=== PATIENT | female | born 1950 | race Caucasian/White ===

== ENCOUNTER → 2017-06-23 08:32 | Outpatient (CLI) | payer OTHER, SELFPAY ==
--- NOTE | 2017-06-23 08:34 | DI.RAD.S_ITS ---
PROCEDURE: XR ELBOW LT MIN 3V INDICATIONS: Left elbow pain TECHNIQUE: 3 views of the elbow were acquired. COMPARISON: None. FINDINGS: Bones: No fractures or dislocations. No suspicious bony lesions. Soft tissues: No elbow joint effusion. No suspicious soft tissue calcifications. IMPRESSION: Normal elbow Dictated by: Virgil Goss M.D. on 06/23/2017 at 9:15 Approved by: Virgil Goss M.D. on 06/23/2017 at 9:16
== END ==
PROVIDERS: Family Provider Physician Assistant; PCP Physician Assistant; Visit Provider Physician Assistant
DX: M25.522 Pain in left elbow (principal)
CPT/HCPCS: 73080

== ENCOUNTER → 2017-09-16 10:30 | Outpatient (CLI) | payer OTHER, SELFPAY ==
[2017-09-18 13:53] LABS: Fecal Immunochemical Test NOT DETECTED
== END ==
PROVIDERS: Family Provider Physician Assistant; PCP Physician Assistant; Visit Provider Physician Assistant
DX: Z12.11 Encounter for screening for malignant neoplasm of colon (principal)
CPT/HCPCS: 82274

== ENCOUNTER → 2017-11-11 08:12 | Outpatient (CLI) | payer OTHER, SELFPAY ==
[2017-11-11 10:43] LABS: Alanine Aminotransferase 30 IU/L (9-52); Albumin 4.4 g/dL (3.5-5.0); Albumin Globulin Ratio 1.8 (1.0-2.8); Alkaline Phosphatase 47 U/L (38-126); Aspartate Aminotransferase 27 IU/L (14-36); BUN Creatinine Ratio 18.8 (6-22); Bilirubin Total 0.4 mg/dL (0.2-1.3); Blood Urea Nitrogen 15 mg/dL (7-17); Carbon Dioxide 31 mmol/L (22-32); Chloride 104 mmol/L (98-107); Cholesterol 178 mg/dL (140-199); Estimated Glomerular Filt Rate > 60.0 mL/min (>60); Globulin 2.5 g/dL (1.7-4.1); Glucose 88 mg/dL (80-110); HDL Cholesterol 70 mg/dL (40-60); HEMOLYSIS < 15 (0-50); LDL Cholesterol Calculated 89 mg/dL (<100); Potassium 4.7 mmol/L (3.4-5.1); Sodium 145 mmol/L (137-145); Total Protein 6.9 g/dL (6.3-8.2); Triglycerides 93 mg/dL (35-150)
== END ==
PROVIDERS: Family Provider Physician Assistant; PCP Physician Assistant; Visit Provider Physician Assistant
DX: E78.5 Hyperlipidemia, unspecified (principal)
CPT/HCPCS: 36415; 80053; 80061

== ENCOUNTER → 2018-03-11 16:02 | Outpatient (CLI) | payer OTHER, SELFPAY ==
--- NOTE | 2018-03-11 | DI.MG.S_ITS ---
BILATERAL DIGITAL SCREENING MAMMOGRAM 3D/2D WITH CAD: 03/11/2018 CLINICAL: Routine screening. Comparison is made to exams dated: 03/10/2017 mammogram, 02/21/2016 mammogram, and 02/16/2015 mammogram - [facility]. The tissue of both breasts is heterogeneously dense. This may lower the sensitivity of mammography. Current study was also evaluated with a Computer Aided Detection (CAD) system. No significant masses, calcifications, or other findings are seen in either breast. There has been no significant interval change. IMPRESSION: NEGATIVE There is no mammographic evidence of malignancy. A 1 year screening mammogram is recommended. This exam was interpreted at Station ID: [id number]. NOTE: For mammograms, a report in lay terms will be sent to the patient. Approximately 15% of breast malignancies will not be visualized mammographically. In the management of a palpable breast mass, a negative mammogram must not discourage biopsy of a clinically suspicious lesion. Electronically Signed By: America mondragon/nacho:03/11/2018 16:37:50 letter sent: Normal Exam ACR BI-RADS Category 1: Negative 3341F
== END ==
PROVIDERS: Family Provider Physician Assistant; PCP Physician Assistant; Visit Provider Physician Assistant
DX: Z12.31 Encounter for screening mammogram for malignant neoplasm of breast (principal)
CPT/HCPCS: 77063; 77067

== ENCOUNTER → 2019-01-26 08:14 | Outpatient (CLI) | payer OTHER, SELFPAY ==
[2019-01-26 09:13] LABS: Alanine Aminotransferase 19 IU/L (<35); Albumin 4.8 g/dL (3.5-5.0); Albumin Globulin Ratio 1.7 (1.0-2.8); Alkaline Phosphatase 63 U/L (38-126); Aspartate Aminotransferase 31 IU/L (14-36); BUN Creatinine Ratio 18.9 (6-22); Bilirubin Total 0.6 mg/dL (0.2-1.3); Blood Urea Nitrogen 17 mg/dL (7-17); Calcium 10.3 mg/dL (8.4-10.2); Carbon Dioxide 28 mmol/L (22-32); Chloride 103 mmol/L (98-107); Cholesterol 180 mg/dL (140-199); Estimated Glomerular Filt Rate > 60.0 mL/min (>60); Globulin 2.8 g/dL (1.7-4.1); Glucose 98 mg/dL (80-110); HDL Cholesterol 47 mg/dL (40-60); HEMOLYSIS < 15 (0-50); LDL Cholesterol Calculated 100 mg/dL (<100); Potassium 4.3 mmol/L (3.4-5.1); Sodium 140 mmol/L (137-145); Total Protein 7.6 g/dL (6.3-8.2); Triglycerides 165 mg/dL (35-150)
== END ==
PROVIDERS: Family Provider Physician Assistant; PCP Physician Assistant; Visit Provider Physician Assistant
DX: E78.5 Hyperlipidemia, unspecified (principal)
CPT/HCPCS: 36415; 80053; 80061

== ENCOUNTER → 2019-02-09 15:35 | Outpatient (CLI) | payer OTHER, SELFPAY ==
[2019-02-12 13:11] LABS: Fecal Immunochemical Test NOT DETECTED (NOT DETECTED)
== END ==
PROVIDERS: Family Provider Physician Assistant; PCP Physician Assistant; Visit Provider Physician Assistant
DX: Z12.11 Encounter for screening for malignant neoplasm of colon (principal)
CPT/HCPCS: 82274

== ENCOUNTER → 2019-03-17 15:08 | Outpatient (CLI) | payer MEDICARE, SELFPAY ==
--- NOTE | 2019-03-17 15:10 | DI.MG.S_ITS ---
BILATERAL DIGITAL SCREENING MAMMOGRAM 3D/2D WITH CAD: 03/17/2019 CLINICAL: Routine screening. Comparison is made to exams dated: 03/11/2018 mammogram, 02/21/2016 mammogram, and 03/10/2017 mammogram - [facility]. The tissue of both breasts is heterogeneously dense. This may lower the sensitivity of mammography. Current study was also evaluated with a Computer Aided Detection (CAD) system. No significant masses, calcifications, or other findings are seen in either breast. There has been no significant interval change. IMPRESSION: NEGATIVE There is no mammographic evidence of malignancy. A 1 year screening mammogram is recommended. This exam was interpreted at Station ID: [id number]. NOTE: For mammograms, a report in lay terms will be sent to the patient. Approximately 15% of breast malignancies will not be visualized mammographically. In the management of a palpable breast mass, a negative mammogram must not discourage biopsy of a clinically suspicious lesion. Electronically Signed By: Bob tan/nacho:03/17/2019 17:39:27 letter sent: Normal Exam ACR BI-RADS Category 1: Negative 3341F
== END ==
PROVIDERS: Family Provider Physician Assistant; PCP Physician Assistant; Referring Provider Physician Assistant; Visit Provider Physician Assistant
DX: Z12.31 Encounter for screening mammogram for malignant neoplasm of breast (principal); M85.851 Other specified disorders of bone density and structure, right thigh; Z78.0 Asymptomatic menopausal state; Z82.62 Family history of osteoporosis
CPT/HCPCS: 77063; 77067; 77080

== ENCOUNTER → 2020-01-26 07:27 | Outpatient (CLI) | payer MEDICARE, SELFPAY ==
[2020-01-26 08:19] LABS: Alanine Aminotransferase 22 IU/L (<35); Albumin 4.3 g/dL (3.5-5.0); Albumin Globulin Ratio 1.5 (1.0-2.8); Alkaline Phosphatase 53 U/L (38-126); Aspartate Aminotransferase 32 IU/L (14-36); BUN Creatinine Ratio 19.8 (6-22); Bilirubin Total 0.4 mg/dL (0.2-1.3); Blood Urea Nitrogen 17 mg/dL (7-17); Calcium 9.7 mg/dL (8.4-10.2); Carbon Dioxide 27 mmol/L (22-32); Chloride 107 mmol/L (98-107); Cholesterol 181 mg/dL (140-199); Estimated Glomerular Filt Rate > 60.0 mL/min (>60); Globulin 2.9 g/dL (1.7-4.1); Glucose 103 mg/dL (80-110); HDL Cholesterol 64 mg/dL (40-60); HEMOLYSIS < 15 (0-50); LDL Cholesterol Calculated 96 mg/dL (<100); Potassium 4.2 mmol/L (3.4-5.1); Sodium 139 mmol/L (137-145); Total Protein 7.2 g/dL (6.3-8.2); Triglycerides 105 mg/dL (35-150)
== END ==
PROVIDERS: Family Provider Physician Assistant; PCP Registered Nurse Diabetes Educator; Referring Provider Registered Nurse Diabetes Educator; Visit Provider Registered Nurse Diabetes Educator
DX: E78.5 Hyperlipidemia, unspecified (principal)
CPT/HCPCS: 36415; 80053; 80061

== ENCOUNTER → 2020-02-15 14:34 | Outpatient (CLI) | payer MEDICARE, SELFPAY ==
[2020-02-16 08:40] LABS: Fecal Immunochemical Test Negative (Negative)
== END ==
PROVIDERS: Family Provider Physician Assistant; PCP Registered Nurse Diabetes Educator; Referring Provider Registered Nurse Diabetes Educator; Visit Provider Registered Nurse Diabetes Educator
DX: Z12.11 Encounter for screening for malignant neoplasm of colon (principal)
CPT/HCPCS: 82274

== ENCOUNTER → 2020-03-20 08:16 | Outpatient (CLI) | payer MEDICARE, SELFPAY ==
--- NOTE | 2020-03-20 08:17 | DI.MG.S_ITS ---
BILATERAL DIGITAL SCREENING MAMMOGRAM 3D/2D WITH CAD: 03/20/2020 CLINICAL: Routine screening. Comparison is made to exams dated: 03/17/2019 mammogram, 03/11/2018 mammogram, and 03/10/2017 mammogram - [facility]. The tissue of both breasts is heterogeneously dense. This may lower the sensitivity of mammography. Current study was also evaluated with a Computer Aided Detection (CAD) system. No significant masses, calcifications, or other findings are seen in either breast. There has been no significant interval change. IMPRESSION: NEGATIVE There is no mammographic evidence of malignancy. A 1 year screening mammogram is recommended. This exam was interpreted at Station ID: [id number]. NOTE: For mammograms, a report in lay terms will be sent to the patient. Approximately 15% of breast malignancies will not be visualized mammographically. In the management of a palpable breast mass, a negative mammogram must not discourage biopsy of a clinically suspicious lesion. Electronically Signed By: Wilfrid esteves/nacho:03/20/2020 08:56:55 letter sent: Normal Exam ACR BI-RADS Category 1: Negative 3341F
== END ==
PROVIDERS: Family Provider Physician Assistant; PCP Registered Nurse Diabetes Educator; Referring Provider Registered Nurse Diabetes Educator; Visit Provider Registered Nurse Diabetes Educator
DX: Z12.31 Encounter for screening mammogram for malignant neoplasm of breast (principal)
CPT/HCPCS: 77063; 77067

== ENCOUNTER → 2021-01-26 14:07 | Outpatient (CLI) | payer MEDICARE, SELFPAY ==
--- NOTE | 2021-01-26 14:08 | DI.RAD.S_ITS ---
PROCEDURE: XR WRIST LT MIN 3V INDICATIONS: fall 5 wks ago TECHNIQUE: 4 views of the wrist were acquired. COMPARISON: None. FINDINGS: Bones: No fractures or dislocations. No suspicious bony lesions. Scaphoid view: Scaphoid is intact. Soft tissues: No suspicious soft tissue calcifications. IMPRESSION: No fracture. No osseous lesion. If symptoms and/or clinical suspicion for pathology persists, further assessment with repeat radiographs (7-10 days) or advanced imaging (e.g. CT, MRI or bone scan) should be considered. Dictated by: Jeane Gonzales MD, PhD on 01/26/2021 at 14:23 Approved by: Jeane Gonzales MD, PhD on 01/26/2021 at 14:23
== END ==
PROVIDERS: Family Provider Physician Assistant; PCP Registered Nurse Diabetes Educator; Referring Provider Registered Nurse Diabetes Educator; Visit Provider Registered Nurse Diabetes Educator
DX: M25.532 Pain in left wrist (principal)
CPT/HCPCS: 73110

== ENCOUNTER → 2021-03-22 10:47 | Outpatient (CLI) | payer MEDICARE, SELFPAY ==
--- NOTE | 2021-03-22 | DI.MG.S_ITS ---
BILATERAL DIGITAL SCREENING MAMMOGRAM 3D/2D WITH CAD: 03/22/2021 CLINICAL: Routine screening. Comparison is made to exams dated: 03/20/2020 mammogram, 03/17/2019 mammogram, and 03/11/2018 mammogram - [facility]. The tissue of both breasts is heterogeneously dense. This may lower the sensitivity of mammography. Current study was also evaluated with a Computer Aided Detection (CAD) system. No significant masses, calcifications, or other findings are seen in either breast. There has been no significant interval change. IMPRESSION: NEGATIVE There is no mammographic evidence of malignancy. A 1 year screening mammogram is recommended. This exam was interpreted at Station ID: [id number]. NOTE: For mammograms, a report in lay terms will be sent to the patient. Approximately 15% of breast malignancies will not be visualized mammographically. In the management of a palpable breast mass, a negative mammogram must not discourage biopsy of a clinically suspicious lesion. Electronically Signed By: Garth Savage M.D., jr/nacho:03/22/2021 11:33:25 letter sent: Normal Exam ACR BI-RADS Category 1: Negative [id number]
== END ==
PROVIDERS: Family Provider Physician Assistant; PCP Registered Nurse Diabetes Educator; Referring Provider Registered Nurse Diabetes Educator; Visit Provider Registered Nurse Diabetes Educator
DX: Z12.31 Encounter for screening mammogram for malignant neoplasm of breast (principal)
CPT/HCPCS: 77063; 77067

== ENCOUNTER → 2021-05-09 17:10 | Outpatient (CLI) | payer MEDICARE, SELFPAY | PROVIDERS: Family Provider Physician Assistant; PCP Registered Nurse Diabetes Educator; Visit Provider Registered Nurse Diabetes Educator | DX: L02.511 Cutaneous abscess of right hand (principal) | CPT/HCPCS: 87070; 87075; 87205 ==

== ENCOUNTER → 2021-05-22 16:06 | Outpatient (CLI) | payer MEDICARE, SELFPAY ==
--- NOTE | 2021-05-22 16:08 | DI.MRI.S_ITS ---
PROCEDURE: MR WRIST LT WO CON INDICATIONS: eval L wrist pain TECHNIQUE: Noncontrast coronal proton density fast spin echo and T2 fast spin echo with fat saturation; coronal 3-D gradient echo, axial T1 spin echo and T2 fast spin echo with fat saturation, sagittal T1 spin echo through the wrist. COMPARISON: [facility], CR, XR WRIST LT MIN 3V, 01/26/2021, 14:02. FINDINGS: Image quality: Excellent. Bones and cartilage: The carpal bones are normally aligned. No bone marrow contusions or fractures. No evidence for avascular necrosis. Full-thickness cartilage loss is seen at the 1st carpometacarpal joint with mild subchondral cystic changes and formation of small marginal osteophytes. Cartilage loss is also noted at the triscaphe joint. No acute osseous erosion or osteitis is seen. Carpal ligaments: The scapholunate and lunotriquetral ligaments appear intact. In the absence of intra-articular contrast, the extrinsic carpal ligaments are not well identified. On sagittal images, the pisohamate ligament appears intact. Triangular fibrocartilage complex: Focal likely degenerative perforation of the triangle fibrocartilage disc is seen near the radial attachment. Small amount of fluid is seen in the distal radioulnar joint. The dorsal and volar radioulnar ligaments remain intact. Tendons and soft tissues: The carpal tunnel structures appear normal, including the median nerve. The ulnar nerve appears normal within Guyon's canal. Moderate extensor carpi ulnaris tendinosis and trace tenosynovitis. There is tendinosis of the extensor pollicis longus tendon. The 1st extensor compartment tendons also demonstrate mild tendinosis. The remaining extensor tendon compartments demonstrate normal morphology, without pathologic tendon sheath fluid. No soft tissue ganglion cysts. IMPRESSION: 1. Moderate 1st carpometacarpal joint and mild triscaphe joint osteoarthrosis. 2. Moderate tendinosis and trace tenosynovitis of the extensor carpi ulnaris tendon. 3. Mild tendinosis of the 1st and 3rd extensor compartment tendons. 4. 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 Small distal radioulnar joint effusion. Dictated by: Franck Callejas M.D. on 05/22/2021 at 20:37 Approved by: Franck Callejas M.D. on 05/22/2021 at 20:43
== END ==
PROVIDERS: Family Provider Physician Assistant; PCP Registered Nurse Diabetes Educator; Referring Provider Registered Nurse Diabetes Educator; Visit Provider Registered Nurse Diabetes Educator
DX: S63.502A Unspecified sprain of left wrist, initial encounter (principal); M18.12 Unilateral primary osteoarthritis of first carpometacarpal joint, left hand; M19.032 Primary osteoarthritis, left wrist; M25.432 Effusion, left wrist; X58.XXXA Exposure to other specified factors, initial encounter
CPT/HCPCS: 73221

== ENCOUNTER → 2021-06-08 09:52 | Outpatient (CLI) | payer MEDICARE, SELFPAY ==
[2021-06-08 10:48] LABS: Alanine Aminotransferase 22 IU/L (<35); Albumin 4.3 g/dL (3.5-5.0); Albumin Globulin Ratio 1.8 (1.0-2.8); Alkaline Phosphatase 55 U/L (38-126); Aspartate Aminotransferase 29 IU/L (14-36); BUN Creatinine Ratio 17.6 (6-22); Bilirubin Total 0.3 mg/dL (0.2-1.3); Blood Urea Nitrogen 15 mg/dL (7-17); Calcium 9.5 mg/dL (8.4-10.2); Carbon Dioxide 28 mmol/L (22-32); Chloride 107 mmol/L (98-107); Cholesterol 184 mg/dL (140-199); Estimated Glomerular Filt Rate > 60 mL/min (>60); Globulin 2.4 g/dL (1.7-4.1); Glucose 111 mg/dL (80-110); HDL Cholesterol 68 mg/dL (40-60); HEMOLYSIS < 15 (0-50); LDL Cholesterol Calculated 97 mg/dL (<100); Potassium 4.4 mmol/L (3.4-5.1); Sodium 142 mmol/L (137-145); Total Protein 6.7 g/dL (6.3-8.2); Triglycerides 94 mg/dL (35-150)
== END ==
PROVIDERS: Family Provider Physician Assistant; PCP Registered Nurse Diabetes Educator; Referring Provider Registered Nurse Diabetes Educator; Visit Provider Registered Nurse Diabetes Educator
DX: E78.5 Hyperlipidemia, unspecified (principal)
CPT/HCPCS: 36415; 80053; 80061

== ENCOUNTER → 2021-06-14 15:13 | Outpatient (CLI) | payer MEDICARE, SELFPAY ==
[2021-06-19 07:36] LABS: Fecal Immunochemical Test Negative (Negative)
== END ==
PROVIDERS: Family Provider Physician Assistant; PCP Registered Nurse Diabetes Educator; Referring Provider Registered Nurse Diabetes Educator; Visit Provider Registered Nurse Diabetes Educator
DX: Z00.00 Encounter for general adult medical examination without abnormal findings (principal)
CPT/HCPCS: 82274

== ENCOUNTER 2021-07-12 13:45 | Outpatient (RCR) | payer MEDICARE, SELFPAY ==
--- NOTE | 2021-03-08 16:00 | PT.OIE ---
Current Diagnoses Pain in left wrist (03/08/21) Muscle weakness (generalized) (03/08/21) Past Medical History (Last Reviewed 01/29/21 @ 09:08 by NACHO Griggs) Fibromyalgia Hyperlipidemia Impaired fasting blood sugar Sciatica Skin lesion Past Surgical History (Last Reviewed 01/29/21 @ 09:08 by NACHO Griggs) Status post arthroscopy Visit Care Team Role Provider Type Bette Selby PA-C Family Provider Advanced Mica Inspector Specialty: Medical Address: [address], [address] Email: [email or web address] NACHO Griggs Attending Provider Advanced Mica Inspector Primary Care Provider Referring Provider Specialty: Medical Address: [address] [place] [address], [id number] Email: [email or web address] Physical Therapy Initial Evaluation PT-OP-A Visit Information Start: 03/06/21 19:06 Freq: Status: Active Protocol: Document 03/08/21 09:51 LRN (Rec: 03/08/21 10:41 LRN [id number]) Out-Patient Physical Therapy Visit Information Visit Information Visit Type Initial Evaluation Visit Start Time 09:51 Visit Stop Time 10:39 Total Visit Minutes 48 Visit Number 1 Evaluation Information Evaluation Date 03/08/21 Precautions Precautions Osteopenia, Fibromyalgia PT-OP-B Current Condition Start: 03/06/21 19:06 Freq: Status: Active Protocol: Document 03/08/21 09:51 LRN (Rec: 03/08/21 10:41 LRN [id number]) Current Condition History of Current Condition Onset Date 2 months ago Current Complaints L dorals wrist pain. History of Current Condition Pt reports she fell in mid Nov stepping wrong on a rock, causing her L ankle to IV. She sprained the L ankle and thought the L wrist as well. The L ankle has gotten better, but the wrist has not. States x-rays show no fracture , but if not better will do an MRI to confirm no small bone fractures. Norris Van gave her a L wrist splint. She has been wearing at least a month , wearing it during the day. Pt is R handed. Prior Treatments and Tests L wrist brace. Future Testing and Treatments Planned Possible MRI if condition not improved. Treatment Goals Patient/Caregiver Goals Pt goal to: - eliminate the pain. - pain no greater than 1/10 with dish washing - pain no greater than 1/10 with putting pants & socks on, and tying shoes. - pain no greater than 1/10 with bathing. Prior Functional Status Baseline Function- ADL's Independent Baseline Function- Mobility Independent Baseline Function- Recreation/Hobbies Exercising at local gym 6x/ week for UE/LE strenghtening & aerobic workouts. Current Functional Impairments (Reported) Functional Limitations- ADL's Difficulty with ADLs due to L wrist pain. (R handed) Functional Limitations- Recreation/ Exercising at local gym 6x/ Hobbies week with only LE strengthenig & aerobic workouts. Personal Factors Other Personal Factors That May Effect Lost partner 10 months ago. Therapy/Recovery PT-OP-C Subjective Start: 03/06/21 19:06 Freq: Status: Active Protocol: Document 03/08/21 09:51 LRN (Rec: 03/08/21 10:41 LRN [id number]) Patient Questionnaires Quick Dash- Upper Extremity Quick Dash UE Score 43.18 Quick Dash UE Impairment 40 to 59% Impaired (Score 40- 59) OP-PT Pain Assessment Pain Assessment Grid Paper Pain Assessment Grid Completed Yes Location L wrist Intensity 4 Scale Used Numeric (0 - 10) Description Aching,Sharp Description- Other Sharp if moves the wrong way Frequency Constant Pain Duration Will go away occasionally for 10-15'. PT-OP-J Posture/Palpation/Skin Start: 03/06/21 19:06 Freq: Status: Active Protocol: Document 03/08/21 09:51 LRN (Rec: 03/08/21 10:41 LRN [id number]) Posture Evaluation Position Sitting Head/C-Spine Posture Forward Head Shoulder Posture (R) Elevated Arm Posture (L) Internally Rotated,(R) Internally Rotated Palpation Assessment Location L wrist Palpation Location Volar wrist across small bones and CMC of thumb Palpation Findings Tenderness PT-OP-K Range of Motion Start: 03/06/21 19:06 Freq: Status: Active Protocol: Document 03/08/21 09:51 LRN (Rec: 03/08/21 10:41 LRN [id number]) Elbow/Forearm Range of Motion Elbow/Forearm Right Active Elbow/Forearm ROM WFL Yes ROM Testing Position Sitting Left Active Elbow/Forearm ROM WFL Yes ROM Testing Position Sitting Wrist Goniometric Range of Motion Wrist Right Wrist ROM WFL Yes Flexion Active (degrees) 70 Extension Active (degrees) 68 Ulnar Deviation Active (degrees) 47 Radial Deviation Active (degrees) 28 Left Wrist ROM WFL No Flexion Active (degrees) 74 Extension Active (degrees) 73 Ulnar Deviation Active (degrees) 38 Radial Deviation Active (degrees) 30 ROM Limitations Wrist Limitations of Range of Motion Pain Comments Pain with L wrist flex & UD ( hand in pronation) Thumb Goniometric Range of Motion Thumb Right Thumb ROM WFL Yes MCP Flexion Active (degrees) 52 MCP Extension Active (0 degrees) 0 H IP Flexion Active (degrees) 70 IP Extension Active (degrees) 0 CMC Flexion Active (degrees) 6 CMC Extension Active (degrees) 50 Left Thumb ROM WFL No MCP Flexion Active (degrees) 58 MCP Extension Active (0 degrees) 0 H IP Flexion Active (degrees) 78 IP Extension Active (degrees) 0 CMC Flexion Active (degrees) 6 CMC Extension Active (degrees) 32 Comments AB 77 deg's PT-OP-L Special Tests Start: 03/06/21 19:06 Freq: Status: Active Protocol: Document 03/08/21 09:51 LRN (Rec: 03/08/21 11:55 [facility] [id number]) Special Tests Elbow Special Tests Jose G's Test Results Tightness/pain noted bilaterally. Wrist/Hand Special Tests Scaphoid Thrust Test Test Results + L wrist Comments Pain with light dorsal force applied on volar side indicates possible scapholunate instability. Load & Grind Test Test Results + L thumb Comments Indicates possible arthritis at CMC jt PT-OP-M Strength Start: 03/06/21 19:06 Freq: Status: Active Protocol: Document 03/08/21 09:51 LRN (Rec: 03/08/21 10:41 [facility] [id number]) Elbow/Forearm Strength Elbow and Forearm Manual Muscle Testing Right Flexion (C6) 5 Normal Extension (C7) 5 Normal Pronation 5 Normal Supination 5 Normal Left Flexion (C6) 5 Normal Extension (C7) 5 Normal Pronation 5 Normal Supination 5 Normal Wrist Strength Wrist Manual Muscle Testing Right Flexion (C7) 5 Normal Extension (C6) 5 Normal Ulnar Deviation 4+ Good+ Left Flexion (C7) 4 Good Extension (C6) 4 Good Ulnar Deviation 5 Normal Radial Deviation 5 Normal Comments Pain with MMT PT-OP-Q Treatments Start: 03/06/21 19:06 Freq: Status: Active Protocol: Document 03/08/21 09:51 LRN (Rec: 03/08/21 10:41 LRN [id number]) Self-Care/Home Management Treatment Education Other Education Discussed results of evaluation, goals, and plan of care (POC). Pt agreeable to goals and POC. Educated pt in edema management with RICE and Hot/ Cold technique. Activities Self-Care/Home Management Activities Issued HEP of edema management with handouts issued for self care RICE & Hot/Cold treatment. PT-OP-T Assessment and Plan Start: 03/06/21 19:06 Freq: Status: Active Protocol: Document 03/08/21 09:51 LRN (Rec: 03/08/21 10:41 LRN [id number]) Physical Therapy Assessment Rehab Potential Rehabilitation Potential Good Evaluation Complexity Number of Personal Factors/Comorbidities 1-2 Number of Body Systems Impaired 4 or More Clinical Presentation at Evaluation Evolving Impairments Impairments Activity Tolerance,Edema,Pain, ROM,Soft Tissue Mobility, Strength Goals Four Impairment Decreased function per UE QUICKdash score ........ Permastone Mechanic Goal (LTG) Pain no greater than 1/10 with dish washing. LTG Duration 05/21/21 Three Impairment Decreased strength Impairment L wrist Flex/Ext 4/5 (R flex/ Ext is 5/5) Short Term Goal (STG) Pt educated in wrist strengthening ex's. STG Duration 04/12/21 Penitentiary Goal (LTG) Pain no greater than 1/10 with putting pants & socks on, and tying shoes. LTG Duration 05/21/21 Two Impairment Decreased mobility Impairment L UD 38 deg's (R is 47 deg's), R Flex & ext AROM is painful Short Term Goal (STG) Pt able to get out of bed by pushing with arm with pain no greater than 1/10. STG Duration 04/12/21 Permastone Mechanic Goal (LTG) Pain no greater than 1/10 with bathing. LTG Duration 05/21/21 One Impairment Lacks appropriate self care HEP. Short Term Goal (STG) Pt issued self care HEP of general UE strengthening ex's. STG Duration 04/12/21 Penitentiary Goal (LTG) Return to UE exercise at local gym with pain no greater than 1/10. LTG Duration 05/21/21 Assessment Summary Assessment Pt presents to therapy with soft tissue dysfunction and possible scapholunate instability. She is limited in L wrist mobility and strength due to pain. If the pt is not able to return to prior function, further testing would be appropriate. The pt will benefit from skilled physical therapy to achieve the above stated goals . Physical Therapy Plan Frequency and Duration Frequency of Treatment 2x/Week Plan of Care Start Date 03/08/21 Plan of Care End Date 05/21/21 Therapeutic Interventions Therapeutic Interventions Aquatic Therapy Next Visit Focus/Plan Next Note Type Treatment Note Next Visit Plan Assess interior design consultant/pinch strength, if tolerated joint mobility of carpal bones. Assess for fx w/tuning fork. US thenar eminence, carpal tunnel & start strengthening for stabilization, end with cold pack if needed.
--- NOTE | 2021-03-08 16:00 | PT.OPPOC ---
Physical, Occupational & Speech Therapy At [facility] Current Diagnoses Pain in left wrist (03/08/21) Muscle weakness (generalized) (03/08/21) Visit Care Team Role Provider Type Bette Selby PA-C Family Provider Advanced Concrete Pipe Making Machine Operator Specialty: Medical Address: [facility], [address] [place], [address] Email: [email or web address] NACHO Griggs Attending Provider Advanced Concrete Pipe Making Machine Operator Primary Care Provider Referring Provider Specialty: Medical Address: [address] [place] [address], [id number] Email: [email or web address] Plan Of Care PT-OP-T Assessment and Plan Start: 03/06/21 19:06 Freq: Status: Active Protocol: Document 03/08/21 09:51 LRN (Rec: 03/08/21 10:41 LRN [id number]) Physical Therapy Assessment Rehab Potential Rehabilitation Potential Good Evaluation Complexity Number of Personal Factors/Comorbidities 1-2 Number of Body Systems Impaired 4 or More Clinical Presentation at Evaluation Evolving Impairments Impairments Activity Tolerance,Edema,Pain, ROM,Soft Tissue Mobility, Strength Goals Four Impairment Decreased function per UE QUICKdash score ........ Leasing Property Manager Goal (LTG) Pain no greater than 1/10 with dish washing. LTG Duration 05/21/21 Three Impairment Decreased strength Impairment L wrist Flex/Ext 4/5 (R flex/ Ext is 5/5) Short Term Goal (STG) Pt educated in wrist strengthening ex's. STG Duration 04/12/21 Mcc Goal (LTG) Pain no greater than 1/10 with putting pants & socks on, and tying shoes. LTG Duration 05/21/21 Two Impairment Decreased mobility Impairment L UD 38 deg's (R is 47 deg's), R Flex & ext AROM is painful Short Term Goal (STG) Pt able to get out of bed by pushing with arm with pain no greater than 1/10. STG Duration 04/12/21 Mcc Goal (LTG) Pain no greater than 1/10 with bathing. LTG Duration 05/21/21 One Impairment Lacks appropriate self care HEP. Short Term Goal (STG) Pt issued self care HEP of general UE strengthening ex's. STG Duration 04/12/21 Mcc Goal (LTG) Return to UE exercise at local gym with pain no greater than 1/10. LTG Duration 05/21/21 Assessment Summary Assessment Pt presents to therapy with soft tissue dysfunction and possible scapholunate instability. She is limited in L wrist mobility and strength due to pain. If the pt is not able to return to prior function, further testing would be appropriate. The pt will benefit from skilled physical therapy to achieve the above stated goals . Physical Therapy Plan Frequency and Duration Frequency of Treatment 2x/Week Plan of Care Start Date 03/08/21 Plan of Care End Date 05/21/21 Therapeutic Interventions Therapeutic Interventions Aquatic Therapy Next Visit Focus/Plan Next Note Type Treatment Note Next Visit Plan Assess collections technician/pinch strength, if tolerated joint mobility of carpal bones. Assess for fx w/tuning fork. US thenar eminence, carpal tunnel & start strengthening for stabilization, end with cold pack if needed. Plan of Care Dates Plan of Care Start Date 03/08/21 Plan of Care End Date 05/21/21 Electronically Signed by: America Pendleton, PT 03/09/21 0944 Please Sign and Return: I have reviewed this Plan of Care and certify that the skilled therapy services above are required to meet the patient?s needs. Physician Signature Date Printed Name and Credentials Clinical Instructor Signature Printed Name and Credentials
--- NOTE | 2021-03-08 16:35 | PT.OIE ---
Current Diagnoses Pain in left wrist (03/08/21) Muscle weakness (generalized) (03/08/21) Past Medical History (Last Reviewed 01/29/21 @ 09:08 by NACHO Griggs) Fibromyalgia Hyperlipidemia Impaired fasting blood sugar Sciatica Skin lesion Past Surgical History (Last Reviewed 01/29/21 @ 09:08 by NACHO Griggs) Status post arthroscopy Visit Care Team Role Provider Type Bette Selby PA-C Family Provider Advanced Manager Storage Specialty: Medical Address: [address], [address] Email: [email or web address] NACHO Griggs Attending Provider Advanced Manager Storage Primary Care Provider Referring Provider Specialty: Medical Address: [address] [place] [address], [id number] Email: [email or web address] Physical Therapy Initial Evaluation PT-OP-A Visit Information Start: 03/06/21 19:06 Freq: Status: Active Protocol: Document 03/08/21 09:51 LRN (Rec: 03/08/21 10:41 LRN [id number]) Out-Patient Physical Therapy Visit Information Visit Information Visit Type Initial Evaluation Visit Start Time 09:51 Visit Stop Time 10:39 Total Visit Minutes 48 Visit Number 1 Evaluation Information Evaluation Date 03/08/21 Precautions Precautions Osteopenia, Fibromyalgia PT-OP-B Current Condition Start: 03/06/21 19:06 Freq: Status: Active Protocol: Document 03/08/21 09:51 LRN (Rec: 03/08/21 10:41 LRN [id number]) Current Condition History of Current Condition Onset Date 2 months ago Current Complaints L dorals wrist pain. History of Current Condition Pt reports she fell in mid Nov stepping wrong on a rock, causing her L ankle to IV. She sprained the L ankle and thought the L wrist as well. The L ankle has gotten better, but the wrist has not. States x-rays show no fracture , but if not better will do an MRI to confirm no small bone fractures. Norris Van gave her a L wrist splint. She has been wearing at least a month , wearing it during the day. Pt is R handed. Prior Treatments and Tests L wrist brace. Future Testing and Treatments Planned Possible MRI if condition not improved. Treatment Goals Patient/Caregiver Goals Pt goal to: - eliminate the pain. - pain no greater than 1/10 with dish washing - pain no greater than 1/10 with putting pants & socks on, and tying shoes. - pain no greater than 1/10 with bathing. Prior Functional Status Baseline Function- ADL's Independent Baseline Function- Mobility Independent Baseline Function- Recreation/Hobbies Exercising at local gym 6x/ week for UE/LE strenghtening & aerobic workouts. Current Functional Impairments (Reported) Functional Limitations- ADL's Difficulty with ADLs due to L wrist pain. (R handed) Functional Limitations- Recreation/ Exercising at local gym 6x/ Hobbies week with only LE strengthenig & aerobic workouts. Personal Factors Other Personal Factors That May Effect Lost partner 10 months ago. Therapy/Recovery PT-OP-C Subjective Start: 03/06/21 19:06 Freq: Status: Active Protocol: Document 03/08/21 09:51 LRN (Rec: 03/08/21 10:41 LRN [id number]) Patient Questionnaires Quick Dash- Upper Extremity Quick Dash UE Score 43.18 Quick Dash UE Impairment 40 to 59% Impaired (Score 40- 59) OP-PT Pain Assessment Pain Assessment Grid Paper Pain Assessment Grid Completed Yes Location L wrist Intensity 4 Scale Used Numeric (0 - 10) Description Aching,Sharp Description- Other Sharp if moves the wrong way Frequency Constant Pain Duration Will go away occasionally for 10-15'. PT-OP-J Posture/Palpation/Skin Start: 03/06/21 19:06 Freq: Status: Active Protocol: Document 03/08/21 09:51 LRN (Rec: 03/08/21 10:41 LRN [id number]) Posture Evaluation Position Sitting Head/C-Spine Posture Forward Head Shoulder Posture (R) Elevated Arm Posture (L) Internally Rotated,(R) Internally Rotated Palpation Assessment Location L wrist Palpation Location Volar wrist across small bones and CMC of thumb Palpation Findings Tenderness PT-OP-K Range of Motion Start: 03/06/21 19:06 Freq: Status: Active Protocol: Document 03/08/21 09:51 LRN (Rec: 03/08/21 10:41 LRN [id number]) Elbow/Forearm Range of Motion Elbow/Forearm Right Active Elbow/Forearm ROM WFL Yes ROM Testing Position Sitting Left Active Elbow/Forearm ROM WFL Yes ROM Testing Position Sitting Wrist Goniometric Range of Motion Wrist Right Wrist ROM WFL Yes Flexion Active (degrees) 70 Extension Active (degrees) 68 Ulnar Deviation Active (degrees) 47 Radial Deviation Active (degrees) 28 Left Wrist ROM WFL No Flexion Active (degrees) 74 Extension Active (degrees) 73 Ulnar Deviation Active (degrees) 38 Radial Deviation Active (degrees) 30 ROM Limitations Wrist Limitations of Range of Motion Pain Comments Pain with L wrist flex & UD ( hand in pronation) Thumb Goniometric Range of Motion Thumb Right Thumb ROM WFL Yes MCP Flexion Active (degrees) 52 MCP Extension Active (0 degrees) 0 H IP Flexion Active (degrees) 70 IP Extension Active (degrees) 0 CMC Flexion Active (degrees) 6 CMC Extension Active (degrees) 50 Left Thumb ROM WFL No MCP Flexion Active (degrees) 58 MCP Extension Active (0 degrees) 0 H IP Flexion Active (degrees) 78 IP Extension Active (degrees) 0 CMC Flexion Active (degrees) 6 CMC Extension Active (degrees) 32 Comments AB 77 deg's PT-OP-L Special Tests Start: 03/06/21 19:06 Freq: Status: Active Protocol: Document 03/08/21 09:51 LRN (Rec: 03/08/21 11:55 [facility] [id number]) Special Tests Elbow Special Tests Jose G's Test Results Tightness/pain noted bilaterally. Wrist/Hand Special Tests Scaphoid Thrust Test Test Results + L wrist Comments Pain with light dorsal force applied on volar side indicates possible scapholunate instability. Load & Grind Test Test Results + L thumb Comments Indicates possible arthritis at CMC jt PT-OP-M Strength Start: 03/06/21 19:06 Freq: Status: Active Protocol: Document 03/08/21 09:51 LRN (Rec: 03/08/21 10:41 [facility] [id number]) Elbow/Forearm Strength Elbow and Forearm Manual Muscle Testing Right Flexion (C6) 5 Normal Extension (C7) 5 Normal Pronation 5 Normal Supination 5 Normal Left Flexion (C6) 5 Normal Extension (C7) 5 Normal Pronation 5 Normal Supination 5 Normal Wrist Strength Wrist Manual Muscle Testing Right Flexion (C7) 5 Normal Extension (C6) 5 Normal Ulnar Deviation 4+ Good+ Left Flexion (C7) 4 Good Extension (C6) 4 Good Ulnar Deviation 5 Normal Radial Deviation 5 Normal Comments Pain with MMT PT-OP-Q Treatments Start: 03/06/21 19:06 Freq: Status: Active Protocol: Document 03/08/21 09:51 LRN (Rec: 03/08/21 10:41 LRN [id number]) Self-Care/Home Management Treatment Education Other Education Discussed results of evaluation, goals, and plan of care (POC). Pt agreeable to goals and POC. Educated pt in edema management with RICE and Hot/ Cold technique. Activities Self-Care/Home Management Activities Issued HEP of edema management with handouts issued for self care RICE & Hot/Cold treatment. PT-OP-T Assessment and Plan Start: 03/06/21 19:06 Freq: Status: Active Protocol: Document 03/08/21 09:51 LRN (Rec: 03/08/21 10:41 LRN [id number]) Physical Therapy Assessment Rehab Potential Rehabilitation Potential Good Evaluation Complexity Number of Personal Factors/Comorbidities 1-2 Number of Body Systems Impaired 4 or More Clinical Presentation at Evaluation Evolving Impairments Impairments Activity Tolerance,Edema,Pain, ROM,Soft Tissue Mobility, Strength Goals Four Impairment Decreased function per UE QUICKdash score 43 Impairment 40 to 59% Impaired (Score 40- 59) Short Term Goal (STG) Pain no greater than 2/10 with dish washing. STG Duration 04/12/21 Formal Wear Rental Clerk Goal (LTG) Improve UE function per QUICKdash score of no more than 39 (10-39 = 29-39% impaired). LTG Duration 05/21/21 Three Impairment Decreased strength Impairment L wrist Flex/Ext 4/5 (R flex/ Ext is 5/5) Short Term Goal (STG) Pt educated in wrist strengthening ex's. STG Duration 04/12/21 Jail Goal (LTG) Pain no greater than 1/10 with putting pants & socks on, and tying shoes. LTG Duration 05/21/21 Two Impairment Decreased mobility Impairment L UD 38 deg's (R is 47 deg's), R Flex & ext AROM is painful Short Term Goal (STG) Pt able to get out of bed by pushing with arm with pain no greater than 1/10. STG Duration 04/12/21 Formal Wear Rental Clerk Goal (LTG) Pain no greater than 1/10 with bathing. LTG Duration 05/21/21 One Impairment Lacks appropriate self care HEP. Short Term Goal (STG) Pt issued self care HEP of general UE strengthening ex's. STG Duration 04/12/21 Formal Wear Rental Clerk Goal (LTG) Return to UE exercise at local gym with pain no greater than 1/10. LTG Duration 05/21/21 Assessment Summary Assessment Pt presents to therapy with soft tissue dysfunction and possible scapholunate instability. She is limited in L wrist mobility and strength due to pain. If the pt is not able to return to prior function, further testing would be appropriate. The pt will benefit from skilled physical therapy to achieve the above stated goals . Physical Therapy Plan Frequency and Duration Frequency of Treatment 2x/Week Plan of Care Start Date 03/08/21 Plan of Care End Date 05/21/21 Therapeutic Interventions Therapeutic Interventions Home Exercise Program,Joint Mobilizations,Manual Therapy, Patient/Caregiver Education, Self-Care/Home Management,Soft Tissue Mobilization,Taping, Therapeutic Exercises Modalities Cold Pack/Ice Massage,Hot Packs,Ultrasound Next Visit Focus/Plan Next Note Type Treatment Note Next Visit Plan Assess training mgr/pinch strength, if tolerated joint mobility of carpal bones. Assess for fx w/tuning fork. US thenar eminence, carpal tunnel & start strengthening for stabilization, end with cold pack if needed.
--- NOTE | 2021-03-08 16:36 | PT.OPPOC ---
Physical, Occupational & Speech Therapy At [facility] Current Diagnoses Pain in left wrist (03/08/21) Muscle weakness (generalized) (03/08/21) Visit Care Team Role Provider Type Bette Selby PA-C Family Provider Advanced Heavy Media Operator Specialty: Medical Address: [facility], [address] [place] [address], [id number] Email: [email or web address] NACHO Griggs Attending Provider Advanced Heavy Media Operator Primary Care Provider Referring Provider Specialty: Medical Address: [address] [place] [address], [address] Email: [email or web address] Plan Of Care PT-OP-T Assessment and Plan Start: 03/06/21 19:06 Freq: Status: Active Protocol: Document 03/08/21 09:51 LRN (Rec: 03/08/21 10:41 LRN [id number]) Physical Therapy Assessment Rehab Potential Rehabilitation Potential Good Evaluation Complexity Number of Personal Factors/Comorbidities 1-2 Number of Body Systems Impaired 4 or More Clinical Presentation at Evaluation Evolving Impairments Impairments Activity Tolerance,Edema,Pain, ROM,Soft Tissue Mobility, Strength Goals Four Impairment Decreased function per UE QUICKdash score 43 Impairment 40 to 59% Impaired (Score 40- 59) Short Term Goal (STG) Pain no greater than 2/10 with dish washing. STG Duration 04/12/21 Shelter Goal (LTG) Improve UE function per QUICKdash score of no more than 39 (10-39 = 29-39% impaired). LTG Duration 05/21/21 Three Impairment Decreased strength Impairment L wrist Flex/Ext 4/5 (R flex/ Ext is 5/5) Short Term Goal (STG) Pt educated in wrist strengthening ex's. STG Duration 04/12/21 Shelter Goal (LTG) Pain no greater than 1/10 with putting pants & socks on, and tying shoes. LTG Duration 05/21/21 Two Impairment Decreased mobility Impairment L UD 38 deg's (R is 47 deg's), R Flex & ext AROM is painful Short Term Goal (STG) Pt able to get out of bed by pushing with arm with pain no greater than 1/10. STG Duration 04/12/21 Shelter Goal (LTG) Pain no greater than 1/10 with bathing. LTG Duration 05/21/21 One Impairment Lacks appropriate self care HEP. Short Term Goal (STG) Pt issued self care HEP of general UE strengthening ex's. STG Duration 04/12/21 Shelter Goal (LTG) Return to UE exercise at local gym with pain no greater than 1/10. LTG Duration 05/21/21 Assessment Summary Assessment Pt presents to therapy with soft tissue dysfunction and possible scapholunate instability. She is limited in L wrist mobility and strength due to pain. If the pt is not able to return to prior function, further testing would be appropriate. The pt will benefit from skilled physical therapy to achieve the above stated goals . Physical Therapy Plan Frequency and Duration Frequency of Treatment 2x/Week Plan of Care Start Date 03/08/21 Plan of Care End Date 05/21/21 Therapeutic Interventions Therapeutic Interventions Home Exercise Program,Joint Mobilizations,Manual Therapy, Patient/Caregiver Education, Self-Care/Home Management,Soft Tissue Mobilization,Taping, Therapeutic Exercises Modalities Cold Pack/Ice Massage,Hot Packs,Ultrasound Next Visit Focus/Plan Next Note Type Treatment Note Next Visit Plan Assess rehabilitation counselor/pinch strength, if tolerated joint mobility of carpal bones. Assess for fx w/tuning fork. US thenar eminence, carpal tunnel & start strengthening for stabilization, end with cold pack if needed. Plan of Care Dates Plan of Care Start Date 03/08/21 Plan of Care End Date 05/21/21 Electronically Signed by: America Pendleton, PT 03/09/21 [id number] Please Sign and Return: I have reviewed this Plan of Care and certify that the skilled therapy services above are required to meet the patient?s needs. Physician Signature Date Printed Name and Credentials Clinical Instructor Signature Printed Name and Credentials
--- NOTE | 2021-03-13 10:23 | PT.OTN ---
Current Diagnoses Pain in left wrist (03/13/21) Muscle weakness (generalized) (03/13/21) Physical Therapy Treatment Note PT-OP-A Visit Information Start: 03/06/21 19:06 Freq: Status: Active Protocol: Document 03/13/21 09:08 LRN (Rec: 03/13/21 10:22 LRN [id number]) Out-Patient Physical Therapy Visit Information Visit Information Visit Type Treatment Note Visit Start Time 09:08 Visit Stop Time 09:53 Total Visit Minutes 45 Visit Number 2 Evaluation Information Evaluation Date 03/08/21 Precautions Precautions Osteopenia, Fibromyalgia PT-OP-B Current Condition Start: 03/06/21 19:06 Freq: Status: Active Protocol: Document 03/08/21 09:51 LRN (Rec: 03/08/21 10:41 LRN [id number]) Current Condition History of Current Condition Onset Date 2 months ago Current Complaints L dorals wrist pain. History of Current Condition Pt reports she fell in mid Nov stepping wrong on a rock, causing her L ankle to IV. She sprained the L ankle and thought the L wrist as well. The L ankle has gotten better, but the wrist has not. States x-rays show no fracture , but if not better will do an MRI to confirm no small bone fractures. Norris Van gave her a L wrist splint. She has been wearing at least a month , wearing it during the day. Pt is R handed. Prior Treatments and Tests L wrist brace. Future Testing and Treatments Planned Possible MRI if condition not improved. Treatment Goals Patient/Caregiver Goals Pt goal to: - eliminate the pain. - pain no greater than 1/10 with dish washing - pain no greater than 1/10 with putting pants & socks on, and tying shoes. - pain no greater than 1/10 with bathing. Prior Functional Status Baseline Function- ADL's Independent Baseline Function- Mobility Independent Baseline Function- Recreation/Hobbies Exercising at local gym 6x/ week for UE/LE strenghtening & aerobic workouts. Current Functional Impairments (Reported) Functional Limitations- ADL's Difficulty with ADLs due to L wrist pain. (R handed) Functional Limitations- Recreation/ Exercising at local gym 6x/ Hobbies week with only LE strengthenig & aerobic workouts. Personal Factors Other Personal Factors That May Effect Lost partner 10 months ago. Therapy/Recovery PT-OP-C Subjective Start: 03/06/21 19:06 Freq: Status: Active Protocol: Document 03/13/21 09:08 LRN (Rec: 03/13/21 10:22 LRN [id number]) OP-PT Subjective Patient Comments Patient Comments No change. Did the hot/cold treatment. Not using more ice . PT-OP-J Posture/Palpation/Skin Start: 03/06/21 19:06 Freq: Status: Active Protocol: Document 03/08/21 09:51 LRN (Rec: 03/08/21 10:41 LRN [id number]) Posture Evaluation Position Sitting Head/C-Spine Posture Forward Head Shoulder Posture (R) Elevated Arm Posture (L) Internally Rotated,(R) Internally Rotated Palpation Assessment Location L wrist Palpation Location Volar wrist across small bones and CMC of thumb Palpation Findings Tenderness PT-OP-K Range of Motion Start: 03/06/21 19:06 Freq: Status: Active Protocol: Document 03/08/21 09:51 LRN (Rec: 03/08/21 10:41 LR [id number]) Elbow/Forearm Range of Motion Elbow/Forearm Right Active Elbow/Forearm ROM WFL Yes ROM Testing Position Sitting Left Active Elbow/Forearm ROM WFL Yes ROM Testing Position Sitting Wrist Goniometric Range of Motion Wrist Right Wrist ROM WFL Yes Flexion Active (degrees) 70 Extension Active (degrees) 68 Ulnar Deviation Active (degrees) 47 Radial Deviation Active (degrees) 28 Left Wrist ROM WFL No Flexion Active (degrees) 74 Extension Active (degrees) 73 Ulnar Deviation Active (degrees) 38 Radial Deviation Active (degrees) 30 ROM Limitations Wrist Limitations of Range of Motion Pain Comments Pain with L wrist flex & UD ( hand in pronation) Thumb Goniometric Range of Motion Thumb Right Thumb ROM WFL Yes MCP Flexion Active (degrees) 52 MCP Extension Active (0 degrees) 0 H IP Flexion Active (degrees) 70 IP Extension Active (degrees) 0 CMC Flexion Active (degrees) 6 CMC Extension Active (degrees) 50 Left Thumb ROM WFL No MCP Flexion Active (degrees) 58 MCP Extension Active (0 degrees) 0 H IP Flexion Active (degrees) 78 IP Extension Active (degrees) 0 CMC Flexion Active (degrees) 6 CMC Extension Active (degrees) 32 Comments AB 77 deg's PT-OP-L Special Tests Start: 03/06/21 19:06 Freq: Status: Active Protocol: Document 03/08/21 09:51 LRN (Rec: 03/08/21 11:55 LRN [id number]) Special Tests Elbow Special Tests Jose G's Test Results Tightness/pain noted bilaterally. Wrist/Hand Special Tests Scaphoid Thrust Test Test Results + L wrist Comments Pain with light dorsal force applied on volar side indicates possible scapholunate instability. Load & Grind Test Test Results + L thumb Comments Indicates possible arthritis at CMC jt PT-OP-M Strength Start: 03/06/21 19:06 Freq: Status: Active Protocol: Document 03/13/21 09:08 LRN (Rec: 03/13/21 10:22 LRN [id number]) Hand Prenatal Nurse/Pinch Strength Hand Dominance Hand Dominance Right Hand Strength Right Comments Prenatal Nurse strength (KG): 26, 26, 24 (norm for 70-74 yr olds, 18.8 L, 22.5 R) Pinch (lbs): 8,8,8 (norm for 70-74 yr old women: 8-22 L, 9-22 R) Left Comments Prenatal Nurse strength (KG): 16, 17, 18 (norm for 70-74 yr old women: 8-22 L, 9-22 R) Pinch (lbs): 1,3,4 (norm for 70-74 yr old women: 13.8 L, 14.5 R) PT-OP-Q Treatments Start: 03/06/21 19:06 Freq: Status: Active Protocol: Document 03/13/21 09:08 LRN (Rec: 03/13/21 10:22 LRN [id number]) Therapeutic Exercises Sitting Exercises R wrist flex Sitting Exercise Name Passive Wrist flex stretch Side left Reps/Minutes 3' R wrist ext Sitting Exercise Name Passive wrist ext stretch Reps/Minutes 3' Pinch (thumb/index) Sitting Exercise Name Pinching (thumb/index finger) Side bilateral Reps/Minutes 3x Comments Pain with left. Gipping Sitting Exercise Name Gripping (see vision care associate strength Side bilateral Reps/Minutes 3x Manual Therapy Treatment Joint Mobilizations Scapholunate Joint Scapholunate Direction PA Grade I Reps/Duration 2' L hand Carpals Joint Tunning fork @ Trapezoid, Lunate, Scaphoid & PA/AP glides Direction PA Grade II Body Position Sitting Reps/Duration 8' Comments Carpel bones check dosal and volar surfaces. Self-Care/Home Management Treatment Education Patient Education Home Exercise Program Other Education Discussed pt to become aware of tolerance of L wrist for lifting and use with brace on. Pt having sharp pains with moving of L wrist without brace. Activities Self-Care/Home Management Activities Issued & reviewed HEP: L wrist self passive flex/ext stretch with repeated review of I/S for not stretching into pain. I/S pt to increase use of hot/ cold treatment to decrease swelling. Cold pack to L wrist during development of HEP. PT-OP-R Modalities Start: 03/06/21 19:06 Freq: Status: Active Protocol: Document 03/13/21 09:08 LRN (Rec: 03/13/21 10:22 LRN [id number]) Hot Pack/Cold Pack Treatment Cold Pack Location L volar wrist Treatment Duration (minutes) 4 Patient Tolerance Fair Comments After 3-4' pt reported numbing at wrist from the cold . Ultrasound Therapy Treatment R wrist flexor, radial side Treatment Duration (minutes) 2 Patient Position Sitting Coupling Medium Ultrasound Gel Applicator Size (cm2) 2 Frequency Setting (mHz) 12 Mode Setting Pulsed Duty Cycle 50% Intensity Setting (w/cm2) 1.2 R wrist Treatment Duration (minutes) 6 Patient Position Sitting Coupling Medium Ultrasound Gel Applicator Size (cm2) 2 Frequency Setting (mHz) 33 Mode Setting Pulsed Duty Cycle 50% Intensity Setting (w/cm2) 0.8 PT-OP-T Assessment and Plan Start: 03/06/21 19:06 Freq: Status: Active Protocol: Document 03/13/21 09:08 LRN (Rec: 03/13/21 10:22 LRN [id number]) Physical Therapy Assessment Goals Four Impairment Decreased function per UE QUICKdash score 43 Impairment 40 to 59% Impaired (Score 40- 59) Short Term Goal (STG) Pain no greater than 2/10 with dish washing. STG Duration 04/12/21 Group Home Goal (LTG) Improve UE function per QUICKdash score of no more than 39 (10-39 = 29-39% impaired). LTG Duration 05/21/21 Three Impairment Decreased strength Impairment L wrist Flex/Ext 4/5 (R flex/ Ext is 5/5) Short Term Goal (STG) Pt educated in wrist strengthening ex's. STG Duration 04/12/21 Ror Engineer Goal (LTG) Pain no greater than 1/10 with putting pants & socks on, and tying shoes. LTG Duration 05/21/21 Two Impairment Decreased mobility Impairment L UD 38 deg's (R is 47 deg's), R Flex & ext AROM is painful Short Term Goal (STG) Pt able to get out of bed by pushing with arm with pain no greater than 1/10. STG Duration 04/12/21 Ror Engineer Goal (LTG) Pain no greater than 1/10 with bathing. LTG Duration 05/21/21 One Impairment Lacks appropriate self care HEP. Short Term Goal (STG) Pt issued self care HEP of general UE strengthening ex's. STG Duration 04/12/21 Ror Engineer Goal (LTG) Return to UE exercise at local gym with pain no greater than 1/10. LTG Duration 05/21/21 Progress Towards Goals Progress Comments Pain less at volar side of L wrist after ultrasound. L Prenatal Nurse stength is within norms but painful. L Pinch strength much limited and painful. Assessment Summary Assessment Pt has pain mainly in volar aspect of the wrist, no pain complaints with pressure from dorsal side; therefore swelling at volar side of L wrist appears to be hindrance to rehab. The pt may tend to overextend self with ROM ex; therefore pt will probably need to be monitored closely. Pt L vision care associate and pinch strength is decreased, but she has little discomfort with lateral pinch and espitia pinch; therefore strength not assessed. No pain with tuning for testing; therefore doubtful of small bone fracture of trapezium, scaphoid & lunate. Pt L vision care associate strength is normal but painful , pinch strength is much less than R dominant side and painful; therefore pain is limiting ability. Physical Therapy Plan Frequency and Duration Frequency of Treatment 2x/Week Plan of Care Start Date 03/08/21 Plan of Care End Date 05/21/21 Next Visit Focus/Plan Next Note Type Treatment Note Next Visit Plan Assess response to US & PROM L wrist HEP on pain & improving wrist mobility. US thenar eminence, carpal tunnel, wrist flexors, ROM L wrist. Start strengthening for stabilization if tolerated, end with cold pack if needed.
--- NOTE | 2021-03-16 11:35 | PT.OTN ---
Current Diagnoses Pain in left wrist (03/16/21) Muscle weakness (generalized) (03/16/21) Physical Therapy Treatment Note PT-OP-A Visit Information Start: 03/06/21 19:06 Freq: Status: Active Protocol: Document 03/16/21 10:34 LRN (Rec: 03/16/21 11:32 LRN [id number]) Out-Patient Physical Therapy Visit Information Visit Information Visit Type Treatment Note Visit Start Time 10:34 Visit Stop Time 11:18 Total Visit Minutes 44 Visit Number 2 Evaluation Information Evaluation Date 03/08/21 Precautions Precautions Osteopenia, Fibromyalgia PT-OP-B Current Condition Start: 03/06/21 19:06 Freq: Status: Active Protocol: Document 03/08/21 09:51 LRN (Rec: 03/08/21 10:41 LRN [id number]) Current Condition History of Current Condition Onset Date 2 months ago Current Complaints L dorals wrist pain. History of Current Condition Pt reports she fell in mid Nov stepping wrong on a rock, causing her L ankle to IV. She sprained the L ankle and thought the L wrist as well. The L ankle has gotten better, but the wrist has not. States x-rays show no fracture , but if not better will do an MRI to confirm no small bone fractures. Norris Van gave her a L wrist splint. She has been wearing at least a month , wearing it during the day. Pt is R handed. Prior Treatments and Tests L wrist brace. Future Testing and Treatments Planned Possible MRI if condition not improved. Treatment Goals Patient/Caregiver Goals Pt goal to: - eliminate the pain. - pain no greater than 1/10 with dish washing - pain no greater than 1/10 with putting pants & socks on, and tying shoes. - pain no greater than 1/10 with bathing. Prior Functional Status Baseline Function- ADL's Independent Baseline Function- Mobility Independent Baseline Function- Recreation/Hobbies Exercising at local gym 6x/ week for UE/LE strenghtening & aerobic workouts. Current Functional Impairments (Reported) Functional Limitations- ADL's Difficulty with ADLs due to L wrist pain. (R handed) Functional Limitations- Recreation/ Exercising at local gym 6x/ Hobbies week with only LE strengthenig & aerobic workouts. Personal Factors Other Personal Factors That May Effect Lost partner 10 months ago. Therapy/Recovery PT-OP-C Subjective Start: 03/06/21 19:06 Freq: Status: Active Protocol: Document 03/16/21 10:34 LRN (Rec: 03/16/21 11:32 LRN [id number]) OP-PT Subjective Patient Comments Patient Comments Able to do ex's after contrast baths with less pain than if she doesn't do it. Today pain is rated 7/10. Wearing soft brace all the time except with bathing and exercise. Able to pick pulling machine tender glass of water without pain while wearing the brace. PT-OP-J Posture/Palpation/Skin Start: 03/06/21 19:06 Freq: Status: Active Protocol: Document 03/08/21 09:51 LRN (Rec: 03/08/21 10:41 LRN [id number]) Posture Evaluation Position Sitting Head/C-Spine Posture Forward Head Shoulder Posture (R) Elevated Arm Posture (L) Internally Rotated,(R) Internally Rotated Palpation Assessment Location L wrist Palpation Location Volar wrist across small bones and CMC of thumb Palpation Findings Tenderness PT-OP-K Range of Motion Start: 03/06/21 19:06 Freq: Status: Active Protocol: Document 03/16/21 10:34 LRN (Rec: 03/16/21 11:32 LRN [id number]) Wrist Goniometric Range of Motion Wrist Left Wrist ROM WFL No Flexion Active (degrees) 45 Extension Active (degrees) 55 Ulnar Deviation Active (degrees) 32 Radial Deviation Active (degrees) 20 ROM Limitations Comments s/p US: L wrist: passive wrist ext is 75 deg's, wrist flex is 54 deg's PT-OP-L Special Tests Start: 03/06/21 19:06 Freq: Status: Active Protocol: Document 03/08/21 09:51 LRN (Rec: 03/08/21 11:55 LRN [id number]) Special Tests Elbow Special Tests Jose G's Test Results Tightness/pain noted bilaterally. Wrist/Hand Special Tests Scaphoid Thrust Test Test Results + L wrist Comments Pain with light dorsal force applied on volar side indicates possible scapholunate instability. Load & Grind Test Test Results + L thumb Comments Indicates possible arthritis at CMC jt PT-OP-M Strength Start: 03/06/21 19:06 Freq: Status: Active Protocol: Document 03/13/21 09:08 LRN (Rec: 03/13/21 10:22 LRN [id number]) Hand Business Applications Analyst/Pinch Strength Hand Dominance Hand Dominance Right Hand Strength Right Comments Business Applications Analyst strength (KG): 26, 26, 24 (norm for 70-74 yr olds, 18.8 L, 22.5 R) Pinch (lbs): 8,8,8 (norm for 70-74 yr old women: 8-22 L, 9-22 R) Left Comments Business Applications Analyst strength (KG): 16, 17, 18 (norm for 70-74 yr old women: 8-22 L, 9-22 R) Pinch (lbs): 1,3,4 (norm for 70-74 yr old women: 13.8 L, 14.5 R) PT-OP-Q Treatments Start: 03/06/21 19:06 Freq: Status: Active Protocol: Document 03/16/21 10:34 LRN (Rec: 03/16/21 11:32 LRN [id number]) Therapeutic Exercises Sitting Exercises L wrist ext stretch Sitting Exercise Name Wrist ext stretch Side left Reps/Minutes 3' Comments Extra time taken to determine best position for stretch ( Elbow straight) L wrist flex stretch Sitting Exercise Name Wrist flex stretch Side left Reps/Minutes 2' RD Sitting Exercise Name Active RD Side left Reps/Minutes 8x Comments Stopped due to Painful around lateral wrist UD Sitting Exercise Name Active UD (from neutral) Side left Reps/Minutes 10x 3 before & after ultrasound R wrist flex Sitting Exercise Name Active wrist flex Side left Reps/Minutes 10x 3 R wrist ext Sitting Exercise Name Active wrist ext Side left Reps/Minutes 10x 3 before & after ultrasound Manual Therapy Treatment Manual Techniques MWM Type MWM: wrist ext/flex with Lunate PA & Scaphoid AP Body Location L wrist Body Position Sitting Reps/Duration 15' PT-OP-R Modalities Start: 03/06/21 19:06 Freq: Status: Active Protocol: Document 03/16/21 10:34 LRN (Rec: 03/16/21 11:32 LRN [id number]) Hot Pack/Cold Pack Treatment Cold Pack Location L volar/dorsal wrist Treatment Duration (minutes) 8 Patient Tolerance Fair Comments After 3-4' pt reported numbing at wrist from the cold . Ultrasound Therapy Treatment L Thenar [place] Treatment Duration (minutes) 6 Patient Position Sitting Coupling Medium Ultrasound Gel Applicator Size (cm2) 2 Mode Setting Pulsed Duty Cycle 50% Intensity Setting (w/cm2) 1.0 R wrist Treatment Duration (minutes) 2 Patient Position Sitting Coupling Medium Ultrasound Gel Applicator Size (cm2) 2 Mode Setting Pulsed Duty Cycle 50% Intensity Setting (w/cm2) 0.8 PT-OP-T Assessment and Plan Start: 03/06/21 19:06 Freq: Status: Active Protocol: Document 03/16/21 10:34 LRN (Rec: 03/16/21 11:32 LRN [id number]) Physical Therapy Assessment Goals Four Impairment Decreased function per UE QUICKdash score 43 Impairment 40 to 59% Impaired (Score 40- 59) Short Term Goal (STG) Pain no greater than 2/10 with dish washing. STG Duration 04/12/21 Garbage Truck Helper Goal (LTG) Improve UE function per QUICKdash score of no more than 39 (10-39 = 29-39% impaired). LTG Duration 05/21/21 Three Impairment Decreased strength Impairment L wrist Flex/Ext 4/5 (R flex/ Ext is 5/5) Short Term Goal (STG) Pt educated in wrist strengthening ex's. STG Duration 04/12/21 [facility] Goal (LTG) Pain no greater than 1/10 with putting pants & socks on, and tying shoes. LTG Duration 05/21/21 Two Impairment Decreased mobility Impairment L UD 38 deg's (R is 47 deg's), R Flex & ext AROM is painful Short Term Goal (STG) Pt able to get out of bed by pushing with arm with pain no greater than 1/10. STG Duration 04/12/21 Garbage Truck Helper Goal (LTG) Pain no greater than 1/10 with bathing. LTG Duration 05/21/21 One Impairment Lacks appropriate self care HEP. Short Term Goal (STG) Pt issued self care HEP of general UE strengthening ex's. STG Duration 04/12/21 Garbage Truck Helper Goal (LTG) Return to UE exercise at local gym with pain no greater than 1/10. LTG Duration 05/21/21 Assessment Summary Assessment Pt presents to therapy with soft tissue dysfunction and possible scapholunate instability. L wrist is stiff to start. Improved wrist mobility after US. Pt has limited range for strengthening of wrist due to pain. Progress is slow. Pt may be wearing her wrist brace too much, and was encouraged to take it off while at rest. Physical Therapy Plan Frequency and Duration Frequency of Treatment 2x/Week Plan of Care Start Date 03/08/21 Plan of Care End Date 05/21/21 Next Visit Focus/Plan Next Note Type Treatment Note Next Visit Plan US thenar eminence, carpal tunnel, wrist flexors, ROM L wrist. Assess response to AROM strengthening and progress for stabilization if tolerated, end with cold pack if needed.
--- NOTE | 2021-03-20 17:57 | PT.OTN ---
Current Diagnoses Pain in left wrist (03/20/21) Muscle weakness (generalized) (03/20/21) Physical Therapy Treatment Note PT-OP-A Visit Information Start: 03/06/21 19:06 Freq: Status: Active Protocol: Document 03/20/21 09:01 LRN (Rec: 03/20/21 09:53 LRN [id number]) Out-Patient Physical Therapy Visit Information Visit Information Visit Type Treatment Note Visit Start Time 09:01 Visit Stop Time 09:48 Total Visit Minutes 47 Visit Number 3 Evaluation Information Evaluation Date 03/08/21 Precautions Precautions Osteopenia, Fibromyalgia PT-OP-B Current Condition Start: 03/06/21 19:06 Freq: Status: Active Protocol: Document 03/08/21 09:51 LRN (Rec: 03/08/21 10:41 LRN [id number]) Current Condition History of Current Condition Onset Date 2 months ago Current Complaints L dorals wrist pain. History of Current Condition Pt reports she fell in mid Nov stepping wrong on a rock, causing her L ankle to IV. She sprained the L ankle and thought the L wrist as well. The L ankle has gotten better, but the wrist has not. States x-rays show no fracture , but if not better will do an MRI to confirm no small bone fractures. Norris Van gave her a L wrist splint. She has been wearing at least a month , wearing it during the day. Pt is R handed. Prior Treatments and Tests L wrist brace. Future Testing and Treatments Planned Possible MRI if condition not improved. Treatment Goals Patient/Caregiver Goals Pt goal to: - eliminate the pain. - pain no greater than 1/10 with dish washing - pain no greater than 1/10 with putting pants & socks on, and tying shoes. - pain no greater than 1/10 with bathing. Prior Functional Status Baseline Function- ADL's Independent Baseline Function- Mobility Independent Baseline Function- Recreation/Hobbies Exercising at local gym 6x/ week for UE/LE strenghtening & aerobic workouts. Current Functional Impairments (Reported) Functional Limitations- ADL's Difficulty with ADLs due to L wrist pain. (R handed) Functional Limitations- Recreation/ Exercising at local gym 6x/ Hobbies week with only LE strengthenig & aerobic workouts. Personal Factors Other Personal Factors That May Effect Lost partner 10 months ago. Therapy/Recovery PT-OP-C Subjective Start: 03/06/21 19:06 Freq: Status: Active Protocol: Document 03/20/21 09:01 LRN (Rec: 03/20/21 09:53 LRN [id number]) OP-PT Subjective Patient Comments Patient Comments Sometimes the L wrist feels fine. Sometimes pain shoot throught the radial side of the wrist on volar side. PT-OP-J Posture/Palpation/Skin Start: 03/06/21 19:06 Freq: Status: Active Protocol: Document 03/08/21 09:51 LRN (Rec: 03/08/21 10:41 LRN [id number]) Posture Evaluation Position Sitting Head/C-Spine Posture Forward Head Shoulder Posture (R) Elevated Arm Posture (L) Internally Rotated,(R) Internally Rotated Palpation Assessment Location L wrist Palpation Location Volar wrist across small bones and CMC of thumb Palpation Findings Tenderness PT-OP-K Range of Motion Start: 03/06/21 19:06 Freq: Status: Active Protocol: Document 03/20/21 09:01 LRN (Rec: 03/20/21 09:53 LRN [id number]) Wrist Goniometric Range of Motion Wrist Left Wrist ROM WFL No Flexion Active (degrees) 50 Extension Active (degrees) 68 ROM Limitations Comments Post therapy PT-OP-L Special Tests Start: 03/06/21 19:06 Freq: Status: Active Protocol: Document 03/08/21 09:51 LRN (Rec: 03/08/21 11:55 LRN [id number]) Special Tests Elbow Special Tests Jose G's Test Results Tightness/pain noted bilaterally. Wrist/Hand Special Tests Scaphoid Thrust Test Test Results + L wrist Comments Pain with light dorsal force applied on volar side indicates possible scapholunate instability. Load & Grind Test Test Results + L thumb Comments Indicates possible arthritis at CMC jt PT-OP-M Strength Start: 03/06/21 19:06 Freq: Status: Active Protocol: Document 03/13/21 09:08 LRN (Rec: 03/13/21 10:22 LRN [id number]) Hand Director Market Intelligence/Pinch Strength Hand Dominance Hand Dominance Right Hand Strength Right Comments Director Market Intelligence strength (KG): 26, 26, 24 (norm for 70-74 yr olds, 18.8 L, 22.5 R) Pinch (lbs): 8,8,8 (norm for 70-74 yr old women: 8-22 L, 9-22 R) Left Comments Director Market Intelligence strength (KG): 16, 17, 18 (norm for 70-74 yr old women: 8-22 L, 9-22 R) Pinch (lbs): 1,3,4 (norm for 70-74 yr old women: 13.8 L, 14.5 R) PT-OP-Q Treatments Start: 03/06/21 19:06 Freq: Status: Active Protocol: Document 03/20/21 09:01 LRN (Rec: 03/20/21 09:53 [facility] [id number]) Therapeutic Exercises Sitting Exercises L wrist ext stretch Sitting Exercise Name Isometric Side left Reps/Minutes 3' L wrist flex stretch Sitting Exercise Name Isometrics Side left Reps/Minutes 3' RD Sitting Exercise Name Vega RD Side left Reps/Minutes 3' UD Sitting Exercise Name Vega UD Side left Reps/Minutes 3' Manual Therapy Treatment Joint Mobilizations Ulna Joint Inferior glide Ulna Body Position Sitting Reps/Duration 1' Radius Joint Inferior glide Radius Body Position Sitting Reps/Duration 1' Scapholunate Joint Scapholunate Direction PA of Scaphoid Grade I Reps/Duration 2' L hand Carpals Joint PA glides: Scaphoid, Distal ulna; AP: Lunate, Pisiform, Direction PA/AP Grade II Body Position Sitting Reps/Duration 23' Comments Carpel bones check dosal and volar surfaces. PT-OP-R Modalities Start: 03/06/21 19:06 Freq: Status: Active Protocol: Document 03/20/21 09:01 LRN (Rec: 03/20/21 09:53 [facility] [id number]) Ultrasound Therapy Treatment L Thenar [place] Treatment Duration (minutes) 4 Patient Position Sitting Coupling Medium Ultrasound Gel Applicator Size (cm2) 2 Mode Setting Pulsed Duty Cycle 50% Intensity Setting (w/cm2) 1.0 R wrist Treatment Duration (minutes) 4 Patient Position Sitting Coupling Medium Ultrasound Gel Applicator Size (cm2) 2 Mode Setting Pulsed Duty Cycle 50% Intensity Setting (w/cm2) 0.8 PT-OP-T Assessment and Plan Start: 03/06/21 19:06 Freq: Status: Active Protocol: Document 03/20/21 09:01 LRN (Rec: 03/20/21 09:53 LRN [id number]) Physical Therapy Assessment Goals Four Impairment Decreased function per UE QUICKdash score 43 Impairment 40 to 59% Impaired (Score 40- 59) Short Term Goal (STG) Pain no greater than 2/10 with dish washing. STG Duration 04/12/21 Retirement Goal (LTG) Improve UE function per QUICKdash score of no more than 39 (10-39 = 29-39% impaired). LTG Duration 05/21/21 Three Impairment Decreased strength Impairment L wrist Flex/Ext 4/5 (R flex/ Ext is 5/5) Short Term Goal (STG) Pt educated in wrist strengthening ex's. STG Duration 04/12/21 Retirement Goal (LTG) Pain no greater than 1/10 with putting pants & socks on, and tying shoes. LTG Duration 05/21/21 Two Impairment Decreased mobility Impairment L UD 38 deg's (R is 47 deg's), R Flex & ext AROM is painful Short Term Goal (STG) Pt able to get out of bed by pushing with arm with pain no greater than 1/10. STG Duration 04/12/21 Retirement Goal (LTG) Pain no greater than 1/10 with bathing. LTG Duration 05/21/21 One Impairment Lacks appropriate self care HEP. Short Term Goal (STG) Pt issued self care HEP of general UE strengthening ex's. STG Duration 04/12/21 Valet Goal (LTG) Return to UE exercise at local gym with pain no greater than 1/10. LTG Duration 05/21/21 Assessment Summary Assessment AROM of L wrist taken after therapy shows improvement from passive ROM after last session. Pain is still limiting L wrist flexion, extension appears good. Pt L distal Ulna was posterior to start, improved positioning after therapy. Scaphoid appears anterior, Pisiform appears posterior, pain at Lunate and trapezium and to a lesser degree trapezoid volarly. Capitate appears volarly displaced. Physical Therapy Plan Frequency and Duration Frequency of Treatment 2x/Week Plan of Care Start Date 03/08/21 Plan of Care End Date 05/21/21 Next Visit Focus/Plan Next Note Type Treatment Note Next Visit Plan US thenar eminence, carpal tunnel, wrist flexors, L wrist ROM. Review and issue HEP: isometric strengthening for stabilization if tolerated, end with cold pack if needed.
--- NOTE | 2021-03-22 10:55 | PT.OTN ---
Current Diagnoses Pain in left wrist (03/22/21) Muscle weakness (generalized) (03/22/21) Physical Therapy Treatment Note PT-OP-A Visit Information Start: 03/06/21 19:06 Freq: Status: Active Protocol: Document 03/22/21 09:05 LRN (Rec: 03/22/21 09:54 LRN [id number]) Out-Patient Physical Therapy Visit Information Visit Information Visit Type Treatment Note Visit Start Time 09:05 Visit Stop Time 09:50 Total Visit Minutes 45 Visit Number 4 Evaluation Information Evaluation Date 03/08/21 Precautions Precautions Osteopenia, Fibromyalgia PT-OP-B Current Condition Start: 03/06/21 19:06 Freq: Status: Active Protocol: Document 03/08/21 09:51 LRN (Rec: 03/08/21 10:41 LRN [id number]) Current Condition History of Current Condition Onset Date 2 months ago Current Complaints L dorals wrist pain. History of Current Condition Pt reports she fell in mid Nov stepping wrong on a rock, causing her L ankle to IV. She sprained the L ankle and thought the L wrist as well. The L ankle has gotten better, but the wrist has not. States x-rays show no fracture , but if not better will do an MRI to confirm no small bone fractures. Norris Van gave her a L wrist splint. She has been wearing at least a month , wearing it during the day. Pt is R handed. Prior Treatments and Tests L wrist brace. Future Testing and Treatments Planned Possible MRI if condition not improved. Treatment Goals Patient/Caregiver Goals Pt goal to: - eliminate the pain. - pain no greater than 1/10 with dish washing - pain no greater than 1/10 with putting pants & socks on, and tying shoes. - pain no greater than 1/10 with bathing. Prior Functional Status Baseline Function- ADL's Independent Baseline Function- Mobility Independent Baseline Function- Recreation/Hobbies Exercising at local gym 6x/ week for UE/LE strenghtening & aerobic workouts. Current Functional Impairments (Reported) Functional Limitations- ADL's Difficulty with ADLs due to L wrist pain. (R handed) Functional Limitations- Recreation/ Exercising at local gym 6x/ Hobbies week with only LE strengthenig & aerobic workouts. Personal Factors Other Personal Factors That May Effect Lost partner 10 months ago. Therapy/Recovery PT-OP-C Subjective Start: 03/06/21 19:06 Freq: Status: Active Protocol: Document 03/22/21 09:05 LRN (Rec: 03/22/21 09:54 LRN [id number]) OP-PT Subjective Patient Comments Patient Comments Was sore yesterday. Today hasn't noticed soreness. Did ex this morning. PT-OP-J Posture/Palpation/Skin Start: 03/06/21 19:06 Freq: Status: Active Protocol: Document 03/08/21 09:51 LRN (Rec: 03/08/21 10:41 LRN [id number]) Posture Evaluation Position Sitting Head/C-Spine Posture Forward Head Shoulder Posture (R) Elevated Arm Posture (L) Internally Rotated,(R) Internally Rotated Palpation Assessment Location L wrist Palpation Location Volar wrist across small bones and CMC of thumb Palpation Findings Tenderness PT-OP-K Range of Motion Start: 03/06/21 19:06 Freq: Status: Active Protocol: Document 03/22/21 09:05 LRN (Rec: 03/22/21 09:54 LRN [id number]) Wrist Goniometric Range of Motion Wrist Right Wrist ROM WFL Yes Flexion Active (degrees) 70 Extension Active (degrees) 68 Ulnar Deviation Active (degrees) 47 Radial Deviation Active (degrees) 28 Left Wrist ROM WFL No Flexion Active (degrees) 54 Extension Active (degrees) 75 ROM Limitations Comments L wrist AROM post therapy: Flex 59 deg's L wrist PROM post therapy: Flex 70 deg's (MWM of self Prox distal glide ulna/radius) and PA Trapezoid. PT-OP-L Special Tests Start: 03/06/21 19:06 Freq: Status: Active Protocol: Document 03/08/21 09:51 LRN (Rec: 03/08/21 11:55 LRN [id number]) Special Tests Elbow Special Tests Jose G's Test Results Tightness/pain noted bilaterally. Wrist/Hand Special Tests Scaphoid Thrust Test Test Results + L wrist Comments Pain with light dorsal force applied on volar side indicates possible scapholunate instability. Load & Grind Test Test Results + L thumb Comments Indicates possible arthritis at CMC jt PT-OP-M Strength Start: 03/06/21 19:06 Freq: Status: Active Protocol: Document 03/13/21 09:08 LRN (Rec: 03/13/21 10:22 LR [id number]) Hand Rec Therapist/Pinch Strength Hand Dominance Hand Dominance Right Hand Strength Right Comments Rec Therapist strength (KG): 26, 26, 24 (norm for 70-74 yr olds, 18.8 L, 22.5 R) Pinch (lbs): 8,8,8 (norm for 70-74 yr old women: 8-22 L, 9-22 R) Left Comments Rec Therapist strength (KG): 16, 17, 18 (norm for 70-74 yr old women: 8-22 L, 9-22 R) Pinch (lbs): 1,3,4 (norm for 70-74 yr old women: 13.8 L, 14.5 R) PT-OP-Q Treatments Start: 03/06/21 19:06 Freq: Status: Active Protocol: Document 03/22/21 09:05 LRN (Rec: 03/22/21 09:54 LR [id number]) Therapeutic Exercises Sitting Exercises L Wrist ext Sitting Exercise Name Isometric ext strengthening at 20,40,60 deg's flex; & 0,20, 30,40,50 deg ext Side left Reps/Minutes 10 hold x 5 with all except at 0 deg's 10H x 10. Comments Extra time for training of positioning for ex L Wrist flex Sitting Exercise Name Active wrist flex w/self MWM of ulna/radial proximal to distal glide Reps/Minutes 10x 3 Comments MWM 10x 2 f/b active 10x L wrist ext stretch Sitting Exercise Name Self manual stretch Side left Reps/Minutes 2' L wrist flex stretch Sitting Exercise Name Self manual stretch Side left Reps/Minutes 2' Standing Exercises WBing Standing Exercise Name Gentle WBing into ~30 deg's wrist extended arm Side left Reps/Minutes up to 1' x 2 Manual Therapy Treatment Joint Mobilizations Ulna Joint Proximal to distal glide & PA sustained @ Ulna Body Position Sitting Reps/Duration 4' Radius Joint Proximal to distal glide Radius Body Position Sitting Reps/Duration 2' Manual Techniques MWM PA L Trapezoid Type L wrist flex with MWM & Actively wrist flex Body Location PA L Trapezoid (medial to thumb) Body Position L wrist in neutral Reps/Duration 10x 2 MWM w L wrist ext Type MWM at 20,40,60 deg's flex; & 0,20,30,40,50 deg ext Body Location Prox to distal glide of radius & ulna during wrist ext Body Position Neutral: L Wrist in 0, -20, - 40, 20, 30, 40, 50, 70 deg' ext Reps/Duration 5x each MWM Type MWM: wrist ext/flex w/prox to distal glide to radius & ulna Body Location L wrist Body Position Sitting Reps/Duration 15' Self-Care/Home Management Treatment Education Patient Education Home Exercise Program Activities Self-Care/Home Management Activities Verbal I/S for isometric L wrist ext at various angles of flex & ext, self MWM (prox to distal glide of ulna/radius) with active wrist flex/ext; Slight WBing in L hand. Pt to continue isometric wrist flex (wrist in 20 deg's ext). PT-OP-R Modalities Start: 03/06/21 19:06 Freq: Status: Active Protocol: Document 03/20/21 09:01 LRN (Rec: 03/20/21 09:53 [facility] [id number]) Ultrasound Therapy Treatment L Thenar [place] Treatment Duration (minutes) 4 Patient Position Sitting Coupling Medium Ultrasound Gel Applicator Size (cm2) 2 Mode Setting Pulsed Duty Cycle 50% Intensity Setting (w/cm2) 1.0 R wrist Treatment Duration (minutes) 4 Patient Position Sitting Coupling Medium Ultrasound Gel Applicator Size (cm2) 2 Mode Setting Pulsed Duty Cycle 50% Intensity Setting (w/cm2) 0.8 PT-OP-T Assessment and Plan Start: 03/06/21 19:06 Freq: Status: Active Protocol: Document 03/22/21 09:05 LRN (Rec: 03/22/21 09:54 [facility] [id number]) Physical Therapy Assessment Goals Four Impairment Decreased function per UE QUICKdash score 43 Impairment 40 to 59% Impaired (Score 40- 59) Short Term Goal (STG) Pain no greater than 2/10 with dish washing. STG Duration 04/12/21 Mcc Goal (LTG) Improve UE function per QUICKdash score of no more than 39 (10-39 = 29-39% impaired). LTG Duration 05/21/21 Three Impairment Decreased strength Impairment L wrist Flex/Ext 4/5 (R flex/ Ext is 5/5) Short Term Goal (STG) Pt educated in wrist strengthening ex's. (03/22/21: Pt I/S in L wrist isometric strengthening ex's). STG Duration 04/12/21 (03/22/21: Progressed) Mcc Goal (LTG) Pain no greater than 1/10 with putting pants & socks on, and tying shoes. LTG Duration 05/21/21 Two Impairment Decreased mobility Impairment L UD 38 deg's (R is 47 deg's), R Flex & ext AROM is painful Short Term Goal (STG) Pt able to get out of bed by pushing with arm with pain no greater than 1/10. STG Duration 04/12/21 [place] Aide Goal (LTG) Pain no greater than 1/10 with bathing. LTG Duration 05/21/21 One Impairment Lacks appropriate self care HEP. Short Term Goal (STG) Pt issued self care HEP of general UE strengthening ex's. (03/22/21: I/S given for self MWM of ulna/radius with active wrist flex/ext; Wrist ext isometrics in many various angles of flex & ext; Slight WBing in L hand. Pt to continue isometric wrist flex w/wrist in 20 deg's ext). STG Duration 04/12/21 (03/22/21: Progressed) Mcc Goal (LTG) Return to UE exercise at local gym with pain no greater than 1/10. LTG Duration 05/21/21 Progress Towards Goals Progress Comments Progressed HEP (strengthening) . L wrist painfree flex improved from 55 to 59 deg's active flexion after therapy. Assessment Summary Assessment L wrist painfree flex improved from 55 to 59 deg's active flexion after therapy. Passively wrist flex was 70 deg's w/MWM. L distal ulna positioning better to start ( not so posterior). Her L Trapezoid moved excessively posterior on wrist flex; therefore stabilization of dorsal side of wrist is needed . Pt carpal mobility is more lax on L hand with volar to dorsal mobility increased ( instability on dorsal side). Physical Therapy Plan Frequency and Duration Frequency of Treatment 2x/Week Plan of Care Start Date 03/08/21 Plan of Care End Date 05/21/21 Next Visit Focus/Plan Next Note Type Treatment Note Next Visit Plan Progress L wrist ext strengthening for stab of carpals & WBing as tolerated, Review and issue HEP: isometric strengthening for stabilization, If needed: US thenar eminence, carpal tunnel, wrist flexors, End with cold pack if needed.
--- NOTE | 2021-03-27 13:39 | PT.OTN ---
Current Diagnoses Pain in left wrist (03/27/21) Muscle weakness (generalized) (03/27/21) Physical Therapy Treatment Note PT-OP-A Visit Information Start: 03/06/21 19:06 Freq: Status: Active Protocol: Document 03/27/21 09:08 LRN (Rec: 03/27/21 09:51 LRN [id number]) Out-Patient Physical Therapy Visit Information Visit Information Visit Type Treatment Note Visit Start Time 09:08 Visit Stop Time 09:50 Total Visit Minutes 42 Visit Number 5 Evaluation Information Evaluation Date 03/08/21 Precautions Precautions Osteopenia, Fibromyalgia PT-OP-B Current Condition Start: 03/06/21 19:06 Freq: Status: Active Protocol: Document 03/08/21 09:51 LRN (Rec: 03/08/21 10:41 LRN [id number]) Current Condition History of Current Condition Onset Date 2 months ago Current Complaints L dorals wrist pain. History of Current Condition Pt reports she fell in mid Nov stepping wrong on a rock, causing her L ankle to IV. She sprained the L ankle and thought the L wrist as well. The L ankle has gotten better, but the wrist has not. States x-rays show no fracture , but if not better will do an MRI to confirm no small bone fractures. Norris Van gave her a L wrist splint. She has been wearing at least a month , wearing it during the day. Pt is R handed. Prior Treatments and Tests L wrist brace. Future Testing and Treatments Planned Possible MRI if condition not improved. Treatment Goals Patient/Caregiver Goals Pt goal to: - eliminate the pain. - pain no greater than 1/10 with dish washing - pain no greater than 1/10 with putting pants & socks on, and tying shoes. - pain no greater than 1/10 with bathing. Prior Functional Status Baseline Function- ADL's Independent Baseline Function- Mobility Independent Baseline Function- Recreation/Hobbies Exercising at local gym 6x/ week for UE/LE strenghtening & aerobic workouts. Current Functional Impairments (Reported) Functional Limitations- ADL's Difficulty with ADLs due to L wrist pain. (R handed) Functional Limitations- Recreation/ Exercising at local gym 6x/ Hobbies week with only LE strengthenig & aerobic workouts. Personal Factors Other Personal Factors That May Effect Lost partner 10 months ago. Therapy/Recovery PT-OP-C Subjective Start: 03/06/21 19:06 Freq: Status: Active Protocol: Document 03/27/21 09:08 LRN (Rec: 03/27/21 09:51 LRN [id number]) OP-PT Subjective Patient Comments Patient Comments Seems like it is moving a little more. PT-OP-J Posture/Palpation/Skin Start: 03/06/21 19:06 Freq: Status: Active Protocol: Document 03/08/21 09:51 LRN (Rec: 03/08/21 10:41 LRN [id number]) Posture Evaluation Position Sitting Head/C-Spine Posture Forward Head Shoulder Posture (R) Elevated Arm Posture (L) Internally Rotated,(R) Internally Rotated Palpation Assessment Location L wrist Palpation Location Volar wrist across small bones and CMC of thumb Palpation Findings Tenderness PT-OP-K Range of Motion Start: 03/06/21 19:06 Freq: Status: Active Protocol: Document 03/27/21 09:08 LRN (Rec: 03/27/21 09:51 LRN [id number]) Wrist Goniometric Range of Motion Wrist Right Wrist ROM WFL Yes Flexion Active (degrees) 70 Extension Active (degrees) 68 Ulnar Deviation Active (degrees) 47 Radial Deviation Active (degrees) 28 Left Wrist ROM WFL No Flexion Active (degrees) 60 Extension Active (degrees) 68 Ulnar Deviation Active (degrees) 45 Radial Deviation Active (degrees) 20 PT-OP-L Special Tests Start: 03/06/21 19:06 Freq: Status: Active Protocol: Document 03/08/21 09:51 LRN (Rec: 03/08/21 11:55 LRN [id number]) Special Tests Elbow Special Tests Jose G's Test Results Tightness/pain noted bilaterally. Wrist/Hand Special Tests Scaphoid Thrust Test Test Results + L wrist Comments Pain with light dorsal force applied on volar side indicates possible scapholunate instability. Load & Grind Test Test Results + L thumb Comments Indicates possible arthritis at CMC jt PT-OP-M Strength Start: 03/06/21 19:06 Freq: Status: Active Protocol: Document 03/13/21 09:08 LRN (Rec: 03/13/21 10:22 LRN [id number]) Hand Repair Tech/Pinch Strength Hand Dominance Hand Dominance Right Hand Strength Right Comments Repair Tech strength (KG): 26, 26, 24 (norm for 70-74 yr olds, 18.8 L, 22.5 R) Pinch (lbs): 8,8,8 (norm for 70-74 yr old women: 8-22 L, 9-22 R) Left Comments Repair Tech strength (KG): 16, 17, 18 (norm for 70-74 yr old women: 8-22 L, 9-22 R) Pinch (lbs): 1,3,4 (norm for 70-74 yr old women: 13.8 L, 14.5 R) PT-OP-Q Treatments Start: 03/06/21 19:06 Freq: Status: Active Protocol: Document 03/27/21 09:08 LRN (Rec: 03/27/21 09:51 LRN [id number]) Therapeutic Exercises Sitting Exercises Active L wrist flex Sitting Exercise Name Active wrist flex w/self MWM of ulna/radial proximal to distal glide Reps/Minutes 10x 3 Comments MWM 10x f/b active 10x Active L wrist ext Sitting Exercise Name L wrist active ext Side left Reps/Minutes 10x L Wrist ext Sitting Exercise Name Isometric ext strengthening at 20,40,60 deg's flex; & 0,20, 30,40,50 deg ext Side left Reps/Minutes 10 hold x 5 with all except at 0 deg's 10H x 10. Comments Extra time for training of positioning for ex L Wrist flex Sitting Exercise Name Isometric flex strengthening @ 20,40,60 deg's flex; & 0,20, 30,40,50 deg ext Side left Reps/Minutes 10 hold x 5 with all except at 0 deg's 10H x 10. L wrist ext stretch Sitting Exercise Name Self manual stretch Side left Reps/Minutes 2' L wrist flex stretch Sitting Exercise Name Self manual stretch Side left Reps/Minutes 2' Manual Therapy Treatment Joint Mobilizations Ulna Joint Proximal to distal glide & PA sustained @ Ulna Body Position Sitting Reps/Duration 4' Comments Stabilizing Lunate from moving volarly Radius Joint Proximal to distal glide Radius Body Position Sitting Reps/Duration 2' Manual Techniques MWM w/LUE wgtbearing Type L radius/ulna Prox>distal mob with partial WBing, wrist 20 deg ext Body Location L wrist Reps/Duration 4' MWM w L wrist ext Type MWM at 20,40,60 deg's flex; & 0,20,30,40,50 deg ext Body Location Prox to distal glide of radius & ulna during wrist ext Body Position Neutral: L Wrist in 0, -20, - 40, 20, 30, 40, 50, 70 deg' ext Reps/Duration 5x each MWM Type MWM: wrist ext/flex w/prox> distal glide to radius & ulna Body Location L wrist Body Position Sitting Reps/Duration 15' Comments Also, AP of Capitate Lunate with wrist flex>ext. PT-OP-R Modalities Start: 03/06/21 19:06 Freq: Status: Active Protocol: Document 03/20/21 09:01 LRN (Rec: 03/20/21 09:53 [facility] [id number]) Ultrasound Therapy Treatment L Thenar [place] Treatment Duration (minutes) 4 Patient Position Sitting Coupling Medium Ultrasound Gel Applicator Size (cm2) 2 Mode Setting Pulsed Duty Cycle 50% Intensity Setting (w/cm2) 1.0 R wrist Treatment Duration (minutes) 4 Patient Position Sitting Coupling Medium Ultrasound Gel Applicator Size (cm2) 2 Mode Setting Pulsed Duty Cycle 50% Intensity Setting (w/cm2) 0.8 PT-OP-T Assessment and Plan Start: 03/06/21 19:06 Freq: Status: Active Protocol: Document 03/27/21 09:08 LRN (Rec: 03/27/21 09:51 [facility] [id number]) Physical Therapy Assessment Goals Four Impairment Decreased function per UE QUICKdash score 43 Impairment 40 to 59% Impaired (Score 40- 59) Short Term Goal (STG) Pain no greater than 2/10 with dish washing. STG Duration 04/12/21 Paper Cup Handle Machine Operator Goal (LTG) Improve UE function per QUICKdash score of no more than 39 (10-39 = 29-39% impaired). LTG Duration 05/21/21 Three Impairment Decreased strength Impairment L wrist Flex/Ext 4/5 (R flex/ Ext is 5/5) Short Term Goal (STG) Pt educated in wrist strengthening ex's. (03/22/21: Pt I/S in L wrist isometric strengthening ex's). (03/27/21: Pt I/S in progressing L UE WBing). STG Duration 04/12/21 (03/22/21: Progressed) Paper Cup Handle Machine Operator Goal (LTG) Pain no greater than 1/10 with putting pants & socks on, and tying shoes. LTG Duration 05/21/21 Two Impairment Decreased mobility Impairment L UD 38 deg's (R is 47 deg's), R Flex & ext AROM is painful Short Term Goal (STG) Pt able to get out of bed by pushing with arm with pain no greater than 1/10. STG Duration 04/12/21 Paper Cup Handle Machine Operator Goal (LTG) Pain no greater than 1/10 with bathing. LTG Duration 05/21/21 One Impairment Lacks appropriate self care HEP. Short Term Goal (STG) Pt issued self care HEP of general UE strengthening ex's. (03/22/21: I/S given for self MWM of ulna/radius with active wrist flex/ext; Wrist ext isometrics in many various angles of flex & ext; Slight WBing in L hand. Pt to continue isometric wrist flex w/wrist in 20 deg's ext). (03/27/21: I/S pt in progressive WBing through LUE with Prox to distal glide of radius/ulna). STG Duration 04/12/21 (03/27/21: Progressed) Senior Living Goal (LTG) Return to UE exercise at local gym with pain no greater than 1/10. LTG Duration 05/21/21 Progress Towards Goals Progress Comments Decrease in L wrist pain with partial weightbearing with MWM of radius/ulna (proximal to distal) glide to decrease pain from 5/10 to 2/10. Assessment Summary Assessment Pt improved carpal positioning after STM; therefore improved L wrist AROM with stiffness felt in dorsal wrist. Pt able to partial weightbear through L UE with less pain after MWM . Pt tolerance to activities improving. Pt notes after her HEP and use of hot/cold techniques she is able to push with her L arm for sit to stand transfer without pain. L wrist ROM stiff to start with flex and radial deviation . Physical Therapy Plan Frequency and Duration Frequency of Treatment 2x/Week Plan of Care Start Date 03/08/21 Plan of Care End Date 05/21/21 Next Visit Focus/Plan Next Note Type Treatment Note Next Visit Plan Assess progress towards goals. Progress L wrist ext strengthening for stab of carpals & progress WBing as tolerated, Issue HEP: isometric wrist strengthening for stabilization, If needed: US thenar eminence, carpal tunnel, wrist flexors, End with cold pack if needed.
--- NOTE | 2021-03-30 15:55 | PT.OTN ---
Current Diagnoses Pain in left wrist (03/30/21) Muscle weakness (generalized) (03/30/21) Physical Therapy Treatment Note PT-OP-A Visit Information Start: 03/06/21 19:06 Freq: Status: Active Protocol: Document 03/30/21 09:05 LRN (Rec: 03/30/21 09:49 LRN [id number]) Out-Patient Physical Therapy Visit Information Visit Information Visit Type Treatment Note Visit Start Time 09:05 Visit Stop Time 09:46 Total Visit Minutes 41 Visit Number 6 Evaluation Information Evaluation Date 03/08/21 Precautions Precautions Osteopenia, Fibromyalgia PT-OP-B Current Condition Start: 03/06/21 19:06 Freq: Status: Active Protocol: Document 03/08/21 09:51 LRN (Rec: 03/08/21 10:41 LRN [id number]) Current Condition History of Current Condition Onset Date 2 months ago Current Complaints L dorals wrist pain. History of Current Condition Pt reports she fell in mid Nov stepping wrong on a rock, causing her L ankle to IV. She sprained the L ankle and thought the L wrist as well. The L ankle has gotten better, but the wrist has not. States x-rays show no fracture , but if not better will do an MRI to confirm no small bone fractures. Norris Van gave her a L wrist splint. She has been wearing at least a month , wearing it during the day. Pt is R handed. Prior Treatments and Tests L wrist brace. Future Testing and Treatments Planned Possible MRI if condition not improved. Treatment Goals Patient/Caregiver Goals Pt goal to: - eliminate the pain. - pain no greater than 1/10 with dish washing - pain no greater than 1/10 with putting pants & socks on, and tying shoes. - pain no greater than 1/10 with bathing. Prior Functional Status Baseline Function- ADL's Independent Baseline Function- Mobility Independent Baseline Function- Recreation/Hobbies Exercising at local gym 6x/ week for UE/LE strenghtening & aerobic workouts. Current Functional Impairments (Reported) Functional Limitations- ADL's Difficulty with ADLs due to L wrist pain. (R handed) Functional Limitations- Recreation/ Exercising at local gym 6x/ Hobbies week with only LE strengthenig & aerobic workouts. Personal Factors Other Personal Factors That May Effect Lost partner 10 months ago. Therapy/Recovery PT-OP-C Subjective Start: 03/06/21 19:06 Freq: Status: Active Protocol: Document 03/30/21 09:05 LRN (Rec: 03/30/21 09:49 LRN [id number]) OP-PT Subjective Patient Comments Patient Comments States ached in volar part of wrist after the last session for a day. Doing hot/cold was helpful. Today back to usual . PT-OP-J Posture/Palpation/Skin Start: 03/06/21 19:06 Freq: Status: Active Protocol: Document 03/08/21 09:51 LRN (Rec: 03/08/21 10:41 LRN [id number]) Posture Evaluation Position Sitting Head/C-Spine Posture Forward Head Shoulder Posture (R) Elevated Arm Posture (L) Internally Rotated,(R) Internally Rotated Palpation Assessment Location L wrist Palpation Location Volar wrist across small bones and CMC of thumb Palpation Findings Tenderness PT-OP-K Range of Motion Start: 03/06/21 19:06 Freq: Status: Active Protocol: Document 03/30/21 09:05 LRN (Rec: 03/30/21 09:49 LRN [id number]) Wrist Goniometric Range of Motion Wrist Left Wrist ROM WFL No Flexion Active (degrees) 70 Extension Active (degrees) 70 Ulnar Deviation Active (degrees) 38 Radial Deviation Active (degrees) 25 PT-OP-L Special Tests Start: 03/06/21 19:06 Freq: Status: Active Protocol: Document 03/08/21 09:51 LRN (Rec: 03/08/21 11:55 LRN [id number]) Special Tests Elbow Special Tests Jose G's Test Results Tightness/pain noted bilaterally. Wrist/Hand Special Tests Scaphoid Thrust Test Test Results + L wrist Comments Pain with light dorsal force applied on volar side indicates possible scapholunate instability. Load & Grind Test Test Results + L thumb Comments Indicates possible arthritis at CMC jt PT-OP-M Strength Start: 03/06/21 19:06 Freq: Status: Active Protocol: Document 03/13/21 09:08 LRN (Rec: 03/13/21 10:22 LRN [id number]) Hand Sales Representative Adding Machines/Pinch Strength Hand Dominance Hand Dominance Right Hand Strength Right Comments Sales Representative Adding Machines strength (KG): 26, 26, 24 (norm for 70-74 yr olds, 18.8 L, 22.5 R) Pinch (lbs): 8,8,8 (norm for 70-74 yr old women: 8-22 L, 9-22 R) Left Comments Sales Representative Adding Machines strength (KG): 16, 17, 18 (norm for 70-74 yr old women: 8-22 L, 9-22 R) Pinch (lbs): 1,3,4 (norm for 70-74 yr old women: 13.8 L, 14.5 R) PT-OP-Q Treatments Start: 03/06/21 19:06 Freq: Status: Active Protocol: Document 03/30/21 09:05 LRN (Rec: 03/30/21 09:49 LRN [id number]) Therapeutic Exercises Sitting Exercises Active L wrist ext Sitting Exercise Name L wrist active ext Side left Reps/Minutes 20x L Wrist ext Sitting Exercise Name Isometric ext strengthening at 20,40,60 deg's flex; & 0,20, 30,40,50 deg ext Side left Reps/Minutes 10 hold x 5 with all except at 0 deg's 10H x 10. Comments Extra time for training of positioning for ex L wrist ext stretch Sitting Exercise Name Mainly left: Stretch w/sit> stand transfers Side bilateral Equipment Used with/without bathroom scale Reps/Minutes 10' Comments 18# left, 25-28# right L wrist flex stretch Sitting Exercise Name Self manual stretch Side left Reps/Minutes 2' Gipping Sitting Exercise Name Fist making with wrist at neutral, 10 & 20 deg's ext, 10 deg's flex Side left Equipment Used Green putty Reps/Minutes 10 H x 10-15 Manual Therapy Treatment Manual Techniques MWM w/LUE wgtbearing Type L radius/ulna Prox>distal mob with partial WBing, wrist 20 deg ext Body Location L wrist Reps/Duration 4' MWM PA L Trapezoid Type L wrist flex with MWM & Actively wrist flex Body Location PA L Trapezoid (medial to thumb) Body Position L wrist in neutral Reps/Duration 10x 2 MWM w L wrist ext Type MWM for wrist ext Body Location PA of Trapezoid, then Distal > Prox radius Body Position Neutral L wrist Reps/Duration 3' Self-Care/Home Management Treatment Education Patient Education Home Exercise Program Activities Self-Care/Home Management Activities Issued Gr. TPutty for I/S L hand gripping ex with wrist in various positions of flex/ext . PT-OP-R Modalities Start: 03/06/21 19:06 Freq: Status: Active Protocol: Document 03/20/21 09:01 LRN (Rec: 03/20/21 09:53 LRN [id number]) Ultrasound Therapy Treatment L Thenar [place] Treatment Duration (minutes) 4 Patient Position Sitting Coupling Medium Ultrasound Gel Applicator Size (cm2) 2 Mode Setting Pulsed Duty Cycle 50% Intensity Setting (w/cm2) 1.0 R wrist Treatment Duration (minutes) 4 Patient Position Sitting Coupling Medium Ultrasound Gel Applicator Size (cm2) 2 Mode Setting Pulsed Duty Cycle 50% Intensity Setting (w/cm2) 0.8 PT-OP-T Assessment and Plan Start: 03/06/21 19:06 Freq: Status: Active Protocol: Document 03/30/21 09:05 LRN (Rec: 03/30/21 09:49 LRN [id number]) Physical Therapy Assessment Goals Four Impairment Decreased function per UE QUICKdash score 43 Impairment 40 to 59% Impaired (Score 40- 59) Short Term Goal (STG) Pain no greater than 2/10 with dish washing. STG Duration 04/12/21 Physical Optics Teacher Goal (LTG) Improve UE function per QUICKdash score of no more than 39 (10-39 = 29-39% impaired). LTG Duration 05/21/21 Three Impairment Decreased strength Impairment L wrist Flex/Ext 4/5 (R flex/ Ext is 5/5) Short Term Goal (STG) Pt educated in wrist strengthening ex's. (03/22/21: Pt I/S in L wrist isometric strengthening ex's). (03/27/21: Pt I/S in progressing L UE WBing). (03/29/21: Vega gripping in different wrist ext angles) STG Duration 04/12/21 (03/22/21: Progressed) Physical Optics Teacher Goal (LTG) Pain no greater than 1/10 with putting pants & socks on, and tying shoes. LTG Duration 05/21/21 Two Impairment Decreased mobility Impairment L UD 38 deg's (R is 47 deg's), R Flex & ext AROM is painful Short Term Goal (STG) Pt able to get out of bed by pushing with arm with pain no greater than 1/10. (03/30/21: WBing tolerance is 18# left, 25-28# right) STG Duration 04/12/21 Physical Optics Teacher Goal (LTG) Pain no greater than 1/10 with bathing. LTG Duration 05/21/21 One Impairment Lacks appropriate self care HEP. Short Term Goal (STG) Pt issued self care HEP of general UE strengthening ex's. (03/22/21: I/S given for self MWM of ulna/radius with active wrist flex/ext; Wrist ext isometrics in many various angles of flex & ext; Slight WBing in L hand. Pt to continue isometric wrist flex w/wrist in 20 deg's ext). (03/27/21: I/S pt in progressive WBing through LUE with Prox to distal glide of radius/ulna). STG Duration 04/12/21 (03/27/21: Progressed) Physical Optics Teacher Goal (LTG) Return to UE exercise at local gym with pain no greater than 1/10. (03/29/21: Tries to be careful , every once and awhile sharp pain) LTG Duration 05/21/21 Assessment Summary Assessment After stretching into L wrist ext for sit<>stand the pt noted a pop in the wrist with active wrist flex f/b increased wrist flex AROM to 70 deg's, but scaphoid appeared to shift volarly. With scaphoid repositioned, wrist flexion became stiff again at 60 deg's; therefore carpals are still unstable and needs further stabilizing ex' s. Pt sitting L UE WBing ( with L wrist in ext) is 18#, R wrist 25-28#). Physical Therapy Plan Frequency and Duration Frequency of Treatment 2x/Week Plan of Care Start Date 03/08/21 Plan of Care End Date 05/21/21 Next Visit Focus/Plan Next Note Type Treatment Note Next Visit Plan Assess progress towards goals. Progress L wrist ext strengthening for stab of carpals & progress WBing as tolerated (wall progressing to chair), Issue HEP: isometric wrist strengthening for stabilization, If needed: US thenar eminence, carpal tunnel, wrist flexors, End with cold pack if needed.
--- NOTE | 2021-04-03 09:46 | PT.OTN ---
Current Diagnoses Pain in left wrist (04/03/21) Muscle weakness (generalized) (04/03/21) Physical Therapy Treatment Note PT-OP-A Visit Information Start: 03/06/21 19:06 Freq: Status: Active Protocol: Document 04/03/21 09:08 SP (Rec: 04/03/21 09:49 SP [id number]) Out-Patient Physical Therapy Visit Information Visit Information Visit Type Treatment Note Visit Start Time 09:08 Visit Stop Time 09:46 Total Visit Minutes 38 Visit Number 7 Number of JINRIKSHA DRIVER Visits 1 Evaluation Information Evaluation Date 03/08/21 Precautions Precautions Osteopenia, Fibromyalgia PT-OP-B Current Condition Start: 03/06/21 19:06 Freq: Status: Active Protocol: Document 03/08/21 09:51 LRN (Rec: 03/08/21 10:41 LRN [id number]) Current Condition History of Current Condition Onset Date 2 months ago Current Complaints L dorals wrist pain. History of Current Condition Pt reports she fell in mid Nov stepping wrong on a rock, causing her L ankle to IV. She sprained the L ankle and thought the L wrist as well. The L ankle has gotten better, but the wrist has not. States x-rays show no fracture , but if not better will do an MRI to confirm no small bone fractures. Norris Van gave her a L wrist splint. She has been wearing at least a month , wearing it during the day. Pt is R handed. Prior Treatments and Tests L wrist brace. Future Testing and Treatments Planned Possible MRI if condition not improved. Treatment Goals Patient/Caregiver Goals Pt goal to: - eliminate the pain. - pain no greater than 1/10 with dish washing - pain no greater than 1/10 with putting pants & socks on, and tying shoes. - pain no greater than 1/10 with bathing. Prior Functional Status Baseline Function- ADL's Independent Baseline Function- Mobility Independent Baseline Function- Recreation/Hobbies Exercising at local gym 6x/ week for UE/LE strenghtening & aerobic workouts. Current Functional Impairments (Reported) Functional Limitations- ADL's Difficulty with ADLs due to L wrist pain. (R handed) Functional Limitations- Recreation/ Exercising at local gym 6x/ Hobbies week with only LE strengthenig & aerobic workouts. Personal Factors Other Personal Factors That May Effect Lost partner 10 months ago. Therapy/Recovery PT-OP-C Subjective Start: 03/06/21 19:06 Freq: Status: Active Protocol: Document 04/03/21 09:08 SP (Rec: 04/03/21 09:49 SP [id number]) OP-PT Subjective Patient Comments Patient Comments Pt states compliant with HEP. Able to doing every day things better: making sandwiches, dressing, scrubbing behind back and washing hair, conscious of keeping wrist in neutral and using fingers more to decrease wrist and don/ doff shoes. Little challenging driving with L wrist. Pt states the contrast baths instructed previous tx are helpful for assist with pain. PT-OP-J Posture/Palpation/Skin Start: 03/06/21 19:06 Freq: Status: Active Protocol: Document 03/08/21 09:51 LRN (Rec: 03/08/21 10:41 LRN [id number]) Posture Evaluation Position Sitting Head/C-Spine Posture Forward Head Shoulder Posture (R) Elevated Arm Posture (L) Internally Rotated,(R) Internally Rotated Palpation Assessment Location L wrist Palpation Location Volar wrist across small bones and CMC of thumb Palpation Findings Tenderness PT-OP-K Range of Motion Start: 03/06/21 19:06 Freq: Status: Active Protocol: Document 04/03/21 09:08 SP (Rec: 04/03/21 09:49 SP [id number]) Wrist Goniometric Range of Motion Wrist Left Wrist ROM WFL No Flexion Active (degrees) 70 Extension Active (degrees) 82 Ulnar Deviation Active (degrees) 50 Radial Deviation Active (degrees) 35 PT-OP-L Special Tests Start: 03/06/21 19:06 Freq: Status: Active Protocol: Document 03/08/21 09:51 LRN (Rec: 03/08/21 11:55 LRN [id number]) Special Tests Elbow Special Tests Jose G's Test Results Tightness/pain noted bilaterally. Wrist/Hand Special Tests Scaphoid Thrust Test Test Results + L wrist Comments Pain with light dorsal force applied on volar side indicates possible scapholunate instability. Load & Grind Test Test Results + L thumb Comments Indicates possible arthritis at CMC jt PT-OP-M Strength Start: 03/06/21 19:06 Freq: Status: Active Protocol: Document 03/13/21 09:08 LRN (Rec: 03/13/21 10:22 LR [id number]) Hand Practice Nurse/Pinch Strength Hand Dominance Hand Dominance Right Hand Strength Right Comments Practice Nurse strength (KG): 26, 26, 24 (norm for 70-74 yr olds, 18.8 L, 22.5 R) Pinch (lbs): 8,8,8 (norm for 70-74 yr old women: 8-22 L, 9-22 R) Left Comments Practice Nurse strength (KG): 16, 17, 18 (norm for 70-74 yr old women: 8-22 L, 9-22 R) Pinch (lbs): 1,3,4 (norm for 70-74 yr old women: 13.8 L, 14.5 R) PT-OP-Q Treatments Start: 03/06/21 19:06 Freq: Status: Active Protocol: Document 04/03/21 09:08 SP (Rec: 04/03/21 09:49 SP [id number]) Therapeutic Exercises Sitting Exercises Active L wrist flex Sitting Exercise Name Active wrist flex w/self MWM of ulna/radial proximal to distal glide Reps/Minutes 10x 3 Comments MWM 10x f/b active 10x Active L wrist ext Sitting Exercise Name L wrist active ext Side left Reps/Minutes 20x L Wrist ext Sitting Exercise Name Isometric ext strengthening at 20,40,60 deg's flex; & 0,20, 30,40,50 deg ext Side left Reps/Minutes 10 hold x 5 with all except at 0 deg's 10H x 10. Comments good form and response, painfree L Wrist flex Sitting Exercise Name Isometric flex strengthening @ 20,40,60 deg's flex; & 0,20, 30,40,50 deg ext Side left Reps/Minutes 10 hold x 5 with all except at 0 deg's 10H x 10. Comments good form, pain free L wrist ext stretch Sitting Exercise Name Mainly left: Stretch w/sit> stand transfers Side bilateral Equipment Used with/without bathroom scale Reps/Minutes 10' Comments 18-20# left L wrist flex stretch Sitting Exercise Name Self manual stretch Side left Reps/Minutes 2' Gipping Sitting Exercise Name Fist making with wrist at neutral, 10 & 20 deg's ext, 10 deg's flex Side left Equipment Used Green putty Reps/Minutes 10 H x 10-15, 10H x5 racquetball Comments mentiones 5/10 wrist pain during contraction but tolerable, gone at rest Manual Therapy Treatment Joint Mobilizations Ulna Joint Proximal to distal glide & PA sustained @ Ulna Body Position Sitting Reps/Duration 4' Comments Stabilizing Lunate from moving volarly Radius Joint Proximal to distal glide Radius Body Position Sitting Reps/Duration 2' Manual Techniques MWM PA L Trapezoid Type L wrist flex with MWM & Actively wrist flex Body Location PA L Trapezoid (medial to thumb) Body Position L wrist in neutral Reps/Duration 10x 2 MWM w L wrist ext Type MWM for wrist ext Body Location PA of Trapezoid, then Distal > Prox radius Body Position Neutral L wrist Reps/Duration 3' MWM Type MWM: wrist ext/flex w/prox> distal glide to radius & ulna Body Location L wrist Body Position Sitting Reps/Duration 15' Comments Also, AP of Capitate Lunate with wrist flex>ext. PT-OP-R Modalities Start: 03/06/21 19:06 Freq: Status: Active Protocol: Document 03/20/21 09:01 LRN (Rec: 03/20/21 09:53 LRN [id number]) Ultrasound Therapy Treatment L Thenar [place] Treatment Duration (minutes) 4 Patient Position Sitting Coupling Medium Ultrasound Gel Applicator Size (cm2) 2 Mode Setting Pulsed Duty Cycle 50% Intensity Setting (w/cm2) 1.0 R wrist Treatment Duration (minutes) 4 Patient Position Sitting Coupling Medium Ultrasound Gel Applicator Size (cm2) 2 Mode Setting Pulsed Duty Cycle 50% Intensity Setting (w/cm2) 0.8 PT-OP-T Assessment and Plan Start: 03/06/21 19:06 Freq: Status: Active Protocol: Document 04/03/21 09:08 SP (Rec: 04/03/21 09:49 SP [id number]) Physical Therapy Assessment Goals Four Impairment Decreased function per UE QUICKdash score 43 Impairment 40 to 59% Impaired (Score 40- 59) Short Term Goal (STG) Pain no greater than 2/10 with dish washing. STG Duration 04/12/21 Dye Blender Goal (LTG) Improve UE function per QUICKdash score of no more than 39 (10-39 = 29-39% impaired). LTG Duration 05/21/21 Three Impairment Decreased strength Impairment L wrist Flex/Ext 4/5 (R flex/ Ext is 5/5) Short Term Goal (STG) Pt educated in wrist strengthening ex's. (03/22/21: Pt I/S in L wrist isometric strengthening ex's). (03/27/21: Pt I/S in progressing L UE WBing). (03/29/21: Vega gripping in different wrist ext angles) STG Duration 04/12/21 (03/22/21: Progressed) Dye Blender Goal (LTG) Pain no greater than 1/10 with putting pants & socks on, and tying shoes. LTG Duration 05/21/21 Two Impairment Decreased mobility Impairment L UD 38 deg's (R is 47 deg's), R Flex & ext AROM is painful Short Term Goal (STG) Pt able to get out of bed by pushing with arm with pain no greater than 1/10. (03/30/21: WBing tolerance is 18# left, 25-28# right) STG Duration 04/12/21 Snf Goal (LTG) Pain no greater than 1/10 with bathing. LTG Duration 05/21/21 One Impairment Lacks appropriate self care HEP. Short Term Goal (STG) Pt issued self care HEP of general UE strengthening ex's. (03/22/21: I/S given for self MWM of ulna/radius with active wrist flex/ext; Wrist ext isometrics in many various angles of flex & ext; Slight WBing in L hand. Pt to continue isometric wrist flex w/wrist in 20 deg's ext). (03/27/21: I/S pt in progressive WBing through LUE with Prox to distal glide of radius/ulna). STG Duration 04/12/21 (03/27/21: Progressed) Snf Goal (LTG) Return to UE exercise at local gym with pain no greater than 1/10. (03/29/21: Tries to be careful , every once and awhile sharp pain) LTG Duration 05/21/21 Progress Towards Goals Progress Comments Improved L wrist AROM ( measurements taken end tx): extension: 12 deg UD:[address]:10 deg wrist flexion: same 70 deg little pain palmar wrist but improved painfree with AP pressure over carpals. Assessment Summary Assessment Pt improved instruction review of MWM ulnar/ radial distal/ proximal w/ pressure placement /positioning RUE noted decrease pain over distal wrist can go further into wrist extension. Able apply increase 2 lb pressure WB during STS transfers. Physical Therapy Plan Frequency and Duration Frequency of Treatment 2x/Week Plan of Care Start Date 03/08/21 Plan of Care End Date 05/21/21 Therapeutic Interventions Therapeutic Interventions Home Exercise Program,Joint Mobilizations,Manual Therapy, Patient/Caregiver Education, Self-Care/Home Management,Soft Tissue Mobilization,Taping, Therapeutic Exercises Modalities Cold Pack/Ice Massage,Hot Packs,Ultrasound Next Visit Focus/Plan Next Note Type Treatment Note Next Visit Plan Assess progress towards goals. Progress L wrist ext strengthening for stab of carpals & progress WBing as tolerated (wall progressing to chair), Issue HEP: isometric wrist strengthening for stabilization, If needed: US thenar eminence, carpal tunnel, wrist flexors, End with cold pack if needed.
--- NOTE | 2021-04-06 14:15 | PT.OTN ---
Current Diagnoses Pain in left wrist (04/06/21) Muscle weakness (generalized) (04/06/21) Physical Therapy Treatment Note PT-OP-A Visit Information Start: 03/06/21 19:06 Freq: Status: Active Protocol: Document 04/06/21 09:01 LRN (Rec: 04/06/21 09:53 LRN [id number]) Out-Patient Physical Therapy Visit Information Visit Information Visit Type Treatment Note Visit Note 09/27 Visit Start Time 09:02 Visit Stop Time 09:45 Total Visit Minutes 43 Visit Number 8 Evaluation Information Evaluation Date 03/08/21 Precautions Precautions Osteopenia, Fibromyalgia PT-OP-B Current Condition Start: 03/06/21 19:06 Freq: Status: Active Protocol: Document 03/08/21 09:51 LRN (Rec: 03/08/21 10:41 LRN [id number]) Current Condition History of Current Condition Onset Date 2 months ago Current Complaints L dorals wrist pain. History of Current Condition Pt reports she fell in mid Nov stepping wrong on a rock, causing her L ankle to IV. She sprained the L ankle and thought the L wrist as well. The L ankle has gotten better, but the wrist has not. States x-rays show no fracture , but if not better will do an MRI to confirm no small bone fractures. Norris Van gave her a L wrist splint. She has been wearing at least a month , wearing it during the day. Pt is R handed. Prior Treatments and Tests L wrist brace. Future Testing and Treatments Planned Possible MRI if condition not improved. Treatment Goals Patient/Caregiver Goals Pt goal to: - eliminate the pain. - pain no greater than 1/10 with dish washing - pain no greater than 1/10 with putting pants & socks on, and tying shoes. - pain no greater than 1/10 with bathing. Prior Functional Status Baseline Function- ADL's Independent Baseline Function- Mobility Independent Baseline Function- Recreation/Hobbies Exercising at local gym 6x/ week for UE/LE strenghtening & aerobic workouts. Current Functional Impairments (Reported) Functional Limitations- ADL's Difficulty with ADLs due to L wrist pain. (R handed) Functional Limitations- Recreation/ Exercising at local gym 6x/ Hobbies week with only LE strengthenig & aerobic workouts. Personal Factors Other Personal Factors That May Effect Lost partner 10 months ago. Therapy/Recovery PT-OP-C Subjective Start: 03/06/21 19:06 Freq: Status: Active Protocol: Document 04/06/21 09:01 LRN (Rec: 04/06/21 09:53 LRN [id number]) OP-PT Subjective Patient Comments Patient Comments Was sore all day after the last session, was an achy sore . Iced after and hot/cold session after ex's that was helpful. Can do wrist circles without pain. NO pain with pasive wrist ext and pain with UD/RD in distal forearm, Pain with pasiive flexion. Patient Questionnaires Quick Dash- Upper Extremity Quick Dash UE Score 31 Quick Dash UE Impairment 20 to 39% Impaired (Score 20- 39) PT-OP-J Posture/Palpation/Skin Start: 03/06/21 19:06 Freq: Status: Active Protocol: Document 03/08/21 09:51 LRN (Rec: 03/08/21 10:41 LRN [id number]) Posture Evaluation Position Sitting Head/C-Spine Posture Forward Head Shoulder Posture (R) Elevated Arm Posture (L) Internally Rotated,(R) Internally Rotated Palpation Assessment Location L wrist Palpation Location Volar wrist across small bones and CMC of thumb Palpation Findings Tenderness PT-OP-K Range of Motion Start: 03/06/21 19:06 Freq: Status: Active Protocol: Document 04/06/21 09:01 LRN (Rec: 04/06/21 09:53 LRN [id number]) Wrist Goniometric Range of Motion Wrist Left Wrist ROM WFL No Flexion Active (degrees) 67 Extension Active (degrees) 80 PT-OP-L Special Tests Start: 03/06/21 19:06 Freq: Status: Active Protocol: Document 03/08/21 09:51 LRN (Rec: 03/08/21 11:55 LRN [id number]) Special Tests Elbow Special Tests Jose G's Test Results Tightness/pain noted bilaterally. Wrist/Hand Special Tests Scaphoid Thrust Test Test Results + L wrist Comments Pain with light dorsal force applied on volar side indicates possible scapholunate instability. 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 [employer]munition Storage/Pinch Strength Hand Dominance Hand Dominance Right Hand Strength Right Comments Superintendent [employer]munition Storage strength (KG): 26, 26, 24 (norm for 70-74 yr olds, 18.8 L, 22.5 R) Pinch (lbs): 8,8,8 (norm for 70-74 yr old women: 8-22 L, 9-22 R) Left Comments Superintendent [employer]munition Storage strength (KG): 16, 17, 18 (norm for 70-74 yr old women: 8-22 L, 9-22 R) Pinch (lbs): 1,3,4 (norm for 70-74 yr old women: 13.8 L, 14.5 R) PT-OP-Q Treatments Start: 03/06/21 19:06 Freq: Status: Active Protocol: Document 04/06/21 09:01 LRN (Rec: 04/06/21 09:53 LRN [id number]) Therapeutic Exercises Sitting Exercises sup/pron Sitting Exercise Name Active sup/pron Side left Reps/Minutes 10x Active L wrist flex Sitting Exercise Name Active wrist flex w & w/0 self MWM of ulna/radial proximal to distal glide Reps/Minutes 10x 3 Comments MWM 10x f/b active 10x Active L wrist ext Sitting Exercise Name L wrist active ext Side left Reps/Minutes 30x L Wrist flex Sitting Exercise Name Isometric flex strengthening Side left Reps/Minutes 15x Comments good form, pain free RD Sitting Exercise Name Active RD Side left Reps/Minutes 30x UD Sitting Exercise Name Active UD Side left Reps/Minutes 30x Gipping Sitting Exercise Name Acitve Fist making Side left Reps/Minutes 10x Manual Therapy Treatment Manual Techniques MWM w L wrist ext Type MWM for wrist ext Body Location AP of Scaphoid w/PA of radius, tapezium, trapezoid, capitate Body Position Neutral L wrist Reps/Duration 10' MWM Type MWM for L wrist flex Body Location AP of Scaphoid w/PA of radius, tapezium, trapezoid, capitate Body Position Sitting Reps/Duration 10' PT-OP-R Modalities Start: 03/06/21 19:06 Freq: Status: Active Protocol: Document 04/06/21 09:01 LRN (Rec: 04/06/21 09:53 [facility] [id number]) Paraffin Bath Treatment Left Hand Treatment Technique Dip-immersion Wax Temperature (degrees F) 122 Number Wax Layers (layers) 6 Duration (minutes) 8 Patient Tolerance Good PT-OP-T Assessment and Plan Start: 03/06/21 19:06 Freq: Status: Active Protocol: Document 04/06/21 09:01 LRN (Rec: 04/06/21 09:53 [facility] [id number]) Physical Therapy Assessment Goals Four Impairment Decreased function per UE QUICKdash score 43 Impairment 40 to 59% Impaired (Score 40- 59) Short Term Goal (STG) Pain no greater than 2/10 with dish washing. (04/06/21: Doesn't hurt because guarded, pain if does too quickly without thinking). STG Duration 04/12/21 (04/06/21: Progressed: w/modified behaviour goal met) Key Account Representative Goal (LTG) Improve UE function per QUICKdash score of no more than 39 (10-39 = 29-39% impaired). (04/06/21: MET GOAL) LTG Duration 05/21/21 (04/06/21: MET GOAL, impairment is 29-39%) Three Impairment Decreased strength Impairment L wrist Flex/Ext 4/5 (R flex/ Ext is 5/5) Short Term Goal (STG) Pt educated in wrist strengthening ex's. (03/22/21: Pt I/S in L wrist isometric strengthening ex's). (03/27/21: Pt I/S in progressing L UE WBing). (03/29/21: Vega gripping in different wrist ext angles) STG Duration 04/12/21 (03/29/21: Progressed) Key Account Representative Goal (LTG) Pain no greater than 1/10 with putting pants & socks on, and tying shoes. (04/06/21: Occasional pain with putting on pants & sodks. No pain with tying shoes). LTG Duration 05/21/21 (04/06/21: Partially met - tying shoes w/o pain) Two Impairment Decreased mobility Impairment L UD 38 deg's (R is 47 deg's), R Flex & ext AROM is painful Short Term Goal (STG) Pt able to get out of bed by pushing with arm with pain no greater than 1/10. (03/30/21: WBing tolerance is 18# left, 25-28# right) STG Duration 04/12/21 (04/06/21: Still painful to volar L wrist) Key Account Representative Goal (LTG) Pain no greater than 1/10 with bathing. (04/06/21: Occasional pain rated 3/10, was initially 4/10 ) LTG Duration 05/21/21 (04/06/21: Progressing, pain is occasional) One Impairment Lacks appropriate self care HEP. Short Term Goal (STG) Pt issued self care HEP of general UE strengthening ex's. (03/22/21: I/S given for self MWM of ulna/radius with active wrist flex/ext; Wrist ext isometrics in many various angles of flex & ext; Slight WBing in L hand. Pt to continue isometric wrist flex w/wrist in 20 deg's ext). (03/27/21: I/S pt in progressive WBing through LUE with Prox to distal glide of radius/ulna). STG Duration 04/12/21 (03/27/21: Progressed) Key Account Representative Goal (LTG) Return to UE exercise at local gym with pain no greater than 1/10. (03/29/21: Tries to be careful , every once and awhile sharp pain) LTG Duration 05/21/21 Progress Towards Goals Progress Comments Pain decreased with functional activities of bathing ( occasional pain), tying shoes (no pain), and dishwashing. LTG #4 MET. UE Quickdash of 31, 29-39% impaired. Assessment Summary Assessment Function has improved with UE QuickDASH of 31, 20-39% disability (initially was 43, 40-59% disability). Pt is weaning off her wrist support, wearing it when her wrist begins to ache. Her scaphoid was positioned more volar, but was corrected with manual therapy. Her L wrist mobility is limited but she is able to tolerate isometric strengthening. Her L thenar eminence shows atrophy; therefore strengthening of L thumb flexion and opposition is needed. WBing tolerance is low. Physical Therapy Plan Frequency and Duration Frequency of Treatment 2x/Week Plan of Care Start Date 03/08/21 Plan of Care End Date 05/21/21 Next Visit Focus/Plan Next Note Type Treatment Note Next Visit Plan Progress L wrist ext strengthening for stab of carpals & progress WBing as tolerated (wall progressing to chair), Add and start HEP: L thumb flexion and opposition strengthening Issue HEP: isometric wrist strengthening for stabilization, If needed: US thenar eminence and/or CP
--- NOTE | 2021-04-10 10:51 | PT.OTN ---
Current Diagnoses Pain in left wrist (04/10/21) Muscle weakness (generalized) (04/10/21) Physical Therapy Treatment Note PT-OP-A Visit Information Start: 03/06/21 19:06 Freq: Status: Active Protocol: Document 04/10/21 08:16 LRN (Rec: 04/10/21 10:50 LRN [id number]) Out-Patient Physical Therapy Visit Information Visit Information Visit Type Treatment Note Visit Start Time 08:17 Visit Stop Time 09:00 Total Visit Minutes 43 Visit Number 9 Evaluation Information Evaluation Date 04/10/21 Precautions Precautions Osteopenia, Fibromyalgia PT-OP-B Current Condition Start: 03/06/21 19:06 Freq: Status: Active Protocol: Document 03/08/21 09:51 LRN (Rec: 03/08/21 10:41 LRN [id number]) Current Condition History of Current Condition Onset Date 2 months ago Current Complaints L dorals wrist pain. History of Current Condition Pt reports she fell in mid Nov stepping wrong on a rock, causing her L ankle to IV. She sprained the L ankle and thought the L wrist as well. The L ankle has gotten better, but the wrist has not. States x-rays show no fracture , but if not better will do an MRI to confirm no small bone fractures. Norris Van gave her a L wrist splint. She has been wearing at least a month , wearing it during the day. Pt is R handed. Prior Treatments and Tests L wrist brace. Future Testing and Treatments Planned Possible MRI if condition not improved. Treatment Goals Patient/Caregiver Goals Pt goal to: - eliminate the pain. - pain no greater than 1/10 with dish washing - pain no greater than 1/10 with putting pants & socks on, and tying shoes. - pain no greater than 1/10 with bathing. Prior Functional Status Baseline Function- ADL's Independent Baseline Function- Mobility Independent Baseline Function- Recreation/Hobbies Exercising at local gym 6x/ week for UE/LE strenghtening & aerobic workouts. Current Functional Impairments (Reported) Functional Limitations- ADL's Difficulty with ADLs due to L wrist pain. (R handed) Functional Limitations- Recreation/ Exercising at local gym 6x/ Hobbies week with only LE strengthenig & aerobic workouts. Personal Factors Other Personal Factors That May Effect Lost partner 10 months ago. Therapy/Recovery PT-OP-C Subjective Start: 03/06/21 19:06 Freq: Status: Active Protocol: Document 04/10/21 08:16 LRN (Rec: 04/10/21 10:50 LRN [id number]) OP-PT Subjective Patient Comments Patient Comments Pain not as much in the L wrist, and range is improving. PT-OP-J Posture/Palpation/Skin Start: 03/06/21 19:06 Freq: Status: Active Protocol: Document 03/08/21 09:51 LRN (Rec: 03/08/21 10:41 LRN [id number]) Posture Evaluation Position Sitting Head/C-Spine Posture Forward Head Shoulder Posture (R) Elevated Arm Posture (L) Internally Rotated,(R) Internally Rotated Palpation Assessment Location L wrist Palpation Location Volar wrist across small bones and CMC of thumb Palpation Findings Tenderness PT-OP-K Range of Motion Start: 03/06/21 19:06 Freq: Status: Active Protocol: Document 04/10/21 08:16 LRN (Rec: 04/10/21 10:50 LRN [id number]) Wrist Goniometric Range of Motion Wrist Right Wrist ROM WFL Yes Flexion Active (degrees) 70 Extension Active (degrees) 68 Ulnar Deviation Active (degrees) 47 Radial Deviation Active (degrees) 28 Left Wrist ROM WFL No Flexion Active (degrees) 70 Extension Active (degrees) 80 Ulnar Deviation Active (degrees) 40 Radial Deviation Active (degrees) 32 PT-OP-L Special Tests Start: 03/06/21 19:06 Freq: Status: Active Protocol: Document 03/08/21 09:51 LRN (Rec: 03/08/21 11:55 LRN [id number]) Special Tests Elbow Special Tests Jose G's Test Results Tightness/pain noted bilaterally. Wrist/Hand Special Tests Scaphoid Thrust Test Test Results + L wrist Comments Pain with light dorsal force applied on volar side indicates possible scapholunate instability. Load & Grind Test Test Results + L thumb Comments Indicates possible arthritis at CMC jt PT-OP-M Strength Start: 03/06/21 19:06 Freq: Status: Active Protocol: Document 03/13/21 09:08 LRN (Rec: 03/13/21 10:22 LRN [id number]) Hand Boat Rental Clerk/Pinch Strength Hand Dominance Hand Dominance Right Hand Strength Right Comments Boat Rental Clerk strength (KG): 26, 26, 24 (norm for 70-74 yr olds, 18.8 L, 22.5 R) Pinch (lbs): 8,8,8 (norm for 70-74 yr old women: 8-22 L, 9-22 R) Left Comments Boat Rental Clerk strength (KG): 16, 17, 18 (norm for 70-74 yr old women: 8-22 L, 9-22 R) Pinch (lbs): 1,3,4 (norm for 70-74 yr old women: 13.8 L, 14.5 R) PT-OP-Q Treatments Start: 03/06/21 19:06 Freq: Status: Active Protocol: Document 04/10/21 08:16 LRN (Rec: 04/10/21 10:50 LRN [id number]) Therapeutic Exercises Sitting Exercises Tricep Ext Sitting Exercise Name Tricep Ext Side left Reps/Minutes 15x 2 Bicep Curl Sitting Exercise Name Bicep Curl Side left Reps/Minutes 15x 2 sup/pron Sitting Exercise Name Active resisted strengthening Side left Equipment Used LEV 1 Reps/Minutes 15x Comments Extra time to determine max tolerated resistance Active L wrist flex Sitting Exercise Name Active wrist flex w & w/o self MWM ulna PA/Scaphoid AP Side left Reps/Minutes 10x 3 Comments MWM 10x f/b active 10x Active L wrist ext Sitting Exercise Name L wrist active ext Side left Equipment Used Lev 1 Reps/Minutes 30x L Wrist ext Sitting Exercise Name Active resistive Ext strengthening Side left Equipment Used Lev 1 Reps/Minutes 30x Comments Extra time to determine max tolerated resistance L Wrist flex Sitting Exercise Name Active resistive Flex strengthening Side left Equipment Used Lev 1 Reps/Minutes 30x Comments Extra time to determine max tolerated resistance RD Sitting Exercise Name Active resistive RD Side left Equipment Used Lev 1 Reps/Minutes 30x Comments Extra time to determine max tolerated resistance UD Sitting Exercise Name Active resistive UD Side left Equipment Used Lev 1 Reps/Minutes 30x Comments Extra time to determine max tolerated resistance Gipping Sitting Exercise Name Acitve Fist making in neutral & 2 positions of ext & flex Side left Reps/Minutes 5 H, 5x each Manual Therapy Treatment Manual Techniques MWM w L wrist ext Type MWM for wrist ext Body Location AP of Scaphoid w/PA of radius, tapezium, trapezoid, capitate Body Position Neutral L wrist Reps/Duration 7' MWM Type MWM for L wrist flex Body Location AP of Scaphoid w/PA of radius, tapezium, trapezoid, capitate Body Position Sitting Reps/Duration 4' Self-Care/Home Management Treatment Education Patient Education Home Exercise Program Activities Self-Care/Home Management Activities Issued & reviewed HEP: L wrist strengthening with TB for flex, ext, UD, RD, pronation, supination and WBing into L UE. PT-OP-R Modalities Start: 03/06/21 19:06 Freq: Status: Active Protocol: Document 04/06/21 09:01 LRN (Rec: 04/06/21 09:53 LRN [id number]) Paraffin Bath Treatment Left Hand Treatment Technique Dip-immersion Wax Temperature (degrees F) 122 Number Wax Layers (layers) 6 Duration (minutes) 8 Patient Tolerance Good PT-OP-T Assessment and Plan Start: 03/06/21 19:06 Freq: Status: Active Protocol: Document 04/10/21 08:16 LRN (Rec: 04/10/21 10:50 LRN [id number]) Physical Therapy Assessment Goals Four Impairment Decreased function per UE QUICKdash score 43 Impairment 40 to 59% Impaired (Score 40- 59) Short Term Goal (STG) Pain no greater than 2/10 with dish washing. (04/06/21: Doesn't hurt because guarded, pain if does too quickly without thinking). STG Duration 04/12/21 (04/06/21: Progressed: w/modified behaviour goal met) Sales Representative [employer] Goal (LTG) Improve UE function per QUICKdash score of no more than 39 (10-39 = 29-39% impaired). (04/06/21: MET GOAL) LTG Duration 05/21/21 (04/06/21: MET GOAL, impairment is 29-39%) Three Impairment Decreased strength Impairment L wrist Flex/Ext 4/5 (R flex/ Ext is 5/5) Short Term Goal (STG) Pt educated in wrist strengthening ex's. (03/22/21: Pt I/S in L wrist isometric strengthening ex's). (03/27/21: Pt I/S in progressing L UE WBing). (03/29/21: Vega gripping in different wrist ext angles) STG Duration 04/12/21 (03/29/21: Progressed) Sales Representative [employer] Goal (LTG) Pain no greater than 1/10 with putting pants & socks on, and tying shoes. (04/06/21: Occasional pain with putting on pants & sodks. No pain with tying shoes). LTG Duration 05/21/21 (04/06/21: Partially met - tying shoes w/o pain) Two Impairment Decreased mobility Impairment L UD 38 deg's (R is 47 deg's), R Flex & ext AROM is painful Short Term Goal (STG) Pt able to get out of bed by pushing with arm with pain no greater than 1/10. (03/30/21: WBing tolerance is 18# left, 25-28# right) STG Duration 04/12/21 (04/06/21: Still painful to volar L wrist) Usp Goal (LTG) Pain no greater than 1/10 with bathing. (04/06/21: Occasional pain rated 3/10, was initially 4/10 ) LTG Duration 05/21/21 (04/06/21: Progressing, pain is occasional) One Impairment Lacks appropriate self care HEP. Short Term Goal (STG) Pt issued self care HEP of general UE strengthening ex's. (03/22/21: I/S given for self MWM of ulna/radius with active wrist flex/ext; Wrist ext isometrics in many various angles of flex & ext; Slight WBing in L hand. Pt to continue isometric wrist flex w/wrist in 20 deg's ext). (03/27/21: I/S pt in progressive WBing through LUE with Prox to distal glide of radius/ulna). STG Duration 04/12/21 (03/27/21: Progressed) Usp Goal (LTG) Return to UE exercise at local gym with pain no greater than 1/10. (03/29/21: Tries to be careful , every once and awhile sharp pain) LTG Duration 05/21/21 Assessment Summary Assessment Stabilizing L hand: Scaphoid to prevent volar glide and distal ulna to prevent dorsal glide for painfree active wrist flex/ext/UD. With palpation L hand carpals appear to have hypermobility with some clicking noted. Pt appears to have good understanding of her progressing ex's and may be able to advance more independently since it is expected that the pt will need time to work on wrist strengthening. Physical Therapy Plan Frequency and Duration Frequency of Treatment 2x/Week Plan of Care Start Date 03/08/21 Plan of Care End Date 05/21/21 Next Visit Focus/Plan Next Note Type Treatment Note Next Visit Plan Assess progress to goals. Assess pt knowledge of progressing on an independent program for strengthening and to decrease therapy to 1x/week or 1x/2weeks. If pt feels confident with self progression, pt can cont with recheck in 3-4 weeks or even DC to home program; therefore discuss with patient POC. Assess response to added TBand strengthening: Focus on L wrist ext strengthening for stab of carpals & assess progress of WBing progression (wall and table), Add and HEP: L thumb flexion and opposition strengthening If needed: US thenar eminence and/or CP
--- NOTE | 2021-04-13 17:57 | PT.OTN ---
Current Diagnoses Pain in left wrist (04/13/21) Muscle weakness (generalized) (04/13/21) Physical Therapy Treatment Note PT-OP-A Visit Information Start: 03/06/21 19:06 Freq: Status: Active Protocol: Document 04/13/21 08:17 LRN (Rec: 04/13/21 09:51 LRN [id number]) Out-Patient Physical Therapy Visit Information Visit Information Visit Type Progress Note Visit Start Time 09:03 Visit Stop Time 09:45 Total Visit Minutes 42 Visit Number 10 Evaluation Information Evaluation Date 04/10/21 Precautions Precautions Osteopenia, Fibromyalgia PT-OP-B Current Condition Start: 03/06/21 19:06 Freq: Status: Active Protocol: Document 03/08/21 09:51 LRN (Rec: 03/08/21 10:41 LRN [id number]) Current Condition History of Current Condition Onset Date 2 months ago Current Complaints L dorals wrist pain. History of Current Condition Pt reports she fell in mid Nov stepping wrong on a rock, causing her L ankle to IV. She sprained the L ankle and thought the L wrist as well. The L ankle has gotten better, but the wrist has not. States x-rays show no fracture , but if not better will do an MRI to confirm no small bone fractures. Norris Van gave her a L wrist splint. She has been wearing at least a month , wearing it during the day. Pt is R handed. Prior Treatments and Tests L wrist brace. Future Testing and Treatments Planned Possible MRI if condition not improved. Treatment Goals Patient/Caregiver Goals Pt goal to: - eliminate the pain. - pain no greater than 1/10 with dish washing - pain no greater than 1/10 with putting pants & socks on, and tying shoes. - pain no greater than 1/10 with bathing. Prior Functional Status Baseline Function- ADL's Independent Baseline Function- Mobility Independent Baseline Function- Recreation/Hobbies Exercising at local gym 6x/ week for UE/LE strenghtening & aerobic workouts. Current Functional Impairments (Reported) Functional Limitations- ADL's Difficulty with ADLs due to L wrist pain. (R handed) Functional Limitations- Recreation/ Exercising at local gym 6x/ Hobbies week with only LE strengthenig & aerobic workouts. Personal Factors Other Personal Factors That May Effect Lost partner 10 months ago. Therapy/Recovery PT-OP-C Subjective Start: 03/06/21 19:06 Freq: Status: Active Protocol: Document 04/13/21 08:17 LRN (Rec: 04/13/21 09:51 LRN [id number]) OP-PT Subjective Patient Comments Patient Comments States sore after last session , still a little sore in the L thumb and radial wrist. Not waking up in the night when pushing to roll over. Patient Questionnaires Quick Dash- Upper Extremity Quick Dash UE Score 25 Quick Dash UE Impairment 20 to 39% Impaired (Score 20- 39) OP-PT Pain Assessment Pain Assessment Grid Paper Pain Assessment Grid Completed Yes Location L wrist Pain Location Details Dorsal and volar side of wrist mainly on thumb side Intensity 4 Scale Used Numeric (0 - 10) Description Aching PT-OP-H Neuro Start: 03/06/21 19:06 Freq: Status: Active Protocol: Document 04/13/21 08:17 LRN (Rec: 04/13/21 09:51 LRN [id number]) Sensation Evaluation Gross Sensation Gross Sensation WNL PT-OP-J Posture/Palpation/Skin Start: 03/06/21 19:06 Freq: Status: Active Protocol: Document 03/08/21 09:51 LRN (Rec: 03/08/21 10:41 LRN [id number]) Posture Evaluation Position Sitting Head/C-Spine Posture Forward Head Shoulder Posture (R) Elevated Arm Posture (L) Internally Rotated,(R) Internally Rotated Palpation Assessment Location L wrist Palpation Location Volar wrist across small bones and CMC of thumb Palpation Findings Tenderness PT-OP-K Range of Motion Start: 03/06/21 19:06 Freq: Status: Active Protocol: Document 04/13/21 08:17 LRN (Rec: 04/13/21 09:51 LRN [id number]) Wrist Goniometric Range of Motion Wrist Right Wrist ROM WFL Yes Flexion Active (degrees) 70 Extension Active (degrees) 68 Ulnar Deviation Active (degrees) 47 Radial Deviation Active (degrees) 28 Left Flexion Active (degrees) 70 Extension Active (degrees) 75 Ulnar Deviation Active (degrees) 45 Radial Deviation Active (degrees) 33 ROM Limitations Comments Improved L wrist active ulnar deviation after AROM/ARROM ex' s to 50 deg's PT-OP-L Special Tests Start: 03/06/21 19:06 Freq: Status: Active Protocol: Document 03/08/21 09:51 LRN (Rec: 03/08/21 11:55 LRN [id number]) Special Tests Elbow Special Tests Jose G's Test Results Tightness/pain noted bilaterally. Wrist/Hand Special Tests Scaphoid Thrust Test Test Results + L wrist Comments Pain with light dorsal force applied on volar side indicates possible scapholunate instability. Load & Grind Test Test Results + L thumb Comments Indicates possible arthritis at CMC jt PT-OP-M Strength Start: 03/06/21 19:06 Freq: Status: Active Protocol: Document 03/13/21 09:08 LRN (Rec: 03/13/21 10:22 LRN [id number]) Hand Feed Research Technician/Pinch Strength Hand Dominance Hand Dominance Right Hand Strength Right Comments Feed Research Technician strength (KG): 26, 26, 24 (norm for 70-74 yr olds, 18.8 L, 22.5 R) Pinch (lbs): 8,8,8 (norm for 70-74 yr old women: 8-22 L, 9-22 R) Left Comments Feed Research Technician strength (KG): 16, 17, 18 (norm for 70-74 yr old women: 8-22 L, 9-22 R) Pinch (lbs): 1,3,4 (norm for 70-74 yr old women: 13.8 L, 14.5 R) PT-OP-Q Treatments Start: 03/06/21 19:06 Freq: Status: Active Protocol: Document 04/13/21 08:17 LRN (Rec: 04/13/21 09:51 LRN [id number]) Gym Equipment Cable Column (Body Solid) ELbow curl Details Elbow curl with R arm and with R arm assist Resistance 10# Reps/Time 6' Therapeutic Exercises Sitting Exercises Active L wrist flex Sitting Exercise Name Active wrist flex w & w/o self MWM ulna PA/Scaphoid AP Side left Reps/Minutes 10x 3 Comments MWM 10x f/b active 10x Active L wrist ext Sitting Exercise Name L wrist active ext Side left Equipment Used Lev 1 Reps/Minutes 30x L Wrist ext Sitting Exercise Name Vega L wrist ext in various deg's of flex/ext - resistance at fingertips Side left Reps/Minutes 30x each angle L Wrist flex Sitting Exercise Name Vega L wrist flex in various deg's of flex/ext - resistance at fingertips Side left Reps/Minutes 30x each angle RD Sitting Exercise Name Active resistive RD Side left Equipment Used Lev 1 Reps/Minutes 30x each Comments Extra time to determine max tolerated resistance UD Sitting Exercise Name AROM/ARROM and with MWM ( distal glide of ulna withUD Side left Equipment Used Lev 1 Reps/Minutes 30x each Comments Extra time to determine max tolerated resistance Self-Care/Home Management Treatment Education Patient Education Home Exercise Program Other Education Verbal review of pt's gym ex's she wants to return to, advised she could shoulder press, but requested pt note machines she want to return to and the weights starting. Activities Self-Care/Home Management Activities I/S in HEP: Added distal finger reistance for wrist flex/ext vega strengthening & WBing in chair vs on table. PT-OP-R Modalities Start: 03/06/21 19:06 Freq: Status: Active Protocol: Document 04/06/21 09:01 LRN (Rec: 04/06/21 09:53 [facility] [id number]) Paraffin Bath Treatment Left Hand Treatment Technique Dip-immersion Wax Temperature (degrees F) 122 Number Wax Layers (layers) 6 Duration (minutes) 8 Patient Tolerance Good PT-OP-T Assessment and Plan Start: 03/06/21 19:06 Freq: Status: Active Protocol: Document 04/13/21 08:17 LRN (Rec: 04/13/21 09:51 [facility] [id number]) Physical Therapy Assessment Rehab Potential Rehabilitation Potential Good Evaluation Complexity Number of Personal Factors/Comorbidities 1-2 Number of Body Systems Impaired 4 or More Clinical Presentation at Evaluation Evolving Impairments Impairments Activity Tolerance,Functional Mobility,Pain,ROM,Soft Tissue Mobility,Strength Goals Four Impairment Decreased function per UE QUICKdash score 43 Impairment 40 to 59% Impaired (Score 40- 59) Short Term Goal (STG) Pain no greater than 2/10 with dish washing. (04/06/21: Doesn't hurt because guarded, pain if does too quickly without thinking). (04/13/21: Doesn't notice any discomfort with dish washing and a little guarded). STG Duration 04/12/21 (04/13/21: MET GOAL) Halfway Goal (LTG) Improve UE function per QUICKdash score of no more than 39 (10-39 = 29-39% impaired). (04/06/21: MET GOAL) (04/13/21: Score of 25 with 1 answer missing, 20-39% impaired, score os 29-39) LTG Duration 06/12/21 (04/06/21: MET GOAL, score 31, impairment is 29-39 %) Three Impairment Decreased strength Impairment L wrist Flex/Ext 4/5 (R flex/ Ext is 5/5) Short Term Goal (STG) Pt educated in wrist strengthening ex's. (03/22/21: Pt I/S in L wrist isometric strengthening ex's). (03/27/21: Pt I/S in progressing L UE WBing). (03/29/21: Vega gripping in different wrist ext angles) (04/13/21: Pt Inde with isotonic L wrist strengthening ex/s) STG Duration 05/13/21 (03/29/21: Progressed ) Halfway Goal (LTG) Pain no greater than 1/10 with putting pants & socks on, and tying shoes. (04/06/21: Occasional pain with putting on pants & sodks. No pain with tying shoes). (04/13/21: Pain with putting pants on 0/10, putting socks & shoes on pain is 2-3/10, tying shoes pain is 0/10) LTG Duration 06/12/21 (04/06/21: Partially met - pain only with putting socks/shoes on) Two Impairment Decreased mobility Impairment L UD 38 deg's (R is 47 deg's), R Flex & ext AROM is painful Short Term Goal (STG) Pt able to get out of bed by pushing with arm with pain no greater than 1/10. (03/30/21: WBing tolerance is 18# left, 25-28# right) (04/13/21: Pain rated 3-4/10) STG Duration 05/13/21 (04/13/21: Painful to volar L wrist) Lead Recreation Assistant Goal (LTG) Pain no greater than 1/10 with bathing. (04/06/21: Occasional pain rated 3/10, was initially 4/10 ) (04/13/21: Bathing pain is occasional at 3/10) LTG Duration 06/12/21 (04/06/21: Progressing, pain is occasional) One Impairment Lacks appropriate self care HEP. Short Term Goal (STG) Pt issued self care HEP of general UE strengthening ex's. (03/22/21: I/S given for self MWM of ulna/radius with active wrist flex/ext; Wrist ext isometrics in many various angles of flex & ext; Slight WBing in L hand. Pt to continue isometric wrist flex w/wrist in 20 deg's ext). (03/27/21: I/S pt in progressive WBing through LUE with Prox to distal glide of radius/ulna). (04/13/21: Added distal finger reistance for wrist flex/ext vega strengthening & WBing in chair vs on table). STG Duration 05/13/21 (03/27/21: Progressed) Halfway Goal (LTG) Return to UE exercise at local gym with pain no greater than 1/10. (03/29/21: Tries to be careful , every once and awhile sharp pain) (04/13/21: Returned to gym but hasn't done any arm ex's). LTG Duration 06/12/21 (04/13/21: Progressed some gym ex's) Progress Towards Goals Progress Comments GOAL #4 : MET. Improved function with no pain on diswashing with a little guarding. GOAL #3: Progressing L wrist strengthening. Function improved no pain with dressing and typing shoes. LTG *1: Progressing gym exercises. Function improved per UE Quickdash score of 25, with one answer missing (previously was 31, 20-39% impaired with score 20-39) Assessment Summary Assessment Pt is a 70 yo female who suffered a soft tissue injury of the L wrist resulting in instability, weakness and decreased wrist mobility due to pain. The pt has made good progress and is now able to tolerate resisted strengthening exercises and is progressing slowly with weight bearing tolerance. 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 She currently had pain with complaints with L wrist UD & flex strengthening (thumb side ) and with WBing. Further skilled physical therapy is recommended to maximize the stability at her L wrist and to improve her ability to weightbear through the wrist, which will improve her functional ability with ADL's of sit to stand. The pt also hopes to return to upper body strengthening exercise at the local gym to return her to her prior level of work out fitness. I feel these are appropriate goals to continue working towards. Physical Therapy Plan Frequency and Duration Frequency of Treatment 2x/Week Plan of Care Start Date 04/13/21 Plan of Care End Date 06/12/21 Therapeutic Interventions Therapeutic Interventions Home Exercise Program,Joint Mobilizations,Manual Therapy, Patient/Caregiver Education, Self-Care/Home Management,Soft Tissue Mobilization, Therapeutic Exercises Modalities Cold Pack/Ice Massage,Hot Packs,Ultrasound Next Visit Focus/Plan Next Note Type Treatment Note Next Visit Plan Educate pt on progressing her independent gym ex program for strengthening and to decrease therapy to 1x/week or 1x/ 2weeks once she is able to resume initial strengthening of her prior program. If pt feels confident with self progression, pt can cont with intermittent rechecks, progressing towards DC to home program. Assess response to added TBand strengthening: Focus on L wrist ext strengthening for stab of carpals & assess progress of WBing progression (wall and table), Add to HEP: L thumb flexion and opposition strengthening If needed: US thenar eminence and/or CP
--- NOTE | 2021-04-17 12:41 | PT.OTN ---
Current Diagnoses Pain in left wrist (04/17/21) Muscle weakness (generalized) (04/17/21) Physical Therapy Treatment Note PT-OP-A Visit Information Start: 03/06/21 19:06 Freq: Status: Active Protocol: Document 04/17/21 09:06 LRN (Rec: 04/17/21 09:48 LRN [id number]) Out-Patient Physical Therapy Visit Information Visit Information Visit Type Treatment Note Visit Start Time 09:06 Visit Stop Time 09:47 Total Visit Minutes 41 Visit Number 11 Evaluation Information Evaluation Date 04/10/21 Precautions Precautions Osteopenia, Fibromyalgia PT-OP-B Current Condition Start: 03/06/21 19:06 Freq: Status: Active Protocol: Document 03/08/21 09:51 LRN (Rec: 03/08/21 10:41 LRN [id number]) Current Condition History of Current Condition Onset Date 2 months ago Current Complaints L dorals wrist pain. History of Current Condition Pt reports she fell in mid Nov stepping wrong on a rock, causing her L ankle to IV. She sprained the L ankle and thought the L wrist as well. The L ankle has gotten better, but the wrist has not. States x-rays show no fracture , but if not better will do an MRI to confirm no small bone fractures. Norris Van gave her a L wrist splint. She has been wearing at least a month , wearing it during the day. Pt is R handed. Prior Treatments and Tests L wrist brace. Future Testing and Treatments Planned Possible MRI if condition not improved. Treatment Goals Patient/Caregiver Goals Pt goal to: - eliminate the pain. - pain no greater than 1/10 with dish washing - pain no greater than 1/10 with putting pants & socks on, and tying shoes. - pain no greater than 1/10 with bathing. Prior Functional Status Baseline Function- ADL's Independent Baseline Function- Mobility Independent Baseline Function- Recreation/Hobbies Exercising at local gym 6x/ week for UE/LE strenghtening & aerobic workouts. Current Functional Impairments (Reported) Functional Limitations- ADL's Difficulty with ADLs due to L wrist pain. (R handed) Functional Limitations- Recreation/ Exercising at local gym 6x/ Hobbies week with only LE strengthenig & aerobic workouts. Personal Factors Other Personal Factors That May Effect Lost partner 10 months ago. Therapy/Recovery PT-OP-C Subjective Start: 03/06/21 19:06 Freq: Status: Active Protocol: Document 04/17/21 09:06 LRN (Rec: 04/17/21 09:48 LRN [id number]) OP-PT Subjective Patient Comments Patient Comments States she is doing well. PT-OP-H Neuro Start: 03/06/21 19:06 Freq: Status: Active Protocol: Document 04/13/21 08:17 LRN (Rec: 04/13/21 09:51 LRN [id number]) Sensation Evaluation Gross Sensation Gross Sensation WNL PT-OP-J Posture/Palpation/Skin Start: 03/06/21 19:06 Freq: Status: Active Protocol: Document 03/08/21 09:51 LRN (Rec: 03/08/21 10:41 LRN [id number]) Posture Evaluation Position Sitting Head/C-Spine Posture Forward Head Shoulder Posture (R) Elevated Arm Posture (L) Internally Rotated,(R) Internally Rotated Palpation Assessment Location L wrist Palpation Location Volar wrist across small bones and CMC of thumb Palpation Findings Tenderness PT-OP-K Range of Motion Start: 03/06/21 19:06 Freq: Status: Active Protocol: Document 04/13/21 08:17 LRN (Rec: 04/13/21 09:51 LRN [id number]) Wrist Goniometric Range of Motion Wrist Right Wrist ROM WFL Yes Flexion Active (degrees) 70 Extension Active (degrees) 68 Ulnar Deviation Active (degrees) 47 Radial Deviation Active (degrees) 28 Left Flexion Active (degrees) 70 Extension Active (degrees) 75 Ulnar Deviation Active (degrees) 45 Radial Deviation Active (degrees) 33 ROM Limitations Comments Improved L wrist active ulnar deviation after AROM/ARROM ex' s to 50 deg's PT-OP-L Special Tests Start: 03/06/21 19:06 Freq: Status: Active Protocol: Document 03/08/21 09:51 LRN (Rec: 03/08/21 11:55 LRN [id number]) Special Tests Elbow Special Tests Jose G's Test Results Tightness/pain noted bilaterally. Wrist/Hand Special Tests Scaphoid Thrust Test Test Results + L wrist Comments Pain with light dorsal force applied on volar side indicates possible scapholunate instability. Load & Grind Test Test Results + L thumb Comments Indicates possible arthritis at CMC jt PT-OP-M Strength Start: 03/06/21 19:06 Freq: Status: Active Protocol: Document 03/13/21 09:08 ARACELI (Rec: 03/13/21 10:22 LRN [id number]) Hand Ecologist Technician/Pinch Strength Hand Dominance Hand Dominance Right Hand Strength Right Comments Ecologist Technician strength (KG): 26, 26, 24 (norm for 70-74 yr olds, 18.8 L, 22.5 R) Pinch (lbs): 8,8,8 (norm for 70-74 yr old women: 8-22 L, 9-22 R) Left Comments Ecologist Technician strength (KG): 16, 17, 18 (norm for 70-74 yr old women: 8-22 L, 9-22 R) Pinch (lbs): 1,3,4 (norm for 70-74 yr old women: 13.8 L, 14.5 R) PT-OP-Q Treatments Start: 03/06/21 19:06 Freq: Status: Active Protocol: Document 04/17/21 09:06 ARACELI (Rec: 04/17/21 09:48 ARACELI [id number]) Therapeutic Exercises Sitting Exercises Wgt lift mvmt Sitting Exercise Name Deltoid strengthening Side bilateral Equipment Used Bar & 4# cuff weight Reps/Minutes 4# Shldr Press Sitting Exercise Name Shldr Press Side bilateral Equipment Used Bar & 4# cuff weight Reps/Minutes 15x 2 Chest press/Row Sitting Exercise Name Chest press/Row Side left Equipment Used Lev 2 TB Reps/Minutes 15x Horiz ADD Sitting Exercise Name Shldr horiz AD Side left Equipment Used Lev 1 TB Reps/Minutes 15x Lwrist Flex Sitting Exercise Name ARROM Side left Equipment Used Lev 1 TB Reps/Minutes 3' Lwrist Ext Sitting Exercise Name ARROM Side left Equipment Used Lev 1 TB Reps/Minutes 3' Bicep Curl Sitting Exercise Name Bicep Curl - wrist neutral & supinated Side left Reps/Minutes 10 x 2 each sup/pron Sitting Exercise Name Active resisted strengthening Side left Equipment Used LEV 1 Reps/Minutes 10x 3 Comments Extra time to determine max tolerated resistance L Wrist ext Sitting Exercise Name Vega L wrist ext in various deg's of flex/ext - resistance at fingertips Side left Reps/Minutes 30x each angle L Wrist flex Sitting Exercise Name Vega L wrist flex in various deg's of flex/ext - resistance at fingertips Side left Reps/Minutes 30x each angle L wrist flex stretch Sitting Exercise Name L wrist flex stretch Side left Reps/Minutes 2' RD Sitting Exercise Name Active resistive RD Side left Equipment Used Lev 1 Reps/Minutes 30x each Comments Extra time to determine max tolerated resistance UD Sitting Exercise Name AROM/ARROM and with MWM ( distal glide of ulna withUD Side left Equipment Used Lev 1 Reps/Minutes 30x each Comments Extra time to determine max tolerated resistance Self-Care/Home Management Treatment Education Patient Education Home Exercise Program,Safety Other Education Discussed POC and progression of rehab program with pt doing self ex's at home and at her gym. Reviewed and educated pt in progression of UE gym ex's with education safety re: positioning L wrist and cautions with progression ( reps and weight). PT-OP-R Modalities Start: 03/06/21 19:06 Freq: Status: Active Protocol: Document 04/06/21 09:01 LRN (Rec: 04/06/21 09:53 [facility] [id number]) Paraffin Bath Treatment Left Hand Treatment Technique Dip-immersion Wax Temperature (degrees F) 122 Number Wax Layers (layers) 6 Duration (minutes) 8 Patient Tolerance Good PT-OP-T Assessment and Plan Start: 03/06/21 19:06 Freq: Status: Active Protocol: Document 04/17/21 09:06 LRN (Rec: 04/17/21 09:48 [facility] [id number]) Physical Therapy Assessment Goals Four Impairment Decreased function per UE QUICKdash score 43 Impairment 40 to 59% Impaired (Score 40- 59) Short Term Goal (STG) Pain no greater than 2/10 with dish washing. (04/06/21: Doesn't hurt because guarded, pain if does too quickly without thinking). (04/13/21: Doesn't notice any discomfort with dish washing and a little guarded). STG Duration 04/12/21 (04/13/21: MET GOAL) Features Editor Goal (LTG) Improve UE function per QUICKdash score of no more than 39 (10-39 = 29-39% impaired). (04/06/21: MET GOAL) (04/13/21: Score of 25 with 1 answer missing, 20-39% impaired, score os 29-39) LTG Duration 06/12/21 (04/06/21: MET GOAL, score 31, impairment is 29-39 %) Three Impairment Decreased strength Impairment L wrist Flex/Ext 4/5 (R flex/ Ext is 5/5) Short Term Goal (STG) Pt educated in wrist strengthening ex's. (03/22/21: Pt I/S in L wrist isometric strengthening ex's). (03/27/21: Pt I/S in progressing L UE WBing). (03/29/21: Vega gripping in different wrist ext angles) (04/13/21: Pt Inde with isotonic L wrist strengthening ex's) (04/17/21: Reviewed UE ex's at her gym that she will be returning to) STG Duration 05/13/21 (04/17/21: MET GOAL) Mcfp Goal (LTG) Pain no greater than 1/10 with putting pants & socks on, and tying shoes. (04/06/21: Occasional pain with putting on pants & sodks. No pain with tying shoes). (04/13/21: Pain with putting pants on 0/10, putting socks & shoes on pain is 2-3/10, tying shoes pain is 0/10) LTG Duration 06/12/21 (04/06/21: Partially met - pain only with putting socks/shoes on) Two Impairment Decreased mobility Impairment L UD 38 deg's (R is 47 deg's), R Flex & ext AROM is painful Short Term Goal (STG) Pt able to get out of bed by pushing with arm with pain no greater than 1/10. (03/30/21: WBing tolerance is 18# left, 25-28# right) (04/13/21: Pain rated 3-4/10) STG Duration 05/13/21 (04/13/21: Painful to volar L wrist) Mcfp Goal (LTG) Pain no greater than 1/10 with bathing. (04/06/21: Occasional pain rated 3/10, was initially 4/10 ) (04/13/21: Bathing pain is occasional at 3/10) LTG Duration 06/12/21 (04/06/21: Progressing, pain is occasional) One Impairment Lacks appropriate self care HEP. Short Term Goal (STG) Pt issued self care HEP of general UE strengthening ex's. (03/22/21: I/S given for self MWM of ulna/radius with active wrist flex/ext; Wrist ext isometrics in many various angles of flex & ext; Slight WBing in L hand. Pt to continue isometric wrist flex w/wrist in 20 deg's ext). (03/27/21: I/S pt in progressive WBing through LUE with Prox to distal glide of radius/ulna). (04/13/21: Added distal finger reistance for wrist flex/ext vega strengthening & WBing in chair vs on table). STG Duration 05/13/21 (03/27/21: Progressed) Features Editor Goal (LTG) Return to UE exercise at local gym with pain no greater than 1/10. (03/29/21: Tries to be careful , every once and awhile sharp pain) (04/13/21: Returned to gym but hasn't done any arm ex's). LTG Duration 06/12/21 (04/17/21: Progressed , reviewed all pt could remember) Assessment Summary Assessment Pt is able to resume initial strengthening of her prior program. Pt did well with reviewed ex's that she does at the gym except lift type movement for Deltoid strengthening, recommended pt hold or DC this ex due to instability of L carpels. Physical Therapy Plan Frequency and Duration Frequency of Treatment 1x/Week Plan of Care Start Date 04/13/21 Plan of Care End Date 06/12/21 Next Visit Focus/Plan Next Note Type Treatment Note Next Visit Plan Assess for her independence with gym ex program for strengthening. Pt feels confident with self progression, pt can cont with intermittent rechecks, progressing towards DC to home program. Assess response to added TBand strengthening: Focus on L wrist ext strengthening for stab of carpals & assess progress of WBing progression (wall and table), Add to HEP: L thumb flexion and opposition strengthening If needed: US thenar eminence and/or CP
--- NOTE | 2021-04-20 16:55 | PT.OTN ---
Current Diagnoses Pain in left wrist (04/20/21) Muscle weakness (generalized) (04/20/21) Physical Therapy Treatment Note PT-OP-A Visit Information Start: 03/06/21 19:06 Freq: Status: Active Protocol: Document 04/20/21 09:05 LRN (Rec: 04/20/21 09:50 LRN [id number]) Out-Patient Physical Therapy Visit Information Visit Information Visit Type Treatment Note Visit Start Time 09:05 Visit Stop Time 09:44 Total Visit Minutes 39 Visit Number 11 Evaluation Information Evaluation Date 04/10/21 Precautions Precautions Osteopenia, Fibromyalgia PT-OP-B Current Condition Start: 03/06/21 19:06 Freq: Status: Active Protocol: Document 03/08/21 09:51 LRN (Rec: 03/08/21 10:41 LRN [id number]) Current Condition History of Current Condition Onset Date 2 months ago Current Complaints L dorals wrist pain. History of Current Condition Pt reports she fell in mid Nov stepping wrong on a rock, causing her L ankle to IV. She sprained the L ankle and thought the L wrist as well. The L ankle has gotten better, but the wrist has not. States x-rays show no fracture , but if not better will do an MRI to confirm no small bone fractures. Norris Van gave her a L wrist splint. She has been wearing at least a month , wearing it during the day. Pt is R handed. Prior Treatments and Tests L wrist brace. Future Testing and Treatments Planned Possible MRI if condition not improved. Treatment Goals Patient/Caregiver Goals Pt goal to: - eliminate the pain. - pain no greater than 1/10 with dish washing - pain no greater than 1/10 with putting pants & socks on, and tying shoes. - pain no greater than 1/10 with bathing. Prior Functional Status Baseline Function- ADL's Independent Baseline Function- Mobility Independent Baseline Function- Recreation/Hobbies Exercising at local gym 6x/ week for UE/LE strenghtening & aerobic workouts. Current Functional Impairments (Reported) Functional Limitations- ADL's Difficulty with ADLs due to L wrist pain. (R handed) Functional Limitations- Recreation/ Exercising at local gym 6x/ Hobbies week with only LE strengthenig & aerobic workouts. Personal Factors Other Personal Factors That May Effect Lost partner 10 months ago. Therapy/Recovery PT-OP-C Subjective Start: 03/06/21 19:06 Freq: Status: Active Protocol: Document 04/20/21 09:05 LRN (Rec: 04/20/21 09:50 LRN [id number]) OP-PT Subjective Patient Comments Patient Comments Did UE ex at gym yesterday, but didn't ice L wrist afterwards. States she was really achy in the wrist that evening. States she occasionally uses [place] when it was first hurting. PT-OP-H Neuro Start: 03/06/21 19:06 Freq: Status: Active Protocol: Document 04/13/21 08:17 LRN (Rec: 04/13/21 09:51 LRN [id number]) Sensation Evaluation Gross Sensation Gross Sensation WNL PT-OP-J Posture/Palpation/Skin Start: 03/06/21 19:06 Freq: Status: Active Protocol: Document 03/08/21 09:51 LRN (Rec: 03/08/21 10:41 LRN [id number]) Posture Evaluation Position Sitting Head/C-Spine Posture Forward Head Shoulder Posture (R) Elevated Arm Posture (L) Internally Rotated,(R) Internally Rotated Palpation Assessment Location L wrist Palpation Location Volar wrist across small bones and CMC of thumb Palpation Findings Tenderness PT-OP-K Range of Motion Start: 03/06/21 19:06 Freq: Status: Active Protocol: Document 04/13/21 08:17 LRN (Rec: 04/13/21 09:51 LRN [id number]) Wrist Goniometric Range of Motion Wrist Right Wrist ROM WFL Yes Flexion Active (degrees) 70 Extension Active (degrees) 68 Ulnar Deviation Active (degrees) 47 Radial Deviation Active (degrees) 28 Left Flexion Active (degrees) 70 Extension Active (degrees) 75 Ulnar Deviation Active (degrees) 45 Radial Deviation Active (degrees) 33 ROM Limitations Comments Improved L wrist active ulnar deviation after AROM/ARROM ex' s to 50 deg's PT-OP-L Special Tests Start: 03/06/21 19:06 Freq: Status: Active Protocol: Document 03/08/21 09:51 LRN (Rec: 03/08/21 11:55 LRN [id number]) Special Tests Elbow Special Tests Jose G's Test Results Tightness/pain noted bilaterally. Wrist/Hand Special Tests Scaphoid Thrust Test Test Results + L wrist Comments Pain with light dorsal force applied on volar side indicates possible scapholunate instability. Load & Grind Test Test Results + L thumb Comments Indicates possible arthritis at CMC jt PT-OP-M Strength Start: 03/06/21 19:06 Freq: Status: Active Protocol: Document 03/13/21 09:08 LRN (Rec: 03/13/21 10:22 LRN [id number]) Hand Landscape Foreman/Pinch Strength Hand Dominance Hand Dominance Right Hand Strength Right Comments Landscape Foreman strength (KG): 26, 26, 24 (norm for 70-74 yr olds, 18.8 L, 22.5 R) Pinch (lbs): 8,8,8 (norm for 70-74 yr old women: 8-22 L, 9-22 R) Left Comments Landscape Foreman strength (KG): 16, 17, 18 (norm for 70-74 yr old women: 8-22 L, 9-22 R) Pinch (lbs): 1,3,4 (norm for 70-74 yr old women: 13.8 L, 14.5 R) PT-OP-Q Treatments Start: 03/06/21 19:06 Freq: Status: Active Protocol: Document 04/20/21 09:05 LRN (Rec: 04/20/21 09:50 LRN [id number]) Cardio Equipment Recumbent Stepper (Sci-Fit) Duration (Minutes) 5 Resistance 1 Seat Position 9 Therapeutic Exercises Sitting Exercises WBing L hand with sit<>stand Sitting Exercise Name WBing L hand w/sit<>stand & MWM: PA of Scaphoid and prox> distal radius. Side left Reps/Minutes 4' Comments I/S pt in self MWM if wrist pain on sit<>stand Opposition Sitting Exercise Name Isometric Holds with each finger Side left Reps/Minutes 10 x Thumb flex Sitting Exercise Name 1.5# Digi Flex Reps/Minutes 10x Comments Not able to do with flex of thumb at IP and DIP jts Lwrist Flex Sitting Exercise Name ARROM Side left Equipment Used Lev 1 TB Reps/Minutes 3' Lwrist Ext Sitting Exercise Name ARROM Side left Equipment Used Lev 1 TB Reps/Minutes 3' Bicep Curl Sitting Exercise Name Bicep Curl - wrist neutral & supinated Side left Reps/Minutes 15 x each sup/pron Sitting Exercise Name Active resisted strengthening Side left Equipment Used LEV 1 Reps/Minutes 15x L Wrist ext Sitting Exercise Name Vega L wrist ext in various deg's of flex/ext - resistance at fingertips Side left Reps/Minutes 10x each angle L Wrist flex Sitting Exercise Name Vega L wrist flex in various deg's of flex/ext - resistance at fingertips Side left Reps/Minutes 10x each angle L wrist flex stretch Sitting Exercise Name L wrist flex stretch Side left Reps/Minutes 2' RD Sitting Exercise Name Active resistive RD Side left Equipment Used Lev 1 Reps/Minutes 15x each Comments Extra time to determine max tolerated resistance UD Sitting Exercise Name AROM/ARROM and with MWM ( distal glide of ulna withUD Side left Equipment Used Lev 1 Reps/Minutes 15x each Comments Extra time to determine max tolerated resistance Gipping Sitting Exercise Name Hand/thumb Squeeze Side left Equipment Used Dougherty hand biological chemist Reps/Minutes 10x Standing Exercises WBing Standing Exercise Name Gentle WBing into ~30 deg's wrist extended arm Side left Reps/Minutes up to 1' x 2 PT-OP-R Modalities Start: 03/06/21 19:06 Freq: Status: Active Protocol: Document 04/06/21 09:01 LRN (Rec: 04/06/21 09:53 [facility] [id number]) Paraffin Bath Treatment Left Hand Treatment Technique Dip-immersion Wax Temperature (degrees F) 122 Number Wax Layers (layers) 6 Duration (minutes) 8 Patient Tolerance Good PT-OP-T Assessment and Plan Start: 03/06/21 19:06 Freq: Status: Active Protocol: Document 04/20/21 09:05 LRN (Rec: 04/20/21 09:50 [facility] [id number]) Physical Therapy Assessment Goals Four Impairment Decreased function per UE QUICKdash score 43 Impairment 40 to 59% Impaired (Score 40- 59) Short Term Goal (STG) Pain no greater than 2/10 with dish washing. (04/06/21: Doesn't hurt because guarded, pain if does too quickly without thinking). (04/13/21: Doesn't notice any discomfort with dish washing and a little guarded). STG Duration 04/12/21 (04/13/21: MET GOAL) Snf Goal (LTG) Improve UE function per QUICKdash score of no more than 39 (10-39 = 29-39% impaired). (04/06/21: MET GOAL) (04/13/21: Score of 25 with 1 answer missing, 20-39% impaired, score os 29-39) LTG Duration 06/12/21 (04/06/21: MET GOAL, score 31, impairment is 29-39 %) Three Impairment Decreased strength Impairment L wrist Flex/Ext 4/5 (R flex/ Ext is 5/5) Short Term Goal (STG) Pt educated in wrist strengthening ex's. (03/22/21: Pt I/S in L wrist isometric strengthening ex's). (03/27/21: Pt I/S in progressing L UE WBing). (03/29/21: Vega gripping in different wrist ext angles) (04/13/21: Pt Inde with isotonic L wrist strengthening ex's) (04/17/21: Reviewed UE ex's at her gym that she will be returning to) STG Duration 05/13/21 (04/17/21: MET GOAL) Technology Coordinator Goal (LTG) Pain no greater than 1/10 with putting pants & socks on, and tying shoes. (04/06/21: Occasional pain with putting on pants & sodks. No pain with tying shoes). (04/13/21: Pain with putting pants on 0/10, putting socks & shoes on pain is 2-3/10, tying shoes pain is 0/10) LTG Duration 06/12/21 (04/06/21: Partially met - pain only with putting socks/shoes on) Two Impairment Decreased mobility Impairment L UD 38 deg's (R is 47 deg's), R Flex & ext AROM is painful Short Term Goal (STG) Pt able to get out of bed by pushing with arm with pain no greater than 1/10. (03/30/21: WBing tolerance is 18# left, 25-28# right) (04/13/21: Pain rated 3-4/10) STG Duration 05/13/21 (04/13/21: Painful to volar L wrist) Snf Goal (LTG) Pain no greater than 1/10 with bathing. (04/06/21: Occasional pain rated 3/10, was initially 4/10 ) (04/13/21: Bathing pain is occasional at 3/10) LTG Duration 06/12/21 (04/06/21: Progressing, pain is occasional) One Impairment Lacks appropriate self care HEP. Short Term Goal (STG) Pt issued self care HEP of general UE strengthening ex's. (03/22/21: I/S given for self MWM of ulna/radius with active wrist flex/ext; Wrist ext isometrics in many various angles of flex & ext; Slight WBing in L hand. Pt to continue isometric wrist flex w/wrist in 20 deg's ext). (03/27/21: I/S pt in progressive WBing through LUE with Prox to distal glide of radius/ulna). (04/13/21: Added distal finger reistance for wrist flex/ext vega strengthening & WBing in chair vs on table). STG Duration 05/13/21 (03/27/21: Progressed) Snf Goal (LTG) Return to UE exercise at local gym with pain no greater than 1/10. (03/29/21: Tries to be careful , every once and awhile sharp pain) (04/13/21: Returned to gym but hasn't done any arm ex's). LTG Duration 06/12/21 (04/17/21: Progressed , reviewed all pt could remember) Assessment Summary Assessment Pt able to demonstrate good knowledge of L wrist & elbow strengthening exercises, and no concerns or questions regarding gym ex's. Possible increased in ache yesterday due to starting of UE gym ex's in the AM. Pt used ice after ex; therefore appears to have a good understanding of self care for edema and pain. No pain complaints with TB and wrist/elbow ex's. Physical Therapy Plan Frequency and Duration Frequency of Treatment 1x/Week Plan of Care Start Date 04/13/21 Plan of Care End Date 06/12/21 Next Visit Focus/Plan Next Note Type Treatment Note Next Visit Plan If pt confident with self progression, pt can cont with intermittent rechecks or DC to home program. Focus on L wrist ext strengthening for stab of carpals & assess progress of WBing progression (wall and table), Add to HEP: L thumb flexion and opposition strengthening If needed: US thenar eminence and/or CP
--- NOTE | 2021-04-27 10:06 | PT.OTN ---
Current Diagnoses Pain in left wrist (04/27/21) Muscle weakness (generalized) (04/27/21) Physical Therapy Treatment Note PT-OP-A Visit Information Start: 03/06/21 19:06 Freq: Status: Active Protocol: Document 04/27/21 09:03 LRN (Rec: 04/27/21 10:03 LRN [id number]) Out-Patient Physical Therapy Visit Information Visit Information Visit Type Treatment Note Visit Start Time 09:03 Visit Stop Time 09:41 Total Visit Minutes 38 Visit Number 12 Evaluation Information Evaluation Date 04/10/21 Precautions Precautions Osteopenia, Fibromyalgia PT-OP-B Current Condition Start: 03/06/21 19:06 Freq: Status: Active Protocol: Document 03/08/21 09:51 LRN (Rec: 03/08/21 10:41 LRN [id number]) Current Condition History of Current Condition Onset Date 2 months ago Current Complaints L dorals wrist pain. History of Current Condition Pt reports she fell in mid Nov stepping wrong on a rock, causing her L ankle to IV. She sprained the L ankle and thought the L wrist as well. The L ankle has gotten better, but the wrist has not. States x-rays show no fracture , but if not better will do an MRI to confirm no small bone fractures. Norris Van gave her a L wrist splint. She has been wearing at least a month , wearing it during the day. Pt is R handed. Prior Treatments and Tests L wrist brace. Future Testing and Treatments Planned Possible MRI if condition not improved. Treatment Goals Patient/Caregiver Goals Pt goal to: - eliminate the pain. - pain no greater than 1/10 with dish washing - pain no greater than 1/10 with putting pants & socks on, and tying shoes. - pain no greater than 1/10 with bathing. Prior Functional Status Baseline Function- ADL's Independent Baseline Function- Mobility Independent Baseline Function- Recreation/Hobbies Exercising at local gym 6x/ week for UE/LE strenghtening & aerobic workouts. Current Functional Impairments (Reported) Functional Limitations- ADL's Difficulty with ADLs due to L wrist pain. (R handed) Functional Limitations- Recreation/ Exercising at local gym 6x/ Hobbies week with only LE strengthenig & aerobic workouts. Personal Factors Other Personal Factors That May Effect Lost partner 10 months ago. Therapy/Recovery PT-OP-C Subjective Start: 03/06/21 19:06 Freq: Status: Active Protocol: Document 04/27/21 09:03 LRN (Rec: 04/27/21 10:03 LRN [id number]) OP-PT Subjective Patient Comments Patient Comments Back to doing ex's at the gym, going slow and doing only 1 round. PT-OP-H Neuro Start: 03/06/21 19:06 Freq: Status: Active Protocol: Document 04/13/21 08:17 LRN (Rec: 04/13/21 09:51 LRN [id number]) Sensation Evaluation Gross Sensation Gross Sensation WNL PT-OP-J Posture/Palpation/Skin Start: 03/06/21 19:06 Freq: Status: Active Protocol: Document 03/08/21 09:51 LRN (Rec: 03/08/21 10:41 LRN [id number]) Posture Evaluation Position Sitting Head/C-Spine Posture Forward Head Shoulder Posture (R) Elevated Arm Posture (L) Internally Rotated,(R) Internally Rotated Palpation Assessment Location L wrist Palpation Location Volar wrist across small bones and CMC of thumb Palpation Findings Tenderness PT-OP-K Range of Motion Start: 03/06/21 19:06 Freq: Status: Active Protocol: Document 04/27/21 09:03 LRN (Rec: 04/27/21 10:03 LRN [id number]) Wrist Goniometric Range of Motion Wrist Left Flexion Active (degrees) 80 Extension Active (degrees) 75 Ulnar Deviation Active (degrees) 45 Radial Deviation Active (degrees) 33 PT-OP-L Special Tests Start: 03/06/21 19:06 Freq: Status: Active Protocol: Document 03/08/21 09:51 LRN (Rec: 03/08/21 11:55 LRN [id number]) Special Tests Elbow Special Tests Jose G's Test Results Tightness/pain noted bilaterally. Wrist/Hand Special Tests Scaphoid Thrust Test Test Results + L wrist Comments Pain with light dorsal force applied on volar side indicates possible scapholunate instability. Load & Grind Test Test Results + L thumb Comments Indicates possible arthritis at CMC jt PT-OP-M Strength Start: 03/06/21 19:06 Freq: Status: Active Protocol: Document 03/13/21 09:08 LRN (Rec: 03/13/21 10:22 [facility] [id number]) Hand Cone Worker/Pinch Strength Hand Dominance Hand Dominance Right Hand Strength Right Comments Cone Worker strength (KG): 26, 26, 24 (norm for 70-74 yr olds, 18.8 L, 22.5 R) Pinch (lbs): 8,8,8 (norm for 70-74 yr old women: 8-22 L, 9-22 R) Left Comments Cone Worker strength (KG): 16, 17, 18 (norm for 70-74 yr old women: 8-22 L, 9-22 R) Pinch (lbs): 1,3,4 (norm for 70-74 yr old women: 13.8 L, 14.5 R) PT-OP-Q Treatments Start: 03/06/21 19:06 Freq: Status: Active Protocol: Document 04/27/21 09:03 LR (Rec: 04/27/21 10:03 [facility] [id number]) Cardio Equipment Upper Body Ergometer (UBE) Duration (Minutes) 6 RPM 60 Seat Position 12 Height 3 Other Extra time taken for set up. Therapeutic Exercises Sitting Exercises Wrist AROM Sitting Exercise Name Wrist AROM (flex, ext) Side left Comments ROM taken Opposition Sitting Exercise Name Isometric Holds with each finger- towel squeeze Side left Reps/Minutes 2' Thumb flex Sitting Exercise Name 1.5# Digi Flex - towel twisting Reps/Minutes 2' Lwrist Flex Sitting Exercise Name L wrist strengthening Side left Equipment Used 2# Reps/Minutes 15x Lwrist Ext Sitting Exercise Name L wrist strengthening Side left Equipment Used 2# Reps/Minutes 15x Tricep Ext Sitting Exercise Name Tricep press overhead Side left Equipment Used 2# Reps/Minutes 10x Bicep Curl Sitting Exercise Name Bicep Curl - wrist in pronationi Side left Equipment Used 2# Reps/Minutes 20x sup/pron Sitting Exercise Name Strengthening holding a hammer Side left Equipment Used Hammer Reps/Minutes 10x 3 L wrist flex stretch Sitting Exercise Name L wrist flex stretch Side left Reps/Minutes 2' RD Sitting Exercise Name RD w/MWM (see manual therapy) Side left UD Sitting Exercise Name UD strengthening Side left Equipment Used 1# Reps/Minutes 10x 3 Manual Therapy Treatment Manual Techniques MWM PA L Trapezoid Type RD w/MWM of PA of trapezoid & Scaphoid Body Location L hand Body Position Sitting Reps/Duration 10x 6, 3 sets of 10 with 1# Comments 12' Extra time to determine best MWM to relieve pain with RD. Self-Care/Home Management Treatment Education Patient Education Home Exercise Program Activities Self-Care/Home Management Activities I/S pt in L thumb strengthening with towel for opposition and gripping with a twist. PT-OP-R Modalities Start: 03/06/21 19:06 Freq: Status: Active Protocol: Document 04/06/21 09:01 LRN (Rec: 04/06/21 09:53 LRN [id number]) Paraffin Bath Treatment Left Hand Treatment Technique Dip-immersion Wax Temperature (degrees F) 122 Number Wax Layers (layers) 6 Duration (minutes) 8 Patient Tolerance Good PT-OP-T Assessment and Plan Start: 03/06/21 19:06 Freq: Status: Active Protocol: Document 04/27/21 09:03 LRN (Rec: 04/27/21 10:03 LRN [id number]) Physical Therapy Assessment Goals Four Impairment Decreased function per UE QUICKdash score 43 Impairment 40 to 59% Impaired (Score 40- 59) Short Term Goal (STG) Pain no greater than 2/10 with dish washing. (04/06/21: Doesn't hurt because guarded, pain if does too quickly without thinking). (04/13/21: Doesn't notice any discomfort with dish washing and a little guarded). STG Duration 04/12/21 (04/13/21: MET GOAL) Snf Goal (LTG) Improve UE function per QUICKdash score of no more than 39 (10-39 = 29-39% impaired). (04/06/21: MET GOAL) (04/13/21: Score of 25 with 1 answer missing, 20-39% impaired, score os 29-39) LTG Duration 06/12/21 (04/06/21: MET GOAL, score 31, impairment is 29-39 %) Three Impairment Decreased strength Impairment L wrist Flex/Ext 4/5 (R flex/ Ext is 5/5) Short Term Goal (STG) Pt educated in wrist strengthening ex's. (03/22/21: Pt I/S in L wrist isometric strengthening ex's). (03/27/21: Pt I/S in progressing L UE WBing). (03/29/21: Vega gripping in different wrist ext angles) (04/13/21: Pt Inde with isotonic L wrist strengthening ex's) (04/17/21: Reviewed UE ex's at her gym that she will be returning to) STG Duration 05/13/21 (04/17/21: MET GOAL) Snf Goal (LTG) Pain no greater than 1/10 with putting pants & socks on, and tying shoes. (04/06/21: Occasional pain with putting on pants & sodks. No pain with tying shoes). (04/13/21: Pain with putting pants on 0/10, putting socks & shoes on pain is 2-3/10, tying shoes pain is 0/10) LTG Duration 06/12/21 (04/06/21: Partially met - pain only with putting socks/shoes on) Two Impairment Decreased mobility Impairment L UD 38 deg's (R is 47 deg's), R Flex & ext AROM is painful Short Term Goal (STG) Pt able to get out of bed by pushing with arm with pain no greater than 1/10. (03/30/21: WBing tolerance is 18# left, 25-28# right) (04/13/21: Pain rated 3-4/10) STG Duration 05/13/21 (04/13/21: Painful to volar L wrist) Touch Up Painter Goal (LTG) Pain no greater than 1/10 with bathing. (04/06/21: Occasional pain rated 3/10, was initially 4/10 ) (04/13/21: Bathing pain is occasional at 3/10) LTG Duration 06/12/21 (04/06/21: Progressing, pain is occasional) One Impairment Lacks appropriate self care HEP. Short Term Goal (STG) Pt issued self care HEP of general UE strengthening ex's. (03/22/21: I/S given for self MWM of ulna/radius with active wrist flex/ext; Wrist ext isometrics in many various angles of flex & ext; Slight WBing in L hand. Pt to continue isometric wrist flex w/wrist in 20 deg's ext). (03/27/21: I/S pt in progressive WBing through LUE with Prox to distal glide of radius/ulna). (04/13/21: Added distal finger reistance for wrist flex/ext vega strengthening & WBing in chair vs on table). STG Duration 05/13/21 (03/27/21: Progressed) Snf Goal (LTG) Return to UE exercise at local gym with pain no greater than 1/10. (03/29/21: Tries to be careful , every once and awhile sharp pain) (04/13/21: Returned to gym but hasn't done any arm ex's). LTG Duration 06/12/21 (04/17/21: Progressed , reviewed all pt could remember) Progress Towards Goals Progress Comments Improved tolerance to exercise . Assessment Summary Assessment Able to increase strengthening ex's in time and with start of wgt strengthening the pt had pain only with UD. After MWM training pt was able to strengthen without L wrist pain. Pt reporting able to weight bear into hands with minimal discomfort. Physical Therapy Plan Frequency and Duration Frequency of Treatment 1x/Week Plan of Care Start Date 04/13/21 Plan of Care End Date 06/12/21 Next Visit Focus/Plan Next Note Type Treatment Note Next Visit Plan 1x/week with possible DC to home program in 2 visits. Assess response to added thumb strengthening with towel ( squeeze & twists), Assess WBing tolerance. Focus on L wrist ext strengthening for stab of carpals,
--- NOTE | 2021-05-04 09:47 | PT.OTN ---
Current Diagnoses Pain in left wrist (05/04/21) Muscle weakness (generalized) (05/04/21) Physical Therapy Treatment Note PT-OP-A Visit Information Start: 03/06/21 19:06 Freq: Status: Active Protocol: Document 05/04/21 09:07 SP (Rec: 05/04/21 09:51 SP [id number]) Out-Patient Physical Therapy Visit Information Visit Information Visit Type Treatment Note Visit Start Time 09:07 Visit Stop Time 09:47 Total Visit Minutes 40 Visit Number 13 Number of SUPERVISOR BODY ASSEMBLY Visits 1 Evaluation Information Evaluation Date 04/10/21 Precautions Precautions Osteopenia, Fibromyalgia PT-OP-B Current Condition Start: 03/06/21 19:06 Freq: Status: Active Protocol: Document 03/08/21 09:51 LRN (Rec: 03/08/21 10:41 LRN [id number]) Current Condition History of Current Condition Onset Date 2 months ago Current Complaints L dorals wrist pain. History of Current Condition Pt reports she fell in mid Nov stepping wrong on a rock, causing her L ankle to IV. She sprained the L ankle and thought the L wrist as well. The L ankle has gotten better, but the wrist has not. States x-rays show no fracture , but if not better will do an MRI to confirm no small bone fractures. Norris Van gave her a L wrist splint. She has been wearing at least a month , wearing it during the day. Pt is R handed. Prior Treatments and Tests L wrist brace. Future Testing and Treatments Planned Possible MRI if condition not improved. Treatment Goals Patient/Caregiver Goals Pt goal to: - eliminate the pain. - pain no greater than 1/10 with dish washing - pain no greater than 1/10 with putting pants & socks on, and tying shoes. - pain no greater than 1/10 with bathing. Prior Functional Status Baseline Function- ADL's Independent Baseline Function- Mobility Independent Baseline Function- Recreation/Hobbies Exercising at local gym 6x/ week for UE/LE strenghtening & aerobic workouts. Current Functional Impairments (Reported) Functional Limitations- ADL's Difficulty with ADLs due to L wrist pain. (R handed) Functional Limitations- Recreation/ Exercising at local gym 6x/ Hobbies week with only LE strengthenig & aerobic workouts. Personal Factors Other Personal Factors That May Effect Lost partner 10 months ago. Therapy/Recovery PT-OP-C Subjective Start: 03/06/21 19:06 Freq: Status: Active Protocol: Document 05/04/21 09:07 SP (Rec: 05/04/21 09:51 SP [id number]) OP-PT Subjective Patient Comments Patient Comments Pt stated her R wrist started hurting again on Friday pain with wrist flexion and RD, stopped any gym ex and trying to do manual and ex can tolerate. Did know why, didn't do anything different, new. PT-OP-H Neuro Start: 03/06/21 19:06 Freq: Status: Active Protocol: Document 04/13/21 08:17 LRN (Rec: 04/13/21 09:51 LRN [id number]) Sensation Evaluation Gross Sensation Gross Sensation WNL PT-OP-J Posture/Palpation/Skin Start: 03/06/21 19:06 Freq: Status: Active Protocol: Document 03/08/21 09:51 LRN (Rec: 03/08/21 10:41 LRN [id number]) Posture Evaluation Position Sitting Head/C-Spine Posture Forward Head Shoulder Posture (R) Elevated Arm Posture (L) Internally Rotated,(R) Internally Rotated Palpation Assessment Location L wrist Palpation Location Volar wrist across small bones and CMC of thumb Palpation Findings Tenderness PT-OP-K Range of Motion Start: 03/06/21 19:06 Freq: Status: Active Protocol: Document 05/04/21 09:07 SP (Rec: 05/04/21 09:51 SP [id number]) Wrist Goniometric Range of Motion Wrist Right Wrist ROM WFL Yes Flexion Active (degrees) 70 Extension Active (degrees) 80 Ulnar Deviation Active (degrees) 62 Radial Deviation Active (degrees) 24 PT-OP-L Special Tests Start: 03/06/21 19:06 Freq: Status: Active Protocol: Document 03/08/21 09:51 LRN (Rec: 03/08/21 11:55 LRN [id number]) Special Tests Elbow Special Tests Jose G's Test Results Tightness/pain noted bilaterally. Wrist/Hand Special Tests Scaphoid Thrust Test Test Results + L wrist Comments Pain with light dorsal force applied on volar side indicates possible scapholunate instability. Load & Grind Test Test Results + L thumb Comments Indicates possible arthritis at CMC jt PT-OP-M Strength Start: 03/06/21 19:06 Freq: Status: Active Protocol: Document 03/13/21 09:08 LRN (Rec: 03/13/21 10:22 LRN [id number]) Hand Product Support Rep/Pinch Strength Hand Dominance Hand Dominance Right Hand Strength Right Comments Product Support Rep strength (KG): 26, 26, 24 (norm for 70-74 yr olds, 18.8 L, 22.5 R) Pinch (lbs): 8,8,8 (norm for 70-74 yr old women: 8-22 L, 9-22 R) Left Comments Product Support Rep strength (KG): 16, 17, 18 (norm for 70-74 yr old women: 8-22 L, 9-22 R) Pinch (lbs): 1,3,4 (norm for 70-74 yr old women: 13.8 L, 14.5 R) PT-OP-Q Treatments Start: 03/06/21 19:06 Freq: Status: Active Protocol: Document 05/04/21 09:07 SP (Rec: 05/04/21 09:51 SP [id number]) Therapeutic Exercises Sitting Exercises Wrist AROM Sitting Exercise Name Wrist AROM (flex, ext) Side left Comments ROM taken WBing L hand with sit<>stand Sitting Exercise Name WBing L hand w/sit<>stand & MWM: PA of Scaphoid and prox> distal radius. Side left Reps/Minutes 2 min- tightness over dorsal wrist not pain today Comments I/S pt in self MWM if wrist pain on sit<>stand Opposition Sitting Exercise Name Isometric Holds with each finger- towel squeeze Side left Reps/Minutes 2' Thumb flex Sitting Exercise Name 1.5# Digi Flex - towel twisting Reps/Minutes 2' Manual Therapy Treatment Soft Tissue Mobilization thenar, hypothenar eminenace Body Location L Mobilization Type Strumming,Sustained Pressure Intensity/Depth Moderate Body Position Sitting Comments manual and instruction self. Joint Mobilizations Ulna Joint Proximal to distal glide & PA sustained @ Ulna Grade I Body Position Sitting Comments Stabilizing Lunate from moving volarly Radius Joint Proximal to distal PA glide Radius Grade I Body Position Sitting Scapholunate Joint Scapholunate Direction PA of Scaphoid Grade I L hand Carpals Joint PA glides: Scaphoid, Distal ulna; AP: Lunate, Pisiform, Direction PA/AP Grade II Body Position Sitting Comments good response Manual Techniques MWM w/LUE wgtbearing Type L radius/ulna Prox>distal mob with partial WBing Body Location L wrist Reps/Duration 4' MWM w L wrist ext Type MWM for wrist ext Body Location AP of Scaphoid w/PA of radius, tapezium, trapezoid, capitate Body Position Neutral L wrist PT-OP-R Modalities Start: 03/06/21 19:06 Freq: Status: Active Protocol: Document 04/06/21 09:01 LRN (Rec: 04/06/21 09:53 LRN [id number]) Paraffin Bath Treatment Left Hand Treatment Technique Dip-immersion Wax Temperature (degrees F) 122 Number Wax Layers (layers) 6 Duration (minutes) 8 Patient Tolerance Good PT-OP-T Assessment and Plan Start: 03/06/21 19:06 Freq: Status: Active Protocol: Document 05/04/21 09:07 SP (Rec: 05/04/21 09:51 SP [id number]) Physical Therapy Assessment Goals Four Impairment Decreased function per UE QUICKdash score 43 Impairment 40 to 59% Impaired (Score 40- 59) Short Term Goal (STG) Pain no greater than 2/10 with dish washing. (04/06/21: Doesn't hurt because guarded, pain if does too quickly without thinking). (04/13/21: Doesn't notice any discomfort with dish washing and a little guarded). STG Duration 04/12/21 (04/13/21: MET GOAL) Skilled Nursing Goal (LTG) Improve UE function per QUICKdash score of no more than 39 (10-39 = 29-39% impaired). (04/06/21: MET GOAL) (04/13/21: Score of 25 with 1 answer missing, 20-39% impaired, score os 29-39) LTG Duration 06/12/21 (04/06/21: MET GOAL, score 31, impairment is 29-39 %) Three Impairment Decreased strength Impairment L wrist Flex/Ext 4/5 (R flex/ Ext is 5/5) Short Term Goal (STG) Pt educated in wrist strengthening ex's. (03/22/21: Pt I/S in L wrist isometric strengthening ex's). (03/27/21: Pt I/S in progressing L UE WBing). (03/29/21: Vega gripping in different wrist ext angles) (04/13/21: Pt Inde with isotonic L wrist strengthening ex's) (04/17/21: Reviewed UE ex's at her gym that she will be returning to) STG Duration 05/13/21 (04/17/21: MET GOAL) Insecticide Maker Goal (LTG) Pain no greater than 1/10 with putting pants & socks on, and tying shoes. (04/06/21: Occasional pain with putting on pants & sodks. No pain with tying shoes). (04/13/21: Pain with putting pants on 0/10, putting socks & shoes on pain is 2-3/10, tying shoes pain is 0/10) LTG Duration 06/12/21 (04/06/21: Partially met - pain only with putting socks/shoes on) Two Impairment Decreased mobility Impairment L UD 38 deg's (R is 47 deg's), R Flex & ext AROM is painful Short Term Goal (STG) Pt able to get out of bed by pushing with arm with pain no greater than 1/10. (03/30/21: WBing tolerance is 18# left, 25-28# right) (04/13/21: Pain rated 3-4/10) STG Duration 05/13/21 (04/13/21: Painful to volar L wrist) Skilled Nursing Goal (LTG) Pain no greater than 1/10 with bathing. (04/06/21: Occasional pain rated 3/10, was initially 4/10 ) (04/13/21: Bathing pain is occasional at 3/10) LTG Duration 06/12/21 (04/13/21: Progressing, pain is occasional) One Impairment Lacks appropriate self care HEP. Short Term Goal (STG) Pt issued self care HEP of general UE strengthening ex's. (03/22/21: I/S given for self MWM of ulna/radius with active wrist flex/ext; Wrist ext isometrics in many various angles of flex & ext; Slight WBing in L hand. Pt to continue isometric wrist flex w/wrist in 20 deg's ext). (03/27/21: I/S pt in progressive WBing through LUE with Prox to distal glide of radius/ulna). (04/13/21: Added distal finger reistance for wrist flex/ext vega strengthening & WBing in chair vs on table). STG Duration 05/13/21 (03/27/21: Progressed) Insecticide Maker Goal (LTG) Return to UE exercise at local gym with pain no greater than 1/10. (03/29/21: Tries to be careful , every once and awhile sharp pain) (04/13/21: Returned to gym but hasn't done any arm ex's). 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 Also R hand 3rd MCP nail bed healing scab but nail changes past couple months and cuticale red irritated skin, pt states more fluid building up under skin again. Suggested contacting physican for assessment for safety. Noted increase in AROM of L wrist: flexion same 70 deg, extension 14 deg, UD 15 deg, RD less by 2 deg. Pt had less pain into extension post manual and MWM instruction self PA during WB wrist extention on table. Pt reports wants to continue with PT appt next visit and assess think may not be ready for DC . No pain with HEP reviewed. Less discomfort over all end tx. Continue to asses next tx. Extra time manual, measurements, didnt give feedback to goals, will next tx. Physical Therapy Plan Frequency and Duration Frequency of Treatment 1x/Week Plan of Care Start Date 04/13/21 Plan of Care End Date 06/12/21 Therapeutic Interventions Therapeutic Interventions Home Exercise Program,Joint Mobilizations,Manual Therapy, Patient/Caregiver Education, Self-Care/Home Management,Soft Tissue Mobilization, Therapeutic Exercises Modalities Cold Pack/Ice Massage,Hot Packs,Ultrasound Next Visit Focus/Plan Next Note Type Treatment Note Next Visit Plan Continue to revisist home program in 1 visits, response to tx today for if ready DC next visit. . Assess response to added thumb strengthening with towel ( squeeze & twists), Assess WBing tolerance. Focus on L wrist ext strengthening for stab of carpals,
--- NOTE | 2021-05-11 16:00 | PT.OTN ---
Current Diagnoses Pain in left wrist (05/18/21) Muscle weakness (generalized) (05/18/21) Physical Therapy Treatment Note PT-OP-A Visit Information Start: 03/06/21 19:06 Freq: Status: Active Protocol: Document 05/11/21 09:08 LRN (Rec: 05/11/21 12:08 LRN [id number]) Out-Patient Physical Therapy Visit Information Visit Information Visit Type Treatment Note Visit Start Time 09:08 Visit Stop Time 09:47 Total Visit Minutes 39 Visit Number 14 Evaluation Information Evaluation Date 04/10/21 Precautions Precautions Osteopenia, Fibromyalgia PT-OP-B Current Condition Start: 03/06/21 19:06 Freq: Status: Active Protocol: Document 03/08/21 09:51 LRN (Rec: 03/08/21 10:41 LRN [id number]) Current Condition History of Current Condition Onset Date 2 months ago Current Complaints L dorals wrist pain. History of Current Condition Pt reports she fell in mid Nov stepping wrong on a rock, causing her L ankle to IV. She sprained the L ankle and thought the L wrist as well. The L ankle has gotten better, but the wrist has not. States x-rays show no fracture , but if not better will do an MRI to confirm no small bone fractures. Norris Van gave her a L wrist splint. She has been wearing at least a month , wearing it during the day. Pt is R handed. Prior Treatments and Tests L wrist brace. Future Testing and Treatments Planned Possible MRI if condition not improved. Treatment Goals Patient/Caregiver Goals Pt goal to: - eliminate the pain. - pain no greater than 1/10 with dish washing - pain no greater than 1/10 with putting pants & socks on, and tying shoes. - pain no greater than 1/10 with bathing. Prior Functional Status Baseline Function- ADL's Independent Baseline Function- Mobility Independent Baseline Function- Recreation/Hobbies Exercising at local gym 6x/ week for UE/LE strenghtening & aerobic workouts. Current Functional Impairments (Reported) Functional Limitations- ADL's Difficulty with ADLs due to L wrist pain. (R handed) Functional Limitations- Recreation/ Exercising at local gym 6x/ Hobbies week with only LE strengthenig & aerobic workouts. Personal Factors Other Personal Factors That May Effect Lost partner 10 months ago. Therapy/Recovery PT-OP-C Subjective Start: 03/06/21 19:06 Freq: Status: Active Protocol: Document 05/11/21 09:08 LRN (Rec: 05/11/21 12:08 LRN [id number]) OP-PT Subjective Patient Comments Patient Comments Aches like crazy in L wrist and thenar eminence with some sharp pains in the thumb. R nailbed infection of unknown origin. PT-OP-H Neuro Start: 03/06/21 19:06 Freq: Status: Active Protocol: Document 04/13/21 08:17 LRN (Rec: 04/13/21 09:51 LRN [id number]) Sensation Evaluation Gross Sensation Gross Sensation WNL PT-OP-J Posture/Palpation/Skin Start: 03/06/21 19:06 Freq: Status: Active Protocol: Document 03/08/21 09:51 LRN (Rec: 03/08/21 10:41 LRN [id number]) Posture Evaluation Position Sitting Head/C-Spine Posture Forward Head Shoulder Posture (R) Elevated Arm Posture (L) Internally Rotated,(R) Internally Rotated Palpation Assessment Location L wrist Palpation Location Volar wrist across small bones and CMC of thumb Palpation Findings Tenderness PT-OP-K Range of Motion Start: 03/06/21 19:06 Freq: Status: Active Protocol: Document 05/11/21 09:08 LRN (Rec: 05/11/21 12:08 LRN [id number]) Wrist Goniometric Range of Motion Wrist Right Wrist ROM WFL Yes Flexion Active (degrees) 70 Extension Active (degrees) 68 Ulnar Deviation Active (degrees) 47 Radial Deviation Active (degrees) 28 Left Wrist ROM WFL No Flexion Active (degrees) 70 Extension Active (degrees) 72 Ulnar Deviation Active (degrees) 40 Radial Deviation Active (degrees) 22 ROM Limitations Comments After treatment increased 2 deg's. PT-OP-L Special Tests Start: 03/06/21 19:06 Freq: Status: Active Protocol: Document 03/08/21 09:51 LRN (Rec: 03/08/21 11:55 LRN [id number]) Special Tests Elbow Special Tests Jose G's Test Results Tightness/pain noted bilaterally. Wrist/Hand Special Tests Scaphoid Thrust Test Test Results + L wrist Comments Pain with light dorsal force applied on volar side indicates possible scapholunate instability. Load & Grind Test Test Results + L thumb Comments Indicates possible arthritis at CMC jt PT-OP-M Strength Start: 03/06/21 19:06 Freq: Status: Active Protocol: Document 03/13/21 09:08 LRN (Rec: 03/13/21 10:22 LRN [id number]) Hand Pit Manager/Pinch Strength Hand Dominance Hand Dominance Right Hand Strength Right Comments Pit Manager strength (KG): 26, 26, 24 (norm for 70-74 yr olds, 18.8 L, 22.5 R) Pinch (lbs): 8,8,8 (norm for 70-74 yr old women: 8-22 L, 9-22 R) Left Comments Pit Manager strength (KG): 16, 17, 18 (norm for 70-74 yr old women: 8-22 L, 9-22 R) Pinch (lbs): 1,3,4 (norm for 70-74 yr old women: 13.8 L, 14.5 R) PT-OP-Q Treatments Start: 03/06/21 19:06 Freq: Status: Active Protocol: Document 05/11/21 09:08 LRN (Rec: 05/11/21 17:50 LRN [id number]) Therapeutic Exercises Sitting Exercises Wrist AROM Sitting Exercise Name Wrist AROM (flex, ext, UD, RD) Side left Reps/Minutes x 2 Comments ROM taken before & after treatment. Lwrist Flex Sitting Exercise Name PROM Side left Reps/Minutes 2' Manual Therapy Treatment Joint Mobilizations Traction Joint L wrist Body Position Sitting Reps/Duration 1' Ulna Joint Distal to proximal & PA sustained @ distal Ulna Grade II Body Position Sitting Comments Stabilizing Lunate from moving volarly Scapholunate Joint Scapholunate Direction PA of Scaphoid Grade II L hand Carpals Joint PA glides: Scaphoid, Distal ulna; AP: Lunate Direction PA/AP Grade II Body Position Sitting Manual Techniques MWM w L wrist ext Type MWM for wrist ext Body Location AP of Scaphoid w/distal to prox glide of radius Body Position Neutral L wrist PT-OP-R Modalities Start: 03/06/21 19:06 Freq: Status: Active Protocol: Document 05/11/21 09:08 LRN (Rec: 05/11/21 12:08 LRN [id number]) Ultrasound Therapy Treatment L forearm Treatment Duration (minutes) 3 Patient Position Sitting Coupling Medium Ultrasound Gel Applicator Size (cm2) 2 Frequency Setting (mHz) 3 Mode Setting Pulsed Duty Cycle 50% Intensity Setting (w/cm2) 1 Comments Distal interosseous membrane region. L Wrist Treatment Duration (minutes) 5 Patient Position Sitting Coupling Medium Ultrasound Gel Applicator Size (cm2) 2 Frequency Setting (mHz) 3 Mode Setting Pulsed Duty Cycle 50% Intensity Setting (w/cm2) 1 PT-OP-T Assessment and Plan Start: 03/06/21 19:06 Freq: Status: Active Protocol: Document 05/11/21 09:08 LRN (Rec: 05/11/21 12:08 [facility] [id number]) Physical Therapy Assessment Goals Four Impairment Decreased function per UE QUICKdash score 43 Impairment 40 to 59% Impaired (Score 40- 59) Short Term Goal (STG) Pain no greater than 2/10 with dish washing. (04/06/21: Doesn't hurt because guarded, pain if does too quickly without thinking). (04/13/21: Doesn't notice any discomfort with dish washing and a little guarded). (05/11/21 : Pt with return of ache/pain in the L wrist). STG Duration 04/12/21 (05/11/21: Flare up, previously MET GOAL 04/13/21) Freight Car Builder Goal (LTG) Improve UE function per QUICKdash score of no more than 39 (10-39 = 29-39% impaired). (04/06/21: MET GOAL) (04/13/21: Score of 25 with 1 answer missing, 20-39% impaired, score os 29-39). (05/11/21: Pt with return of ache/pain in the L wrist). LTG Duration 06/12/21 (05/11/21: Flare up, previously MET GOAL 04/06/21) Three Impairment Decreased strength Impairment L wrist Flex/Ext 4/5 (R flex/ Ext is 5/5) Short Term Goal (STG) Pt educated in wrist strengthening ex's. (03/22/21: Pt I/S in L wrist isometric strengthening ex's). (03/27/21: Pt I/S in progressing L UE WBing). (03/29/21: Vega gripping in different wrist ext angles) (04/13/21: Pt Inde with isotonic L wrist strengthening ex's) (04/17/21: Reviewed UE ex's at her gym that she will be returning to). STG Duration 05/13/21 (04/17/21: MET GOAL) Intermediate Goal (LTG) Pain no greater than 1/10 with putting pants & socks on, and tying shoes. (04/06/21: Occasional pain with putting on pants & socks. No pain with tying shoes). (04/13/21: Pain with putting pants on 0/10, putting socks & shoes on pain is 2-3/10, tying shoes pain is 0/10) (05/11/21: Pt with return of ache/pain in the L wrist). LTG Duration 06/12/21 (04/06/21: Partially met - pain only with putting socks/shoes on) Two Impairment Decreased mobility Impairment L UD 38 deg's (R is 47 deg's), R Flex & ext AROM is painful Short Term Goal (STG) Pt able to get out of bed by pushing with arm with pain no greater than 1/10. (03/30/21: WBing tolerance is 18# left, 25-28# right) (04/13/21: Pain rated 3-4/10) (05/11/21: Pt with return of ache/pain in the L wrist). STG Duration 05/13/21 (04/13/21: Painful to volar L wrist) Intermediate Goal (LTG) Pain no greater than 1/10 with bathing. (04/06/21: Occasional pain rated 3/10, was initially 4/10 ) (04/13/21: Bathing pain is occasional at 3/10). (05/11/21: Pt with return of ache/pain in the L wrist). LTG Duration 06/12/21 (04/13/21: Progressing, pain is occasional) One Impairment Lacks appropriate self care HEP. Short Term Goal (STG) Pt issued self care HEP of general UE strengthening ex's. (03/22/21: I/S given for self MWM of ulna/radius with active wrist flex/ext; Wrist ext isometrics in many various angles of flex & ext; Slight WBing in L hand. Pt to continue isometric wrist flex w/wrist in 20 deg's ext). (03/27/21: I/S pt in progressive WBing through LUE with Prox to distal glide of radius/ulna). (04/13/21: Added distal finger reistance for wrist flex/ext vega strengthening & WBing in chair vs on table). STG Duration 05/13/21 (03/27/21: Progressed) Freight Car Builder Goal (LTG) Return to UE exercise at local gym with pain no greater than 1/10. (03/29/21: Tries to be careful , every once and awhile sharp pain) (04/13/21: Returned to gym but hasn't done any arm ex's). LTG Duration 06/12/21 (04/17/21: Progressed , reviewed all pt could remember) Assessment Summary Assessment Pt returns after being on a 1x /week (for past 2 weeks) on a self care program, presenting in a flared up state of the L wrist with return of pain/ aching. Use of wrist splint has helped provide some relief of her pain. The pt has decreased L wrist UD/RD compared to her R wrist and generalized mild swelling at the L wrist. Her R 3rd nail bed infection covered by bandaid. The pt has returned to wearing her wrist splint for comfort and stopped her UE ex at the local gym. Pt demonstrated stiffness of her scaphoid & lunate in PA direction. Pt in flared up state. Physical Therapy Plan Frequency and Duration Frequency of Treatment 1x/Week Plan of Care Start Date 04/13/21 Plan of Care End Date 06/12/21 Next Visit Focus/Plan Next Note Type Treatment Note Next Visit Plan Check C/S for involvement. Recheck L wrist Scaphoid Thrust and L thumb load & grind test. Assess WBing tolerance. Assess response to added thumb strengthening with towel ( squeeze & twists), POC: L wrist ext strengthening for stab of Scapholunate stability.
--- NOTE | 2021-05-18 16:35 | PT.OTN ---
Current Diagnoses Pain in left wrist (05/18/21) Muscle weakness (generalized) (05/18/21) Physical Therapy Treatment Note PT-OP-A Visit Information Start: 03/06/21 19:06 Freq: Status: Active Protocol: Document 05/18/21 10:34 LRN (Rec: 05/18/21 16:35 LRN [id number]) Out-Patient Physical Therapy Visit Information Visit Information Visit Type Treatment Note Visit Note 6 after PN Visit Start Time 10:34 Visit Stop Time 11:14 Total Visit Minutes 40 Visit Number 15 Evaluation Information Evaluation Date 04/10/21 Precautions Precautions Osteopenia, Fibromyalgia PT-OP-B Current Condition Start: 03/06/21 19:06 Freq: Status: Active Protocol: Document 03/08/21 09:51 LRN (Rec: 03/08/21 10:41 LRN [id number]) Current Condition History of Current Condition Onset Date 2 months ago Current Complaints L dorals wrist pain. History of Current Condition Pt reports she fell in mid Nov stepping wrong on a rock, causing her L ankle to IV. She sprained the L ankle and thought the L wrist as well. The L ankle has gotten better, but the wrist has not. States x-rays show no fracture , but if not better will do an MRI to confirm no small bone fractures. Norris Van gave her a L wrist splint. She has been wearing at least a month , wearing it during the day. Pt is R handed. Prior Treatments and Tests L wrist brace. Future Testing and Treatments Planned Possible MRI if condition not improved. Treatment Goals Patient/Caregiver Goals Pt goal to: - eliminate the pain. - pain no greater than 1/10 with dish washing - pain no greater than 1/10 with putting pants & socks on, and tying shoes. - pain no greater than 1/10 with bathing. Prior Functional Status Baseline Function- ADL's Independent Baseline Function- Mobility Independent Baseline Function- Recreation/Hobbies Exercising at local gym 6x/ week for UE/LE strenghtening & aerobic workouts. Current Functional Impairments (Reported) Functional Limitations- ADL's Difficulty with ADLs due to L wrist pain. (R handed) Functional Limitations- Recreation/ Exercising at local gym 6x/ Hobbies week with only LE strengthenig & aerobic workouts. Personal Factors Other Personal Factors That May Effect Lost partner 10 months ago. Therapy/Recovery PT-OP-C Subjective Start: 03/06/21 19:06 Freq: Status: Active Protocol: Document 05/18/21 10:34 LRN (Rec: 05/18/21 16:35 LRN [id number]) OP-PT Subjective Patient Comments Patient Comments Has an MRI referral, but no appt yet. States she woke with midback pain since last visit. States she hasn't gone to gym at all but has been doing her wrist home ex's. PT-OP-H Neuro Start: 03/06/21 19:06 Freq: Status: Active Protocol: Document 04/13/21 08:17 LRN (Rec: 04/13/21 09:51 LRN [id number]) Sensation Evaluation Gross Sensation Gross Sensation WNL PT-OP-J Posture/Palpation/Skin Start: 03/06/21 19:06 Freq: Status: Active Protocol: Document 03/08/21 09:51 LRN (Rec: 03/08/21 10:41 LRN [id number]) Posture Evaluation Position Sitting Head/C-Spine Posture Forward Head Shoulder Posture (R) Elevated Arm Posture (L) Internally Rotated,(R) Internally Rotated Palpation Assessment Location L wrist Palpation Location Volar wrist across small bones and CMC of thumb Palpation Findings Tenderness PT-OP-K Range of Motion Start: 03/06/21 19:06 Freq: Status: Active Protocol: Document 05/18/21 10:34 LRN (Rec: 05/18/21 16:35 LRN [id number]) Wrist Goniometric Range of Motion Wrist Right Wrist ROM WFL Yes Flexion Active (degrees) 70 Extension Active (degrees) 68 Ulnar Deviation Active (degrees) 47 Radial Deviation Active (degrees) 28 Left Wrist ROM WFL Yes Flexion Active (degrees) 70 Extension Active (degrees) 72 Ulnar Deviation Active (degrees) 45 Radial Deviation Active (degrees) 25 ROM Limitations Comments Pain with wrist flex & UD. PT-OP-L Special Tests Start: 03/06/21 19:06 Freq: Status: Active Protocol: Document 05/18/21 10:34 LRN (Rec: 05/18/21 16:35 LRN [id number]) Special Tests Wrist/Hand Special Tests Scaphoid Thrust Test Test Results + Left Hand Comments discomfort noted with volar to posterior force applied. Load & Grind Test Test Results - Left Hand Comments No pain PT-OP-M Strength Start: 03/06/21 19:06 Freq: Status: Active Protocol: Document 03/13/21 09:08 LRN (Rec: 03/13/21 10:22 LRN [id number]) Hand Diet Clerk/Pinch Strength Hand Dominance Hand Dominance Right Hand Strength Right Comments Diet Clerk strength (KG): 26, 26, 24 (norm for 70-74 yr olds, 18.8 L, 22.5 R) Pinch (lbs): 8,8,8 (norm for 70-74 yr old women: 8-22 L, 9-22 R) Left Comments Diet Clerk strength (KG): 16, 17, 18 (norm for 70-74 yr old women: 8-22 L, 9-22 R) Pinch (lbs): 1,3,4 (norm for 70-74 yr old women: 13.8 L, 14.5 R) PT-OP-Q Treatments Start: 03/06/21 19:06 Freq: Status: Active Protocol: Document 05/18/21 10:34 LRN (Rec: 05/18/21 16:35 LRN [id number]) Therapeutic Exercises Sitting Exercises Lwrist Flex Sitting Exercise Name L wrist flex AROM against gravity Side left Reps/Minutes 10x 3 Lwrist Ext Sitting Exercise Name L wrist ext AROM agst gravity Side left Reps/Minutes 10x 3 Tricep Ext Sitting Exercise Name Tricep press overhead Side left Equipment Used 2# Reps/Minutes 20x Bicep Curl Sitting Exercise Name Bicep Curl - wrist in pronationi Side left Equipment Used 2# Reps/Minutes 20x L Wrist ext Sitting Exercise Name Justice L wrist ext in various deg's of flex/ext - resistance at fingertips Side left Reps/Minutes 10x each angle Comments Extra time to determine max tolerated resistance L Wrist flex Sitting Exercise Name Justice L wrist flex in various deg's of flex/ext - resistance at fingertips Side left Reps/Minutes 10x each angle Comments Extra time to determine max tolerated resistance RD Sitting Exercise Name RD justice: netural, 15, [address] Side left Reps/Minutes 5 H x 6 x each UD Sitting Exercise Name UD justice: netural, 15, 30 deg's UD Reps/Minutes 5 H x 6 x each Gipping Sitting Exercise Name Gripping Side left Reps/Minutes 5 x 10 Manual Therapy Treatment Joint Mobilizations Ulna Joint Proximal to distal glide @ proximal Ulnar head Grade II Body Position Sitting Comments Stabilizing Lunate from moving volarly Radius Joint Proximal to distal glide of Radius at proximal radius Grade I Body Position Sitting Scapholunate Joint Scapholunate Direction PA of Scaphoid Grade II Comments Minimal mob needed. Manual Techniques MWM w L wrist ext Type MWM for wrist ext Body Location Posterior to volar stab of Scaphoid w/wrist extension Body Position Neutral L wrist MWM Type MWM for wrist flexion Body Location Volar to posterior stab of Scaphoid w/wrist flexion Body Position Neutral L wrist PT-OP-R Modalities Start: 03/06/21 19:06 Freq: Status: Active Protocol: Document 05/18/21 10:34 LRN (Rec: 05/18/21 16:35 LRN [id number]) Hot Pack/Cold Pack Treatment Hot Pack Location L wrist during manual scaphoid mob Patient Position Sitting Patient Tolerance Good PT-OP-T Assessment and Plan Start: 03/06/21 19:06 Freq: Status: Active Protocol: Document 05/18/21 10:34 LRN (Rec: 05/18/21 16:35 LRN [id number]) Physical Therapy Assessment Goals Four Impairment Decreased function per UE QUICKdash score 43 Impairment 40 to 59% Impaired (Score 40- 59) Short Term Goal (STG) Pain no greater than 2/10 with dish washing. (04/06/21: Doesn't hurt because guarded, pain if does too quickly without thinking). (04/13/21: Doesn't notice any discomfort with dish washing and a little guarded). (05/11/21 : Pt with return of ache/pain in the L wrist). STG Duration 04/12/21 (05/11/21: Flare up, previously MET GOAL 04/13/21) Treating Plant Operator Goal (LTG) Improve UE function per QUICKdash score of no more than 39 (10-39 = 29-39% impaired). (04/06/21: MET GOAL) (04/13/21: Score of 25 with 1 answer missing, 20-39% impaired, score os 29-39). (05/11/21: Pt with return of ache/pain in the L wrist). LTG Duration 06/12/21 (05/11/21: Flare up, previously MET GOAL 04/06/21) Three Impairment Decreased strength Impairment L wrist Flex/Ext 4/5 (R flex/ Ext is 5/5) Short Term Goal (STG) Pt educated in wrist strengthening ex's. (03/22/21: Pt I/S in L wrist isometric strengthening ex's). (03/27/21: Pt I/S in progressing L UE WBing). (03/29/21: Justice gripping in different wrist ext angles) (04/13/21: Pt Inde with isotonic L wrist strengthening ex's) (04/17/21: Reviewed UE ex's at her gym that she will be returning to). STG Duration 05/13/21 (04/17/21: MET GOAL) Treating Plant Operator Goal (LTG) Pain no greater than 1/10 with putting pants & socks on, and tying shoes. (04/06/21: Occasional pain with putting on pants & socks. No pain with tying shoes). (04/13/21: Pain with putting pants on 0/10, putting socks & shoes on pain is 2-3/10, tying shoes pain is 0/10) (05/11/21: Pt with return of ache/pain in the L wrist). LTG Duration 06/12/21 (04/06/21: Partially met - pain only with putting socks/shoes on) Two Impairment Decreased mobility Impairment L UD 38 deg's (R is 47 deg's), R Flex & ext AROM is painful Short Term Goal (STG) Pt able to get out of bed by pushing with arm with pain no greater than 1/10. (03/30/21: WBing tolerance is 18# left, 25-28# right) (04/13/21: Pain rated 3-4/10) (05/11/21: Pt with return of ache/pain in the L wrist). STG Duration 05/13/21 (04/13/21: Painful to volar L wrist) Treating Plant Operator Goal (LTG) Pain no greater than 1/10 with bathing. (04/06/21: Occasional pain rated 3/10, was initially 4/10 ) (04/13/21: Bathing pain is occasional at 3/10). (05/11/21: Pt with return of ache/pain in the L wrist). LTG Duration 06/12/21 (04/13/21: Progressing, pain is occasional) One Impairment Lacks appropriate self care HEP. Short Term Goal (STG) Pt issued self care HEP of general UE strengthening ex's. (03/22/21: I/S given for self MWM of ulna/radius with active wrist flex/ext; Wrist ext isometrics in many various angles of flex & ext; Slight WBing in L hand. Pt to continue isometric wrist flex w/wrist in 20 deg's ext). (03/27/21: I/S pt in progressive WBing through LUE with Prox to distal glide of radius/ulna). (04/13/21: Added distal finger reistance for wrist flex/ext justice strengthening & WBing in chair vs on table). STG Duration 05/13/21 (03/27/21: Progressed) Assisted Goal (LTG) Return to UE exercise at local gym with pain no greater than 1/10. (03/29/21: Tries to be careful , every once and awhile sharp pain) (04/13/21: Returned to gym but hasn't done any arm ex's). LTG Duration 06/12/21 (04/17/21: Progressed , reviewed all pt could remember) Progress Towards Goals Progress Towards Goals Slow Progress due to Activity Tolerance Progress Comments Pt quickly recovering from flare up. Assessment Summary Assessment Pt has discomfort in L wrist with justice wrist flex & RD. Pain with active wrist flex and UD at scaphoid region; therefore scaphoid instability is present. Physical Therapy Plan Frequency and Duration Frequency of Treatment 1x/Week Plan of Care Start Date 04/13/21 Plan of Care End Date 06/12/21 Next Visit Focus/Plan Next Note Type Treatment Note Next Visit Plan Check C/S for involvement. Progress WBing tolerance when able to do AROM without pain. Assess response to added thumb strengthening with towel ( squeeze & twists), POC: L wrist ext strengthening for stab of Scapholunate stability.
--- NOTE | 2021-05-25 15:14 | PT.OTN ---
Current Diagnoses Pain in left wrist (05/25/21) Muscle weakness (generalized) (05/25/21) Physical Therapy Treatment Note PT-OP-A Visit Information Start: 03/06/21 19:06 Freq: Status: Active Protocol: Document 05/25/21 09:02 LRN (Rec: 05/25/21 09:50 LRN [id number]) Out-Patient Physical Therapy Visit Information Visit Information Visit Type Treatment Note Visit Note 7 after PN Visit Start Time 09:02 Visit Stop Time 09:42 Total Visit Minutes 40 Visit Number 16 Evaluation Information Evaluation Date 04/10/21 Precautions Precautions Osteopenia, Fibromyalgia PT-OP-B Current Condition Start: 03/06/21 19:06 Freq: Status: Active Protocol: Document 03/08/21 09:51 LRN (Rec: 03/08/21 10:41 LRN [id number]) Current Condition History of Current Condition Onset Date 2 months ago Current Complaints L dorals wrist pain. History of Current Condition Pt reports she fell in mid Nov stepping wrong on a rock, causing her L ankle to IV. She sprained the L ankle and thought the L wrist as well. The L ankle has gotten better, but the wrist has not. States x-rays show no fracture , but if not better will do an MRI to confirm no small bone fractures. Norris Van gave her a L wrist splint. She has been wearing at least a month , wearing it during the day. Pt is R handed. Prior Treatments and Tests L wrist brace. Future Testing and Treatments Planned Possible MRI if condition not improved. Treatment Goals Patient/Caregiver Goals Pt goal to: - eliminate the pain. - pain no greater than 1/10 with dish washing - pain no greater than 1/10 with putting pants & socks on, and tying shoes. - pain no greater than 1/10 with bathing. Prior Functional Status Baseline Function- ADL's Independent Baseline Function- Mobility Independent Baseline Function- Recreation/Hobbies Exercising at local gym 6x/ week for UE/LE strenghtening & aerobic workouts. Current Functional Impairments (Reported) Functional Limitations- ADL's Difficulty with ADLs due to L wrist pain. (R handed) Functional Limitations- Recreation/ Exercising at local gym 6x/ Hobbies week with only LE strengthenig & aerobic workouts. Personal Factors Other Personal Factors That May Effect Lost partner 10 months ago. Therapy/Recovery PT-OP-C Subjective Start: 03/06/21 19:06 Freq: Status: Active Protocol: Document 05/25/21 09:02 LRN (Rec: 05/25/21 09:50 LRN [id number]) OP-PT Subjective Patient Comments Patient Comments Was good 3 days after last treatment, then had MRI of L wrist 3 days ago and the L wrist has ached a little since then. Better than before. Hasn't gone back to ex due to back is bothering her. L wrist doesn't ache at night anymore. PT-OP-H Neuro Start: 03/06/21 19:06 Freq: Status: Active Protocol: Document 04/13/21 08:17 LRN (Rec: 04/13/21 09:51 LRN [id number]) Sensation Evaluation Gross Sensation Gross Sensation WNL PT-OP-J Posture/Palpation/Skin Start: 03/06/21 19:06 Freq: Status: Active Protocol: Document 03/08/21 09:51 LRN (Rec: 03/08/21 10:41 LRN [id number]) Posture Evaluation Position Sitting Head/C-Spine Posture Forward Head Shoulder Posture (R) Elevated Arm Posture (L) Internally Rotated,(R) Internally Rotated Palpation Assessment Location L wrist Palpation Location Volar wrist across small bones and CMC of thumb Palpation Findings Tenderness PT-OP-K Range of Motion Start: 03/06/21 19:06 Freq: Status: Active Protocol: Document 05/25/21 09:02 LRN (Rec: 05/25/21 15:12 LRN [id number]) Wrist Goniometric Range of Motion Wrist Left Wrist ROM WFL No Flexion Active (degrees) 70 Extension Active (degrees) 72 Ulnar Deviation Active (degrees) 45 Radial Deviation Active (degrees) 30 PT-OP-L Special Tests Start: 03/06/21 19:06 Freq: Status: Active Protocol: Document 05/18/21 10:34 LRN (Rec: 05/18/21 16:35 LRN [id number]) Special Tests Wrist/Hand Special Tests Scaphoid Thrust Test Test Results + Left Hand Comments discomfort noted with volar to posterior force applied. Load & Grind Test Test Results - Left Hand Comments No pain PT-OP-M Strength Start: 03/06/21 19:06 Freq: Status: Active Protocol: Document 03/13/21 09:08 LRN (Rec: 03/13/21 10:22 LRN [id number]) Hand Brakes Inspector/Pinch Strength Hand Dominance Hand Dominance Right Hand Strength Right Comments Brakes Inspector strength (KG): 26, 26, 24 (norm for 70-74 yr olds, 18.8 L, 22.5 R) Pinch (lbs): 8,8,8 (norm for 70-74 yr old women: 8-22 L, 9-22 R) Left Comments Brakes Inspector strength (KG): 16, 17, 18 (norm for 70-74 yr old women: 8-22 L, 9-22 R) Pinch (lbs): 1,3,4 (norm for 70-74 yr old women: 13.8 L, 14.5 R) PT-OP-Q Treatments Start: 03/06/21 19:06 Freq: Status: Active Protocol: Document 05/25/21 09:02 LRN (Rec: 05/25/21 09:50 LRN [id number]) Therapeutic Exercises Sitting Exercises Twisting/Wringing Sitting Exercise Name Active twisting/ringing motion Side bilateral Reps/Minutes 15x AROM UD/RD Sitting Exercise Name Active UD<>RD Side left Reps/Minutes 15x 2 Sit to stand Sitting Exercise Name Sit to stand assessing use of L wrist/hand Side left Comments Pt used fist in neutral vs L wrist in full ext for transfer Lwrist Flex Sitting Exercise Name L wrist flex AROM against gravity Side left Reps/Minutes 15x2 Lwrist Ext Sitting Exercise Name L wrist ext AROM agst gravity Side left Reps/Minutes 15x 2 Tricep Ext Sitting Exercise Name Elbow ext with arms in ext Side left Equipment Used 2# Reps/Minutes 15x 2 Bicep Curl Sitting Exercise Name Bicep Curl - wrist in sup, pron, neutral Side left Equipment Used 2# Reps/Minutes 15x 2, 15x, 15x respectively sup/pron Sitting Exercise Name Active sup<> pron Side left Reps/Minutes 15x 2 L Wrist ext Sitting Exercise Name Justice L wrist ext in various deg's of flex/ext - resistance at fingertips Side left Reps/Minutes 10x each angle Comments v cuing for neutral trunk posture L Wrist flex Sitting Exercise Name Justice L wrist flex in various deg's of flex/ext - resistance at fingertips Side left Reps/Minutes 10x each angle Comments v cuing for neutral trunk posture RD Sitting Exercise Name RD justice: netural, 15, [address] Side left Reps/Minutes 5 H x 6 x each Comments v cuing for neutral trunk posture UD Sitting Exercise Name UD justice: netural, 15, 30 deg's UD Reps/Minutes 5 H x 6 x each Comments v cuing for neutral trunk posture Gipping Sitting Exercise Name Gripping Side left Reps/Minutes 5 x 10 Manual Therapy Treatment Joint Mobilizations Traction Joint C. traction in sitting Comments Manual C. tx sitting had no change with L wrist pain Radius Joint Proximal <> distal glide of Radius at proximal radius Grade I Body Position Sitting Manual Techniques MWM L wrist flex Type MWM L wrist flex of PA scaphoid holding lunate stable Body Location L wrist Body Position Sitting Reps/Duration 4' MWM Type MWM of Scaphoid Volar to posterior & distal to prox radius glide Body Location L wrist Body Position Sitting Reps/Duration 4' Comments Extra time to determine mob for painfree active RD. PT-OP-R Modalities Start: 03/06/21 19:06 Freq: Status: Active Protocol: Document 05/18/21 10:34 LRN (Rec: 05/18/21 16:35 LRN [id number]) Hot Pack/Cold Pack Treatment Hot Pack Location L wrist during manual scaphoid mob Patient Position Sitting Patient Tolerance Good PT-OP-T Assessment and Plan Start: 03/06/21 19:06 Freq: Status: Active Protocol: Document 05/25/21 09:02 LRN (Rec: 05/25/21 09:50 LRN [id number]) Physical Therapy Assessment Goals Four Impairment Decreased function per UE QUICKdash score 43 Impairment 40 to 59% Impaired (Score 40- 59) Short Term Goal (STG) Pain no greater than 2/10 with dish washing. (04/06/21: Doesn't hurt because guarded, pain if does too quickly without thinking). (04/13/21: Doesn't notice any discomfort with dish washing and a little guarded). (05/11/21 : Pt with return of ache/pain in the L wrist). STG Duration 04/12/21 (05/11/21: Flare up, previously MET GOAL 04/13/21) Usp Goal (LTG) Improve UE function per QUICKdash score of no more than 39 (10-39 = 29-39% impaired). (04/06/21: MET GOAL) (04/13/21: Score of 25 with 1 answer missing, 20-39% impaired, score os 29-39). (05/11/21: Pt with return of ache/pain in the L wrist). LTG Duration 06/12/21 (05/11/21: Flare up, previously MET GOAL 04/06/21) Three Impairment Decreased strength Impairment L wrist Flex/Ext 4/5 (R flex/ Ext is 5/5) Short Term Goal (STG) Pt educated in wrist strengthening ex's. (03/22/21: Pt I/S in L wrist isometric strengthening ex's). (03/27/21: Pt I/S in progressing L UE WBing). (03/29/21: Justice gripping in different wrist ext angles) (04/13/21: Pt Inde with isotonic L wrist strengthening ex's) (04/17/21: Reviewed UE ex's at her gym that she will be returning to). STG Duration 05/13/21 (04/17/21: MET GOAL) Rn Coronary Care Unit Goal (LTG) Pain no greater than 1/10 with putting pants & socks on, and tying shoes. (04/06/21: Occasional pain with putting on pants & socks. No pain with tying shoes). (04/13/21: Pain with putting pants on 0/10, putting socks & shoes on pain is 2-3/10, tying shoes pain is 0/10) (05/11/21: Pt with return of ache/pain in the L wrist). LTG Duration 06/12/21 (04/06/21: Partially met - pain only with putting socks/shoes on) Two Impairment Decreased mobility Impairment L UD 38 deg's (R is 47 deg's), R Flex & ext AROM is painful Short Term Goal (STG) Pt able to get out of bed by pushing with arm with pain no greater than 1/10. (03/30/21: WBing tolerance is 18# left, 25-28# right) (04/13/21: Pain rated 3-4/10) (05/11/21: Pt with return of ache/pain in the L wrist). STG Duration 05/13/21 (04/13/21: Painful to volar L wrist) Usp Goal (LTG) Pain no greater than 1/10 with bathing. (04/06/21: Occasional pain rated 3/10, was initially 4/10 ) (04/13/21: Bathing pain is occasional at 3/10). (05/11/21: Pt with return of ache/pain in the L wrist). LTG Duration 06/12/21 (04/13/21: Progressing, pain is occasional) One Impairment Lacks appropriate self care HEP. Short Term Goal (STG) Pt issued self care HEP of general UE strengthening ex's. (03/22/21: I/S given for self MWM of ulna/radius with active wrist flex/ext; Wrist ext isometrics in many various angles of flex & ext; Slight WBing in L hand. Pt to continue isometric wrist flex w/wrist in 20 deg's ext). (03/27/21: I/S pt in progressive WBing through LUE with Prox to distal glide of radius/ulna). (04/13/21: Added distal finger reistance for wrist flex/ext justice strengthening & WBing in chair vs on table). STG Duration 05/13/21 (03/27/21: Progressed) Rn Coronary Care Unit Goal (LTG) Return to UE exercise at local gym with pain no greater than 1/10. (03/29/21: Tries to be careful , every once and awhile sharp pain) (04/13/21: Returned to gym but hasn't done any arm ex's). LTG Duration 06/12/21 (04/17/21: Progressed , reviewed all pt could remember) Assessment Summary Assessment Pt cleared of C/S involvment. Her continued L wrist ache is probably due to WBing into the L wrist with transfers causing ache. Pt is recovering quickly from flare up with no pain at night and mostly felt with WBing on transfers sit<>stand. After manual mob pt appeared to self mobilize during active UD/RD and afterwards was able to tolerate AROM of L wrist motion without pain at wrist or thumb. Her L wrist AROM is normal except for UD is 45 deg's left, 47 deg' right (Pt limited with ex strengthening because of R midback pain, probably from performing L wrist ex's in a L rotated position, causing strain on R paspinals and thoracic rotators; therefore assess in order to progress UE strengthening. Physical Therapy Plan Frequency and Duration Frequency of Treatment 1x/Week Plan of Care Start Date 04/13/21 Plan of Care End Date 06/12/21 Next Visit Focus/Plan Next Note Type Treatment Note Next Visit Plan Assess progress towards WBing goals and discuss POC/ appointments (2 wks remain). Progress WBing tolerance if still able to do L wrist Justice & AROM without pain. Assess response to added thumb strengthening of justice thumb AB/AD/ext and squeeze/twist with towel. Manual therapy to R mid back to promote improving L UE strength, Discuss wearing soft brace with ex workouts and slow progression of WBing activities. POC: L wrist ext strengthening for stab of Scapholunate stability.
--- NOTE | 2021-06-01 13:39 | PT.OTN ---
Current Diagnoses Pain in left wrist (06/01/21) Muscle weakness (generalized) (06/01/21) Physical Therapy Treatment Note PT-OP-A Visit Information Start: 03/06/21 19:06 Freq: Status: Active Protocol: Document 06/01/21 09:04 LRN (Rec: 06/01/21 09:45 LRN [id number]) Out-Patient Physical Therapy Visit Information Visit Information Visit Type Treatment Note Visit Note 8 after PN Visit Start Time 09:02 Visit Stop Time 09:42 Total Visit Minutes 40 Visit Number 17 Evaluation Information Evaluation Date 04/10/21 Precautions Precautions Osteopenia, Fibromyalgia PT-OP-B Current Condition Start: 03/06/21 19:06 Freq: Status: Active Protocol: Document 03/08/21 09:51 LRN (Rec: 03/08/21 10:41 LRN [id number]) Current Condition History of Current Condition Onset Date 2 months ago Current Complaints L dorals wrist pain. History of Current Condition Pt reports she fell in mid Nov stepping wrong on a rock, causing her L ankle to IV. She sprained the L ankle and thought the L wrist as well. The L ankle has gotten better, but the wrist has not. States x-rays show no fracture , but if not better will do an MRI to confirm no small bone fractures. Norris Van gave her a L wrist splint. She has been wearing at least a month , wearing it during the day. Pt is R handed. Prior Treatments and Tests L wrist brace. Future Testing and Treatments Planned Possible MRI if condition not improved. Treatment Goals Patient/Caregiver Goals Pt goal to: - eliminate the pain. - pain no greater than 1/10 with dish washing - pain no greater than 1/10 with putting pants & socks on, and tying shoes. - pain no greater than 1/10 with bathing. Prior Functional Status Baseline Function- ADL's Independent Baseline Function- Mobility Independent Baseline Function- Recreation/Hobbies Exercising at local gym 6x/ week for UE/LE strenghtening & aerobic workouts. Current Functional Impairments (Reported) Functional Limitations- ADL's Difficulty with ADLs due to L wrist pain. (R handed) Functional Limitations- Recreation/ Exercising at local gym 6x/ Hobbies week with only LE strengthenig & aerobic workouts. Personal Factors Other Personal Factors That May Effect Lost partner 10 months ago. Therapy/Recovery PT-OP-C Subjective Start: 03/06/21 19:06 Freq: Status: Active Protocol: Document 06/01/21 09:04 LRN (Rec: 06/01/21 09:45 LRN [id number]) OP-PT Subjective Patient Comments Patient Comments States she had her MRI of the L wrist and was told there was something wrong with a tnedon or something and is scheduled with Dr. Mckeon. PT-OP-H Neuro Start: 03/06/21 19:06 Freq: Status: Active Protocol: Document 04/13/21 08:17 LRN (Rec: 04/13/21 09:51 LRN [id number]) Sensation Evaluation Gross Sensation Gross Sensation WNL PT-OP-J Posture/Palpation/Skin Start: 03/06/21 19:06 Freq: Status: Active Protocol: Document 03/08/21 09:51 LRN (Rec: 03/08/21 10:41 LRN [id number]) Posture Evaluation Position Sitting Head/C-Spine Posture Forward Head Shoulder Posture (R) Elevated Arm Posture (L) Internally Rotated,(R) Internally Rotated Palpation Assessment Location L wrist Palpation Location Volar wrist across small bones and CMC of thumb Palpation Findings Tenderness PT-OP-K Range of Motion Start: 03/06/21 19:06 Freq: Status: Active Protocol: Document 06/01/21 09:04 LRN (Rec: 06/01/21 09:45 LRN [id number]) Wrist Goniometric Range of Motion Wrist Right Wrist ROM WFL Yes Flexion Active (degrees) 70 Extension Active (degrees) 68 Ulnar Deviation Active (degrees) 47 Radial Deviation Active (degrees) 28 Left Flexion Active (degrees) 70 Extension Active (degrees) 75 Ulnar Deviation Active (degrees) 45 Radial Deviation Active (degrees) 28 PT-OP-L Special Tests Start: 03/06/21 19:06 Freq: Status: Active Protocol: Document 05/18/21 10:34 LRN (Rec: 05/18/21 16:35 LRN [id number]) Special Tests Wrist/Hand Special Tests Scaphoid Thrust Test Test Results + Left Hand Comments discomfort noted with volar to posterior force applied. Load & Grind Test Test Results - Left Hand Comments No pain PT-OP-M Strength Start: 03/06/21 19:06 Freq: Status: Active Protocol: Document 03/13/21 09:08 LRN (Rec: 03/13/21 10:22 LRN [id number]) Hand Log Buncher/Pinch Strength Hand Dominance Hand Dominance Right Hand Strength Right Comments Log Buncher strength (KG): 26, 26, 24 (norm for 70-74 yr olds, 18.8 L, 22.5 R) Pinch (lbs): 8,8,8 (norm for 70-74 yr old women: 8-22 L, 9-22 R) Left Comments Log Buncher strength (KG): 16, 17, 18 (norm for 70-74 yr old women: 8-22 L, 9-22 R) Pinch (lbs): 1,3,4 (norm for 70-74 yr old women: 13.8 L, 14.5 R) PT-OP-Q Treatments Start: 03/06/21 19:06 Freq: Status: Active Protocol: Document 06/01/21 09:04 LRN (Rec: 06/01/21 09:45 LRN [id number]) Therapeutic Exercises Sitting Exercises Lwrist Flex Sitting Exercise Name L wrist flex AROM against gravity Side left Equipment Used 1# Reps/Minutes 15x Lwrist Ext Sitting Exercise Name L wrist ext AROM agst gravity Side left Equipment Used 1# Reps/Minutes 15x Tricep Ext Sitting Exercise Name Elbow ext with arms in ext Side left Equipment Used 2# Reps/Minutes 15x 3 Bicep Curl Sitting Exercise Name Bicep Curl - wrist in sup, pron, neutral Side left Equipment Used 3# Reps/Minutes 15x 3 sup/pron Sitting Exercise Name Active sup<> pron Side left Equipment Used 1# Reps/Minutes 15x RD Sitting Exercise Name UD against gravity Reps/Minutes 15x UD Sitting Exercise Name RD against gravity Reps/Minutes 15x Self-Care/Home Management Treatment Education Other Education Girth msmts (cm): 5 cm above elbow crease: 30.2 L, 29 R; At elbow: 26 bilaterally; 5 cm below elbow crease 26 L, 26.2 R (Pt is R handed). Discussed use of MH and effects if arthritis vs swelling pain. Discussed no pain after heat may indicate pain from arthritis vs swelling. Girth shows no overall swelling in the L UE. PT-OP-R Modalities Start: 03/06/21 19:06 Freq: Status: Active Protocol: Document 05/18/21 10:34 LRN (Rec: 05/18/21 16:35 LRN [id number]) Hot Pack/Cold Pack Treatment Hot Pack Location L wrist during manual scaphoid mob Patient Position Sitting Patient Tolerance Good PT-OP-T Assessment and Plan Start: 03/06/21 19:06 Freq: Status: Active Protocol: Document 06/01/21 09:04 LRN (Rec: 06/01/21 09:45 LRN [id number]) Physical Therapy Assessment Goals Four Impairment Decreased function per UE QUICKdash score 43 Impairment 40 to 59% Impaired (Score 40- 59) Short Term Goal (STG) Pain no greater than 2/10 with dish washing. (04/06/21: Doesn't hurt because guarded, pain if does too quickly without thinking). (04/13/21: Doesn't notice any discomfort with dish washing and a little guarded). (05/11/21 : Pt with return of ache/pain in the L wrist). STG Duration 04/12/21 (05/11/21: Flare up, previously MET GOAL 04/13/21) Certified Social Workers In Health Care Goal (LTG) Improve UE function per QUICKdash score of no more than 39 (10-39 = 29-39% impaired). (04/06/21: MET GOAL) (04/13/21: Score of 25 with 1 answer missing, 20-39% impaired, score os 29-39). (05/11/21: Pt with return of ache/pain in the L wrist). LTG Duration 06/12/21 (05/11/21: Flare up, previously MET GOAL 04/06/21) Three Impairment Decreased strength Impairment L wrist Flex/Ext 4/5 (R flex/ Ext is 5/5) Short Term Goal (STG) Pt educated in wrist strengthening ex's. (03/22/21: Pt I/S in L wrist isometric strengthening ex's). (03/27/21: Pt I/S in progressing L UE WBing). (03/29/21: Justice gripping in different wrist ext angles) (04/13/21: Pt Inde with isotonic L wrist strengthening ex's) (04/17/21: Reviewed UE ex's at her gym that she will be returning to). STG Duration 05/13/21 (04/17/21: MET GOAL) Certified Social Workers In Health Care Goal (LTG) Pain no greater than 1/10 with putting pants & socks on, and tying shoes. (04/06/21: Occasional pain with putting on pants & socks. No pain with tying shoes). (04/13/21: Pain with putting pants on 0/10, putting socks & shoes on pain is 2-3/10, tying shoes pain is 0/10) (05/11/21: Pt with return of ache/pain in the L wrist). LTG Duration 06/12/21 (04/06/21: Partially met - pain only with putting socks/shoes on) Two Impairment Decreased mobility Impairment L UD 38 deg's (R is 47 deg's), R Flex & ext AROM is painful Short Term Goal (STG) Pt able to get out of bed by pushing with arm with pain no greater than 1/10. (03/30/21: WBing tolerance is 18# left, 25-28# right) (04/13/21: Pain rated 3-4/10) (05/11/21: Pt with return of ache/pain in the L wrist). STG Duration 05/13/21 (04/13/21: Painful to volar L wrist) Certified Social Workers In Health Care Goal (LTG) Pain no greater than 1/10 with bathing. (04/06/21: Occasional pain rated 3/10, was initially 4/10 ) (04/13/21: Bathing pain is occasional at 3/10). (05/11/21: Pt with return of ache/pain in the L wrist). LTG Duration 06/12/21 (04/13/21: Progressing, pain is occasional) One Impairment Lacks appropriate self care HEP. Short Term Goal (STG) Pt issued self care HEP of general UE strengthening ex's. (03/22/21: I/S given for self MWM of ulna/radius with active wrist flex/ext; Wrist ext isometrics in many various angles of flex & ext; Slight WBing in L hand. Pt to continue isometric wrist flex w/wrist in 20 deg's ext). (03/27/21: I/S pt in progressive WBing through LUE with Prox to distal glide of radius/ulna). (04/13/21: Added distal finger reistance for wrist flex/ext justice strengthening & WBing in chair vs on table). STG Duration 05/13/21 (03/27/21: Progressed) Certified Social Workers In Health Care Goal (LTG) Return to UE exercise at local gym with pain no greater than 1/10. (03/29/21: Tries to be careful , every once and awhile sharp pain) (04/13/21: Returned to gym but hasn't done any arm ex's). LTG Duration 06/12/21 (04/17/21: Progressed , reviewed all pt could remember) Assessment Summary Assessment Pt back pain appears mostly resolved. Pt has swelling in posterior forearm, possibly the extensor pollicus brevis and longus muscle and positional dysfunction of radius (shifted caudal) and scaphoid (shifted anterior) causing an ache. MH decreased her pain and pt was able to perform AROM and strengthening without pain. Pt is now able to strengthen with resistance and may be able to progress on her own; therefore will have pt work to progress her strength for the next couple of weeks, then recheck for progression onto weight bearing activity/ exercises and progress towards DC to self care. Physical Therapy Plan Frequency and Duration Frequency of Treatment 1x/Week Plan of Care Start Date 04/13/21 Plan of Care End Date 06/12/21 Next Visit Focus/Plan Next Note Type Treatment Note Next Visit Plan Possible new POC needed. Assess progress towards WBing goals and discuss POC/ appointments (2 wks remain). Progress WBing tolerance if still able to do L wrist resisted strengthening without pain. Assess response to added thumb strengthening of justice thumb AB/AD/ext and squeeze/twist with towel. Discuss wearing soft brace with ex workouts and slow progression of WBing activities. POC: L wrist ext strengthening for stab of Scapholunate stability.
--- NOTE | 2021-07-12 16:30 | PT.OTN ---
Current Diagnoses Pain in left wrist (07/12/21) Muscle weakness (generalized) (07/12/21) Physical Therapy Treatment Note PT-OP-A Visit Information Start: 03/06/21 19:06 Freq: Status: Active Protocol: Document 07/12/21 13:55 LRN (Rec: 07/12/21 14:36 LRN [id number]) Out-Patient Physical Therapy Visit Information Visit Information Visit Type Treatment Note Visit Start Time 13:55 Visit Stop Time 14:33 Total Visit Minutes 38 Visit Number 18 Evaluation Information Evaluation Date 04/10/21 Precautions Precautions Osteopenia, Fibromyalgia PT-OP-B Current Condition Start: 03/06/21 19:06 Freq: Status: Active Protocol: Document 03/08/21 09:51 LRN (Rec: 03/08/21 10:41 LRN [id number]) Current Condition History of Current Condition Onset Date 2 months ago Current Complaints L dorals wrist pain. History of Current Condition Pt reports she fell in mid Nov stepping wrong on a rock, causing her L ankle to IV. She sprained the L ankle and thought the L wrist as well. The L ankle has gotten better, but the wrist has not. States x-rays show no fracture , but if not better will do an MRI to confirm no small bone fractures. Norris Van gave her a L wrist splint. She has been wearing at least a month , wearing it during the day. Pt is R handed. Prior Treatments and Tests L wrist brace. Future Testing and Treatments Planned Possible MRI if condition not improved. Treatment Goals Patient/Caregiver Goals Pt goal to: - eliminate the pain. - pain no greater than 1/10 with dish washing - pain no greater than 1/10 with putting pants & socks on, and tying shoes. - pain no greater than 1/10 with bathing. Prior Functional Status Baseline Function- ADL's Independent Baseline Function- Mobility Independent Baseline Function- Recreation/Hobbies Exercising at local gym 6x/ week for UE/LE strenghtening & aerobic workouts. Current Functional Impairments (Reported) Functional Limitations- ADL's Difficulty with ADLs due to L wrist pain. (R handed) Functional Limitations- Recreation/ Exercising at local gym 6x/ Hobbies week with only LE strengthenig & aerobic workouts. Personal Factors Other Personal Factors That May Effect Lost partner 10 months ago. Therapy/Recovery PT-OP-C Subjective Start: 03/06/21 19:06 Freq: Status: Active Protocol: Document 07/12/21 13:55 LRN (Rec: 07/12/21 14:36 LRN [id number]) OP-PT Subjective Patient Comments Patient Comments Saw ortho, Dr. 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 She states she hasn't noticed a difference in the swelling, but she hasn't been bothered by it. Occaionally has twinges of pain. Patient Questionnaires Quick Dash- Upper Extremity Quick Dash UE Score 4.54 Quick Dash UE Impairment 1 to 19% Impaired (Score 1-19) PT-OP-H Neuro Start: 03/06/21 19:06 Freq: Status: Active Protocol: Document 04/13/21 08:17 LRN (Rec: 04/13/21 09:51 LRN [id number]) Sensation Evaluation Gross Sensation Gross Sensation WNL PT-OP-J Posture/Palpation/Skin Start: 03/06/21 19:06 Freq: Status: Active Protocol: Document 03/08/21 09:51 LRN (Rec: 03/08/21 10:41 LRN [id number]) Posture Evaluation Position Sitting Head/C-Spine Posture Forward Head Shoulder Posture (R) Elevated Arm Posture (L) Internally Rotated,(R) Internally Rotated Palpation Assessment Location L wrist Palpation Location Volar wrist across small bones and CMC of thumb Palpation Findings Tenderness PT-OP-K Range of Motion Start: 03/06/21 19:06 Freq: Status: Active Protocol: Document 06/01/21 09:04 LRN (Rec: 06/01/21 09:45 LRN [id number]) Wrist Goniometric Range of Motion Wrist Right Wrist ROM WFL Yes Flexion Active (degrees) 70 Extension Active (degrees) 68 Ulnar Deviation Active (degrees) 47 Radial Deviation Active (degrees) 28 Left Flexion Active (degrees) 70 Extension Active (degrees) 75 Ulnar Deviation Active (degrees) 45 Radial Deviation Active (degrees) 28 PT-OP-L Special Tests Start: 03/06/21 19:06 Freq: Status: Active Protocol: Document 05/18/21 10:34 LRN (Rec: 05/18/21 16:35 [facility] [id number]) Special Tests Wrist/Hand Special Tests Scaphoid Thrust Test Test Results + Left Hand Comments discomfort noted with volar to posterior force applied. Load & Grind Test Test Results - Left Hand Comments No pain PT-OP-M Strength Start: 03/06/21 19:06 Freq: Status: Active Protocol: Document 03/13/21 09:08 LRN (Rec: 03/13/21 10:22 DANIEL [id number]) Hand Ampoule Filler/Pinch Strength Hand Dominance Hand Dominance Right Hand Strength Right Comments Ampoule Filler strength (KG): 26, 26, 24 (norm for 70-74 yr olds, 18.8 L, 22.5 R) Pinch (lbs): 8,8,8 (norm for 70-74 yr old women: 8-22 L, 9-22 R) Left Comments Ampoule Filler strength (KG): 16, 17, 18 (norm for 70-74 yr old women: 8-22 L, 9-22 R) Pinch (lbs): 1,3,4 (norm for 70-74 yr old women: 13.8 L, 14.5 R) PT-OP-Q Treatments Start: 03/06/21 19:06 Freq: Status: Active Protocol: Document 07/12/21 13:55 LRN (Rec: 07/12/21 14:36 [facility] [id number]) Therapeutic Exercises Sitting Exercises Lwrist Flex Sitting Exercise Name L wrist flex AROM against gravity Side left Equipment Used 1# Reps/Minutes 15x Lwrist Ext Sitting Exercise Name L wrist ext AROM agst gravity Side left Equipment Used 1# Reps/Minutes 15x Tricep Ext Sitting Exercise Name Elbow ext with arms in ext Side left Equipment Used 2# Reps/Minutes 15x 3 Bicep Curl Sitting Exercise Name Bicep Curl - wrist in sup, pron, neutral Side left Equipment Used 3# Reps/Minutes 15x 3 sup/pron Sitting Exercise Name Active sup<> pron Side left Equipment Used 1# Reps/Minutes 15x 3 RD Sitting Exercise Name UD against gravity Reps/Minutes 15x [address]D Sitting Exercise Name RD against gravity Reps/Minutes 15x 3 Standing Exercises WBing Standing Exercise Name Gentle WBing into ~60 deg's wrist extended arm Side left Reps/Minutes 10 x 2 Comments No pain with WBing Self-Care/Home Management Treatment Activities Self-Care/Home Management Activities Issued and reviewed HEP: Elbow curls and tricep ext; Wrist sup/pron; Wrist ext/flex strengthening. PT-OP-R Modalities Start: 03/06/21 19:06 Freq: Status: Active Protocol: Document 05/18/21 10:34 LRN (Rec: 05/18/21 16:35 LRN [id number]) Hot Pack/Cold Pack Treatment Hot Pack Location L wrist during manual scaphoid mob Patient Position Sitting Patient Tolerance Good PT-OP-T Assessment and Plan Start: 03/06/21 19:06 Freq: Status: Active Protocol: Document 07/12/21 13:55 LRN (Rec: 07/12/21 14:36 LRN [id number]) Physical Therapy Assessment Goals Four Impairment Decreased function per UE QUICKdash score 43 Impairment 40 to 59% Impaired (Score 40- 59) Short Term Goal (STG) Pain no greater than 2/10 with dish washing. (04/06/21: Doesn't hurt because guarded, pain if does too quickly without thinking). (04/13/21: Doesn't notice any discomfort with dish washing and a little guarded). (05/11/21 : Pt with return of ache/pain in the L wrist). (07/12/21: No pain washing dishes) STG Duration 04/12/21 (07/12/21: MET GOAL) Engineering Inspector Goal (LTG) Improve UE function per QUICKdash score of no more than 39 (10-39 = 29-39% impaired). (04/06/21: MET GOAL) (04/13/21: Score of 25 with 1 answer missing, 20-39% impaired, score os 29-39). (05/11/21: Pt with return of ache/pain in the L wrist). (07/12/21: 4.54 Score) LTG Duration 06/12/21 (07/12/21: MET GOAL) Three Impairment Decreased strength Impairment L wrist Flex/Ext 4/5 (R flex/ Ext is 5/5) Short Term Goal (STG) Pt educated in wrist strengthening ex's. (03/22/21: Pt I/S in L wrist isometric strengthening ex's). (03/27/21: Pt I/S in progressing L UE WBing). (03/29/21: Justice gripping in different wrist ext angles) (04/13/21: Pt Inde with isotonic L wrist strengthening ex's) (04/17/21: Reviewed UE ex's at her gym that she will be returning to). STG Duration 05/13/21 (04/17/21: MET GOAL) Engineering Inspector Goal (LTG) Pain no greater than 1/10 with putting pants & socks on, and tying shoes. (04/06/21: Occasional pain with putting on pants & socks. No pain with tying shoes). (04/13/21: Pain with putting pants on 0/10, putting socks & shoes on pain is 2-3/10, tying shoes pain is 0/10) (05/11/21: Pt with return of ache/pain in the L wrist). (07/12/21: No pain with putting pants, socks/shoes on and tying shoes) LTG Duration 06/12/21 (07/12/21: MET GOAL ) Two Impairment Decreased mobility Impairment L UD 38 deg's (R is 47 deg's), R Flex & ext AROM is painful Short Term Goal (STG) Pt able to get out of bed by pushing with arm with pain no greater than 1/10. (03/30/21: WBing tolerance is 18# left, 25-28# right) (04/13/21: Pain rated 3-4/10) (05/11/21: Pt with return of ache/pain in the L wrist). (07/12/21: Occasional twinge) STG Duration 05/13/21 (07/11/21: MET GOAL to pt satisfaction) Fpc Goal (LTG) Pain no greater than 1/10 with bathing. (04/06/21: Occasional pain rated 3/10, was initially 4/10 ) (04/13/21: Bathing pain is occasional at 3/10). (05/11/21: Pt with return of ache/pain in the L wrist). (07/12/21: No pain with bathing ) LTG Duration 06/12/21 (07/12/21: MET GOAL) One Impairment Lacks appropriate self care HEP. Short Term Goal (STG) Pt issued self care HEP of general UE strengthening ex's. (03/22/21: I/S given for self MWM of ulna/radius with active wrist flex/ext; Wrist ext isometrics in many various angles of flex & ext; Slight WBing in L hand. Pt to continue isometric wrist flex w/wrist in 20 deg's ext). (03/27/21: I/S pt in progressive WBing through LUE with Prox to distal glide of radius/ulna). (04/13/21: Added distal finger reistance for wrist flex/ext justice strengthening & WBing in chair vs on table). STG Duration 05/13/21 (05/12/21: MET GOAL) Fpc Goal (LTG) Return to UE exercise at local gym with pain no greater than 1/10. (03/29/21: Tries to be careful , every once and awhile sharp pain) (04/13/21: Returned to gym but hasn't done any arm ex's). (07/12/21: Pt having no wrist pain and is returning to local exer gym next week) LTG Duration 06/12/21 (07/12/21: Partailly MET GOAL) Assessment Summary Assessment Pt returns after 6 weeks being on a self detention program and is having twinges of pain in the L wrist. She has had a cortisone injection in the L wrist, that did not appear to make much a difference in her pain at present. She appears to have a good understanding of her HEP and her limitations and is ready to be discharged to her HEP. Physical Therapy Plan Discharge Physical Therapy Discharge Reasons Goals Met Discharge Comments Met goals except pt has not returned to exercise gym due to being away. Pt plans on resuming an ex gym routine next week. Thank you for your referral.
== END 2021-08-08 14:06 | disposition home or self-care (01) ==
LOC: PHYS 13:45
PROVIDERS: Family Provider Physician Assistant; PCP Registered Nurse Diabetes Educator; Referring Provider Registered Nurse Diabetes Educator; Visit Provider Registered Nurse Diabetes Educator
DX: M25.532 Pain in left wrist (principal); M62.81 Muscle weakness (generalized)
CPT/HCPCS: 97035; 97110; 97140; 97162; 97535

== ENCOUNTER → 2021-10-10 17:17 | Outpatient (CLI) | payer MEDICARE, SELFPAY ==
[2021-10-10 17:52] LABS: Hemoglobin 12.1 g/dL (12.0-16.0); Mean Corpuscular HGB Conc 34.6 % (30-36); Mean Corpuscular Hemoglobin 31.1 PG (26-34); Mean Corpuscular Volume 89.7 fL (80-100); Platelet Count 246 X10^3/uL (150-400); White Blood Cell Count 6.9 X10^3/uL (4.5-11.0)
[2021-10-10 18:27] LABS: Hemoglobin A1C% w Est Avg Glu 5.8 % (4.0-6.0)
[2021-10-10 18:30] LABS: Alanine Aminotransferase 27 IU/L (<35); Albumin 4.4 g/dL (3.5-5.0); Albumin Globulin Ratio 1.6 (1.0-2.8); Alkaline Phosphatase 56 U/L (38-126); Aspartate Aminotransferase 42 IU/L (14-36); BUN Creatinine Ratio 17.4 (6-22); Bilirubin Total 0.4 mg/dL (0.2-1.3); Blood Urea Nitrogen 16 mg/dL (7-17); Calcium 9.7 mg/dL (8.4-10.2); Carbon Dioxide 27 mmol/L (22-32); Chloride 107 mmol/L (98-107); Cholesterol 165 mg/dL (140-199); Estimated Glomerular Filt Rate > 60 mL/min (>60); Globulin 2.8 g/dL (1.7-4.1); Glucose 91 mg/dL (80-110); HDL Cholesterol 50 mg/dL (40-60); HEMOLYSIS 16 (0-50); LDL Cholesterol Calculated 80 mg/dL (<100); Potassium 3.9 mmol/L (3.4-5.1); Sodium 139 mmol/L (137-145); Total Protein 7.2 g/dL (6.3-8.2); Triglycerides 174 mg/dL (35-150)
[2021-10-10 18:58] LABS: TSH w/ Reflex to FT4 2.67 uIU/mL (0.47-4.68)
[2021-10-10 19:21] LABS: Vitamin B12 Reflex MMA if <400 665 pg/mL (239-931)
== END ==
PROVIDERS: Family Provider Physician Assistant; PCP Registered Nurse Diabetes Educator; Referring Provider Registered Nurse Diabetes Educator; Visit Provider Registered Nurse Diabetes Educator
DX: R73.01 Impaired fasting glucose (principal); E78.5 Hyperlipidemia, unspecified; R20.0 Anesthesia of skin; R20.2 Paresthesia of skin
CPT/HCPCS: 36415; 80053; 80061; 82607; 83036; 84443; 85027

== ENCOUNTER → 2022-03-23 09:05 | Outpatient (CLI) | payer MEDICARE, SELFPAY ==
--- NOTE | 2022-03-23 09:06 | DI.MG.S_ITS ---
BILATERAL DIGITAL SCREENING MAMMOGRAM 3D/2D WITH CAD: 03/23/2022 CLINICAL: Routine screening. Comparison is made to exams dated: 03/22/2021 mammogram, 03/20/2020 mammogram, 03/17/2019 mammogram, and 03/11/2018 mammogram - [facility]. Both breasts are heterogeneously dense, which may obscure small masses (category c / 51-75% glandular tissue). Current study was also evaluated with a Computer Aided Detection (CAD) system. No significant masses, calcifications, or other findings are seen in either breast. There has been no significant interval change. IMPRESSION: NEGATIVE There is no mammographic evidence of malignancy. A 1 year screening mammogram is recommended. Based on the Tyrer Cuzick model (a risk assessment model) the patient's lifetime risk is 7.9% and her 10 year risk is 5.9%. According to the ACR, ACS, and NCCN guidelines, an annual breast MRI exam along with mammogram is recommended if the patient's lifetime risk is 20% or greater. This exam was interpreted at Station ID: [id number]. NOTE: For mammograms, a report in lay terms will be sent to the patient. Approximately 15% of breast malignancies will not be visualized mammographically. In the management of a palpable breast mass, a negative mammogram must not discourage biopsy of a clinically suspicious lesion. Electronically Signed By: Dawood argueta/nacho:03/25/2022 08:37:15 letter sent: Normal Exam ACR BI-RADS Category 1: Negative [id number]
== END ==
PROVIDERS: Family Provider Physician Assistant; PCP Registered Nurse Diabetes Educator; Referring Provider Registered Nurse Diabetes Educator; Visit Provider Registered Nurse Diabetes Educator
DX: Z12.31 Encounter for screening mammogram for malignant neoplasm of breast (principal)
CPT/HCPCS: 77063; 77067

== ENCOUNTER → 2022-09-11 09:56 | Outpatient (CLI) | payer MEDICARE, SELFPAY ==
[2022-09-12 15:40] LABS: Fecal Immunochemical Test Negative (Negative)
== END ==
PROVIDERS: Family Provider Physician Assistant; PCP Registered Nurse Diabetes Educator; Referring Provider Registered Nurse Diabetes Educator; Visit Provider Registered Nurse Diabetes Educator
DX: Z12.11 Encounter for screening for malignant neoplasm of colon (principal); Z12.12 Encounter for screening for malignant neoplasm of rectum
CPT/HCPCS: 82274

== ENCOUNTER → 2023-03-03 08:00 | Outpatient (CLI) | payer OTHER, SELFPAY ==
[2023-03-03 08:53] LABS: Hematocrit 36.2 % (36-46); Hemoglobin 12.4 g/dL (12.0-16.0); Mean Corpuscular HGB Conc 34.3 % (30-36); Mean Corpuscular Hemoglobin 30.4 PG (26-34); Mean Corpuscular Volume 88.5 fL (80-100); Platelet Count 242 X10^3/uL (150-400); Red Blood Cell Count 4.08 X10^6/uL (4.0-5.2); Red Cell Distribution Width 14.1 % (11.6-14.8); White Blood Cell Count 5.7 X10^3/uL (4.5-11.0)
[2023-03-03 09:09] LABS: Alanine Aminotransferase 23 IU/L (<35); Albumin 4.3 g/dL (3.5-5.0); Albumin Globulin Ratio 1.4 (1.0-2.8); Alkaline Phosphatase 57 U/L (38-126); Aspartate Aminotransferase 28 IU/L (14-36); Bilirubin Total 0.5 mg/dL (0.2-1.3); Blood Urea Nitrogen 17 mg/dL (7-17); Calcium 9.9 mg/dL (8.4-10.2); Carbon Dioxide 26 mmol/L (22-32); Chloride 108 mmol/L (98-107); Cholesterol 174 mg/dL (140-199); Estimated Glomerular Filt Rate > 60 mL/min (>60); Glucose 108 mg/dL (80-110); HDL Cholesterol 45 mg/dL (40-60); HEMOLYSIS < 15 (0-50); LDL Cholesterol Calculated 90 mg/dL (<100); Potassium 4.3 mmol/L (3.4-5.1); Sodium 140 mmol/L (137-145); Total Protein 7.3 g/dL (6.3-8.2); Triglycerides 194 mg/dL (35-150)
[2023-03-03 09:37] LABS: TSH w/ Reflex to FT4 2.89 uIU/mL (0.47-4.68)
[2023-03-03 09:47] LABS: Hemoglobin A1C% w Est Avg Glu 5.9 % (4.0-6.0)
[2023-03-03 09:55] LABS: Vitamin B12 Reflex MMA if <400 711 pg/mL (239-931)
== END ==
PROVIDERS: Family Provider Physician Assistant; PCP Registered Nurse Diabetes Educator; Referring Provider Registered Nurse Diabetes Educator; Visit Provider Registered Nurse Diabetes Educator
DX: E78.5 Hyperlipidemia, unspecified (principal); R73.01 Impaired fasting glucose; D64.9 Anemia, unspecified; R20.2 Paresthesia of skin
CPT/HCPCS: 36415; 80053; 80061; 82607; 83036; 84443; 85027

== ENCOUNTER → 2023-03-28 | Outpatient (CLI) | payer OTHER, SELFPAY ==
--- NOTE | 2023-03-28 14:46 | DI.RAD.S_ITS ---
Bone Density Report Name: MIKE CHIANG Age: 72 Sex: Female Ethnicity: White Date of : 1950 Indication: postmenopausal; screening for osteoporosis; Referring Provider: DIONY LOPEZ Study: Bone densitometry was performed. Exam Date: March 28, 2023 Accession number: [id number] Bone Density: Region BMD T-score Z-score Classification AP Spine(L1-L4) 1.012 -0.3 2.0 Normal Femoral Neck (Left) 0.778 -0.6 1.3 Normal Total Hip (Left) 0.948 0.1 1.7 Normal Femoral Neck (Right) 0.717 -1.2 0.8 Osteopenia Total Hip (Right) 0.879 -0.5 1.2 Normal Total Hip Mean 0.914 -0.2 1.5 Normal World Health Organization criteria for BMD impression classify patients as: Normal (T-score at or above -1.0), Osteopenia (T-score between -1.0 and -2.5), or Osteoporosis (T-score at or below -2.5). 10-year Fracture Risk(1): Major Osteoporotic Fracture 9.8% Hip Fracture 1.4% Reported Risk Factors: [place] (), Neck BMD=0.717, BMI=29.5 (1) FRAX(R) Version 3.08. Fracture probability calculated for an untreated patient. Fracture probability may be lower if the patient has received treatment. Previous Exams: -- Region Exam Age BMD T-score BMD Change BMD Change Date g/cm2 vs Baseline vs Previous -- AP Spine (L1-L4) 03/28/2023 72 1.012 -0.3 -0.054 (-5.1%)# -0.011 (-1.1%)# 03/17/2019 68 1.023 -0.2 -0.043 (-4.0%)* -0.043 (-4.0%)* 09/19/2016 65 1.066 0.2 Total Hip(Left) 03/28/2023 72 0.948 0.1 -0.027 (-2.7%)# 0.004 (0.4%)# 03/17/2019 68 0.945 0.0 -0.030 (-3.1%)* -0.030 (-3.1%)* 09/19/2016 65 0.975 0.3 Total Hip(Right) 03/28/2023 72 0.879 -0.5 0.011 (1.3%)# 0.019 (2.2%)# 03/17/2019 68 0.860 -0.7 -0.008 (-0.9%) -0.008 (-0.9%) 09/19/2016 65 0.868 -0.6 -- *Denotes significance at 95% confidence level, LSC for AP Spine = 0.022 g/cm2, LSC for Total Hip = 0.027 g/cm2 # Denotes dissimilar scan types or analysis methods Impression: The patient has low bone mass, based on the Right Femoral Neck T-score. The patient has an estimated ten-year risk of hip fracture of 1.4% and an estimated ten-year risk of major fracture of 9.8%, based on the WHO FRAX algorithm. No significant bone loss was observed. Discussion: BONE DENSITY IS LOW AT ONE OR MORE SKELETAL SITES. This patient's lowest T-score is low at one or more skeletal sites. It meets the World Health Organization's (WHO) criteria for low bone mass (T-score between -1.0 and -2.5). The patient's 10-year risk of fracture as calculated by FRAX is less than the threshold where pharmacological therapy is recommended by the National Osteoporosis Foundation (NOF). However, all treatment decisions require clinical judgment and consideration of individual patient factors, including patient preferences, comorbidities, previous drug use, risk factors not captured in the FRAX model (e.g., frailty, falls, vitamin D deficiency, increased bone turnover, interval significant decline in bone density) and possible under or overestimation of fracture risk by FRAX. The patient should follow a healthful lifestyle (good nutrition with adequate calcium and vitamin D, and appropriate weight-bearing exercise). Follow-Up: Consider repeating this study in 2 to 3 years to reassess this patient's status, or sooner if there is some new clinical indication. Reported by: MIKI PASCAL M.D. on 03/28/2023 3:26:00 PM.
--- NOTE | 2023-03-28 15:35 | DI.MG.S_ITS ---
Patient Name: MIKE CHIANG date: 1950 Sex: F Attending Physician: Rehan Indications: Date: 03/28/2023 15:55 At the request of: DIONY LOPEZ Procedure: MM screening mammo BI BILATERAL DIGITAL SCREENING MAMMOGRAM 3D/2D WITH CAD: 03/28/2023 CLINICAL: Routine screening. Family history of breast cancer. Comparison is made to exams dated: 03/23/2022 mammogram, 03/22/2021 mammogram, 03/20/2020 mammogram, and 03/17/2019 mammogram - [facility]. Both breasts are heterogeneously dense, which may obscure small masses (category c / 51-75% glandular tissue). Current study was also evaluated with a Computer Aided Detection (CAD) system. No significant masses, calcifications, or other findings are seen in either breast. There has been no significant interval change. IMPRESSION: NEGATIVE There is no mammographic evidence of malignancy. A 1 year screening mammogram is recommended. Based on the Tyrer Cuzick model (a risk assessment model) the patient's lifetime risk is 7.4% and her 10 year risk is 6.0%. According to the ACR, ACS, and NCCN guidelines, an annual breast MRI exam along with mammogram is recommended if the patient's lifetime risk is 20% or greater. This exam was interpreted at Station ID: [id number]. Continued Report - Page 2 of 2 Patient Name: MIKE CHIANG date: 1950 Sex: F Attending Physician: Rehan Indications: Date: 03/28/2023 15:55 At the request of: DIONY LOPEZ Procedure: MM screening mammo BI NOTE: For mammograms, a report in lay terms will be sent to the patient. Approximately 15% of breast malignancies will not be visualized mammographically. In the management of a palpable breast mass, a negative mammogram must not discourage biopsy of a clinically suspicious lesion. Electronically Signed By: Wilfrid esteves/nacho:03/28/2023 15:55:19 letter sent: Normal Exam ACR BI-RADS Category 1: Negative [id number]
== END ==
LOC: RAD 14:44
PROVIDERS: Family Provider Registered Nurse Diabetes Educator; PCP Registered Nurse Diabetes Educator; Referring Provider Registered Nurse Diabetes Educator; Visit Provider Registered Nurse Diabetes Educator
DX: Z12.31 Encounter for screening mammogram for malignant neoplasm of breast; Z80.3 Family history of malignant neoplasm of breast; R92.333 Mammographic heterogeneous density, bilateral breasts; M85.851 Other specified disorders of bone density and structure, right thigh; Z78.0 Asymptomatic menopausal state
CPT/HCPCS: 77063; 77067; 77080

== ENCOUNTER → 2023-04-23 16:29 | Outpatient (CLI) | payer MEDICARE, SELFPAY ==
--- NOTE | 2023-04-23 16:32 | DI.RAD.S_ITS ---
PROCEDURE: XR SHOULDER RT MIN 2V INDICATIONS: eval R shoulder pain and RUE numbness TECHNIQUE: 3 views of the shoulder were acquired. COMPARISON: None. FINDINGS: Bones: No fractures or dislocations. No suspicious bony lesions. There is mild acromioclavicular joint space narrowing and small glenohumeral osteophytes. Visualized ribs appear intact. Soft tissues: No suspicious soft tissue calcifications. IMPRESSION: Mild degenerative change. No acute bony abnormality. Dictated by: America Skaggs M.D. on 04/23/2023 at 17:36 Approved by: America Skaggs M.D. on 04/23/2023 at 17:36
--- NOTE | 2023-04-23 16:32 | DI.RAD.S_ITS ---
PROCEDURE: XR CERVICAL SPINE 4V OR 5V INDICATIONS: eval R shoulder pain and RUE numbness TECHNIQUE: 7 views of the cervical spine acquired. COMPARISON: None. FINDINGS: Bones: No fractures or dislocations to the T1 level. There is moderate to severe multilevel facet sclerosis from C3-C6. There is mild neural foraminal narrowing on the left at C4-5 and C5-6. No significant foraminal stenosis on the right. Intervertebral disc space narrowing is present at C3-4 and C5-6. Soft tissues: No prevertebral soft tissue swelling. IMPRESSION: 1. Moderate to severe facet sclerosis without significant foraminal narrowing or intervertebral disc space narrowing or osteophytosis. Dictated by: America Skaggs M.D. on 04/23/2023 at 17:37 Approved by: America Skaggs M.D. on 04/23/2023 at 17:38
== END ==
PROVIDERS: Family Provider Registered Nurse Diabetes Educator; PCP Registered Nurse Diabetes Educator; Referring Provider Registered Nurse Diabetes Educator; Visit Provider Registered Nurse Diabetes Educator
DX: M50.31 Other cervical disc degeneration, high cervical region (principal); M25.511 Pain in right shoulder; R20.0 Anesthesia of skin
CPT/HCPCS: 72050; 73030

== ENCOUNTER → 2023-06-24 10:40 | Outpatient (CLI) | payer MEDICARE, SELFPAY ==
--- NOTE | 2023-06-24 10:41 | DI.MRI.S_ITS ---
PROCEDURE: MR CERVICAL SPINE WO CON INDICATIONS: eval RUE cervical radiculopathy TECHNIQUE: Noncontrast sagittal T1 spin echo and T2 fast spin echo, sagittal STIR, foraminal oblique sagittal T2 fast spin echo, and axial gradient echo or T2 fast spin echo through the cervical spine. COMPARISON: None. FINDINGS: Image quality: Excellent. Alignment and Curvature: There is normal bony alignment. Bone Marrow: Marrow demonstrates normal overall signal. Spinal Cord: Visualized spinal cord has normal size and signal. No cerebellar tonsillar herniation. Paraspinous Soft Tissues: No paravertebral masses. Prevertebral soft tissues are normal in thickness. C2-C3: Normal appearance. C3-C4: Normal appearance. C4-C5: Disc desiccation and mild posterior disc osteophyte complex. No significant central canal stenosis. Facet and uncovertebral arthropathy. Mild bilateral neural foraminal stenosis. C5-C6: Disc desiccation and mild posterior disc osteophyte complex. No significant central canal stenosis. Facet and uncovertebral arthropathy. Mild left and no right neural foraminal stenosis. C6-C7: Disc desiccation and minimal posterior disc osteophyte complex. No significant central canal or neural foraminal stenosis. C7-T1: Normal appearance. IMPRESSION: Mild degenerative changes of the cervical spine as described above. No high-grade central canal or neural foraminal stenosis. Dictated by: Jeremías Vitale M.D. on 06/24/2023 at 14:27 Approved by: Jeremías Vitale M.D. on 06/24/2023 at 14:31
== END ==
LOC: MRI 10:41
PROVIDERS: Family Provider Registered Nurse Diabetes Educator; PCP Registered Nurse Diabetes Educator; Referring Provider Registered Nurse Diabetes Educator; Visit Provider Registered Nurse Diabetes Educator
DX: M47.22 Other spondylosis with radiculopathy, cervical region (principal); M54.2 Cervicalgia
CPT/HCPCS: 72141

== ENCOUNTER 2023-07-09 11:15 | Outpatient (RCR) | payer MEDICARE, SELFPAY ==
--- NOTE | 2023-04-21 16:04 | PT.OIE ---
Current Diagnoses Pain in right shoulder (04/21/23) Anesthesia of skin (04/21/23) Past Medical History (Last Updated 03/10/23 @ 18:45 by NACHO Griggs) Fibromyalgia Hyperlipidemia Impaired fasting blood sugar Neuropathic pain of both feet Osteopenia Other low back pain Sciatica Skin lesion Past Surgical History (Last Reviewed 03/10/23 @ 18:40 by NACHO Griggs) Status post arthroscopy Visit Care Team Role Provider Type NACHO Griggs Attending Provider Advanced Seaming Inspector Family Provider Primary Care Provider Referring Provider Specialty: Medical Address: [address] [place] [address], [facility] Email: [email or web address] Physical Therapy Initial Evaluation PT-OP-A Visit Information Start: 04/18/23 17:10 Freq: Status: Active Protocol: Document 04/21/23 13:46 NM (Rec: 04/21/23 15:51 NM [id number]) Out-Patient Physical Therapy Visit Information Visit Information Visit Type Initial Evaluation Visit Start Time 13:46 Visit Stop Time 14:35 Visit Number 1 Evaluation Information Evaluation Date 04/21/23 Precautions Precautions osteopenia, fibromyalgia PT-OP-B Current Condition Start: 04/18/23 17:10 Freq: Status: Active Protocol: Document 04/21/23 13:46 NM (Rec: 04/21/23 15:51 NM [id number]) Current Condition History of Current Condition Onset Date 9 months since shoulder, last 2 months since arm radiation Current Complaints pain, numbness/tingling History of Current Condition Pt presents with R shoulder pain, achiness along the entire arm beginning 9 months ago. Pt does not know what caused her R shoulder to begin hurting. Pain is worse in sleeping (unable to get into a comfortable position) and with reaching/elevation. Reports scapula and neck pain on R shoulder, post shoulder above and below clavicle. Hx of B frozen shoulder and R CARMELO /score 17 years ago. Pt also reports that 2 months ago, her R arm began to fall asleep and feel numb, usually at night but occasionally during the day with certain positions . States the numbness is not localized to a finger, but is the entire hand, which radiates from her shoulder. Reports that her hand becomes numb with sitting in certain positions that can't be replicated (not elevated) or when washing hair (arm elevated). At night, the numbness can last several hours, and she has to resort to shaking her hand to feel better over time. Had R finger surgery on 09/26/22. Tested for carpal tunnel (hx of fibro ) several years ago. States she has not had any changes in her hand strength, but reports changes in her shoulder strength since the incident began. Prior Treatments and Tests no previous PT for condition; hand therapy post finger surgery (OT) Prior Functional Status Baseline Function- Gait daily walk: 2-3 mi, max 4-5 mi (pain in neck) Current Functional Impairments (Reported) Functional Limitations- Mobility/Gait walk with cold PT-OP-C Subjective Start: 04/18/23 17:10 Freq: Status: Active Protocol: Document 04/21/23 13:46 NM (Rec: 04/21/23 15:51 NM [id number]) OP-PT Subjective Patient Comments Patient Comments see hx above for pt report Patient Questionnaires Quick Dash- Upper Extremity Quick Dash UE Score pt did not fill out in entirety so unable to score OP-PT Pain Assessment Location cervical spine Pain Location Details right sided paraspinals, R clavicle above/below Intensity 6 Scale Used Numeric (0 - 10) Description Aching,Burning Description- Other 4 Frequency Constant Pain Aggravating Factors Position,Changing Position, Activity Pain Alleviating Factors Heat,Medication,Lying Supine R shoulder Pain Location Details post shoulder, scapula, ant shoulder (biceps) Intensity 6 Scale Used Numeric (0 - 10) Description Aching,Sharp Description- Other mostly at movement Pain Duration to hand Pain Aggravating Factors Position,ADL's,Activity Other Pain Aggravating Factors sleeping, reaching (side,back, behind) Pain Alleviating Factors Heat,Inactivity Other Pain Alleviating Factors R wrist feels better with compression, heat Home Pain Medication Use Pain Medications Used Yes: advil prn PT-OP-E Functional Tests Start: 04/18/23 17:10 Freq: Status: Active Protocol: Document 04/21/23 13:46 NM (Rec: 04/21/23 15:51 NM [id number]) Functional Tests Apley's Scratch Test Action 1- Left post cuff Action 1- Right post cuff, aches Action 2- Left T3 Action 2- Right T2; tight in shoulder blade, mid back, neck Action 3- Left T6 Action 3- Right T12; most pain in anterior shoulder PT-OP-F Manual Assessment Start: 04/18/23 17:10 Freq: Status: Active Protocol: Document 04/21/23 13:46 NM (Rec: 04/21/23 15:51 NM [id number]) Manual Assessments Soft Tissue Assessment Soft Tissue Mobility Assessment Increased tone on R sided cervical paraspinals, scalenes , SCM. R SCM limits rotation. Observable R carotid pulse. No swelling or atrophy of R arm, danielle near clavicle Joint Mobility Assessment Joint Mobility Assessment Decreased bilateral shoulder AROM. R shoulder AROM and PROM limited in flexion, abduction , and external rotation. Demos impingement signs. No cervical instability. Elevated R 1st rib PT-OP-G Mobility & Gait Start: 04/18/23 17:10 Freq: Status: Active Protocol: Document 04/21/23 13:46 NM (Rec: 04/21/23 15:51 NM [id number]) OP Gait Assessment Gait Gait Assistance Required: Independent Distance (Feet) 150 Comments Gait Comments Decreased trunk rotation with gait PT-OP-H Neuro Start: 04/18/23 17:10 Freq: Status: Active Protocol: Document 04/21/23 13:46 NM (Rec: 04/21/23 15:51 NM [id number]) Sensation Evaluation Comments Summary Comments BUE equally intact to light touch sensation Deep Tendon Reflex & Clonus Assessment Deep Tendon Reflex Left Brachioradialis Deep Tendon Reflex 2+ Normal Left Bicep Deep Tendon Reflex 2+ Normal Right Brachioradialis Deep Tendon Reflex 1+ Diminished Right Bicep Deep Tendon Reflex 3+ Normal But Brisk PT-OP-J Posture/Palpation/Skin Start: 04/18/23 17:10 Freq: Status: Active Protocol: Document 04/21/23 13:46 NM (Rec: 04/21/23 15:51 NM [id number]) Posture Evaluation Position Standing Head/C-Spine Posture Forward Head T-Spine Posture Increased Kyphosis L-Spine Posture Increased Lordosis Shoulder Posture (L) Rounded,(R) Rounded,(L) Forward,(R) Forward,(L) Elevated Scapula Posture (L) Protracted,(R) Protracted Arm Posture (L) Internally Rotated,(R) Internally Rotated Pelvis Posture Anteriorly Tilted Weight Distribution Balanced Hip Posture (L) Neutral,(R) Neutral Knee Posture (L) Genu Valgus,(R) Genu Valgus Patellar Posture (L) Neutral,(R) Neutral Ankle/Foot Posture (L) Pronated,(R) Pronated Palpation Assessment Location cervical spine Palpation Location spinous processes, paraspinals , suboccipitals, periscapulars Palpation Findings Soft Tissue Tightness, Tenderness Palpation Details Soft tissue tightness of B paraspinals (R>L), R upper trapezius, levator scapular, scalenes, SCM. Elevated first rib. Tenderness near mid-cervical spinous processes with P-A springing, none at upper or lower cervical spine. R shoulder Palpation Location rotator cuff, long head biceps tendon, AC joint, SC joint Palpation Findings Soft Tissue Tightness, Tenderness Palpation Details Tenderness of LH biceps tendon . No tenderness of AC or SC joint. Tenderness above and below clavicle. Tenderness along posterior cuff ( supraspinatus and infraspinatus), rhomboid. No tenderness of biceps muscle belly Skin Assessment Other Assessments Skin Assessment Comments RUE has symmetrical color and sensation to LUE. No evidence of swelling in supraclavicular or infraclavicular region, RUE. PT-OP-K Range of Motion Start: 04/18/23 17:10 Freq: Status: Active Protocol: Document 04/21/23 13:46 NM (Rec: 04/21/23 15:51 NM [id number]) Cervical Spine Range of Motion Cervical Spine Active Degrees Flexion 55 Extension 25 Rotation Left 75 Rotation Right 65 Lateral Flexion Left 25 Lateral Flexion Right 25 Comments Stretch reported posterior neck with ext; R SB>L SB discomfort, R rotation discomfort in shoulder. Reports not pain Shoulder Goniometric Range of Motion Shoulder R PROM Flexion 145 Abduction 110 External Rotation at 0 degrees Abduction 65 Internal Rotation 70 Left Flexion 140 Abduction 125 External Rotation at 90 degrees 60 Abduction External Rotation at 0 degrees Abduction 55 Internal Rotation 55 Right Flexion 140 Abduction 100 External Rotation at 90 degrees 30 Abduction External Rotation at 0 degrees Abduction 40 Internal Rotation 60 Comments impingement with abduction; pain with end range ER and flexion PT-OP-L Special Tests Start: 04/18/23 17:10 Freq: Status: Active Protocol: Document 04/21/23 13:46 NM (Rec: 04/21/23 15:51 NM [id number]) Special Tests Cervical Spine Special Tests Upper Limb Tension Test Test Results - median, radial, ulnar Comments no numbness/tingling; reports shoulder pain with depression Spurling's Test Test Results + Comments R sided focal pain in neck, no radiation into arm Traction Test Results - Transverse Ligament Test Results - Alar Ligament Test Results - Shoulder Special Tests Neer Impingement Test Results + Shipman Jose Impingement Test Results + Lift-Off Rotator Cuff Test Results - Comments painful but able to lift off maximally Empty Can Test Results + Comments Improved strength and less pain with full can Drop Arm Rotator Cuff Test Results - Neural Special Tests- Upper Body Tinel Sign Test Results - Comments median n Phalen's Test Results - Vascular Special Tests Adson Maneuver Test Results + Comments decreased radial pulse Claude Test Test Results + Comments reports symptoms after 30 seconds PT-OP-M Strength Start: 04/18/23 17:10 Freq: Status: Active Protocol: Document 04/21/23 13:46 NM (Rec: 04/21/23 15:51 NM [id number]) Cervical Spine Strength Cervical Spine Manual Muscle Testing Flexion (C1-2) 4+ Good+ Extension 4+ Good+ Rotation Left 4+ Good+ Rotation Right 4+ Good+ Lateral Flexion Left (C3) 4+ Good+ Lateral Flexion Right (C3) 4+ Good+ Comments No pain with resisted motion Shoulder Strength Shoulder Manual Muscle Testing Right Flexion 4- Good- Extension 4+ Good+ Abduction (C5) 4- Good- Adduction 4 Good External Rotation 4- Good- Internal Rotation 4 Good Comments Pain with resisted abduction and external rotation Left Flexion 4+ Good+ Extension 4+ Good+ Abduction (C5) 4+ Good+ Adduction 4+ Good+ External Rotation 4+ Good+ Internal Rotation 4+ Good+ Horizontal Abduction 4+ Good+ Horizontal Adduction 4+ Good+ Elbow/Forearm Strength Elbow and Forearm Manual Muscle Testing Right Flexion (C6) 4+ Good+ Extension (C7) 4+ Good+ Left Flexion (C6) 4+ Good+ Extension (C7) 4+ Good+ Wrist Strength Wrist Manual Muscle Testing Right Flexion (C7) 4+ Good+ Extension (C6) 4+ Good+ Left Flexion (C7) 4+ Good+ Extension (C6) 4+ Good+ PT-OP-T Assessment and Plan Start: 04/18/23 17:10 Freq: Status: Active Protocol: Document 04/21/23 13:46 NM (Rec: 04/21/23 15:51 NM [id number]) Physical Therapy Assessment Rehab Potential Rehabilitation Potential Good Evaluation Complexity Number of Personal Factors/Comorbidities 3 or More Number of Body Systems Impaired 1-2 Clinical Presentation at Evaluation Stable Impairments Impairments Activity Tolerance,Balance, Coordination,Edema,Functional Activities,Functional Mobility ,Gait,Integument,Pain,Posture, ROM,Sensation,Soft Tissue Mobility,Strength,Vestibular Goals Five Impairment strength Impairment R shoulder flexion 4/5 MMT R shoulder ER and abduction 4- /5 MMT Short Term Goal (STG) Pt will increase R shoulder flexion, abduction, and ER MMT scores to at least 4/5 in order to demonstrate improved strength for lifting, reaching , and ADLs STG Duration 4 weeks Pick Out Hand Goal (LTG) Pt will increase R shoulder flexion, abduction, and ER MMT scores to at least 4+/5 in order to demonstrate improved strength for lifting, reaching , and ADLs LTG Duration 8 weeks One Impairment sleep Impairment unable to sleep in R shoulder 1-2 hours (side or back) Short Term Goal (STG) Pt will report that she is able to sleep > 2 hours without waking due to pain or numbness in order to demonstrate improved symptom management STG Duration 4 weeks Pick Out Hand Goal (LTG) Pt will report that she is able to sleep without waking due to pain or numbness in order to demonstrate improved symptom management LTG Duration 8 weeks Four Impairment R shoulder AROM Impairment R abduction 100 deg, ER 40 deg at 0 deg abd Short Term Goal (STG) Pt will increase R shoulder abduction to at least 110 deg abduction without compensation and ER to at least 50 deg in order to demonstrate improvements in arm elevation for reaching and ADLs STG Duration 4 weeks Retirement Goal (LTG) Pt will increase R shoulder abduction to at least 120 deg abduction without compensation and ER to at least 60 deg in order to demonstrate improvements in arm elevation for reaching and ADLs LTG Duration 8 weeks Three Impairment R shoulder AROM Impairment Apley IR T12 Short Term Goal (STG) Pt will increase R shoulder Apley IR to at least T9 in order to demonstate improved AROM for ADLs and dressing STG Duration 4 weeks Retirement Goal (LTG) Pt will increase R shoulder Apley IR to at least T6 in order to demonstate improved AROM for ADLs and dressing, comparable to LUE LTG Duration 8 weeks Two Impairment cervical spine AROM Impairment R rotation 65 deg Short Term Goal (STG) Pt will increase R cervical spine rotation AROM to at least 70 deg in order to be comparable to L cervical spine rotation for improved visual scanning STG Duration 4 weeks Retirement Goal (LTG) Pt will increase R cervical spine rotation AROM to at least 75 deg in order to be comparable to L cervical spine rotation for improved visual scanning LTG Duration 8 weeks Assessment Summary Assessment Pt is a 72 y.o. female presenting with R shoulder and neck pain beginning without a known cause about 9 months ago. Within the past 2 months, pt reports that her symptoms have worsened to include now waking due to numbness in R arm. Pt's R shoulder pain is worse when sleeping, reaching, and washing her hair, which limits her activity tolerance. She has a hx of bilateral adhesive capsulitis, including a CARMELO, and recent R finger surgery to correct cyst in 2022. Pt's R shoulder AROM and PROM are both limited, especially in abduction, ER, IR. Functionally, pt has most AROM limitations with Apley IR and abduction. Right shoulder abduction and ER are both painful against resisted motion and limited. Pt's cervical spine AROM is limited in extension due to forward head posture and R rotation. She has full cervical spine strength without pain. Spurling's/Quadrant test is positive for local cervical spine pain; however, she has positive R shoulder impingement tests in addition to positive TOS tests that reproduce the numbness. However, pt does not have any temperature or color changes in R arm with symptoms nor does she reports trophic changes at home. Upper limb tension tests do not reproduce symptoms, but pt has pain with shoulder depression. Pt's symptoms are most consistent with thoracic outlet syndrome along with a capsular restrictions of R shoulder and R shoulder impingement related to rotator cuff weakness; possible referral from cervical spine, but no indications of cervical radiculapathy. PMH of osteopenia and fibromyalgia, which likely influences pain symptoms. Depending on pt progression with PT, pt will be referred back to provider if symptoms do not improve or worsen. Pt would benefit from skilled PT for R shoulder strength and mobility, in addition to cervical spine mobility, scapular control, and activity modification in order to decrease pain symptoms and improve QOL/ activity tolerance unless otherwise recommended. Physical Therapy Plan Frequency and Duration Frequency of Treatment 2x/Week Duration of treatment (weeks) 8 Plan of Care Start Date 04/21/23 Plan of Care End Date 06/20/23 Therapeutic Interventions Therapeutic Interventions Balance Training,Coordination Training,Gait Training,Home Exercise Program,Joint Mobilizations,Manual Therapy, Neuromuscular Re-education, Orthotic/Prosthetic Management ,Patient/Caregiver Education, Self-Care/Home Management, Sensory Integration,Soft Tissue Mobilization,Taping, Therapeutic Activities, Therapeutic Exercises, Vestibular Rehabilitation Modalities Biofeedback,Cold Pack/Ice Massage,Electric Stimulation, Hot Packs,Ultrasound, Vasopneumatic Devices Other Therapeutic Interventions No mechanical traction due to osteopenia Arcata protocol Next Visit Focus/Plan Next Note Type Treatment Note Next Visit Plan sidelying shoulder AROM, prone ITW, cervical spine stretches (trial) Manual: STM to cervical spine, scalenes, rotator cuff Next session: assess vertebral artery
--- NOTE | 2023-04-24 16:18 | PT.OTN ---
Current Diagnoses Pain in right shoulder (04/24/23) Anesthesia of skin (04/24/23) Physical Therapy Treatment Note PT-OP-A Visit Information Start: 04/18/23 17:10 Freq: Status: Active Protocol: Document 04/24/23 13:48 NM (Rec: 04/24/23 14:32 NM [id number]) Out-Patient Physical Therapy Visit Information Visit Information Visit Type Treatment Note Visit Note KX after 19 visits Visit Start Time 13:48 Visit Stop Time 14:30 Visit Number 2 Evaluation Information Evaluation Date 04/21/23 Precautions Precautions osteopenia, fibromyalgia PT-OP-B Current Condition Start: 04/18/23 17:10 Freq: Status: Active Protocol: Document 04/21/23 13:46 NM (Rec: 04/21/23 15:51 NM [id number]) Current Condition History of Current Condition Onset Date 9 months since shoulder, last 2 months since arm radiation Current Complaints pain, numbness/tingling History of Current Condition Pt presents with R shoulder pain, achiness along the entire arm beginning 9 months ago. Pt does not know what caused her R shoulder to begin hurting. Pain is worse in sleeping (unable to get into a comfortable position) and with reaching/elevation. Reports scapula and neck pain on R shoulder, post shoulder above and below clavicle. Hx of B frozen shoulder and R CARMELO /score 17 years ago. Pt also reports that 2 months ago, her R arm began to fall asleep and feel numb, usually at night but occasionally during the day with certain positions . States the numbness is not localized to a finger, but is the entire hand, which radiates from her shoulder. Reports that her hand becomes numb with sitting in certain positions that can't be replicated (not elevated) or when washing hair (arm elevated). At night, the numbness can last several hours, and she has to resort to shaking her hand to feel better over time. Had R finger surgery on 09/26/22. Tested for carpal tunnel (hx of fibro ) several years ago. States she has not had any changes in her hand strength, but reports changes in her shoulder strength since the incident began. Prior Treatments and Tests no previous PT for condition; hand therapy post finger surgery (OT) Prior Functional Status Baseline Function- Gait daily walk: 2-3 mi, max 4-5 mi (pain in neck) Current Functional Impairments (Reported) Functional Limitations- Mobility/Gait walk with cold PT-OP-C Subjective Start: 04/18/23 17:10 Freq: Status: Active Protocol: Document 04/24/23 13:48 NM (Rec: 04/24/23 14:32 NM [id number]) OP-PT Subjective Patient Comments Patient Comments Pt had acupuncture yesterday for the first time as prescribed by PCP. She states she was sore after IE but resolved within a few days. She continues to have posterior shoulder pain 07/20 and R neck pain 08/19. PT-OP-E Functional Tests Start: 04/18/23 17:10 Freq: Status: Active Protocol: Document 04/21/23 13:46 NM (Rec: 04/21/23 15:51 NM [id number]) Functional Tests Apley's Scratch Test Action 1- Left post cuff Action 1- Right post cuff, aches Action 2- Left T3 Action 2- Right T2; tight in shoulder blade, mid back, neck Action 3- Left T6 Action 3- Right T12; most pain in anterior shoulder PT-OP-F Manual Assessment Start: 04/18/23 17:10 Freq: Status: Active Protocol: Document 04/21/23 13:46 NM (Rec: 04/21/23 15:51 NM [id number]) Manual Assessments Soft Tissue Assessment Soft Tissue Mobility Assessment Increased tone on R sided cervical paraspinals, scalenes , SCM. R SCM limits rotation. Observable R carotid pulse. No swelling or atrophy of R arm, danielle near clavicle Joint Mobility Assessment Joint Mobility Assessment Decreased bilateral shoulder AROM. R shoulder AROM and PROM limited in flexion, abduction , and external rotation. Demos impingement signs. No cervical instability. Elevated R 1st rib PT-OP-G Mobility & Gait Start: 04/18/23 17:10 Freq: Status: Active Protocol: Document 04/21/23 13:46 NM (Rec: 04/21/23 15:51 NM [id number]) OP Gait Assessment Gait Gait Assistance Required: Independent Distance (Feet) 150 Comments Gait Comments Decreased trunk rotation with gait PT-OP-H Neuro Start: 04/18/23 17:10 Freq: Status: Active Protocol: Document 04/21/23 13:46 NM (Rec: 04/21/23 15:51 NM [id number]) Sensation Evaluation Comments Summary Comments BUE equally intact to light touch sensation Deep Tendon Reflex & Clonus Assessment Deep Tendon Reflex Left Brachioradialis Deep Tendon Reflex 2+ Normal Left Bicep Deep Tendon Reflex 2+ Normal Right Brachioradialis Deep Tendon Reflex 1+ Diminished Right Bicep Deep Tendon Reflex 3+ Normal But Brisk PT-OP-J Posture/Palpation/Skin Start: 04/18/23 17:10 Freq: Status: Active Protocol: Document 04/21/23 13:46 NM (Rec: 04/21/23 15:51 NM [id number]) Posture Evaluation Position Standing Head/C-Spine Posture Forward Head T-Spine Posture Increased Kyphosis L-Spine Posture Increased Lordosis Shoulder Posture (L) Rounded,(R) Rounded,(L) Forward,(R) Forward,(L) Elevated Scapula Posture (L) Protracted,(R) Protracted Arm Posture (L) Internally Rotated,(R) Internally Rotated Pelvis Posture Anteriorly Tilted Weight Distribution Balanced Hip Posture (L) Neutral,(R) Neutral Knee Posture (L) Genu Valgus,(R) Genu Valgus Patellar Posture (L) Neutral,(R) Neutral Ankle/Foot Posture (L) Pronated,(R) Pronated Palpation Assessment Location cervical spine Palpation Location spinous processes, paraspinals , suboccipitals, periscapulars Palpation Findings Soft Tissue Tightness, Tenderness Palpation Details Soft tissue tightness of B paraspinals (R>L), R upper trapezius, levator scapular, scalenes, SCM. Elevated first rib. Tenderness near mid-cervical spinous processes with P-A springing, none at upper or lower cervical spine. R shoulder Palpation Location rotator cuff, long head biceps tendon, AC joint, SC joint Palpation Findings Soft Tissue Tightness, Tenderness Palpation Details Tenderness of LH biceps tendon . No tenderness of AC or SC joint. Tenderness above and below clavicle. Tenderness along posterior cuff ( supraspinatus and infraspinatus), rhomboid. No tenderness of biceps muscle belly Skin Assessment Other Assessments Skin Assessment Comments RUE has symmetrical color and sensation to LUE. No evidence of swelling in supraclavicular or infraclavicular region, RUE. PT-OP-K Range of Motion Start: 04/18/23 17:10 Freq: Status: Active Protocol: Document 04/21/23 13:46 NM (Rec: 04/21/23 15:51 NM [id number]) Cervical Spine Range of Motion Cervical Spine Active Degrees Flexion 55 Extension 25 Rotation Left 75 Rotation Right 65 Lateral Flexion Left 25 Lateral Flexion Right 25 Comments Stretch reported posterior neck with ext; R SB>L SB discomfort, R rotation discomfort in shoulder. Reports not pain Shoulder Goniometric Range of Motion Shoulder R PROM Flexion 145 Abduction 110 External Rotation at 0 degrees Abduction 65 Internal Rotation 70 Left Flexion 140 Abduction 125 External Rotation at 90 degrees 60 Abduction External Rotation at 0 degrees Abduction 55 Internal Rotation 55 Right Flexion 140 Abduction 100 External Rotation at 90 degrees 30 Abduction External Rotation at 0 degrees Abduction 40 Internal Rotation 60 Comments impingement with abduction; pain with end range ER and flexion PT-OP-L Special Tests Start: 04/18/23 17:10 Freq: Status: Active Protocol: Document 04/21/23 13:46 NM (Rec: 04/21/23 15:51 NM [id number]) Special Tests Cervical Spine Special Tests Upper Limb Tension Test Test Results - median, radial, ulnar Comments no numbness/tingling; reports shoulder pain with depression Spurling's Test Test Results + Comments R sided focal pain in neck, no radiation into arm Traction Test Results - Transverse Ligament Test Results - Alar Ligament Test Results - Shoulder Special Tests Neer Impingement Test Results + [place] Impingement Test Results + Lift-Off Rotator Cuff Test Results - Comments painful but able to lift off maximally Empty Can Test Results + Comments Improved strength and less pain with full can Drop Arm Rotator Cuff Test Results - Neural Special Tests- Upper Body Tinel Sign Test Results - Comments median n Phalen's Test Results - Vascular Special Tests Adson Maneuver Test Results + Comments decreased radial pulse Claude Test Test Results + Comments reports symptoms after 30 seconds PT-OP-M Strength Start: 04/18/23 17:10 Freq: Status: Active Protocol: Document 04/21/23 13:46 NM (Rec: 04/21/23 15:51 NM [id number]) Cervical Spine Strength Cervical Spine Manual Muscle Testing Flexion (C1-2) 4+ Good+ Extension 4+ Good+ Rotation Left 4+ Good+ Rotation Right 4+ Good+ Lateral Flexion Left (C3) 4+ Good+ Lateral Flexion Right (C3) 4+ Good+ Comments No pain with resisted motion Shoulder Strength Shoulder Manual Muscle Testing Right Flexion 4- Good- Extension 4+ Good+ Abduction (C5) 4- Good- Adduction 4 Good External Rotation 4- Good- Internal Rotation 4 Good Comments Pain with resisted abduction and external rotation Left Flexion 4+ Good+ Extension 4+ Good+ Abduction (C5) 4+ Good+ Adduction 4+ Good+ External Rotation 4+ Good+ Internal Rotation 4+ Good+ Horizontal Abduction 4+ Good+ Horizontal Adduction 4+ Good+ Elbow/Forearm Strength Elbow and Forearm Manual Muscle Testing Right Flexion (C6) 4+ Good+ Extension (C7) 4+ Good+ Left Flexion (C6) 4+ Good+ Extension (C7) 4+ Good+ Wrist Strength Wrist Manual Muscle Testing Right Flexion (C7) 4+ Good+ Extension (C6) 4+ Good+ Left Flexion (C7) 4+ Good+ Extension (C6) 4+ Good+ PT-OP-Q Treatments Start: 04/18/23 17:10 Freq: Status: Active Protocol: Document 04/24/23 13:48 NM (Rec: 04/24/23 14:32 NM [id number]) Therapeutic Exercises Supine Exercises open book Side bilateral Resistance AROM Reps/Minutes 1x5 with brief hold at end range, follow w eyes/CS as long as able Comments CS more restricted than trunk, danielle R side chin tuck Supine Exercise Name added to HEP Side bilateral Resistance AROM Equipment Used pillow; initially PT hand for cue> pillow Reps/Minutes 2x5x3 Comments pain free; cued like smell something bad, improved with reps pectoral stretch Supine Exercise Name added to HEP Side bilateral Equipment Used arms at 90 deg abd T, pillow behind head Reps/Minutes 1x60 Comments reports good stretch, not painful but feels it on the front AAROM shoulder ER Supine Exercise Name added to HEP Side right Resistance L assist R Equipment Used dowel Reps/Minutes 1x10 with brief end range hold Comments 40 deg ER post mob; cued pain free range, limit UT comp AAROM shoulder abduction Supine Exercise Name added to HEP Side right Resistance L assist R Equipment Used dowel Reps/Minutes 1x10 with brief end range hold Comments 90 deg abd pre mob, 110 post mob; cued pain free range, limit UT comp AAROM shoulder flexion Supine Exercise Name added to HEP Side right Resistance L assist R Equipment Used dowel Reps/Minutes 1x10 with brief end range hold Comments 100 pre mob, 140 post mob; cued pain free range, limit UT comp Sitting Exercises scapular retractions Side bilateral Equipment Used hands on lap Reps/Minutes 10x3 Comments pain free; PT cueing w fingers , improved with reps Manual Therapy Treatment Soft Tissue Mobilization R shoulder Body Location rotator cuff, LH biceps, rhomboids, pec Mobilization Type Myofascial Release,Rolling, Strumming,Sustained Pressure Intensity/Depth Moderate Body Position sidelying,supine Comments Tenderness and restrictions along rotator cuff, LH biceps, and pec. Min tenderness of rhomboids. Strumming of LH biceps, decreased tenderness with reps. Educated on soft tissue mobilization using small ball as part of HEP, particularly gently for pain reduction and posture cervical spine Body Location suboccipitals, paraspinals, UT , LS, DNF, SCM, scalenes Mobilization Type Rolling,Sustained Pressure Intensity/Depth sup/mod Body Position Hooklying Comments R cervical spine muscles most resistricted: initiated superficial rolling and sustained pressure mobilization of R paraspinals, suboccipitals, scalenes, SCM, DNF. Moderate rolling and sustained pressure of UT, LS. UT, paraspinals, scalenes most restricted Joint Mobilizations 1st rib Direction caudal Grade II Body Position Sidelying Reps/Duration 1x8 Comments Elevated. Monitored for pain, none reported. Slight improvement with mobilization R ACJ Direction Post on scapula, ant on clavicle Grade II Body Position Sidelying Reps/Duration 1x10 Comments For improved R shoulder mobility, joint space. Very narrow. Not tender or painful per pt report, but does not glide well anteriorly with clavicle R GHJ Direction Post, Inf Grade II Body Position Supine Reps/Duration 1x10 ea Comments To initiate mobilization and decrease pain. Pt with observable limitations pre mobilization. Improved post mobilization despite grade II mobilization: flexion from 100 to 140 deg, abduction from 90 to 110, ER to 60 deg at 0 deg abd. Monitored for pain, tolerates well Manual Traction cervical spine Body Position Hooklying Reps/Duration 2x30 Comments With gentle chin tuck for posterior capsule elongation Self-Care/Home Management Treatment Education Patient Education Home Exercise Program,Pain Management,Posture Other Education Initial HEP: supine pec stretch, shoulder flex/abd/ER AAROM with cane or dowel, chin tuck. Educated on modalities, posture, and soft tissue mobilization for pain relief PT-OP-T Assessment and Plan Start: 04/18/23 17:10 Freq: Status: Active Protocol: Document 04/24/23 13:48 NM (Rec: 04/24/23 14:32 NM [id number]) Physical Therapy Assessment Goals Five Impairment strength Impairment R shoulder flexion 4/5 MMT R shoulder ER and abduction 4- /5 MMT Short Term Goal (STG) Pt will increase R shoulder flexion, abduction, and ER MMT scores to at least 4/5 in order to demonstrate improved strength for lifting, reaching , and ADLs STG Duration 4 weeks Half-Way Goal (LTG) Pt will increase R shoulder flexion, abduction, and ER MMT scores to at least 4+/5 in order to demonstrate improved strength for lifting, reaching , and ADLs LTG Duration 8 weeks One Impairment sleep Impairment unable to sleep in R shoulder 1-2 hours (side or back) Short Term Goal (STG) Pt will report that she is able to sleep > 2 hours without waking due to pain or numbness in order to demonstrate improved symptom management STG Duration 4 weeks Roads Superintendent Goal (LTG) Pt will report that she is able to sleep without waking due to pain or numbness in order to demonstrate improved symptom management LTG Duration 8 weeks Four Impairment R shoulder AROM Impairment R abduction 100 deg, ER 40 deg at 0 deg abd Short Term Goal (STG) Pt will increase R shoulder abduction to at least 110 deg abduction without compensation and ER to at least 50 deg in order to demonstrate improvements in arm elevation for reaching and ADLs STG Duration 4 weeks Roads Superintendent Goal (LTG) Pt will increase R shoulder abduction to at least 120 deg abduction without compensation and ER to at least 60 deg in order to demonstrate improvements in arm elevation for reaching and ADLs LTG Duration 8 weeks Three Impairment R shoulder AROM Impairment Apley IR T12 Short Term Goal (STG) Pt will increase R shoulder Apley IR to at least T9 in order to demonstate improved AROM for ADLs and dressing STG Duration 4 weeks [employer]s [employer] Goal (LTG) Pt will increase R shoulder Apley IR to at least T6 in order to demonstate improved AROM for ADLs and dressing, comparable to LUE LTG Duration 8 weeks Two Impairment cervical spine AROM Impairment R rotation 65 deg Short Term Goal (STG) Pt will increase R cervical spine rotation AROM to at least 70 deg in order to be comparable to L cervical spine rotation for improved visual scanning STG Duration 4 weeks [employer]s [employer] Goal (LTG) Pt will increase R cervical spine rotation AROM to at least 75 deg in order to be comparable to L cervical spine rotation for improved visual scanning LTG Duration 8 weeks Assessment Summary Assessment Pt tolerated session well. Despite increased pain levels prior to session, pt reports decreased pain after session ended (did not provide number) . Initiated gentle R shoulder AAROM within pain free range, scapular mechanics and cervical/thoracic spine positioning and mobility. Pt limited in both R shoulder AROM and cervical spine ROM. Cued to remain within pain free range with R shoulder AAROM and open books. Pt with good response to postural correction with scapular retractions and cervical retraction for gentle deep neck flexor strengthening. PT educated pt on elongated posture to improve both cervical spine length and R shoulder positioning. Manual treatment initiated today with good response from pt. Performed and educated pt on soft tissue mobilization for muscle pain reduction. Due to acupuncture yesterday, pt tender in several areas of cervical spine and shoulder. Decreased R AC joint mobility especially of clavicle, elevated R first rib. Good tolerance for grade II R shoulder mobilizations for pain reduction and to improve mobilization. Pt would benefit from further R shoulder mobilization to improve mobility, already demos improvements from grade II mobilization. Assessed vertebral artery: negative test in extension and rotation , limited by pain. Pt recently had radiographs performed yesterday, but hasn't reviewed yet with PCP. Pt would benefit from skilled PT for R shoulder and cervical spine mobility and strengthening, improving soft tissue length of chest/shoulder to decrease pain symptoms and improve activity tolerance. Physical Therapy Plan Frequency and Duration Frequency of Treatment 2x/Week Duration of treatment (weeks) 8 Plan of Care Start Date 04/21/23 Plan of Care End Date 06/20/23 Therapeutic Interventions Therapeutic Interventions Balance Training,Coordination Training,Gait Training,Home Exercise Program,Joint Mobilizations,Manual Therapy, Neuromuscular Re-education, Orthotic/Prosthetic Management ,Patient/Caregiver Education, Self-Care/Home Management, Sensory Integration,Soft Tissue Mobilization,Taping, Therapeutic Activities, Therapeutic Exercises, Vestibular Rehabilitation Modalities Biofeedback,Cold Pack/Ice Massage,Electric Stimulation, Hot Packs,Ultrasound, Vasopneumatic Devices Other Therapeutic Interventions No mechanical traction due to osteopenia [employer] protocol Next Visit Focus/Plan Next Note Type Treatment Note Next Visit Plan Next session: continue AAROM, sidelying shoulder AROM, initiate periscapular strengthening, cervical spine stretches (trial), open book, wall posture, pec and scalene stretch, DNF strength, shoulder isometrics Manual: STM to cervical spine, scalenes, rotator cuff; manual grade II>III mob (inf, post, lat gapping, AC)
--- NOTE | 2023-04-28 13:59 | PT.OTN ---
Current Diagnoses Pain in right shoulder (04/28/23) Anesthesia of skin (04/28/23) Weakness (04/28/23) Physical Therapy Treatment Note PT-OP-A Visit Information Start: 04/18/23 17:10 Freq: Status: Active Protocol: Document 04/28/23 12:59 AB (Rec: 04/28/23 13:59 AB [id number]) Out-Patient Physical Therapy Visit Information Visit Information Visit Note KX after 19 visits Access Code: [email or web address] Visit Start Time 13:02 Visit Stop Time 13:47 Visit Number 3 Number of MOLD TECHNICIAN Visits 1 Evaluation Information Evaluation Date 04/21/23 Precautions Precautions osteopenia, fibromyalgia PT-OP-B Current Condition Start: 04/18/23 17:10 Freq: Status: Active Protocol: Document 04/21/23 13:46 NM (Rec: 04/21/23 15:51 NM [id number]) Current Condition History of Current Condition Onset Date 9 months since shoulder, last 2 months since arm radiation Current Complaints pain, numbness/tingling History of Current Condition Pt presents with R shoulder pain, achiness along the entire arm beginning 9 months ago. Pt does not know what caused her R shoulder to begin hurting. Pain is worse in sleeping (unable to get into a comfortable position) and with reaching/elevation. Reports scapula and neck pain on R shoulder, post shoulder above and below clavicle. Hx of B frozen shoulder and R CARMELO /score 17 years ago. Pt also reports that 2 months ago, her R arm began to fall asleep and feel numb, usually at night but occasionally during the day with certain positions . States the numbness is not localized to a finger, but is the entire hand, which radiates from her shoulder. Reports that her hand becomes numb with sitting in certain positions that can't be replicated (not elevated) or when washing hair (arm elevated). At night, the numbness can last several hours, and she has to resort to shaking her hand to feel better over time. Had R finger surgery on 09/26/22. Tested for carpal tunnel (hx of fibro ) several years ago. States she has not had any changes in her hand strength, but reports changes in her shoulder strength since the incident began. Prior Treatments and Tests no previous PT for condition; hand therapy post finger surgery (OT) Prior Functional Status Baseline Function- Gait daily walk: 2-3 mi, max 4-5 mi (pain in neck) Current Functional Impairments (Reported) Functional Limitations- Mobility/Gait walk with cold PT-OP-C Subjective Start: 04/18/23 17:10 Freq: Status: Active Protocol: Document 04/28/23 12:59 AB (Rec: 04/28/23 13:59 AB [id number]) OP-PT Subjective Patient Comments Patient Comments Patient reports she is feeling more sore attributes to performing the exercises every day. PT-OP-E Functional Tests Start: 04/18/23 17:10 Freq: Status: Active Protocol: Document 04/21/23 13:46 NM (Rec: 04/21/23 15:51 NM [id number]) Functional Tests Apley's Scratch Test Action 1- Left post cuff Action 1- Right post cuff, aches Action 2- Left T3 Action 2- Right T2; tight in shoulder blade, mid back, neck Action 3- Left T6 Action 3- Right T12; most pain in anterior shoulder PT-OP-F Manual Assessment Start: 04/18/23 17:10 Freq: Status: Active Protocol: Document 04/21/23 13:46 NM (Rec: 04/21/23 15:51 NM [id number]) Manual Assessments Soft Tissue Assessment Soft Tissue Mobility Assessment Increased tone on R sided cervical paraspinals, scalenes , SCM. R SCM limits rotation. Observable R carotid pulse. No swelling or atrophy of R arm, danielle near clavicle Joint Mobility Assessment Joint Mobility Assessment Decreased bilateral shoulder AROM. R shoulder AROM and PROM limited in flexion, abduction , and external rotation. Demos impingement signs. No cervical instability. Elevated R 1st rib PT-OP-G Mobility & Gait Start: 04/18/23 17:10 Freq: Status: Active Protocol: Document 04/21/23 13:46 NM (Rec: 04/21/23 15:51 NM [id number]) OP Gait Assessment Gait Gait Assistance Required: Independent Distance (Feet) 150 Comments Gait Comments Decreased trunk rotation with gait PT-OP-H Neuro Start: 04/18/23 17:10 Freq: Status: Active Protocol: Document 04/21/23 13:46 NM (Rec: 04/21/23 15:51 NM [id number]) Sensation Evaluation Comments Summary Comments BUE equally intact to light touch sensation Deep Tendon Reflex & Clonus Assessment Deep Tendon Reflex Left Brachioradialis Deep Tendon Reflex 2+ Normal Left Bicep Deep Tendon Reflex 2+ Normal Right Brachioradialis Deep Tendon Reflex 1+ Diminished Right Bicep Deep Tendon Reflex 3+ Normal But Brisk PT-OP-J Posture/Palpation/Skin Start: 04/18/23 17:10 Freq: Status: Active Protocol: Document 04/21/23 13:46 NM (Rec: 04/21/23 15:51 NM [id number]) Posture Evaluation Position Standing Head/C-Spine Posture Forward Head T-Spine Posture Increased Kyphosis L-Spine Posture Increased Lordosis Shoulder Posture (L) Rounded,(R) Rounded,(L) Forward,(R) Forward,(L) Elevated Scapula Posture (L) Protracted,(R) Protracted Arm Posture (L) Internally Rotated,(R) Internally Rotated Pelvis Posture Anteriorly Tilted Weight Distribution Balanced Hip Posture (L) Neutral,(R) Neutral Knee Posture (L) Genu Valgus,(R) Genu Valgus Patellar Posture (L) Neutral,(R) Neutral Ankle/Foot Posture (L) Pronated,(R) Pronated Palpation Assessment Location cervical spine Palpation Location spinous processes, paraspinals , suboccipitals, periscapulars Palpation Findings Soft Tissue Tightness, Tenderness Palpation Details Soft tissue tightness of B paraspinals (R>L), R upper trapezius, levator scapular, scalenes, SCM. Elevated first rib. Tenderness near mid-cervical spinous processes with P-A springing, none at upper or lower cervical spine. R shoulder Palpation Location rotator cuff, long head biceps tendon, AC joint, SC joint Palpation Findings Soft Tissue Tightness, Tenderness Palpation Details Tenderness of LH biceps tendon . No tenderness of AC or SC joint. Tenderness above and below clavicle. Tenderness along posterior cuff ( supraspinatus and infraspinatus), rhomboid. No tenderness of biceps muscle belly Skin Assessment Other Assessments Skin Assessment Comments RUE has symmetrical color and sensation to LUE. No evidence of swelling in supraclavicular or infraclavicular region, RUE. PT-OP-K Range of Motion Start: 04/18/23 17:10 Freq: Status: Active Protocol: Document 04/21/23 13:46 NM (Rec: 04/21/23 15:51 NM [id number]) Cervical Spine Range of Motion Cervical Spine Active Degrees Flexion 55 Extension 25 Rotation Left 75 Rotation Right 65 Lateral Flexion Left 25 Lateral Flexion Right 25 Comments Stretch reported posterior neck with ext; R SB>L SB discomfort, R rotation discomfort in shoulder. Reports not pain Shoulder Goniometric Range of Motion Shoulder R PROM Flexion 145 Abduction 110 External Rotation at 0 degrees Abduction 65 Internal Rotation 70 Left Flexion 140 Abduction 125 External Rotation at 90 degrees 60 Abduction External Rotation at 0 degrees Abduction 55 Internal Rotation 55 Right Flexion 140 Abduction 100 External Rotation at 90 degrees 30 Abduction External Rotation at 0 degrees Abduction 40 Internal Rotation 60 Comments impingement with abduction; pain with end range ER and flexion PT-OP-L Special Tests Start: 04/18/23 17:10 Freq: Status: Active Protocol: Document 04/21/23 13:46 NM (Rec: 04/21/23 15:51 NM [id number]) Special Tests Cervical Spine Special Tests Upper Limb Tension Test Test Results - median, radial, ulnar Comments no numbness/tingling; reports shoulder pain with depression Spurling's Test Test Results + Comments R sided focal pain in neck, no radiation into arm Traction Test Results - Transverse Ligament Test Results - Alar Ligament Test Results - Shoulder Special Tests Neer Impingement Test Results + Shipman Jose Impingement Test Results + Lift-Off Rotator Cuff Test Results - Comments painful but able to lift off maximally Empty Can Test Results + Comments Improved strength and less pain with full can Drop Arm Rotator Cuff Test Results - Neural Special Tests- Upper Body Tinel Sign Test Results - Comments median n Phalen's Test Results - Vascular Special Tests Adson Maneuver Test Results + Comments decreased radial pulse Claude Test Test Results + Comments reports symptoms after 30 seconds PT-OP-M Strength Start: 04/18/23 17:10 Freq: Status: Active Protocol: Document 04/21/23 13:46 NM (Rec: 04/21/23 15:51 NM [id number]) Cervical Spine Strength Cervical Spine Manual Muscle Testing Flexion (C1-2) 4+ Good+ Extension 4+ Good+ Rotation Left 4+ Good+ Rotation Right 4+ Good+ Lateral Flexion Left (C3) 4+ Good+ Lateral Flexion Right (C3) 4+ Good+ Comments No pain with resisted motion Shoulder Strength Shoulder Manual Muscle Testing Right Flexion 4- Good- Extension 4+ Good+ Abduction (C5) 4- Good- Adduction 4 Good External Rotation 4- Good- Internal Rotation 4 Good Comments Pain with resisted abduction and external rotation Left Flexion 4+ Good+ Extension 4+ Good+ Abduction (C5) 4+ Good+ Adduction 4+ Good+ External Rotation 4+ Good+ Internal Rotation 4+ Good+ Horizontal Abduction 4+ Good+ Horizontal Adduction 4+ Good+ Elbow/Forearm Strength Elbow and Forearm Manual Muscle Testing Right Flexion (C6) 4+ Good+ Extension (C7) 4+ Good+ Left Flexion (C6) 4+ Good+ Extension (C7) 4+ Good+ Wrist Strength Wrist Manual Muscle Testing Right Flexion (C7) 4+ Good+ Extension (C6) 4+ Good+ Left Flexion (C7) 4+ Good+ Extension (C6) 4+ Good+ PT-OP-Q Treatments Start: 04/18/23 17:10 Freq: Status: Active Protocol: Document 04/28/23 12:59 AB (Rec: 04/28/23 13:59 AB [id number]) Therapeutic Exercises Supine Exercises open book Side bilateral Resistance AROM Reps/Minutes 1x5 with brief hold at end range, follow w eyes/CS as long as able Comments Verbal cues to hold 5 breaths AAROM shoulder ER Supine Exercise Name added to HEP Side right Resistance L assist R Equipment Used dowel Reps/Minutes 1x10 with brief end range hold Comments Verbal and tactile cues AAROM shoulder abduction Supine Exercise Name added to HEP Side right Resistance L assist R Equipment Used dowel Reps/Minutes 1x10 with brief end range hold AAROM shoulder flexion Supine Exercise Name added to HEP Side right Resistance L assist R Equipment Used dowel Reps/Minutes 1x10 with brief end range hold Comments Verbal cues to hold 10 seconds end AROM Sidelying Exercises abduction Sidelying Exercise Name right shoulder abd AROM Side right Reps/Minutes 1 Comments not juan shoulder ER AROM Side right Reps/Minutes 10 Comments Verbal and tactile cues Sitting Exercises table slide shoulder abduction Side right Reps/Minutes X10 Comments verbal and visual cues Standing Exercises wall push up plus Side bilateral Reps/Minutes X10 Comments Verbal and visual cues Other Exercises quadruped CS rotation AROM Side bilateral Reps/Minutes X10 Comments VC to perform in pain free ranbe Manual Therapy Treatment Soft Tissue Mobilization right scalenes at lateral clavicle Mobilization Type Cross-Friction Intensity/Depth Superficial Body Position Sidelying Comments monitored for pain post cuff Body Location right Mobilization Type Cross-Friction,Rolling Intensity/Depth Moderate Body Position Sidelying Comments monitored for pain pec Body Location right Mobilization Type Cross-Friction,Rolling Intensity/Depth Moderate Body Position Sidelying Comments monitored for pain Joint Mobilizations scapular mobilization Joint right scapula Direction depression and adduction Grade III Reps/Duration X16 each direction Comments monitored for pain R GHJ Direction Post, Inf Grade II Body Position Supine Reps/Duration 1x18 ea Manual Techniques PROM Type right shoulder PROM ER Body Position Sidelying Reps/Duration X8 Comments Monitored for pain Self-Care/Home Management Treatment Education Other Education push up plus on wall, table slide abduction, and CS rotation in quadruped added to HEP PT-OP-T Assessment and Plan Start: 04/18/23 17:10 Freq: Status: Active Protocol: Document 04/28/23 12:59 AB (Rec: 04/28/23 13:59 AB [id number]) Physical Therapy Assessment Goals Five Impairment strength Impairment R shoulder flexion 4/5 MMT R shoulder ER and abduction 4- /5 MMT Short Term Goal (STG) Pt will increase R shoulder flexion, abduction, and ER MMT scores to at least 4/5 in order to demonstrate improved strength for lifting, reaching , and ADLs STG Duration 4 weeks Supervisor Electronics Inspection Goal (LTG) Pt will increase R shoulder flexion, abduction, and ER MMT scores to at least 4+/5 in order to demonstrate improved strength for lifting, reaching , and ADLs LTG Duration 8 weeks One Impairment sleep Impairment unable to sleep in R shoulder 1-2 hours (side or back) Short Term Goal (STG) Pt will report that she is able to sleep > 2 hours without waking due to pain or numbness in order to demonstrate improved symptom management STG Duration 4 weeks Custodial Goal (LTG) Pt will report that she is able to sleep without waking due to pain or numbness in order to demonstrate improved symptom management LTG Duration 8 weeks Four Impairment R shoulder AROM Impairment R abduction 100 deg, ER 40 deg at 0 deg abd Short Term Goal (STG) Pt will increase R shoulder abduction to at least 110 deg abduction without compensation and ER to at least 50 deg in order to demonstrate improvements in arm elevation for reaching and ADLs STG Duration 4 weeks Custodial Goal (LTG) Pt will increase R shoulder abduction to at least 120 deg abduction without compensation and ER to at least 60 deg in order to demonstrate improvements in arm elevation for reaching and ADLs LTG Duration 8 weeks Three Impairment R shoulder AROM Impairment Apley IR T12 Short Term Goal (STG) Pt will increase R shoulder Apley IR to at least T9 in order to demonstate improved AROM for ADLs and dressing STG Duration 4 weeks [employer] Goal (LTG) Pt will increase R shoulder Apley IR to at least T6 in order to demonstate improved AROM for ADLs and dressing, comparable to LUE LTG Duration 8 weeks Two Impairment cervical spine AROM Impairment R rotation 65 deg Short Term Goal (STG) Pt will increase R cervical spine rotation AROM to at least 70 deg in order to be comparable to L cervical spine rotation for improved visual scanning STG Duration 4 weeks [employer] Goal (LTG) Pt will increase R cervical spine rotation AROM to at least 75 deg in order to be comparable to L cervical spine rotation for improved visual scanning LTG Duration 8 weeks Assessment Summary Assessment AROM right shoulder flexion AROM 121 deg start of session to 140 deg end of session with patient reporting feeling a little more sore end of session. Physical Therapy Plan Frequency and Duration Frequency of Treatment 2x/Week Duration of treatment (weeks) 8 Plan of Care Start Date 04/21/23 Plan of Care End Date 06/20/23 Next Visit Focus/Plan Next Note Type Treatment Note Next Visit Plan Next session: continue AAROM, revisit sidelying shoulder AROM abduction, initiate periscapular strengthening/ assess juan to push up plus, cervical spine stretches ( trial), open book, wall posture, pec and scalene stretch, DNF strength, shoulder isometrics Manual: STM to cervical spine, scalenes, rotator cuff; manual grade II>III mob (inf, post, lat gapping, AC) possibly wall slide flexion with lift off and lower
--- NOTE | 2023-05-01 16:30 | PT.OTN ---
Current Diagnoses Pain in right shoulder (05/01/23) Anesthesia of skin (05/01/23) Weakness (05/01/23) Physical Therapy Treatment Note PT-OP-A Visit Information Start: 04/18/23 17:10 Freq: Status: Active Protocol: Document 05/01/23 12:50 AB (Rec: 05/01/23 13:47 AB [id number]) Out-Patient Physical Therapy Visit Information Visit Information Visit Note KX after 19 visits Access Code: [email or web address] Visit Start Time 13:02 Visit Stop Time 13:44 Visit Number 4 Number of PROCUREMENT TECHNICIAN Visits 2 Evaluation Information Evaluation Date 04/21/23 Precautions Precautions osteopenia, fibromyalgia PT-OP-B Current Condition Start: 04/18/23 17:10 Freq: Status: Active Protocol: Document 04/21/23 13:46 NM (Rec: 04/21/23 15:51 NM [id number]) Current Condition History of Current Condition Onset Date 9 months since shoulder, last 2 months since arm radiation Current Complaints pain, numbness/tingling History of Current Condition Pt presents with R shoulder pain, achiness along the entire arm beginning 9 months ago. Pt does not know what caused her R shoulder to begin hurting. Pain is worse in sleeping (unable to get into a comfortable position) and with reaching/elevation. Reports scapula and neck pain on R shoulder, post shoulder above and below clavicle. Hx of B frozen shoulder and R CARMELO /score 17 years ago. Pt also reports that 2 months ago, her R arm began to fall asleep and feel numb, usually at night but occasionally during the day with certain positions . States the numbness is not localized to a finger, but is the entire hand, which radiates from her shoulder. Reports that her hand becomes numb with sitting in certain positions that can't be replicated (not elevated) or when washing hair (arm elevated). At night, the numbness can last several hours, and she has to resort to shaking her hand to feel better over time. Had R finger surgery on 09/26/22. Tested for carpal tunnel (hx of fibro ) several years ago. States she has not had any changes in her hand strength, but reports changes in her shoulder strength since the incident began. Prior Treatments and Tests no previous PT for condition; hand therapy post finger surgery (OT) Prior Functional Status Baseline Function- Gait daily walk: 2-3 mi, max 4-5 mi (pain in neck) Current Functional Impairments (Reported) Functional Limitations- Mobility/Gait walk with cold PT-OP-C Subjective Start: 04/18/23 17:10 Freq: Status: Active Protocol: Document 05/01/23 12:50 AB (Rec: 05/01/23 13:47 AB [id number]) OP-PT Subjective Patient Comments Patient Comments Patient reports she had acupuncture and had less pain yesterday and only woke up once last night.143 deg AROM right shoulder flexion start of session. PT-OP-E Functional Tests Start: 04/18/23 17:10 Freq: Status: Active Protocol: Document 04/21/23 13:46 NM (Rec: 04/21/23 15:51 NM [id number]) Functional Tests Apley's Scratch Test Action 1- Left post cuff Action 1- Right post cuff, aches Action 2- Left T3 Action 2- Right T2; tight in shoulder blade, mid back, neck Action 3- Left T6 Action 3- Right T12; most pain in anterior shoulder PT-OP-F Manual Assessment Start: 04/18/23 17:10 Freq: Status: Active Protocol: Document 04/21/23 13:46 NM (Rec: 04/21/23 15:51 NM [id number]) Manual Assessments Soft Tissue Assessment Soft Tissue Mobility Assessment Increased tone on R sided cervical paraspinals, scalenes , SCM. R SCM limits rotation. Observable R carotid pulse. No swelling or atrophy of R arm, danielle near clavicle Joint Mobility Assessment Joint Mobility Assessment Decreased bilateral shoulder AROM. R shoulder AROM and PROM limited in flexion, abduction , and external rotation. Demos impingement signs. No cervical instability. Elevated R 1st rib PT-OP-G Mobility & Gait Start: 04/18/23 17:10 Freq: Status: Active Protocol: Document 04/21/23 13:46 NM (Rec: 04/21/23 15:51 NM [id number]) OP Gait Assessment Gait Gait Assistance Required: Independent Distance (Feet) 150 Comments Gait Comments Decreased trunk rotation with gait PT-OP-H Neuro Start: 04/18/23 17:10 Freq: Status: Active Protocol: Document 04/21/23 13:46 NM (Rec: 04/21/23 15:51 NM [id number]) Sensation Evaluation Comments Summary Comments BUE equally intact to light touch sensation Deep Tendon Reflex & Clonus Assessment Deep Tendon Reflex Left Brachioradialis Deep Tendon Reflex 2+ Normal Left Bicep Deep Tendon Reflex 2+ Normal Right Brachioradialis Deep Tendon Reflex 1+ Diminished Right Bicep Deep Tendon Reflex 3+ Normal But Brisk PT-OP-J Posture/Palpation/Skin Start: 04/18/23 17:10 Freq: Status: Active Protocol: Document 04/21/23 13:46 NM (Rec: 04/21/23 15:51 NM [id number]) Posture Evaluation Position Standing Head/C-Spine Posture Forward Head T-Spine Posture Increased Kyphosis L-Spine Posture Increased Lordosis Shoulder Posture (L) Rounded,(R) Rounded,(L) Forward,(R) Forward,(L) Elevated Scapula Posture (L) Protracted,(R) Protracted Arm Posture (L) Internally Rotated,(R) Internally Rotated Pelvis Posture Anteriorly Tilted Weight Distribution Balanced Hip Posture (L) Neutral,(R) Neutral Knee Posture (L) Genu Valgus,(R) Genu Valgus Patellar Posture (L) Neutral,(R) Neutral Ankle/Foot Posture (L) Pronated,(R) Pronated Palpation Assessment Location cervical spine Palpation Location spinous processes, paraspinals , suboccipitals, periscapulars Palpation Findings Soft Tissue Tightness, Tenderness Palpation Details Soft tissue tightness of B paraspinals (R>L), R upper trapezius, levator scapular, scalenes, SCM. Elevated first rib. Tenderness near mid-cervical spinous processes with P-A springing, none at upper or lower cervical spine. R shoulder Palpation Location rotator cuff, long head biceps tendon, AC joint, SC joint Palpation Findings Soft Tissue Tightness, Tenderness Palpation Details Tenderness of LH biceps tendon . No tenderness of AC or SC joint. Tenderness above and below clavicle. Tenderness along posterior cuff ( supraspinatus and infraspinatus), rhomboid. No tenderness of biceps muscle belly Skin Assessment Other Assessments Skin Assessment Comments RUE has symmetrical color and sensation to LUE. No evidence of swelling in supraclavicular or infraclavicular region, RUE. PT-OP-K Range of Motion Start: 04/18/23 17:10 Freq: Status: Active Protocol: Document 04/21/23 13:46 NM (Rec: 04/21/23 15:51 NM [id number]) Cervical Spine Range of Motion Cervical Spine Active Degrees Flexion 55 Extension 25 Rotation Left 75 Rotation Right 65 Lateral Flexion Left 25 Lateral Flexion Right 25 Comments Stretch reported posterior neck with ext; R SB>L SB discomfort, R rotation discomfort in shoulder. Reports not pain Shoulder Goniometric Range of Motion Shoulder R PROM Flexion 145 Abduction 110 External Rotation at 0 degrees Abduction 65 Internal Rotation 70 Left Flexion 140 Abduction 125 External Rotation at 90 degrees 60 Abduction External Rotation at 0 degrees Abduction 55 Internal Rotation 55 Right Flexion 140 Abduction 100 External Rotation at 90 degrees 30 Abduction External Rotation at 0 degrees Abduction 40 Internal Rotation 60 Comments impingement with abduction; pain with end range ER and flexion PT-OP-L Special Tests Start: 04/18/23 17:10 Freq: Status: Active Protocol: Document 04/21/23 13:46 NM (Rec: 04/21/23 15:51 NM [id number]) Special Tests Cervical Spine Special Tests Upper Limb Tension Test Test Results - median, radial, ulnar Comments no numbness/tingling; reports shoulder pain with depression Spurling's Test Test Results + Comments R sided focal pain in neck, no radiation into arm Traction Test Results - Transverse Ligament Test Results - Alar Ligament Test Results - Shoulder Special Tests Neer Impingement Test Results + Shipman Jose Impingement Test Results + Lift-Off Rotator Cuff Test Results - Comments painful but able to lift off maximally Empty Can Test Results + Comments Improved strength and less pain with full can Drop Arm Rotator Cuff Test Results - Neural Special Tests- Upper Body Tinel Sign Test Results - Comments median n Phalen's Test Results - Vascular Special Tests Adson Maneuver Test Results + Comments decreased radial pulse Claude Test Test Results + Comments reports symptoms after 30 seconds PT-OP-M Strength Start: 04/18/23 17:10 Freq: Status: Active Protocol: Document 04/21/23 13:46 NM (Rec: 04/21/23 15:51 NM [id number]) Cervical Spine Strength Cervical Spine Manual Muscle Testing Flexion (C1-2) 4+ Good+ Extension 4+ Good+ Rotation Left 4+ Good+ Rotation Right 4+ Good+ Lateral Flexion Left (C3) 4+ Good+ Lateral Flexion Right (C3) 4+ Good+ Comments No pain with resisted motion Shoulder Strength Shoulder Manual Muscle Testing Right Flexion 4- Good- Extension 4+ Good+ Abduction (C5) 4- Good- Adduction 4 Good External Rotation 4- Good- Internal Rotation 4 Good Comments Pain with resisted abduction and external rotation Left Flexion 4+ Good+ Extension 4+ Good+ Abduction (C5) 4+ Good+ Adduction 4+ Good+ External Rotation 4+ Good+ Internal Rotation 4+ Good+ Horizontal Abduction 4+ Good+ Horizontal Adduction 4+ Good+ Elbow/Forearm Strength Elbow and Forearm Manual Muscle Testing Right Flexion (C6) 4+ Good+ Extension (C7) 4+ Good+ Left Flexion (C6) 4+ Good+ Extension (C7) 4+ Good+ Wrist Strength Wrist Manual Muscle Testing Right Flexion (C7) 4+ Good+ Extension (C6) 4+ Good+ Left Flexion (C7) 4+ Good+ Extension (C6) 4+ Good+ PT-OP-Q Treatments Start: 04/18/23 17:10 Freq: Status: Active Protocol: Document 05/01/23 12:50 AB (Rec: 05/01/23 13:47 AB [id number]) Therapeutic Exercises Supine Exercises open book Side bilateral Resistance AROM Reps/Minutes 1x5 with brief hold at end range, follow w eyes/CS as long as able Comments Verbal cues to hold 5 breaths pectoral stretch Side bilateral Reps/Minutes 2 minutes Comments prior to push up plus AAROM shoulder flexion Supine Exercise Name added to HEP Sidelying Exercises abduction Sidelying Exercise Name right shoulder abd AROM Side right Reps/Minutes X10 Comments reports discomfort end ROM, VC to perform pain free range shoulder ER AROM Side right Reps/Minutes X10 Comments prior to sidelying shoulder abduction Standing Exercises deep neck flexor isometric reactive Resistance level one band Reps/Minutes X5 X 2 Comments first set seated, second standing verbal cues wall slide with lift Side right Reps/Minutes 10 Comments VC to step to wall, wall slide flexion then lift off and lower wall push up plus Side bilateral Reps/Minutes X10 Comments Verbal and visual cues Manual Therapy Treatment Soft Tissue Mobilization right scalenes at lateral clavicle Mobilization Type Cross-Friction Intensity/Depth Superficial Body Position Sitting Comments monitored for pain post cuff Body Location right Mobilization Type Cross-Friction,Rolling Intensity/Depth Moderate Body Position Sidelying Comments monitored for pain pec Body Location right Mobilization Type Cross-Friction,Rolling Intensity/Depth Moderate Body Position Sidelying Comments monitored for pain Joint Mobilizations scapular mobilization Joint right scapula Direction depression and adduction Grade III Reps/Duration X16 each direction Comments monitored for pain R GHJ Direction Post, Inf Grade II Body Position Supine Reps/Duration 1x18 ea Self-Care/Home Management Treatment Activities Self-Care/Home Management Activities Wall slide added to HEP PT-OP-T Assessment and Plan Start: 04/18/23 17:10 Freq: Status: Active Protocol: Document 05/01/23 12:50 AB (Rec: 05/01/23 13:47 AB [id number]) Physical Therapy Assessment Goals Five Impairment strength Impairment R shoulder flexion 4/5 MMT R shoulder ER and abduction 4- /5 MMT Short Term Goal (STG) Pt will increase R shoulder flexion, abduction, and ER MMT scores to at least 4/5 in order to demonstrate improved strength for lifting, reaching , and ADLs STG Duration 4 weeks Technical Operations Manager Goal (LTG) Pt will increase R shoulder flexion, abduction, and ER MMT scores to at least 4+/5 in order to demonstrate improved strength for lifting, reaching , and ADLs LTG Duration 8 weeks One Impairment sleep Impairment unable to sleep in R shoulder 1-2 hours (side or back) Short Term Goal (STG) Pt will report that she is able to sleep > 2 hours without waking due to pain or numbness in order to demonstrate improved symptom management STG Duration 4 weeks Technical Operations Manager Goal (LTG) Pt will report that she is able to sleep without waking due to pain or numbness in order to demonstrate improved symptom management LTG Duration 8 weeks Four Impairment R shoulder AROM Impairment R abduction 100 deg, ER 40 deg at 0 deg abd Short Term Goal (STG) Pt will increase R shoulder abduction to at least 110 deg abduction without compensation and ER to at least 50 deg in order to demonstrate improvements in arm elevation for reaching and ADLs STG Duration 4 weeks Technical Operations Manager Goal (LTG) Pt will increase R shoulder abduction to at least 120 deg abduction without compensation and ER to at least 60 deg in order to demonstrate improvements in arm elevation for reaching and ADLs LTG Duration 8 weeks Three Impairment R shoulder AROM Impairment Apley IR T12 Short Term Goal (STG) Pt will increase R shoulder Apley IR to at least T9 in order to demonstate improved AROM for ADLs and dressing STG Duration 4 weeks Technical Operations Manager Goal (LTG) Pt will increase R shoulder Apley IR to at least T6 in order to demonstate improved AROM for ADLs and dressing, comparable to LUE LTG Duration 8 weeks Two Impairment cervical spine AROM Impairment R rotation 65 deg Short Term Goal (STG) Pt will increase R cervical spine rotation AROM to at least 70 deg in order to be comparable to L cervical spine rotation for improved visual scanning STG Duration 4 weeks Retirement Goal (LTG) Pt will increase R cervical spine rotation AROM to at least 75 deg in order to be comparable to L cervical spine rotation for improved visual scanning LTG Duration 8 weeks Assessment Summary Assessment Patient reports the neck feels good end of session, AROM right shoulder flexion 143 deg end of session Physical Therapy Plan Frequency and Duration Frequency of Treatment 2x/Week Duration of treatment (weeks) 8 Plan of Care Start Date 04/21/23 Plan of Care End Date 06/20/23 Next Visit Focus/Plan Next Note Type Treatment Note Next Visit Plan Next session: continue AAROM, revisit sidelying shoulder AROM abduction, initiate periscapular strengthening/ assess juan to push up plus, cervical spine stretches ( trial), open book, wall posture, pec and scalene stretch, DNF strength, shoulder isometrics Manual: STM to cervical spine, scalenes, rotator cuff; manual grade II>III mob (inf, post, lat gapping, AC) revisit isometric reactive for deep neck flexor, sidelying abduction post pec stretch, possibly abduction in hooklying
--- NOTE | 2023-05-05 15:56 | PT.OTN ---
Current Diagnoses Pain in right shoulder (05/05/23) Anesthesia of skin (05/05/23) Weakness (05/05/23) Physical Therapy Treatment Note PT-OP-A Visit Information Start: 04/18/23 17:10 Freq: Status: Active Protocol: Document 05/05/23 13:48 NM (Rec: 05/05/23 14:34 NM [id number]) Out-Patient Physical Therapy Visit Information Visit Information Visit Type Treatment Note Visit Start Time 13:49 Visit Stop Time 14:30 Visit Number 5 Evaluation Information Evaluation Date 04/21/23 Precautions Precautions osteopenia, fibromyalgia PT-OP-B Current Condition Start: 04/18/23 17:10 Freq: Status: Active Protocol: Document 04/21/23 13:46 NM (Rec: 04/21/23 15:51 NM [id number]) Current Condition History of Current Condition Onset Date 9 months since shoulder, last 2 months since arm radiation Current Complaints pain, numbness/tingling History of Current Condition Pt presents with R shoulder pain, achiness along the entire arm beginning 9 months ago. Pt does not know what caused her R shoulder to begin hurting. Pain is worse in sleeping (unable to get into a comfortable position) and with reaching/elevation. Reports scapula and neck pain on R shoulder, post shoulder above and below clavicle. Hx of B frozen shoulder and R CARMELO /score 17 years ago. Pt also reports that 2 months ago, her R arm began to fall asleep and feel numb, usually at night but occasionally during the day with certain positions . States the numbness is not localized to a finger, but is the entire hand, which radiates from her shoulder. Reports that her hand becomes numb with sitting in certain positions that can't be replicated (not elevated) or when washing hair (arm elevated). At night, the numbness can last several hours, and she has to resort to shaking her hand to feel better over time. Had R finger surgery on 09/26/22. Tested for carpal tunnel (hx of fibro ) several years ago. States she has not had any changes in her hand strength, but reports changes in her shoulder strength since the incident began. Prior Treatments and Tests no previous PT for condition; hand therapy post finger surgery (OT) Prior Functional Status Baseline Function- Gait daily walk: 2-3 mi, max 4-5 mi (pain in neck) Current Functional Impairments (Reported) Functional Limitations- Mobility/Gait walk with cold PT-OP-C Subjective Start: 04/18/23 17:10 Freq: Status: Active Protocol: Document 05/05/23 13:48 NM (Rec: 05/05/23 14:34 NM [id number]) OP-PT Subjective Patient Comments Patient Comments Pt felt good after last acupuncture on last friday. Reports that she has increased pain today, 9/10 in neck and 7/10 in R shoulder. She thinks she may have slept wrong because she felt good going to bed PT-OP-E Functional Tests Start: 04/18/23 17:10 Freq: Status: Active Protocol: Document 04/21/23 13:46 NM (Rec: 04/21/23 15:51 NM [id number]) Functional Tests Apley's Scratch Test Action 1- Left post cuff Action 1- Right post cuff, aches Action 2- Left T3 Action 2- Right T2; tight in shoulder blade, mid back, neck Action 3- Left T6 Action 3- Right T12; most pain in anterior shoulder PT-OP-F Manual Assessment Start: 04/18/23 17:10 Freq: Status: Active Protocol: Document 04/21/23 13:46 NM (Rec: 04/21/23 15:51 NM [id number]) Manual Assessments Soft Tissue Assessment Soft Tissue Mobility Assessment Increased tone on R sided cervical paraspinals, scalenes , SCM. R SCM limits rotation. Observable R carotid pulse. No swelling or atrophy of R arm, danielle near clavicle Joint Mobility Assessment Joint Mobility Assessment Decreased bilateral shoulder AROM. R shoulder AROM and PROM limited in flexion, abduction , and external rotation. Demos impingement signs. No cervical instability. Elevated R 1st rib PT-OP-G Mobility & Gait Start: 04/18/23 17:10 Freq: Status: Active Protocol: Document 04/21/23 13:46 NM (Rec: 04/21/23 15:51 NM [id number]) OP Gait Assessment Gait Gait Assistance Required: Independent Distance (Feet) 150 Comments Gait Comments Decreased trunk rotation with gait PT-OP-H Neuro Start: 04/18/23 17:10 Freq: Status: Active Protocol: Document 04/21/23 13:46 NM (Rec: 04/21/23 15:51 NM [id number]) Sensation Evaluation Comments Summary Comments BUE equally intact to light touch sensation Deep Tendon Reflex & Clonus Assessment Deep Tendon Reflex Left Brachioradialis Deep Tendon Reflex 2+ Normal Left Bicep Deep Tendon Reflex 2+ Normal Right Brachioradialis Deep Tendon Reflex 1+ Diminished Right Bicep Deep Tendon Reflex 3+ Normal But Brisk PT-OP-J Posture/Palpation/Skin Start: 04/18/23 17:10 Freq: Status: Active Protocol: Document 04/21/23 13:46 NM (Rec: 04/21/23 15:51 NM [id number]) Posture Evaluation Position Standing Head/C-Spine Posture Forward Head T-Spine Posture Increased Kyphosis L-Spine Posture Increased Lordosis Shoulder Posture (L) Rounded,(R) Rounded,(L) Forward,(R) Forward,(L) Elevated Scapula Posture (L) Protracted,(R) Protracted Arm Posture (L) Internally Rotated,(R) Internally Rotated Pelvis Posture Anteriorly Tilted Weight Distribution Balanced Hip Posture (L) Neutral,(R) Neutral Knee Posture (L) Genu Valgus,(R) Genu Valgus Patellar Posture (L) Neutral,(R) Neutral Ankle/Foot Posture (L) Pronated,(R) Pronated Palpation Assessment Location cervical spine Palpation Location spinous processes, paraspinals , suboccipitals, periscapulars Palpation Findings Soft Tissue Tightness, Tenderness Palpation Details Soft tissue tightness of B paraspinals (R>L), R upper trapezius, levator scapular, scalenes, SCM. Elevated first rib. Tenderness near mid-cervical spinous processes with P-A springing, none at upper or lower cervical spine. R shoulder Palpation Location rotator cuff, long head biceps tendon, AC joint, SC joint Palpation Findings Soft Tissue Tightness, Tenderness Palpation Details Tenderness of LH biceps tendon . No tenderness of AC or SC joint. Tenderness above and below clavicle. Tenderness along posterior cuff ( supraspinatus and infraspinatus), rhomboid. No tenderness of biceps muscle belly Skin Assessment Other Assessments Skin Assessment Comments RUE has symmetrical color and sensation to LUE. No evidence of swelling in supraclavicular or infraclavicular region, RUE. PT-OP-K Range of Motion Start: 04/18/23 17:10 Freq: Status: Active Protocol: Document 04/21/23 13:46 NM (Rec: 04/21/23 15:51 NM [id number]) Cervical Spine Range of Motion Cervical Spine Active Degrees Flexion 55 Extension 25 Rotation Left 75 Rotation Right 65 Lateral Flexion Left 25 Lateral Flexion Right 25 Comments Stretch reported posterior neck with ext; R SB>L SB discomfort, R rotation discomfort in shoulder. Reports not pain Shoulder Goniometric Range of Motion Shoulder R PROM Flexion 145 Abduction 110 External Rotation at 0 degrees Abduction 65 Internal Rotation 70 Left Flexion 140 Abduction 125 External Rotation at 90 degrees 60 Abduction External Rotation at 0 degrees Abduction 55 Internal Rotation 55 Right Flexion 140 Abduction 100 External Rotation at 90 degrees 30 Abduction External Rotation at 0 degrees Abduction 40 Internal Rotation 60 Comments impingement with abduction; pain with end range ER and flexion PT-OP-L Special Tests Start: 04/18/23 17:10 Freq: Status: Active Protocol: Document 04/21/23 13:46 NM (Rec: 04/21/23 15:51 NM [id number]) Special Tests Cervical Spine Special Tests Upper Limb Tension Test Test Results - median, radial, ulnar Comments no numbness/tingling; reports shoulder pain with depression Spurling's Test Test Results + Comments R sided focal pain in neck, no radiation into arm Traction Test Results - Transverse Ligament Test Results - Alar Ligament Test Results - Shoulder Special Tests Neer Impingement Test Results + Shipman Jose Impingement Test Results + Lift-Off Rotator Cuff Test Results - Comments painful but able to lift off maximally Empty Can Test Results + Comments Improved strength and less pain with full can Drop Arm Rotator Cuff Test Results - Neural Special Tests- Upper Body Tinel Sign Test Results - Comments median n Phalen's Test Results - Vascular Special Tests Adson Maneuver Test Results + Comments decreased radial pulse Claude Test Test Results + Comments reports symptoms after 30 seconds PT-OP-M Strength Start: 04/18/23 17:10 Freq: Status: Active Protocol: Document 04/21/23 13:46 NM (Rec: 04/21/23 15:51 NM [id number]) Cervical Spine Strength Cervical Spine Manual Muscle Testing Flexion (C1-2) 4+ Good+ Extension 4+ Good+ Rotation Left 4+ Good+ Rotation Right 4+ Good+ Lateral Flexion Left (C3) 4+ Good+ Lateral Flexion Right (C3) 4+ Good+ Comments No pain with resisted motion Shoulder Strength Shoulder Manual Muscle Testing Right Flexion 4- Good- Extension 4+ Good+ Abduction (C5) 4- Good- Adduction 4 Good External Rotation 4- Good- Internal Rotation 4 Good Comments Pain with resisted abduction and external rotation Left Flexion 4+ Good+ Extension 4+ Good+ Abduction (C5) 4+ Good+ Adduction 4+ Good+ External Rotation 4+ Good+ Internal Rotation 4+ Good+ Horizontal Abduction 4+ Good+ Horizontal Adduction 4+ Good+ Elbow/Forearm Strength Elbow and Forearm Manual Muscle Testing Right Flexion (C6) 4+ Good+ Extension (C7) 4+ Good+ Left Flexion (C6) 4+ Good+ Extension (C7) 4+ Good+ Wrist Strength Wrist Manual Muscle Testing Right Flexion (C7) 4+ Good+ Extension (C6) 4+ Good+ Left Flexion (C7) 4+ Good+ Extension (C6) 4+ Good+ PT-OP-Q Treatments Start: 04/18/23 17:10 Freq: Status: Active Protocol: Document 05/05/23 13:48 NM (Rec: 05/05/23 14:34 NM [id number]) Therapeutic Exercises Supine Exercises open book Side bilateral Resistance AROM Reps/Minutes 1x5 with brief hold at end range, follow w eyes/CS as long as able Comments Verbal cues to hold 5 breaths, reports SCM pain and dec range today AAROM shoulder flexion Side right Resistance L assisting R Equipment Used dowel Reps/Minutes 1x10 with brief hold at end range Comments verbal cues to not push into pain, 148 deg Sidelying Exercises flexion AROM Sidelying Exercise Name trialed Resistance AROM Reps/Minutes 1x5 Comments painful so d/c; cued post scap setting for posture abduction Sidelying Exercise Name right shoulder abd AROM Side right Resistance AROM Equipment Used PT facilitating scapular motion, inf glide and long axis distraction prn Reps/Minutes 1x10 ea Comments reports discomfort end ROM, cues to perform pain free range shoulder ER AROM Side right Resistance AROM Equipment Used towel roll Reps/Minutes 1x10 Comments cued for pain free range, post cervical spine STM to decrease tension Standing Exercises wall posture Standing Exercise Name 1. elongated posture with chin tuck, 2. DNF with nods and small rotation Side bilateral Equipment Used towel behind pt Reps/Minutes 1. 1x10 with 2 hold into towel, 2. 1x8 ea Comments cued for pain free range with rotation; pain free otherwise; cue elongate wall slide with lift Side right Reps/Minutes 1x10 Comments reports pain free, 150 deg flexion with good eccentric lowering wall push up plus Side bilateral Equipment Used PT facilitating retraction with return Reps/Minutes 1x10 Comments cues for form, full protract/ retract motion. pain free Manual Therapy Treatment Soft Tissue Mobilization post cuff Body Location right Mobilization Type Cross-Friction,Rolling Intensity/Depth Moderate Body Position Sidelying Comments monitored for pain. Tenderness along infraspinatus and teres , decreased with mobilization pec Body Location right Mobilization Type Cross-Friction,Rolling Intensity/Depth Moderate Body Position Sidelying Comments monitored for pain, added functional movement for mobilization with movement and posterior shoulder setting for posture. Decreased restriction with mobilization R shoulder Body Location rhomboids, LH biceps Mobilization Type Cross-Friction,Myofascial Release,Rolling,Sustained Pressure Intensity/Depth Moderate Body Position sidelying,supine Comments Increased tenderness of rhomboids. Performed mobilization with movement in sidelying with protraction/ retraction of r scapula, 1x8 ea. Reports decreased tenderness and stretching with MWM. Cross friction of LH biceps, decreased tenderness today in anterior shoulder cervical spine Body Location suboccipitals, paraspinals, UT , SCM, scalenes Mobilization Type Rolling,Sustained Pressure Intensity/Depth sup/mod Body Position Hooklying Comments Increased restrictions and tenderness at R UT, SCM, scalenes. Added mobilization with movement for UT, SCM; decreased restriction and pain levels with reps but continues to be limited Joint Mobilizations scapular mobilization Joint right scapula Direction depression and adduction, protract/retract Grade III Reps/Duration 1x10 each direction Comments monitored for pain, decreased retraction mobility 1st rib Direction caudal Grade II Body Position Sidelying Reps/Duration 1x10 Comments Elevated. Monitored for pain, none reported. Slight improvement in upper trap reported pain with mobilization of 1st rib R ACJ Direction Post on scapula, ant on clavicle Grade II Body Position Sidelying Reps/Duration 1x10 Comments For improved R shoulder mobility, joint space. Very narrow. Not tender or painful per pt report, but does not glide well anteriorly with clavicle R GHJ Direction Post, Inf Grade III Body Position Supine Reps/Duration 4x30 Comments abd: 125 to 155 deg post mob flex: 140 deg to 153 deg post mobilization Reports pain at end range, but decreased compared to arriving at clinic. Improved mobility but demos decreased post capsule mobility Manual Traction cervical spine Body Position Hooklying Reps/Duration 2x30 Comments With gentle chin tuck for posterior capsule elongation, reports feels so good Self-Care/Home Management Treatment Education Patient Education Home Exercise Program Other Education HEP: wall posture with towel behind head and chin tuck/DNF nods/rotation PT-OP-T Assessment and Plan Start: 04/18/23 17:10 Freq: Status: Active Protocol: Document 05/05/23 13:48 NM (Rec: 05/05/23 14:34 NM [id number]) Physical Therapy Assessment Goals Five Impairment strength Impairment R shoulder flexion 4/5 MMT R shoulder ER and abduction 4- /5 MMT Short Term Goal (STG) Pt will increase R shoulder flexion, abduction, and ER MMT scores to at least 4/5 in order to demonstrate improved strength for lifting, reaching , and ADLs STG Duration 4 weeks Custodial Goal (LTG) Pt will increase R shoulder flexion, abduction, and ER MMT scores to at least 4+/5 in order to demonstrate improved strength for lifting, reaching , and ADLs LTG Duration 8 weeks One Impairment sleep Impairment unable to sleep in R shoulder 1-2 hours (side or back) Short Term Goal (STG) Pt will report that she is able to sleep > 2 hours without waking due to pain or numbness in order to demonstrate improved symptom management STG Duration 4 weeks Windows System Admin Goal (LTG) Pt will report that she is able to sleep without waking due to pain or numbness in order to demonstrate improved symptom management LTG Duration 8 weeks Four Impairment R shoulder AROM Impairment R abduction 100 deg, ER 40 deg at 0 deg abd Short Term Goal (STG) Pt will increase R shoulder abduction to at least 110 deg abduction without compensation and ER to at least 50 deg in order to demonstrate improvements in arm elevation for reaching and ADLs STG Duration 4 weeks Custodial Goal (LTG) Pt will increase R shoulder abduction to at least 120 deg abduction without compensation and ER to at least 60 deg in order to demonstrate improvements in arm elevation for reaching and ADLs LTG Duration 8 weeks Three Impairment R shoulder AROM Impairment Apley IR T12 Short Term Goal (STG) Pt will increase R shoulder Apley IR to at least T9 in order to demonstate improved AROM for ADLs and dressing STG Duration 4 weeks Windows System Admin Goal (LTG) Pt will increase R shoulder Apley IR to at least T6 in order to demonstate improved AROM for ADLs and dressing, comparable to LUE LTG Duration 8 weeks Two Impairment cervical spine AROM Impairment R rotation 65 deg Short Term Goal (STG) Pt will increase R cervical spine rotation AROM to at least 70 deg in order to be comparable to L cervical spine rotation for improved visual scanning STG Duration 4 weeks Custodial Goal (LTG) Pt will increase R cervical spine rotation AROM to at least 75 deg in order to be comparable to L cervical spine rotation for improved visual scanning LTG Duration 8 weeks Assessment Summary Assessment Pt tolerated session well. Emphasis on manual treatment to improve soft tissue length, decrease pain, and improve R shoulder mobility. Pt reports 3/10 neck, 5/10 R shoulder post session, an improvement. After manual, pt's R shoulder mobility up to 155 deg abd and 153 deg flexion. Continues to have pain at end range. Initiated standing wall posture with DNF strengthening for posture; modified for towel roll due to increased forward head posture. During R shoulder sidelying AROM, pt cued consistently to limit UT compensation, for posterior setting of scapula/shoulder and remain within pain free range. Continued with gentle periscapular strengthening to decrease scapular winging. Pt would benefit from skilled PT for R shoulder and cervical spine mobility, in addition to strengthening of periscapular , rotator cuff, and deep neck flexors for improved posture, ADLs/activity, and pain management. Physical Therapy Plan Frequency and Duration Frequency of Treatment 2x/Week Duration of treatment (weeks) 8 Plan of Care Start Date 04/21/23 Plan of Care End Date 06/20/23 Therapeutic Interventions Therapeutic Interventions Balance Training,Coordination Training,Gait Training,Home Exercise Program,Joint Mobilizations,Manual Therapy, Neuromuscular Re-education, Orthotic/Prosthetic Management ,Patient/Caregiver Education, Self-Care/Home Management, Sensory Integration,Soft Tissue Mobilization,Taping, Therapeutic Activities, Therapeutic Exercises, Vestibular Rehabilitation Modalities Biofeedback,Cold Pack/Ice Massage,Electric Stimulation, Hot Packs,Ultrasound, Vasopneumatic Devices Other Therapeutic Interventions No mechanical traction due to osteopenia Keenes protocol Next Visit Focus/Plan Next Note Type Treatment Note Next Visit Plan Next session: continue AAROM, revisit sidelying shoulder AROM abduction, initiate periscapular, strengthening/ assess juan to push up plus, cervical spine stretches ( trial), open book, wall posture, pec and scalene stretch, DNF strength, shoulder isometrics Manual: STM to cervical spine, scalenes, rotator cuff; manual grade II>III mob (inf, post, lat gapping, AC) revisit isometric reactive for deep neck flexor, sidelying abduction post pec stretch, possibly abduction in hooklying
--- NOTE | 2023-05-08 13:54 | PT.OTN ---
Current Diagnoses Pain in right shoulder (05/08/23) Anesthesia of skin (05/08/23) Weakness (05/08/23) Physical Therapy Treatment Note PT-OP-A Visit Information Start: 04/18/23 17:10 Freq: Status: Active Protocol: Document 05/08/23 12:55 AB (Rec: 05/08/23 13:54 AB [id number]) Out-Patient Physical Therapy Visit Information Visit Information Visit Type Treatment Note Visit Note KX after 19 visits Access Code: [email or web address] Visit Start Time 13:01 Visit Stop Time 13:45 Visit Number [address] ATTENDANT Visits 1 Evaluation Information Evaluation Date 04/21/23 Precautions Precautions osteopenia, fibromyalgia PT-OP-B Current Condition Start: 04/18/23 17:10 Freq: Status: Active Protocol: Document 04/21/23 13:46 NM (Rec: 04/21/23 15:51 NM [id number]) Current Condition History of Current Condition Onset Date 9 months since shoulder, last 2 months since arm radiation Current Complaints pain, numbness/tingling History of Current Condition Pt presents with R shoulder pain, achiness along the entire arm beginning 9 months ago. Pt does not know what caused her R shoulder to begin hurting. Pain is worse in sleeping (unable to get into a comfortable position) and with reaching/elevation. Reports scapula and neck pain on R shoulder, post shoulder above and below clavicle. Hx of B frozen shoulder and R CARMELO /score 17 years ago. Pt also reports that 2 months ago, her R arm began to fall asleep and feel numb, usually at night but occasionally during the day with certain positions . States the numbness is not localized to a finger, but is the entire hand, which radiates from her shoulder. Reports that her hand becomes numb with sitting in certain positions that can't be replicated (not elevated) or when washing hair (arm elevated). At night, the numbness can last several hours, and she has to resort to shaking her hand to feel better over time. Had R finger surgery on 09/26/22. Tested for carpal tunnel (hx of fibro ) several years ago. States she has not had any changes in her hand strength, but reports changes in her shoulder strength since the incident began. Prior Treatments and Tests no previous PT for condition; hand therapy post finger surgery (OT) Prior Functional Status Baseline Function- Gait daily walk: 2-3 mi, max 4-5 mi (pain in neck) Current Functional Impairments (Reported) Functional Limitations- Mobility/Gait walk with cold PT-OP-C Subjective Start: 04/18/23 17:10 Freq: Status: Active Protocol: Document 05/08/23 12:55 AB (Rec: 05/08/23 13:54 AB [id number]) OP-PT Subjective Patient Comments Patient Comments Kay reports feeling pretty good today, hand pain post acupuncture, but feels better today. Pt rates neck and shoulder pain 5/10, Patient reports she is able to reach further back ( horizontal abduction ) with less pain. PT-OP-E Functional Tests Start: 04/18/23 17:10 Freq: Status: Active Protocol: Document 04/21/23 13:46 NM (Rec: 04/21/23 15:51 NM [id number]) Functional Tests Apley's Scratch Test Action 1- Left post cuff Action 1- Right post cuff, aches Action 2- Left T3 Action 2- Right T2; tight in shoulder blade, mid back, neck Action 3- Left T6 Action 3- Right T12; most pain in anterior shoulder PT-OP-F Manual Assessment Start: 04/18/23 17:10 Freq: Status: Active Protocol: Document 04/21/23 13:46 NM (Rec: 04/21/23 15:51 NM [id number]) Manual Assessments Soft Tissue Assessment Soft Tissue Mobility Assessment Increased tone on R sided cervical paraspinals, scalenes , SCM. R SCM limits rotation. Observable R carotid pulse. No swelling or atrophy of R arm, danielle near clavicle Joint Mobility Assessment Joint Mobility Assessment Decreased bilateral shoulder AROM. R shoulder AROM and PROM limited in flexion, abduction , and external rotation. Demos impingement signs. No cervical instability. Elevated R 1st rib PT-OP-G Mobility & Gait Start: 04/18/23 17:10 Freq: Status: Active Protocol: Document 04/21/23 13:46 NM (Rec: 04/21/23 15:51 NM [id number]) OP Gait Assessment Gait Gait Assistance Required: Independent Distance (Feet) 150 Comments Gait Comments Decreased trunk rotation with gait PT-OP-H Neuro Start: 04/18/23 17:10 Freq: Status: Active Protocol: Document 04/21/23 13:46 NM (Rec: 04/21/23 15:51 NM [id number]) Sensation Evaluation Comments Summary Comments BUE equally intact to light touch sensation Deep Tendon Reflex & Clonus Assessment Deep Tendon Reflex Left Brachioradialis Deep Tendon Reflex 2+ Normal Left Bicep Deep Tendon Reflex 2+ Normal Right Brachioradialis Deep Tendon Reflex 1+ Diminished Right Bicep Deep Tendon Reflex 3+ Normal But Brisk PT-OP-J Posture/Palpation/Skin Start: 04/18/23 17:10 Freq: Status: Active Protocol: Document 04/21/23 13:46 NM (Rec: 04/21/23 15:51 NM [id number]) Posture Evaluation Position Standing Head/C-Spine Posture Forward Head T-Spine Posture Increased Kyphosis L-Spine Posture Increased Lordosis Shoulder Posture (L) Rounded,(R) Rounded,(L) Forward,(R) Forward,(L) Elevated Scapula Posture (L) Protracted,(R) Protracted Arm Posture (L) Internally Rotated,(R) Internally Rotated Pelvis Posture Anteriorly Tilted Weight Distribution Balanced Hip Posture (L) Neutral,(R) Neutral Knee Posture (L) Genu Valgus,(R) Genu Valgus Patellar Posture (L) Neutral,(R) Neutral Ankle/Foot Posture (L) Pronated,(R) Pronated Palpation Assessment Location cervical spine Palpation Location spinous processes, paraspinals , suboccipitals, periscapulars Palpation Findings Soft Tissue Tightness, Tenderness Palpation Details Soft tissue tightness of B paraspinals (R>L), R upper trapezius, levator scapular, scalenes, SCM. Elevated first rib. Tenderness near mid-cervical spinous processes with P-A springing, none at upper or lower cervical spine. R shoulder Palpation Location rotator cuff, long head biceps tendon, AC joint, SC joint Palpation Findings Soft Tissue Tightness, Tenderness Palpation Details Tenderness of LH biceps tendon . No tenderness of AC or SC joint. Tenderness above and below clavicle. Tenderness along posterior cuff ( supraspinatus and infraspinatus), rhomboid. No tenderness of biceps muscle belly Skin Assessment Other Assessments Skin Assessment Comments RUE has symmetrical color and sensation to LUE. No evidence of swelling in supraclavicular or infraclavicular region, RUE. PT-OP-K Range of Motion Start: 04/18/23 17:10 Freq: Status: Active Protocol: Document 04/21/23 13:46 NM (Rec: 04/21/23 15:51 NM [id number]) Cervical Spine Range of Motion Cervical Spine Active Degrees Flexion 55 Extension 25 Rotation Left 75 Rotation Right 65 Lateral Flexion Left 25 Lateral Flexion Right 25 Comments Stretch reported posterior neck with ext; R SB>L SB discomfort, R rotation discomfort in shoulder. Reports not pain Shoulder Goniometric Range of Motion Shoulder R PROM Flexion 145 Abduction 110 External Rotation at 0 degrees Abduction 65 Internal Rotation 70 Left Flexion 140 Abduction 125 External Rotation at 90 degrees 60 Abduction External Rotation at 0 degrees Abduction 55 Internal Rotation 55 Right Flexion 140 Abduction 100 External Rotation at 90 degrees 30 Abduction External Rotation at 0 degrees Abduction 40 Internal Rotation 60 Comments impingement with abduction; pain with end range ER and flexion PT-OP-L Special Tests Start: 04/18/23 17:10 Freq: Status: Active Protocol: Document 04/21/23 13:46 NM (Rec: 04/21/23 15:51 NM [id number]) Special Tests Cervical Spine Special Tests Upper Limb Tension Test Test Results - median, radial, ulnar Comments no numbness/tingling; reports shoulder pain with depression Spurling's Test Test Results + Comments R sided focal pain in neck, no radiation into arm Traction Test Results - Transverse Ligament Test Results - Alar Ligament Test Results - Shoulder Special Tests Neer Impingement Test Results + Ship[place] Jose Impingement Test Results + Lift-Off Rotator Cuff Test Results - Comments painful but able to lift off maximally Empty Can Test Results + Comments Improved strength and less pain with full can Drop Arm Rotator Cuff Test Results - Neural Special Tests- Upper Body Tinel Sign Test Results - Comments median n Phalen's Test Results - Vascular Special Tests Adson Maneuver Test Results + Comments decreased radial pulse Claude Test Test Results + Comments reports symptoms after 30 seconds PT-OP-M Strength Start: 04/18/23 17:10 Freq: Status: Active Protocol: Document 04/21/23 13:46 NM (Rec: 04/21/23 15:51 NM [id number]) Cervical Spine Strength Cervical Spine Manual Muscle Testing Flexion (C1-2) 4+ Good+ Extension 4+ Good+ Rotation Left 4+ Good+ Rotation Right 4+ Good+ Lateral Flexion Left (C3) 4+ Good+ Lateral Flexion Right (C3) 4+ Good+ Comments No pain with resisted motion Shoulder Strength Shoulder Manual Muscle Testing Right Flexion 4- Good- Extension 4+ Good+ Abduction (C5) 4- Good- Adduction 4 Good External Rotation 4- Good- Internal Rotation 4 Good Comments Pain with resisted abduction and external rotation Left Flexion 4+ Good+ Extension 4+ Good+ Abduction (C5) 4+ Good+ Adduction 4+ Good+ External Rotation 4+ Good+ Internal Rotation 4+ Good+ Horizontal Abduction 4+ Good+ Horizontal Adduction 4+ Good+ Elbow/Forearm Strength Elbow and Forearm Manual Muscle Testing Right Flexion (C6) 4+ Good+ Extension (C7) 4+ Good+ Left Flexion (C6) 4+ Good+ Extension (C7) 4+ Good+ Wrist Strength Wrist Manual Muscle Testing Right Flexion (C7) 4+ Good+ Extension (C6) 4+ Good+ Left Flexion (C7) 4+ Good+ Extension (C6) 4+ Good+ PT-OP-Q Treatments Start: 04/18/23 17:10 Freq: Status: Active Protocol: Document 05/08/23 12:55 AB (Rec: 05/08/23 13:54 AB [id number]) Therapeutic Exercises Supine Exercises open book Side bilateral Resistance AROM Reps/Minutes 1x5 with brief hold at end range, follow w eyes/CS as long as able Comments Verbal cues to hold 5 breaths, reports SCM pain and dec range today pectoral stretch Side bilateral Reps/Minutes 2 minutes Comments prior to push up plus Sidelying Exercises abduction Sidelying Exercise Name right shoulder abd AROM Side right Resistance AROM Reps/Minutes X10 Comments no c/o pain shoulder ER AROM Side right Resistance AROM Equipment Used towel roll Reps/Minutes 1x10 Comments cued for pain free range, post cervical spine STM to decrease tension Standing Exercises deep neck flexor isometric reactive Resistance level one band Reps/Minutes X10 Comments verbal cues wall push up plus Side bilateral Reps/Minutes 1x10 Therapeutic Activity Therapeutic Activity posture check Name back to wall Comments Verbal cues to retract shoulders about 10% then hold the position when stepping away from the wall Manual Therapy Treatment Soft Tissue Mobilization right scalenes at lateral clavicle Body Location right scalenes, UT, levator scap Mobilization Type Cross-Friction,Rolling, Sustained Pressure Intensity/Depth Moderate Body Position Sitting Comments monitored for pain post cuff Body Location right, periscapular muscles Mobilization Type Cross-Friction,Rolling Intensity/Depth Moderate Body Position Sidelying Comments monitored for pain. Tenderness along infraspinatus and teres , decreased with mobilization pec Body Location right Mobilization Type Cross-Friction,Rolling Intensity/Depth Moderate Body Position Sidelying Comments monitored for pain, added functional movement for mobilization with movement and posterior shoulder setting for posture. Decreased restriction with mobilization Joint Mobilizations scapular mobilization Joint right scapula Direction depression and adduction, protract/retract Grade III Reps/Duration 1x10 each direction Comments monitored for pain, decreased retraction mobility R GHJ Direction Post, Inf Grade III Body Position Supine Reps/Duration 4x30 Comments abd: 125 to 155 deg post mob flex: 140 deg to 153 deg post mobilization Reports pain at end range, but decreased compared to arriving at clinic. Improved mobility but demos decreased post capsule mobility PT-OP-T Assessment and Plan Start: 04/18/23 17:10 Freq: Status: Active Protocol: Document 05/08/23 12:55 AB (Rec: 05/08/23 13:54 AB [id number]) Physical Therapy Assessment Goals Five Impairment strength Impairment R shoulder flexion 4/5 MMT R shoulder ER and abduction 4- /5 MMT Short Term Goal (STG) Pt will increase R shoulder flexion, abduction, and ER MMT scores to at least 4/5 in order to demonstrate improved strength for lifting, reaching , and ADLs STG Duration 4 weeks Mobile Device Developer Goal (LTG) Pt will increase R shoulder flexion, abduction, and ER MMT scores to at least 4+/5 in order to demonstrate improved strength for lifting, reaching , and ADLs LTG Duration 8 weeks One Impairment sleep Impairment unable to sleep in R shoulder 1-2 hours (side or back) Short Term Goal (STG) Pt will report that she is able to sleep > 2 hours without waking due to pain or numbness in order to demonstrate improved symptom management STG Duration 4 weeks Prison Goal (LTG) Pt will report that she is able to sleep without waking due to pain or numbness in order to demonstrate improved symptom management LTG Duration 8 weeks Four Impairment R shoulder AROM Impairment R abduction 100 deg, ER 40 deg at 0 deg abd Short Term Goal (STG) Pt will increase R shoulder abduction to at least 110 deg abduction without compensation and ER to at least 50 deg in order to demonstrate improvements in arm elevation for reaching and ADLs STG Duration 4 weeks Mobile Device Developer Goal (LTG) Pt will increase R shoulder abduction to at least 120 deg abduction without compensation and ER to at least 60 deg in order to demonstrate improvements in arm elevation for reaching and ADLs LTG Duration 8 weeks Three Impairment R shoulder AROM Impairment Apley IR T12 Short Term Goal (STG) Pt will increase R shoulder Apley IR to at least T9 in order to demonstate improved AROM for ADLs and dressing STG Duration 4 weeks Prison Goal (LTG) Pt will increase R shoulder Apley IR to at least T6 in order to demonstate improved AROM for ADLs and dressing, comparable to LUE LTG Duration 8 weeks Two Impairment cervical spine AROM Impairment R rotation 65 deg Short Term Goal (STG) Pt will increase R cervical spine rotation AROM to at least 70 deg in order to be comparable to L cervical spine rotation for improved visual scanning STG Duration 4 weeks Mobile Device Developer Goal (LTG) Pt will increase R cervical spine rotation AROM to at least 75 deg in order to be comparable to L cervical spine rotation for improved visual scanning LTG Duration 8 weeks Assessment Summary Assessment Good tolerance to this session with patient able to perform sidelying abduction right shoulder with no reports of pain end ROM. Physical Therapy Plan Frequency and Duration Frequency of Treatment 2x/Week Duration of treatment (weeks) 8 Plan of Care Start Date 04/21/23 Plan of Care End Date 06/20/23 Next Visit Focus/Plan Next Note Type Treatment Note Next Visit Plan Next session: continue AAROM, AROM abduction, initiate periscapular, strengthening cervical spine stretches ( trial), review open book, wall posture, pec and scalene stretch, DNF strength, shoulder isometrics Manual: STM to cervical spine, scalenes, rotator cuff; manual grade II>III mob (inf, post, lat gapping, AC) possiblyisometric reactive for deep neck flexor to HEP
--- NOTE | 2023-05-16 12:08 | PT.OTN ---
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 Pt does not know what caused her R shoulder to begin hurting. Pain is worse in sleeping (unable to get into a comfortable position) and with reaching/elevation. Reports scapula and neck pain on R shoulder, post shoulder above and below clavicle. Hx of B frozen shoulder and R CARMELO /score 17 years ago. Pt also reports that 2 months ago, her R arm began to fall asleep and feel numb, usually at night but occasionally during the day with certain positions . States the numbness is not localized to a finger, but is the entire hand, which radiates from her shoulder. Reports that her hand becomes numb with sitting in certain positions that can't be replicated (not elevated) or when washing hair (arm elevated). At night, the numbness can last several hours, and she has to resort to shaking her hand to feel better over time. Had R finger surgery on 09/26/22. Tested for carpal tunnel (hx of fibro ) several years ago. States she has not had any changes in her hand strength, but reports changes in her shoulder strength since the incident began. Prior Treatments and Tests no previous PT for condition; hand therapy post finger surgery (OT) Prior Functional Status Baseline Function- Gait daily walk: 2-3 mi, max 4-5 mi (pain in neck) Current Functional Impairments (Reported) Functional Limitations- Mobility/Gait walk with cold PT-OP-C Subjective Start: 04/18/23 17:10 Freq: Status: Active Protocol: Document 05/16/23 08:02 AB (Rec: 05/16/23 09:46 AB [id number]) OP-PT Subjective Patient Comments Patient Comments Kay reports some of the exercises are making the shoulder feel worse, not worse than when she started, but worse than a week ago. Patient rates shoulder right UE down UE 7/10, neck 4-5/10 start of session. 125 deg AROM right shoulder flexion start of session. PT-OP-E Functional Tests Start: 04/18/23 17:10 Freq: Status: Active Protocol: Document 04/21/23 13:46 NM (Rec: 04/21/23 15:51 NM [id number]) Functional Tests Apley's Scratch Test Action 1- Left post cuff Action 1- Right post cuff, aches Action 2- Left T3 Action 2- Right T2; tight in shoulder blade, mid back, neck Action 3- Left T6 Action 3- Right T12; most pain in anterior shoulder PT-OP-F Manual Assessment Start: 04/18/23 17:10 Freq: Status: Active Protocol: Document 04/21/23 13:46 NM (Rec: 04/21/23 15:51 NM [id number]) Manual Assessments Soft Tissue Assessment Soft Tissue Mobility Assessment Increased tone on R sided cervical paraspinals, scalenes , SCM. R SCM limits rotation. Observable R carotid pulse. No swelling or atrophy of R arm, danielle near clavicle Joint Mobility Assessment Joint Mobility Assessment Decreased bilateral shoulder AROM. R shoulder AROM and PROM limited in flexion, abduction , and external rotation. Demos impingement signs. No cervical instability. Elevated R 1st rib PT-OP-G Mobility & Gait Start: 04/18/23 17:10 Freq: Status: Active Protocol: Document 04/21/23 13:46 NM (Rec: 04/21/23 15:51 NM [id number]) OP Gait Assessment Gait Gait Assistance Required: Independent Distance (Feet) 150 Comments Gait Comments Decreased trunk rotation with gait PT-OP-H Neuro Start: 04/18/23 17:10 Freq: Status: Active Protocol: Document 04/21/23 13:46 NM (Rec: 04/21/23 15:51 NM [id number]) Sensation Evaluation Comments Summary Comments BUE equally intact to light touch sensation Deep Tendon Reflex & Clonus Assessment Deep Tendon Reflex Left Brachioradialis Deep Tendon Reflex 2+ Normal Left Bicep Deep Tendon Reflex 2+ Normal Right Brachioradialis Deep Tendon Reflex 1+ Diminished Right Bicep Deep Tendon Reflex 3+ Normal But Brisk PT-OP-J Posture/Palpation/Skin Start: 04/18/23 17:10 Freq: Status: Active Protocol: Document 04/21/23 13:46 NM (Rec: 04/21/23 15:51 NM [id number]) Posture Evaluation Position Standing Head/C-Spine Posture Forward Head T-Spine Posture Increased Kyphosis L-Spine Posture Increased Lordosis Shoulder Posture (L) Rounded,(R) Rounded,(L) Forward,(R) Forward,(L) Elevated Scapula Posture (L) Protracted,(R) Protracted Arm Posture (L) Internally Rotated,(R) Internally Rotated Pelvis Posture Anteriorly Tilted Weight Distribution Balanced Hip Posture (L) Neutral,(R) Neutral Knee Posture (L) Genu Valgus,(R) Genu Valgus Patellar Posture (L) Neutral,(R) Neutral Ankle/Foot Posture (L) Pronated,(R) Pronated Palpation Assessment Location cervical spine Palpation Location spinous processes, paraspinals , suboccipitals, periscapulars Palpation Findings Soft Tissue Tightness, Tenderness Palpation Details Soft tissue tightness of B paraspinals (R>L), R upper trapezius, levator scapular, scalenes, SCM. Elevated first rib. Tenderness near mid-cervical spinous processes with P-A springing, none at upper or lower cervical spine. R shoulder Palpation Location rotator cuff, long head biceps tendon, AC joint, SC joint Palpation Findings Soft Tissue Tightness, Tenderness Palpation Details Tenderness of LH biceps tendon . No tenderness of AC or SC joint. Tenderness above and below clavicle. Tenderness along posterior cuff ( supraspinatus and infraspinatus), rhomboid. No tenderness of biceps muscle belly Skin Assessment Other Assessments Skin Assessment Comments RUE has symmetrical color and sensation to LUE. No evidence of swelling in supraclavicular or infraclavicular region, RUE. PT-OP-K Range of Motion Start: 04/18/23 17:10 Freq: Status: Active Protocol: Document 04/21/23 13:46 NM (Rec: 04/21/23 15:51 NM [id number]) Cervical Spine Range of Motion Cervical Spine Active Degrees Flexion 55 Extension 25 Rotation Left 75 Rotation Right 65 Lateral Flexion Left 25 Lateral Flexion Right 25 Comments Stretch reported posterior neck with ext; R SB>L SB discomfort, R rotation discomfort in shoulder. Reports not pain Shoulder Goniometric Range of Motion Shoulder R PROM Flexion 145 Abduction 110 External Rotation at 0 degrees Abduction 65 Internal Rotation 70 Left Flexion 140 Abduction 125 External Rotation at 90 degrees 60 Abduction External Rotation at 0 degrees Abduction 55 Internal Rotation 55 Right Flexion 140 Abduction 100 External Rotation at 90 degrees 30 Abduction External Rotation at 0 degrees Abduction 40 Internal Rotation 60 Comments impingement with abduction; pain with end range ER and flexion PT-OP-L Special Tests Start: 04/18/23 17:10 Freq: Status: Active Protocol: Document 04/21/23 13:46 NM (Rec: 04/21/23 15:51 NM [id number]) Special Tests Cervical Spine Special Tests Upper Limb Tension Test Test Results - median, radial, ulnar Comments no numbness/tingling; reports shoulder pain with depression Spurling's Test Test Results + Comments R sided focal pain in neck, no radiation into arm Traction Test Results - Transverse Ligament Test Results - Alar Ligament Test Results - Shoulder Special Tests Neer Impingement Test Results + Shipman Jose Impingement Test Results + Lift-Off Rotator Cuff Test Results - Comments painful but able to lift off maximally Empty Can Test Results + Comments Improved strength and less pain with full can Drop Arm Rotator Cuff Test Results - Neural Special Tests- Upper Body Tinel Sign Test Results - Comments median n Phalen's Test Results - Vascular Special Tests Adson Maneuver Test Results + Comments decreased radial pulse Claude Test Test Results + Comments reports symptoms after 30 seconds PT-OP-M Strength Start: 04/18/23 17:10 Freq: Status: Active Protocol: Document 04/21/23 13:46 NM (Rec: 04/21/23 15:51 NM [id number]) Cervical Spine Strength Cervical Spine Manual Muscle Testing Flexion (C1-2) 4+ Good+ Extension 4+ Good+ Rotation Left 4+ Good+ Rotation Right 4+ Good+ Lateral Flexion Left (C3) 4+ Good+ Lateral Flexion Right (C3) 4+ Good+ Comments No pain with resisted motion Shoulder Strength Shoulder Manual Muscle Testing Right Flexion 4- Good- Extension 4+ Good+ Abduction (C5) 4- Good- Adduction 4 Good External Rotation 4- Good- Internal Rotation 4 Good Comments Pain with resisted abduction and external rotation Left Flexion 4+ Good+ Extension 4+ Good+ Abduction (C5) 4+ Good+ Adduction 4+ Good+ External Rotation 4+ Good+ Internal Rotation 4+ Good+ Horizontal Abduction 4+ Good+ Horizontal Adduction 4+ Good+ Elbow/Forearm Strength Elbow and Forearm Manual Muscle Testing Right Flexion (C6) 4+ Good+ Extension (C7) 4+ Good+ Left Flexion (C6) 4+ Good+ Extension (C7) 4+ Good+ Wrist Strength Wrist Manual Muscle Testing Right Flexion (C7) 4+ Good+ Extension (C6) 4+ Good+ Left Flexion (C7) 4+ Good+ Extension (C6) 4+ Good+ PT-OP-Q Treatments Start: 04/18/23 17:10 Freq: Status: Active Protocol: Document 05/16/23 08:02 AB (Rec: 05/16/23 12:07 AB [id number]) Therapeutic Exercises Supine Exercises open book Side bilateral Resistance AROM Reps/Minutes 1x5 with brief hold at end range, follow w eyes/CS as long as able Comments Verbal cues to hold 5 breaths, reports SCM pain and dec range today Sidelying Exercises abduction Sidelying Exercise Name right shoulder abd AROM Side right Resistance AROM Reps/Minutes X10 Comments no c/o pain shoulder ER AROM Side right Resistance AROM Equipment Used towel roll Reps/Minutes 1x10 Comments cued for pain free range, post cervical spine STM to decrease tension Standing Exercises wall slide with lift Standing Exercise Name without lift off Side bilateral Reps/Minutes X10 Comments verbal cues to keep pressure on wall Manual Therapy Treatment Soft Tissue Mobilization right scalenes at lateral clavicle Body Location right scalenes, UT, levator scap Mobilization Type Cross-Friction,Rolling, Sustained Pressure Intensity/Depth Moderate Body Position Sitting Comments monitored for pain post cuff Body Location right post cuff and, periscapular muscles Mobilization Type Cross-Friction,Rolling Intensity/Depth Moderate Body Position Sidelying Comments monitored for pain. Tenderness along infraspinatus and teres , decreased with mobilization pec Body Location right Mobilization Type Cross-Friction,Rolling Intensity/Depth Moderate Body Position Sidelying Comments monitored for pain, added functional movement for mobilization with movement and posterior shoulder setting for posture. Decreased restriction with mobilization Joint Mobilizations scapular mobilization Joint right scapula Direction depression and adduction, protract/retract Grade III Reps/Duration 1x10 each direction Comments monitored for pain, decreased retraction mobility R GHJ Direction AP, Inf Grade III Body Position Supine Reps/Duration 15X2 Self-Care/Home Management Treatment Activities Self-Care/Home Management Activities Added sidelying shoulder ER, abduction, and deep neck flexor isometric to HEP PT-OP-T Assessment and Plan Start: 04/18/23 17:10 Freq: Status: Active Protocol: Document 05/16/23 08:02 AB (Rec: 05/16/23 09:46 AB [id number]) Physical Therapy Assessment Goals Five Impairment strength Impairment R shoulder flexion 4/5 MMT R shoulder ER and abduction 4- /5 MMT Short Term Goal (STG) Pt will increase R shoulder flexion, abduction, and ER MMT scores to at least 4/5 in order to demonstrate improved strength for lifting, reaching , and ADLs STG Duration 4 weeks 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) Pt will increase R shoulder flexion, abduction, and ER MMT scores to at least 4+/5 in order to demonstrate improved strength for lifting, reaching , and ADLs LTG Duration 8 weeks One Impairment sleep Impairment unable to sleep in R shoulder 1-2 hours (side or back) Short Term Goal (STG) Pt will report that she is able to sleep > 2 hours without waking due to pain or numbness in order to demonstrate improved symptom management STG Duration 4 weeks Residential Goal (LTG) Pt will report that she is able to sleep without waking due to pain or numbness in order to demonstrate improved symptom management LTG Duration 8 weeks Four Impairment R shoulder AROM Impairment R abduction 100 deg, ER 40 deg at 0 deg abd Short Term Goal (STG) Pt will increase R shoulder abduction to at least 110 deg abduction without compensation and ER to at least 50 deg in order to demonstrate improvements in arm elevation for reaching and ADLs STG Duration 4 weeks [employer]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) Pt will increase R shoulder abduction to at least 120 deg abduction without compensation and ER to at least 60 deg in order to demonstrate improvements in arm elevation for reaching and ADLs LTG Duration 8 weeks Three Impairment R shoulder AROM Impairment Apley IR T12 Short Term Goal (STG) Pt will increase R shoulder Apley IR to at least T9 in order to demonstate improved AROM for ADLs and dressing STG Duration 4 weeks Residential Goal (LTG) Pt will increase R shoulder Apley IR to at least T6 in order to demonstate improved AROM for ADLs and dressing, comparable to LUE LTG Duration 8 weeks Two Impairment cervical spine AROM Impairment R rotation 65 deg Short Term Goal (STG) Pt will increase R cervical spine rotation AROM to at least 70 deg in order to be comparable to L cervical spine rotation for improved visual scanning STG Duration 4 weeks Residential Goal (LTG) Pt will increase R cervical spine rotation AROM to at least 75 deg in order to be comparable to L cervical spine rotation for improved visual scanning LTG Duration 8 weeks Assessment Summary Assessment AROM right shoulder flexion 142 deg end of session, with good juan to sidelying abduction exercise and patient reporting no UE tingling right UE end of session. Physical Therapy Plan Frequency and Duration Frequency of Treatment 2x/Week Duration of treatment (weeks) 8 Plan of Care Start Date 04/21/23 Plan of Care End Date 06/20/23 Next Visit Focus/Plan Next Note Type Treatment Note Next Visit Plan Next session: continue AAROM, initiate periscapular, strengthening cervical spine stretches (trial), wall posture, pec and scalene stretch, DNF strength, shoulder isometrics Manual: STM to cervical spine, scalenes, rotator cuff; manual grade II>III mob (inf, post, lat gapping, AC)
--- NOTE | 2023-05-21 14:09 | PT.OTN ---
Current Diagnoses Pain in right shoulder (05/21/23) Anesthesia of skin (05/21/23) Weakness (05/21/23) Physical Therapy Treatment Note PT-OP-A Visit Information Start: 04/18/23 17:10 Freq: Status: Active Protocol: Document 05/21/23 12:56 NM (Rec: 05/21/23 14:09 NM [id number]) Out-Patient Physical Therapy Visit Information Visit Information Visit Type Treatment Note Visit Note KX after 19 visits Visit Start Time 12:58 Visit Stop Time 13:45 Visit Number 8 Evaluation Information Evaluation Date 04/21/23 PT-OP-B Current Condition Start: 04/18/23 17:10 Freq: Status: Active Protocol: Document 04/21/23 13:46 NM (Rec: 04/21/23 15:51 NM [id number]) Current Condition History of Current Condition Onset Date 9 months since shoulder, last 2 months since arm radiation Current Complaints pain, numbness/tingling History of Current Condition Pt presents with R shoulder pain, achiness along the entire arm beginning 9 months ago. Pt does not know what caused her R shoulder to begin hurting. Pain is worse in sleeping (unable to get into a comfortable position) and with reaching/elevation. Reports scapula and neck pain on R shoulder, post shoulder above and below clavicle. Hx of B frozen shoulder and R CARMELO /score 17 years ago. Pt also reports that 2 months ago, her R arm began to fall asleep and feel numb, usually at night but occasionally during the day with certain positions . States the numbness is not localized to a finger, but is the entire hand, which radiates from her shoulder. Reports that her hand becomes numb with sitting in certain positions that can't be replicated (not elevated) or when washing hair (arm elevated). At night, the numbness can last several hours, and she has to resort to shaking her hand to feel better over time. Had R finger surgery on 09/26/22. Tested for carpal tunnel (hx of fibro ) several years ago. States she has not had any changes in her hand strength, but reports changes in her shoulder strength since the incident began. Prior Treatments and Tests no previous PT for condition; hand therapy post finger surgery (OT) Prior Functional Status Baseline Function- Gait daily walk: 2-3 mi, max 4-5 mi (pain in neck) Current Functional Impairments (Reported) Functional Limitations- Mobility/Gait walk with cold PT-OP-C Subjective Start: 04/18/23 17:10 Freq: Status: Active Protocol: Document 05/21/23 12:56 NM (Rec: 05/21/23 14:09 NM [id number]) OP-PT Subjective Patient Comments Patient Comments Pt reports that she is having R shoulder/elbow pain today. She reports that she continues to have numbness/tingling ( states no increase in frequency), usually at night, occurs when her arm is close to her body. Less shoulder blade pain, but continues to have numbness/tingling. Continues have R shoulder pain, limitations in flexion/ abduction with catching at raise. States neck 09/19, 07/20. PT-OP-E Functional Tests Start: 04/18/23 17:10 Freq: Status: Active Protocol: Document 04/21/23 13:46 NM (Rec: 04/21/23 15:51 NM [id number]) Functional Tests Apley's Scratch Test Action 1- Left post cuff Action 1- Right post cuff, aches Action 2- Left T3 Action 2- Right T2; tight in shoulder blade, mid back, neck Action 3- Left T6 Action 3- Right T12; most pain in anterior shoulder PT-OP-F Manual Assessment Start: 04/18/23 17:10 Freq: Status: Active Protocol: Document 04/21/23 13:46 NM (Rec: 04/21/23 15:51 NM [id number]) Manual Assessments Soft Tissue Assessment Soft Tissue Mobility Assessment Increased tone on R sided cervical paraspinals, scalenes , SCM. R SCM limits rotation. Observable R carotid pulse. No swelling or atrophy of R arm, danielle near clavicle Joint Mobility Assessment Joint Mobility Assessment Decreased bilateral shoulder AROM. R shoulder AROM and PROM limited in flexion, abduction , and external rotation. Demos impingement signs. No cervical instability. Elevated R 1st rib PT-OP-G Mobility & Gait Start: 04/18/23 17:10 Freq: Status: Active Protocol: Document 04/21/23 13:46 NM (Rec: 04/21/23 15:51 NM [id number]) OP Gait Assessment Gait Gait Assistance Required: Independent Distance (Feet) 150 Comments Gait Comments Decreased trunk rotation with gait PT-OP-H Neuro Start: 04/18/23 17:10 Freq: Status: Active Protocol: Document 04/21/23 13:46 NM (Rec: 04/21/23 15:51 NM [id number]) Sensation Evaluation Comments Summary Comments BUE equally intact to light touch sensation Deep Tendon Reflex & Clonus Assessment Deep Tendon Reflex Left Brachioradialis Deep Tendon Reflex 2+ Normal Left Bicep Deep Tendon Reflex 2+ Normal Right Brachioradialis Deep Tendon Reflex 1+ Diminished Right Bicep Deep Tendon Reflex 3+ Normal But Brisk PT-OP-J Posture/Palpation/Skin Start: 04/18/23 17:10 Freq: Status: Active Protocol: Document 04/21/23 13:46 NM (Rec: 04/21/23 15:51 NM [id number]) Posture Evaluation Position Standing Head/C-Spine Posture Forward Head T-Spine Posture Increased Kyphosis L-Spine Posture Increased Lordosis Shoulder Posture (L) Rounded,(R) Rounded,(L) Forward,(R) Forward,(L) Elevated Scapula Posture (L) Protracted,(R) Protracted Arm Posture (L) Internally Rotated,(R) Internally Rotated Pelvis Posture Anteriorly Tilted Weight Distribution Balanced Hip Posture (L) Neutral,(R) Neutral Knee Posture (L) Genu Valgus,(R) Genu Valgus Patellar Posture (L) Neutral,(R) Neutral Ankle/Foot Posture (L) Pronated,(R) Pronated Palpation Assessment Location cervical spine Palpation Location spinous processes, paraspinals , suboccipitals, periscapulars Palpation Findings Soft Tissue Tightness, Tenderness Palpation Details Soft tissue tightness of B paraspinals (R>L), R upper trapezius, levator scapular, scalenes, SCM. Elevated first rib. Tenderness near mid-cervical spinous processes with P-A springing, none at upper or lower cervical spine. R shoulder Palpation Location rotator cuff, long head biceps tendon, AC joint, SC joint Palpation Findings Soft Tissue Tightness, Tenderness Palpation Details Tenderness of LH biceps tendon . No tenderness of AC or SC joint. Tenderness above and below clavicle. Tenderness along posterior cuff ( supraspinatus and infraspinatus), rhomboid. No tenderness of biceps muscle belly Skin Assessment Other Assessments Skin Assessment Comments RUE has symmetrical color and sensation to LUE. No evidence of swelling in supraclavicular or infraclavicular region, RUE. PT-OP-K Range of Motion Start: 04/18/23 17:10 Freq: Status: Active Protocol: Document 04/21/23 13:46 NM (Rec: 04/21/23 15:51 NM [id number]) Cervical Spine Range of Motion Cervical Spine Active Degrees Flexion 55 Extension 25 Rotation Left 75 Rotation Right 65 Lateral Flexion Left 25 Lateral Flexion Right 25 Comments Stretch reported posterior neck with ext; R SB>L SB discomfort, R rotation discomfort in shoulder. Reports not pain Shoulder Goniometric Range of Motion Shoulder R PROM Flexion 145 Abduction 110 External Rotation at 0 degrees Abduction 65 Internal Rotation 70 Left Flexion 140 Abduction 125 External Rotation at 90 degrees 60 Abduction External Rotation at 0 degrees Abduction 55 Internal Rotation 55 Right Flexion 140 Abduction 100 External Rotation at 90 degrees 30 Abduction External Rotation at 0 degrees Abduction 40 Internal Rotation 60 Comments impingement with abduction; pain with end range ER and flexion PT-OP-L Special Tests Start: 04/18/23 17:10 Freq: Status: Active Protocol: Document 04/21/23 13:46 NM (Rec: 04/21/23 15:51 NM [id number]) Special Tests Cervical Spine Special Tests Upper Limb Tension Test Test Results - median, radial, ulnar Comments no numbness/tingling; reports shoulder pain with depression Spurling's Test Test Results + Comments R sided focal pain in neck, no radiation into arm Traction Test Results - Transverse Ligament Test Results - Alar Ligament Test Results - Shoulder Special Tests Neer Impingement Test Results + [place] Impingement Test Results + Lift-Off Rotator Cuff Test Results - Comments painful but able to lift off maximally Empty Can Test Results + Comments Improved strength and less pain with full can Drop Arm Rotator Cuff Test Results - Neural Special Tests- Upper Body Tinel Sign Test Results - Comments median n Phalen's Test Results - Vascular Special Tests Adson Maneuver Test Results + Comments decreased radial pulse Claude Test Test Results + Comments reports symptoms after 30 seconds PT-OP-M Strength Start: 04/18/23 17:10 Freq: Status: Active Protocol: Document 04/21/23 13:46 NM (Rec: 04/21/23 15:51 NM [id number]) Cervical Spine Strength Cervical Spine Manual Muscle Testing Flexion (C1-2) 4+ Good+ Extension 4+ Good+ Rotation Left 4+ Good+ Rotation Right 4+ Good+ Lateral Flexion Left (C3) 4+ Good+ Lateral Flexion Right (C3) 4+ Good+ Comments No pain with resisted motion Shoulder Strength Shoulder Manual Muscle Testing Right Flexion 4- Good- Extension 4+ Good+ Abduction (C5) 4- Good- Adduction 4 Good External Rotation 4- Good- Internal Rotation 4 Good Comments Pain with resisted abduction and external rotation Left Flexion 4+ Good+ Extension 4+ Good+ Abduction (C5) 4+ Good+ Adduction 4+ Good+ External Rotation 4+ Good+ Internal Rotation 4+ Good+ Horizontal Abduction 4+ Good+ Horizontal Adduction 4+ Good+ Elbow/Forearm Strength Elbow and Forearm Manual Muscle Testing Right Flexion (C6) 4+ Good+ Extension (C7) 4+ Good+ Left Flexion (C6) 4+ Good+ Extension (C7) 4+ Good+ Wrist Strength Wrist Manual Muscle Testing Right Flexion (C7) 4+ Good+ Extension (C6) 4+ Good+ Left Flexion (C7) 4+ Good+ Extension (C6) 4+ Good+ PT-OP-Q Treatments Start: 04/18/23 17:10 Freq: Status: Active Protocol: Document 05/21/23 12:56 NM (Rec: 05/21/23 14:09 NM [id number]) Therapeutic Exercises Sidelying Exercises flexion AROM Sidelying Exercise Name re-trialed Resistance AROM Equipment Used PT facilitate long axis distraction Reps/Minutes 1x10 Comments cued to remain in pain free range abduction Sidelying Exercise Name right shoulder abd AROM Side right Resistance AROM Reps/Minutes 1x10 Comments post manual; pain free but limited range shoulder ER AROM Side right Resistance AROM Equipment Used towel roll Reps/Minutes 1x10 Comments cued for pain free range, post cervical spine STM to decrease tension Sitting Exercises cervical spine stretch Sitting Exercise Name trialed in PT: 1. UT (L SB only), 2. LS (bilateral) Equipment Used hand holding plinth for tension Reps/Minutes 1x30 ea Comments no symptoms except R SB (did not stretch); reports good stretch, pain free scapular retractions Sitting Exercise Name 1. retractions, 2. depression Side bilateral Resistance AROM Equipment Used PT facilitating scap movement initially, fingers for tactile cue Reps/Minutes 1. 1x10 w/ 3 hold, 2. 1x10 with 3 hold Comments pain free; cued to limit upper trap activation Standing Exercises rows Standing Exercise Name trialed in PT; added to HEP Side bilateral Resistance lvl 3 band Reps/Minutes 2x10 Comments tactile cue for scap control; improved with reps wall slide with lift Standing Exercise Name with lift off- bent arm > lower (trialed ext arm- painfree but challenging) Side bilateral Reps/Minutes 1x10 bent arm, 1x5 arm ext Comments pain free today; cued limit UT to lift/lower arm Manual Therapy Treatment Soft Tissue Mobilization right scalenes at lateral clavicle Body Location right scalenes, UT, levator scap Mobilization Type Cross-Friction,Rolling, Sustained Pressure Intensity/Depth Moderate Body Position Sitting Comments Increased tenderness at R UT/ LS today, trigger point. Did not perform release due to tenderness, monitored for pain post cuff Body Location right post cuff, periscapular muscles Mobilization Type Cross-Friction,Rolling Intensity/Depth Moderate Body Position Sidelying Comments Less tenderness along infraspinatus and teres today. Tenderness of R rhomboids, reduced with rolling pec Body Location right Mobilization Type Cross-Friction,Rolling Intensity/Depth Moderate Body Position Sidelying Comments Performed with posterior scapular setting to lengthen during mobilization, pain free but increased tightness cervical spine Body Location suboccipitals, paraspinals, SCM, scalenes Mobilization Type Rolling,Sustained Pressure Intensity/Depth sup/mod Body Position Hooklying Comments Increased tightness of R paraspinals, SCM, DNF. Tenderness R paraspinals, performed with gentle lateral flexion and traction ea direction, pain free and improved length with rolling Joint Mobilizations scapular mobilization Joint right scapula Direction depression and adduction, protract/retract Grade III Reps/Duration 1x12 each direction Comments monitored for pain, decreased retraction and depression mobility R GHJ Direction AP, Inf Grade III Body Position Supine Reps/Duration 2x30 Comments Reports good feedback with AP glide, improved ROM into flexion (140 deg) without catching, abd (155 deg) without catching post mobilization but increased tenderness with inf glide Self-Care/Home Management Treatment Education Patient Education Home Exercise Program Other Education HEP: rows (issued band), education on STM with ball for upper trap/LS, upper trap stretch w/o UE assist with L lateral flexion only, LS stretch bilateral PT-OP-T Assessment and Plan Start: 04/18/23 17:10 Freq: Status: Active Protocol: Document 05/21/23 12:56 NM (Rec: 05/21/23 14:09 NM [id number]) Physical Therapy Assessment Goals Five Impairment strength Impairment R shoulder flexion 4/5 MMT R shoulder ER and abduction 4- /5 MMT Short Term Goal (STG) Pt will increase R shoulder flexion, abduction, and ER MMT scores to at least 4/5 in order to demonstrate improved strength for lifting, reaching , and ADLs STG Duration 4 weeks Senior Care Goal (LTG) Pt will increase R shoulder flexion, abduction, and ER MMT scores to at least 4+/5 in order to demonstrate improved strength for lifting, reaching , and ADLs LTG Duration 8 weeks One Impairment sleep Impairment unable to sleep in R shoulder 1-2 hours (side or back) Short Term Goal (STG) Pt will report that she is able to sleep > 2 hours without waking due to pain or numbness in order to demonstrate improved symptom management STG Duration 4 weeks Senior Care Goal (LTG) Pt will report that she is able to sleep without waking due to pain or numbness in order to demonstrate improved symptom management LTG Duration 8 weeks Four Impairment R shoulder AROM Impairment R abduction 100 deg, ER 40 deg at 0 deg abd Short Term Goal (STG) Pt will increase R shoulder abduction to at least 110 deg abduction without compensation and ER to at least 50 deg in order to demonstrate improvements in arm elevation for reaching and ADLs STG Duration 4 weeks Actor Understudy Goal (LTG) Pt will increase R shoulder abduction to at least 120 deg abduction without compensation and ER to at least 60 deg in order to demonstrate improvements in arm elevation for reaching and ADLs LTG Duration 8 weeks Three Impairment R shoulder AROM Impairment Apley IR T12 Short Term Goal (STG) Pt will increase R shoulder Apley IR to at least T9 in order to demonstate improved AROM for ADLs and dressing STG Duration 4 weeks Actor Understudy Goal (LTG) Pt will increase R shoulder Apley IR to at least T6 in order to demonstate improved AROM for ADLs and dressing, comparable to LUE LTG Duration 8 weeks Two Impairment cervical spine AROM Impairment R rotation 65 deg Short Term Goal (STG) Pt will increase R cervical spine rotation AROM to at least 70 deg in order to be comparable to L cervical spine rotation for improved visual scanning STG Duration 4 weeks Senior Care Goal (LTG) Pt will increase R cervical spine rotation AROM to at least 75 deg in order to be comparable to L cervical spine rotation for improved visual scanning LTG Duration 8 weeks Assessment Summary Assessment Pt tolerated session well despite increased pain levels. Majority of session spent performing manual treatment for pain reduction and improve soft tissue length. Pt continues to have tenderness and tightness of R upper trapezius, levator scapula, and paraspinals. She reports catching in R shoulder with elevation; however, did not observe in session today. Right shoulder flexion 140 deg , abduction 150 deg post mobilization; continues to be painful at end range. Trialed stretching of cervical spine to improve soft tissue length. Pt reports increase in numbness/tingling symptoms if stretching into R lateral flexion but none into L lateral flexion or for levator scapula. Initiated banded rows following scapular mobility and control exercises to retrain new postural muscles and improve periscapular strength. Pt making minimal progress toward pain management and goals. She will be following up with PCP in future. Pt would likely benefit from further imaging to determine source of numbness/tingling, especially due to increasing symptoms. Pt would benefit from skilled PT for cervical spine mobilization and R shoulder periscapular strengthening in order to improve mobility and activity tolerance, decrease pain symptoms. Physical Therapy Plan Frequency and Duration Frequency of Treatment 2x/Week Duration of treatment (weeks) 8 Plan of Care Start Date 04/21/23 Plan of Care End Date 06/20/23 Therapeutic Interventions Therapeutic Interventions Balance Training,Coordination Training,Gait Training,Home Exercise Program,Joint Mobilizations,Manual Therapy, Neuromuscular Re-education, Orthotic/Prosthetic Management ,Patient/Caregiver Education, Self-Care/Home Management, Sensory Integration,Soft Tissue Mobilization,Taping, Therapeutic Activities, Therapeutic Exercises, Vestibular Rehabilitation Modalities Biofeedback,Cold Pack/Ice Massage,Electric Stimulation, Hot Packs,Ultrasound, Vasopneumatic Devices Other Therapeutic Interventions No mechanical traction due to osteopenia [place] protocol Next Visit Focus/Plan Next Note Type Treatment Note Next Visit Plan Next session: rows, shoulder extension, posture strengthening, snow angels, p/ u plus (trial), pec and scalene stretch, DNF strength, shoulder isometrics Manual: STM to cervical spine, scalenes, rotator cuff; manual grade II>III mob (inf, post, lat gapping, AC) PN in 2 visits
--- NOTE | 2023-05-23 15:14 | PT.OTN ---
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 Pt does not know what caused her R shoulder to begin hurting. Pain is worse in sleeping (unable to get into a comfortable position) and with reaching/elevation. Reports scapula and neck pain on R shoulder, post shoulder above and below clavicle. Hx of B frozen shoulder and R CARMELO /score 17 years ago. Pt also reports that 2 months ago, her R arm began to fall asleep and feel numb, usually at night but occasionally during the day with certain positions . States the numbness is not localized to a finger, but is the entire hand, which radiates from her shoulder. Reports that her hand becomes numb with sitting in certain positions that can't be replicated (not elevated) or when washing hair (arm elevated). At night, the numbness can last several hours, and she has to resort to shaking her hand to feel better over time. Had R finger surgery on 09/26/22. Tested for carpal tunnel (hx of fibro ) several years ago. States she has not had any changes in her hand strength, but reports changes in her shoulder strength since the incident began. Prior Treatments and Tests no previous PT for condition; hand therapy post finger surgery (OT) Prior Functional Status Baseline Function- Gait daily walk: 2-3 mi, max 4-5 mi (pain in neck) Current Functional Impairments (Reported) Functional Limitations- Mobility/Gait walk with cold PT-OP-C Subjective Start: 04/18/23 17:10 Freq: Status: Active Protocol: Document 05/23/23 14:36 SP (Rec: 05/23/23 16:01 SP [id number]) OP-PT Subjective Patient Comments Patient Comments Pt reports the manual helped last tx and feels hand more ROM after. PT-OP-E Functional Tests Start: 04/18/23 17:10 Freq: Status: Active Protocol: Document 04/21/23 13:46 NM (Rec: 04/21/23 15:51 NM [id number]) Functional Tests Apley's Scratch Test Action 1- Left post cuff Action 1- Right post cuff, aches Action 2- Left T3 Action 2- Right T2; tight in shoulder blade, mid back, neck Action 3- Left T6 Action 3- Right T12; most pain in anterior shoulder PT-OP-F Manual Assessment Start: 04/18/23 17:10 Freq: Status: Active Protocol: Document 04/21/23 13:46 NM (Rec: 04/21/23 15:51 NM [id number]) Manual Assessments Soft Tissue Assessment Soft Tissue Mobility Assessment Increased tone on R sided cervical paraspinals, scalenes , SCM. R SCM limits rotation. Observable R carotid pulse. No swelling or atrophy of R arm, danielle near clavicle Joint Mobility Assessment Joint Mobility Assessment Decreased bilateral shoulder AROM. R shoulder AROM and PROM limited in flexion, abduction , and external rotation. Demos impingement signs. No cervical instability. Elevated R 1st rib PT-OP-G Mobility & Gait Start: 04/18/23 17:10 Freq: Status: Active Protocol: Document 04/21/23 13:46 NM (Rec: 04/21/23 15:51 NM [id number]) OP Gait Assessment Gait Gait Assistance Required: Independent Distance (Feet) 150 Comments Gait Comments Decreased trunk rotation with gait PT-OP-H Neuro Start: 04/18/23 17:10 Freq: Status: Active Protocol: Document 04/21/23 13:46 NM (Rec: 04/21/23 15:51 NM [id number]) Sensation Evaluation Comments Summary Comments BUE equally intact to light touch sensation Deep Tendon Reflex & Clonus Assessment Deep Tendon Reflex Left Brachioradialis Deep Tendon Reflex 2+ Normal Left Bicep Deep Tendon Reflex 2+ Normal Right Brachioradialis Deep Tendon Reflex 1+ Diminished Right Bicep Deep Tendon Reflex 3+ Normal But Brisk PT-OP-J Posture/Palpation/Skin Start: 04/18/23 17:10 Freq: Status: Active Protocol: Document 04/21/23 13:46 NM (Rec: 04/21/23 15:51 NM [id number]) Posture Evaluation Position Standing Head/C-Spine Posture Forward Head T-Spine Posture Increased Kyphosis L-Spine Posture Increased Lordosis Shoulder Posture (L) Rounded,(R) Rounded,(L) Forward,(R) Forward,(L) Elevated Scapula Posture (L) Protracted,(R) Protracted Arm Posture (L) Internally Rotated,(R) Internally Rotated Pelvis Posture Anteriorly Tilted Weight Distribution Balanced Hip Posture (L) Neutral,(R) Neutral Knee Posture (L) Genu Valgus,(R) Genu Valgus Patellar Posture (L) Neutral,(R) Neutral Ankle/Foot Posture (L) Pronated,(R) Pronated Palpation Assessment Location cervical spine Palpation Location spinous processes, paraspinals , suboccipitals, periscapulars Palpation Findings Soft Tissue Tightness, Tenderness Palpation Details Soft tissue tightness of B paraspinals (R>L), R upper trapezius, levator scapular, scalenes, SCM. Elevated first rib. Tenderness near mid-cervical spinous processes with P-A springing, none at upper or lower cervical spine. R shoulder Palpation Location rotator cuff, long head biceps tendon, AC joint, SC joint Palpation Findings Soft Tissue Tightness, Tenderness Palpation Details Tenderness of LH biceps tendon . No tenderness of AC or SC joint. Tenderness above and below clavicle. Tenderness along posterior cuff ( supraspinatus and infraspinatus), rhomboid. No tenderness of biceps muscle belly Skin Assessment Other Assessments Skin Assessment Comments RUE has symmetrical color and sensation to LUE. No evidence of swelling in supraclavicular or infraclavicular region, RUE. PT-OP-K Range of Motion Start: 04/18/23 17:10 Freq: Status: Active Protocol: Document 04/21/23 13:46 NM (Rec: 04/21/23 15:51 NM [id number]) Cervical Spine Range of Motion Cervical Spine Active Degrees Flexion 55 Extension 25 Rotation Left 75 Rotation Right 65 Lateral Flexion Left 25 Lateral Flexion Right 25 Comments Stretch reported posterior neck with ext; R SB>L SB discomfort, R rotation discomfort in shoulder. Reports not pain Shoulder Goniometric Range of Motion Shoulder R PROM Flexion 145 Abduction 110 External Rotation at 0 degrees Abduction 65 Internal Rotation 70 Left Flexion 140 Abduction 125 External Rotation at 90 degrees 60 Abduction External Rotation at 0 degrees Abduction 55 Internal Rotation 55 Right Flexion 140 Abduction 100 External Rotation at 90 degrees 30 Abduction External Rotation at 0 degrees Abduction 40 Internal Rotation 60 Comments impingement with abduction; pain with end range ER and flexion PT-OP-L Special Tests Start: 04/18/23 17:10 Freq: Status: Active Protocol: Document 04/21/23 13:46 NM (Rec: 04/21/23 15:51 NM [id number]) Special Tests Cervical Spine Special Tests Upper Limb Tension Test Test Results - median, radial, ulnar Comments no numbness/tingling; reports shoulder pain with depression Spurling's Test Test Results + Comments R sided focal pain in neck, no radiation into arm Traction Test Results - Transverse Ligament Test Results - Alar Ligament Test Results - Shoulder Special Tests Neer Impingement Test Results + Ship[place] Jose Impingement Test Results + Lift-Off Rotator Cuff Test Results - Comments painful but able to lift off maximally Empty Can Test Results + Comments Improved strength and less pain with full can Drop Arm Rotator Cuff Test Results - Neural Special Tests- Upper Body Tinel Sign Test Results - Comments median n Phalen's Test Results - Vascular Special Tests Adson Maneuver Test Results + Comments decreased radial pulse Claude Test Test Results + Comments reports symptoms after 30 seconds PT-OP-M Strength Start: 04/18/23 17:10 Freq: Status: Active Protocol: Document 04/21/23 13:46 NM (Rec: 04/21/23 15:51 NM [id number]) Cervical Spine Strength Cervical Spine Manual Muscle Testing Flexion (C1-2) 4+ Good+ Extension 4+ Good+ Rotation Left 4+ Good+ Rotation Right 4+ Good+ Lateral Flexion Left (C3) 4+ Good+ Lateral Flexion Right (C3) 4+ Good+ Comments No pain with resisted motion Shoulder Strength Shoulder Manual Muscle Testing Right Flexion 4- Good- Extension 4+ Good+ Abduction (C5) 4- Good- Adduction 4 Good External Rotation 4- Good- Internal Rotation 4 Good Comments Pain with resisted abduction and external rotation Left Flexion 4+ Good+ Extension 4+ Good+ Abduction (C5) 4+ Good+ Adduction 4+ Good+ External Rotation 4+ Good+ Internal Rotation 4+ Good+ Horizontal Abduction 4+ Good+ Horizontal Adduction 4+ Good+ Elbow/Forearm Strength Elbow and Forearm Manual Muscle Testing Right Flexion (C6) 4+ Good+ Extension (C7) 4+ Good+ Left Flexion (C6) 4+ Good+ Extension (C7) 4+ Good+ Wrist Strength Wrist Manual Muscle Testing Right Flexion (C7) 4+ Good+ Extension (C6) 4+ Good+ Left Flexion (C7) 4+ Good+ Extension (C6) 4+ Good+ PT-OP-Q Treatments Start: 04/18/23 17:10 Freq: Status: Active Protocol: Document 05/23/23 14:36 SP (Rec: 05/23/23 16:01 SP [id number]) Therapeutic Exercises Sidelying Exercises open book Sidelying Exercise Name Reviewed Side bilateral Resistance AROM Equipment Used 5 breath hold Reps/Minutes 1x5 with brief hold at end range, follow w eyes/CS as long as able Comments tactile cues for scapular glide, no UT recruitment flexion AROM Sidelying Exercise Name re-trialed Resistance AROM Equipment Used PT facilitate long axis distraction Reps/Minutes 1x10 Comments cued to remain in pain free range abduction Sidelying Exercise Name right shoulder abd AROM Side right Resistance AROM Reps/Minutes 1x10 Comments post manual; pain free but limited range shoulder ER AROM Side right Resistance AROM Equipment Used towel roll Reps/Minutes 1x10 Comments cued for pain free range, post cervical spine STM to decrease tension Standing Exercises rows Standing Exercise Name reviewed HEP Side bilateral Resistance lvl 3 band (latex home)- Blue in PT Reps/Minutes 2x10 Comments tactile cue for scap control; improved with reps Other Exercises self STMs Other Exercise Name use theracane: post neck MWM head nods/turns Reps/Minutes 2 min total Comments good feedback decreased neck tension Manual Therapy Treatment Soft Tissue Mobilization right scalenes at lateral clavicle Body Location right scalenes, UT, levator scap Mobilization Type Cross-Friction,Rolling, Sustained Pressure Intensity/Depth Moderate Body Position Sitting Comments Increased tenderness at R UT/ LS today, trigger point. Did not perform release due to tenderness, monitored for pain post cuff Body Location right post cuff, periscapular muscles Mobilization Type Cross-Friction,Rolling Intensity/Depth Moderate Body Position Sidelying Comments Less tenderness along infraspinatus and teres today. Tenderness of R rhomboids, reduced with rolling pec Body Location right major and minor Mobilization Type Cross-Friction,Rolling Intensity/Depth Moderate Body Position Sidelying Comments Performed with posterior scapular setting to lengthen during mobilization, pain free but increased tightness cervical spine Body Location suboccipitals, paraspinals, SCM, scalenes Mobilization Type Rolling,Sustained Pressure Intensity/Depth sup/mod Body Position Hooklying Comments Reduction in tightness of R>L paraspinals, SCM, scalene. MWM head nods/turns and ed self use using theracane end tx. Joint Mobilizations scapular mobilization Joint right scapula Direction depression and adduction, protract/retract, URot Grade III Reps/Duration 1x12 each direction Comments MWM ABD, FF, HABD R ACJ Direction Post on scapula, ant on clavicle Grade II Body Position Sidelying Reps/Duration 1x10 Comments For improved R shoulder mobility, joint space. Reports decreased pain during FF supine. R GHJ Direction AP, Inf Grade III Body Position Supine Comments Inferior glide then AP, MWM pec minor and distal pec major /c breath, humeral IR/ER. Adjustments in gentle but effective tolerant pressure. PT-OP-T Assessment and Plan Start: 04/18/23 17:10 Freq: Status: Active Protocol: Document 05/23/23 14:36 SP (Rec: 05/23/23 16:01 SP [id number]) Physical Therapy Assessment Goals Five Impairment strength Impairment R shoulder flexion 4/5 MMT R shoulder ER and abduction 4- /5 MMT Short Term Goal (STG) Pt will increase R shoulder flexion, abduction, and ER MMT scores to at least 4/5 in order to demonstrate improved strength for lifting, reaching , and ADLs STG Duration 4 weeks Mechanical Handyman Goal (LTG) Pt will increase R shoulder flexion, abduction, and ER MMT scores to at least 4+/5 in order to demonstrate improved strength for lifting, reaching , and ADLs LTG Duration 8 weeks One Impairment sleep Impairment unable to sleep in R shoulder 1-2 hours (side or back) Short Term Goal (STG) Pt will report that she is able to sleep > 2 hours without waking due to pain or numbness in order to demonstrate improved symptom management STG Duration 4 weeks Mechanical Handyman Goal (LTG) Pt will report that she is able to sleep without waking due to pain or numbness in order to demonstrate improved symptom management LTG Duration 8 weeks Four Impairment R shoulder AROM Impairment R abduction 100 deg, ER 40 deg at 0 deg abd Short Term Goal (STG) Pt will increase R shoulder abduction to at least 110 deg abduction without compensation and ER to at least 50 deg in order to demonstrate improvements in arm elevation for reaching and ADLs STG Duration 4 weeks Mechanical Handyman Goal (LTG) Pt will increase R shoulder abduction to at least 120 deg abduction without compensation and ER to at least 60 deg in order to demonstrate improvements in arm elevation for reaching and ADLs LTG Duration 8 weeks Three Impairment R shoulder AROM Impairment Apley IR T12 Short Term Goal (STG) Pt will increase R shoulder Apley IR to at least T9 in order to demonstate improved AROM for ADLs and dressing STG Duration 4 weeks Fdc Goal (LTG) Pt will increase R shoulder Apley IR to at least T6 in order to demonstate improved AROM for ADLs and dressing, comparable to LUE LTG Duration 8 weeks Two Impairment cervical spine AROM Impairment R rotation 65 deg Short Term Goal (STG) Pt will increase R cervical spine rotation AROM to at least 70 deg in order to be comparable to L cervical spine rotation for improved visual scanning STG Duration 4 weeks Mechanical Handyman Goal (LTG) Pt will increase R cervical spine rotation AROM to at least 75 deg in order to be comparable to L cervical spine rotation for improved visual scanning LTG Duration 8 weeks Assessment Summary Assessment Pt reports reduction in pain during manual and less pinching anterior R shld and toward AC jt during OH FF and ABD. Good understanding and application use of theracane end tx for self carryover home muscular tension reduction. Physical Therapy Plan Frequency and Duration Frequency of Treatment 2x/Week Duration of treatment (weeks) 8 Plan of Care Start Date 04/21/23 Plan of Care End Date 06/20/23 Therapeutic Interventions Therapeutic Interventions Balance Training,Coordination Training,Gait Training,Home Exercise Program,Joint Mobilizations,Manual Therapy, Neuromuscular Re-education, Orthotic/Prosthetic Management ,Patient/Caregiver Education, Self-Care/Home Management, Sensory Integration,Soft Tissue Mobilization,Taping, Therapeutic Activities, Therapeutic Exercises, Vestibular Rehabilitation Modalities Biofeedback,Cold Pack/Ice Massage,Electric Stimulation, Hot Packs,Ultrasound, Vasopneumatic Devices Other Therapeutic Interventions No mechanical traction due to osteopenia Waka protocol Next Visit Focus/Plan Next Note Type Treatment Note Next Visit Plan Next session: rows, shoulder extension, posture strengthening, snow angels, p/ u plus (trial), pec and scalene stretch, DNF strength, shoulder isometrics Manual: STM to cervical spine, scalenes, rotator cuff; manual grade II>III mob (inf, post, lat gapping, AC) PN in 2 visits
--- NOTE | 2023-05-26 15:28 | PT.OTN ---
Current Diagnoses Pain in right shoulder (05/26/23) Anesthesia of skin (05/26/23) Weakness (05/26/23) Physical Therapy Treatment Note PT-OP-A Visit Information Start: 04/18/23 17:10 Freq: Status: Active Protocol: Document 05/26/23 13:48 NM (Rec: 05/26/23 14:33 NM [id number]) Out-Patient Physical Therapy Visit Information Visit Information Visit Type Progress Note Visit Note pt late, KX after 19 visits Visit Start Time 13:53 Visit Stop Time 14:30 Visit Number 10 Evaluation Information Evaluation Date 04/21/23 Precautions Precautions osteopenia, fibromyalgia PT-OP-B Current Condition Start: 04/18/23 17:10 Freq: Status: Active Protocol: Document 04/21/23 13:46 NM (Rec: 04/21/23 15:51 NM [id number]) Current Condition History of Current Condition Onset Date 9 months since shoulder, last 2 months since arm radiation Current Complaints pain, numbness/tingling History of Current Condition Pt presents with R shoulder pain, achiness along the entire arm beginning 9 months ago. Pt does not know what caused her R shoulder to begin hurting. Pain is worse in sleeping (unable to get into a comfortable position) and with reaching/elevation. Reports scapula and neck pain on R shoulder, post shoulder above and below clavicle. Hx of B frozen shoulder and R CARMELO /score 17 years ago. Pt also reports that 2 months ago, her R arm began to fall asleep and feel numb, usually at night but occasionally during the day with certain positions . States the numbness is not localized to a finger, but is the entire hand, which radiates from her shoulder. Reports that her hand becomes numb with sitting in certain positions that can't be replicated (not elevated) or when washing hair (arm elevated). At night, the numbness can last several hours, and she has to resort to shaking her hand to feel better over time. Had R finger surgery on 09/26/22. Tested for carpal tunnel (hx of fibro ) several years ago. States she has not had any changes in her hand strength, but reports changes in her shoulder strength since the incident began. Prior Treatments and Tests no previous PT for condition; hand therapy post finger surgery (OT) Prior Functional Status Baseline Function- Gait daily walk: 2-3 mi, max 4-5 mi (pain in neck) Current Functional Impairments (Reported) Functional Limitations- Mobility/Gait walk with cold PT-OP-C Subjective Start: 04/18/23 17:10 Freq: Status: Active Protocol: Document 05/26/23 13:48 NM (Rec: 05/26/23 14:33 NM [id number]) OP-PT Subjective Patient Comments Patient Comments Pt reports that she had R wrist pain from Fri night into Friday, sharp pain and lasting for several minutes. Currently resolved. Reports that her shoulder and neck is doing better today. She states that nothing is worse or better. States nothing has improved as a whole. Reports neck, R shoulder 04/19. Sees [facility] next Friday PT-OP-E Functional Tests Start: 04/18/23 17:10 Freq: Status: Active Protocol: Document 04/21/23 13:46 NM (Rec: 04/21/23 15:51 NM [id number]) Functional Tests Apley's Scratch Test Action 1- Left post cuff Action 1- Right post cuff, aches Action 2- Left T3 Action 2- Right T2; tight in shoulder blade, mid back, neck Action 3- Left T6 Action 3- Right T12; most pain in anterior shoulder PT-OP-F Manual Assessment Start: 04/18/23 17:10 Freq: Status: Active Protocol: Document 04/21/23 13:46 NM (Rec: 04/21/23 15:51 NM [id number]) Manual Assessments Soft Tissue Assessment Soft Tissue Mobility Assessment Increased tone on R sided cervical paraspinals, scalenes , SCM. R SCM limits rotation. Observable R carotid pulse. No swelling or atrophy of R arm, danielle near clavicle Joint Mobility Assessment Joint Mobility Assessment Decreased bilateral shoulder AROM. R shoulder AROM and PROM limited in flexion, abduction , and external rotation. Demos impingement signs. No cervical instability. Elevated R 1st rib PT-OP-G Mobility & Gait Start: 04/18/23 17:10 Freq: Status: Active Protocol: Document 04/21/23 13:46 NM (Rec: 04/21/23 15:51 NM [id number]) OP Gait Assessment Gait Gait Assistance Required: Independent Distance (Feet) 150 Comments Gait Comments Decreased trunk rotation with gait PT-OP-H Neuro Start: 04/18/23 17:10 Freq: Status: Active Protocol: Document 04/21/23 13:46 NM (Rec: 04/21/23 15:51 NM [id number]) Sensation Evaluation Comments Summary Comments BUE equally intact to light touch sensation Deep Tendon Reflex & Clonus Assessment Deep Tendon Reflex Left Brachioradialis Deep Tendon Reflex 2+ Normal Left Bicep Deep Tendon Reflex 2+ Normal Right Brachioradialis Deep Tendon Reflex 1+ Diminished Right Bicep Deep Tendon Reflex 3+ Normal But Brisk PT-OP-J Posture/Palpation/Skin Start: 04/18/23 17:10 Freq: Status: Active Protocol: Document 04/21/23 13:46 NM (Rec: 04/21/23 15:51 NM [id number]) Posture Evaluation Position Standing Head/C-Spine Posture Forward Head T-Spine Posture Increased Kyphosis L-Spine Posture Increased Lordosis Shoulder Posture (L) Rounded,(R) Rounded,(L) Forward,(R) Forward,(L) Elevated Scapula Posture (L) Protracted,(R) Protracted Arm Posture (L) Internally Rotated,(R) Internally Rotated Pelvis Posture Anteriorly Tilted Weight Distribution Balanced Hip Posture (L) Neutral,(R) Neutral Knee Posture (L) Genu Valgus,(R) Genu Valgus Patellar Posture (L) Neutral,(R) Neutral Ankle/Foot Posture (L) Pronated,(R) Pronated Palpation Assessment Location cervical spine Palpation Location spinous processes, paraspinals , suboccipitals, periscapulars Palpation Findings Soft Tissue Tightness, Tenderness Palpation Details Soft tissue tightness of B paraspinals (R>L), R upper trapezius, levator scapular, scalenes, SCM. Elevated first rib. Tenderness near mid-cervical spinous processes with P-A springing, none at upper or lower cervical spine. R shoulder Palpation Location rotator cuff, long head biceps tendon, AC joint, SC joint Palpation Findings Soft Tissue Tightness, Tenderness Palpation Details Tenderness of LH biceps tendon . No tenderness of AC or SC joint. Tenderness above and below clavicle. Tenderness along posterior cuff ( supraspinatus and infraspinatus), rhomboid. No tenderness of biceps muscle belly Skin Assessment Other Assessments Skin Assessment Comments RUE has symmetrical color and sensation to LUE. No evidence of swelling in supraclavicular or infraclavicular region, RUE. PT-OP-K Range of Motion Start: 04/18/23 17:10 Freq: Status: Active Protocol: Document 05/26/23 13:48 NM (Rec: 05/26/23 14:33 NM [id number]) Cervical Spine Range of Motion Cervical Spine Active Degrees Flexion 55 Extension 25 Rotation Left 75 Rotation Right 65 Lateral Flexion Left 25 Lateral Flexion Right 25 Comments Stretch reported posterior neck with ext; R SB>L SB discomfort, R rotation discomfort in shoulder. Reports not pain 05/26/23: 40 deg flex, 40 deg ext, 30 deg B lateral flexion (demos slight rotatinon), 70 deg rotation L, 50 deg rotation R Shoulder Goniometric Range of Motion Shoulder Right Flexion 140 Abduction 100 External Rotation at 90 degrees 30 Abduction External Rotation at 0 degrees Abduction 40 Internal Rotation 60 Comments impingement with abduction; pain with end range ER and flexion 05/26/23: 135 deg R flexion ( pain at end range), 120 deg abduction (pain at end range), 60 deg ER at 0 deg abd (no pain), R IR T10 (painful) PT-OP-L Special Tests Start: 04/18/23 17:10 Freq: Status: Active Protocol: Document 04/21/23 13:46 NM (Rec: 04/21/23 15:51 NM [id number]) Special Tests Cervical Spine Special Tests Upper Limb Tension Test Test Results - median, radial, ulnar Comments no numbness/tingling; reports shoulder pain with depression Spurling's Test Test Results + Comments R sided focal pain in neck, no radiation into arm Traction Test Results - Transverse Ligament Test Results - Alar Ligament Test Results - Shoulder Special Tests Neer Impingement Test Results + Ship[place] Jose Impingement Test Results + Lift-Off Rotator Cuff Test Results - Comments painful but able to lift off maximally Empty Can Test Results + Comments Improved strength and less pain with full can Drop Arm Rotator Cuff Test Results - Neural Special Tests- Upper Body Tinel Sign Test Results - Comments median n Phalen's Test Results - Vascular Special Tests Adson Maneuver Test Results + Comments decreased radial pulse Claude Test Test Results + Comments reports symptoms after 30 seconds PT-OP-M Strength Start: 04/18/23 17:10 Freq: Status: Active Protocol: Document 04/21/23 13:46 NM (Rec: 04/21/23 15:51 NM [id number]) Cervical Spine Strength Cervical Spine Manual Muscle Testing Flexion (C1-2) 4+ Good+ Extension 4+ Good+ Rotation Left 4+ Good+ Rotation Right 4+ Good+ Lateral Flexion Left (C3) 4+ Good+ Lateral Flexion Right (C3) 4+ Good+ Comments No pain with resisted motion Shoulder Strength Shoulder Manual Muscle Testing Right Flexion 4- Good- Extension 4+ Good+ Abduction (C5) 4- Good- Adduction 4 Good External Rotation 4- Good- Internal Rotation 4 Good Comments Pain with resisted abduction and external rotation Left Flexion 4+ Good+ Extension 4+ Good+ Abduction (C5) 4+ Good+ Adduction 4+ Good+ External Rotation 4+ Good+ Internal Rotation 4+ Good+ Horizontal Abduction 4+ Good+ Horizontal Adduction 4+ Good+ Elbow/Forearm Strength Elbow and Forearm Manual Muscle Testing Right Flexion (C6) 4+ Good+ Extension (C7) 4+ Good+ Left Flexion (C6) 4+ Good+ Extension (C7) 4+ Good+ Wrist Strength Wrist Manual Muscle Testing Right Flexion (C7) 4+ Good+ Extension (C6) 4+ Good+ Left Flexion (C7) 4+ Good+ Extension (C6) 4+ Good+ PT-OP-Q Treatments Start: 04/18/23 17:10 Freq: Status: Active Protocol: Document 05/26/23 13:48 NM (Rec: 05/26/23 14:33 NM [id number]) Therapeutic Exercises Sidelying Exercises flexion AROM Sidelying Exercise Name re-trialed Resistance AROM Equipment Used PT facilitate long axis distraction Reps/Minutes 1x10 Comments cued to remain in pain free range abduction Sidelying Exercise Name right shoulder abd AROM Side right Resistance AROM Reps/Minutes 1x10 Comments post manual; pain free but limited range Sitting Exercises banded ER+flexion Sitting Exercise Name trialed in PT Side bilateral Resistance lvl 1 resistance Reps/Minutes 1x10 Comments reports no pain; cued elbows by side cervical spine stretch Sitting Exercise Name 1. UT (L SB only), 2. LS ( bilateral) Equipment Used hand holding plinth for tension Reps/Minutes 1x30 ea Comments reports good stretch, pain free and no symptom scapular retractions Sitting Exercise Name with scapular retractions, back pocket squeezes Side bilateral Resistance AROM Equipment Used hands behind back, depress and retract scapulae Reps/Minutes 1x10 Comments pain free but challenging, performed prior to middle trap exercise Standing Exercises lower trap Standing Exercise Name Y lift off (added to HEP) Side bilateral Resistance AROM Equipment Used wall Reps/Minutes 1x10 ea Comments pain free but small motion, challenging middle trap Standing Exercise Name ER + ABD (added to HEP) Side bilateral Resistance AROM Equipment Used hands by ears with small scapular retraction/elevation w/o UT assist Reps/Minutes 1x10 ea Comments no pain with smaller range Manual Therapy Treatment Soft Tissue Mobilization right scalenes at lateral clavicle Body Location right scalenes, UT, levator scap Mobilization Type Cross-Friction,Rolling, Sustained Pressure Intensity/Depth Moderate Body Position Sitting Comments Increased tenderness at R UT/ LS today, trigger point. Did not perform release due to tenderness, monitored for pain pec Body Location right major and minor Mobilization Type Cross-Friction,Rolling Intensity/Depth Moderate Body Position Sidelying Comments Performed with posterior scapular setting to lengthen during mobilization, pain free but increased tightness cervical spine Body Location suboccipitals, paraspinals, SCM, scalenes Mobilization Type Rolling,Sustained Pressure Intensity/Depth sup/mod Body Position Hooklying Comments Reduction in tightness of R>L paraspinals, SCM, scalene. MWM head nods/turns and ed self use using theracane end tx. Joint Mobilizations cervical spine Direction R>L with rotation Grade II Body Position Supine Reps/Duration 1x8 ea Comments pain free R GHJ Direction AP, Inf Grade III Body Position Supine Comments Inferior glide then AP, MWM pec minor and distal pec major /c breath, humeral IR/ER. Adjustments in gentle but effective tolerant pressure. Self-Care/Home Management Treatment Education Patient Education Home Exercise Program Other Education HEP: Y lift off, seated middle trapezius PT-OP-T Assessment and Plan Start: 04/18/23 17:10 Freq: Status: Active Protocol: Document 05/26/23 13:48 NM (Rec: 05/26/23 14:33 NM [id number]) Physical Therapy Assessment Goals Five Impairment strength Impairment R shoulder flexion 4/5 MMT R shoulder ER and abduction 4- /5 MMT Short Term Goal (STG) Pt will increase R shoulder flexion, abduction, and ER MMT scores to at least 4/5 in order to demonstrate improved strength for lifting, reaching , and ADLs STG Duration 4 weeks [employer] Goal (LTG) Pt will increase R shoulder flexion, abduction, and ER MMT scores to at least 4+/5 in order to demonstrate improved strength for lifting, reaching , and ADLs LTG Duration 8 weeks One Impairment sleep Impairment unable to sleep in R shoulder 1-2 hours (side or back) Short Term Goal (STG) Pt will report that she is able to sleep > 2 hours without waking due to pain or numbness in order to demonstrate improved symptom management 05/26/23: reports still waking up at least 2-3x/night with hand numbness STG Duration 4 weeks NOT MET [employer] Goal (LTG) Pt will report that she is able to sleep without waking due to pain or numbness in order to demonstrate improved symptom management LTG Duration 8 weeks Four Impairment R shoulder AROM Impairment R abduction 100 deg, ER 40 deg at 0 deg abd Short Term Goal (STG) Pt will increase R shoulder abduction to at least 110 deg abduction without compensation and ER to at least 50 deg in order to demonstrate improvements in arm elevation for reaching and ADLs 05/26/23: 120 deg abd (painful end range), 60 deg ER (not painful) STG Duration 4 weeks [facility] Goal (LTG) Pt will increase R shoulder abduction to at least 120 deg abduction without compensation and ER to at least 60 deg in order to demonstrate improvements in arm elevation for reaching and ADLs 05/26/23: 120 deg abd (painful end range), 60 deg ER (not painful) LTG Duration 8 weeks MET Three Impairment R shoulder AROM Impairment Apley IR T12 Short Term Goal (STG) Pt will increase R shoulder Apley IR to at least T9 in order to demonstate improved AROM for ADLs and dressing 05/26/23: T10 with increased pain STG Duration 4 weeks [employer] Goal (LTG) Pt will increase R shoulder Apley IR to at least T6 in order to demonstate improved AROM for ADLs and dressing, comparable to LUE LTG Duration 8 weeks Two Impairment cervical spine AROM Impairment R rotation 65 deg Short Term Goal (STG) Pt will increase R cervical spine rotation AROM to at least 70 deg in order to be comparable to L cervical spine rotation for improved visual scanning 05/26/23: 50 deg R cervical rotation STG Duration 4 weeks NOT MET [employer] Goal (LTG) Pt will increase R cervical spine rotation AROM to at least 75 deg in order to be comparable to L cervical spine rotation for improved visual scanning LTG Duration 8 weeks Progress Towards Goals Progress Towards Goals Progressing Toward Goals,Slow Progress due to Medical Issues ,Goals Met Progress Comments Met 1 LTG, not met or progressing toward other STGs Assessment Summary Assessment Pt tolerated session well without increase in pain or neural symptoms. Extensive time spent on manual treatment due to pain levels. Pt continues to have increased tightness and tenderness of B cervical paraspinals, upper trapezius, levator scapulae, rotator cuff, pectoralis, SCM, and latissimus. PT educated pt on use of heat for muscle relaxation then soft tissue mobilization at home as part of HEP. Pt continues to report good feedback with cervical spine stretches (without R side bend). Trialed grade II cervical spine lateral glides to improve R cervical spine mobility. Initiated lower and middle trapezius strengthening to improve scapular control during R arm elevation, periscapular strength to improve posture and decrease strain on cervical spine. Physical Therapy Plan Frequency and Duration Frequency of Treatment 2x/Week Duration of treatment (weeks) 8 Plan of Care Start Date 04/21/23 Plan of Care End Date 06/20/23 Therapeutic Interventions Therapeutic Interventions Balance Training,Coordination Training,Gait Training,Home Exercise Program,Joint Mobilizations,Manual Therapy, Neuromuscular Re-education, Orthotic/Prosthetic Management ,Patient/Caregiver Education, Self-Care/Home Management, Sensory Integration,Soft Tissue Mobilization,Taping, Therapeutic Activities, Therapeutic Exercises, Vestibular Rehabilitation Modalities Biofeedback,Cold Pack/Ice Massage,Electric Stimulation, Hot Packs,Ultrasound, Vasopneumatic Devices Other Therapeutic Interventions No mechanical traction due to osteopenia [place] protocol Next Visit Focus/Plan Next Note Type Treatment Note Next Visit Plan Next session: Manual prn, bent over T, gentle rotator cuff strengthening Retry rows, shoulder extension , posture strengthening, snow angels, DNF strength, shoulder isometrics Manual: STM to cervical spine, scalenes, rotator cuff; manual grade II>III mob (inf, post, lat gapping, AC)
--- NOTE | 2023-06-06 16:07 | PT.OTN ---
Current Diagnoses Pain in right shoulder (06/06/23) Anesthesia of skin (06/06/23) Weakness (06/06/23) Physical Therapy Treatment Note PT-OP-A Visit Information Start: 04/18/23 17:10 Freq: Status: Active Protocol: Document 06/06/23 13:48 NM (Rec: 06/06/23 14:41 NM [id number]) Out-Patient Physical Therapy Visit Information Visit Information Visit Type Treatment Note Visit Note KX after 19 visits Visit Start Time 13:48 Visit Stop Time 14:30 Visit Number 13 Evaluation Information Evaluation Date 04/21/23 Precautions Precautions osteopenia, fibromyalgia PT-OP-B Current Condition Start: 04/18/23 17:10 Freq: Status: Active Protocol: Document 04/21/23 13:46 NM (Rec: 04/21/23 15:51 NM [id number]) Current Condition History of Current Condition Onset Date 9 months since shoulder, last 2 months since arm radiation Current Complaints pain, numbness/tingling History of Current Condition Pt presents with R shoulder pain, achiness along the entire arm beginning 9 months ago. Pt does not know what caused her R shoulder to begin hurting. Pain is worse in sleeping (unable to get into a comfortable position) and with reaching/elevation. Reports scapula and neck pain on R shoulder, post shoulder above and below clavicle. Hx of B frozen shoulder and R CARMELO /score 17 years ago. Pt also reports that 2 months ago, her R arm began to fall asleep and feel numb, usually at night but occasionally during the day with certain positions . States the numbness is not localized to a finger, but is the entire hand, which radiates from her shoulder. Reports that her hand becomes numb with sitting in certain positions that can't be replicated (not elevated) or when washing hair (arm elevated). At night, the numbness can last several hours, and she has to resort to shaking her hand to feel better over time. Had R finger surgery on 09/26/22. Tested for carpal tunnel (hx of fibro ) several years ago. States she has not had any changes in her hand strength, but reports changes in her shoulder strength since the incident began. Prior Treatments and Tests no previous PT for condition; hand therapy post finger surgery (OT) Prior Functional Status Baseline Function- Gait daily walk: 2-3 mi, max 4-5 mi (pain in neck) Current Functional Impairments (Reported) Functional Limitations- Mobility/Gait walk with cold PT-OP-C Subjective Start: 04/18/23 17:10 Freq: Status: Active Protocol: Document 06/06/23 13:48 NM (Rec: 06/06/23 14:41 NM [id number]) OP-PT Subjective Patient Comments Patient Comments Pt reports that she feels better than Friday. Continues to have shoulder pain and numbness. Reports compliance with HEP. States everything is pretty much the same. She is trying to keep improved posture when sitting, standing, states more mindfulness. She sees Norris Van for acupuncture on Friday. PT-OP-E Functional Tests Start: 04/18/23 17:10 Freq: Status: Active Protocol: Document 04/21/23 13:46 NM (Rec: 04/21/23 15:51 NM [id number]) Functional Tests Apley's Scratch Test Action 1- Left post cuff Action 1- Right post cuff, aches Action 2- Left T3 Action 2- Right T2; tight in shoulder blade, mid back, neck Action 3- Left T6 Action 3- Right T12; most pain in anterior shoulder PT-OP-F Manual Assessment Start: 04/18/23 17:10 Freq: Status: Active Protocol: Document 04/21/23 13:46 NM (Rec: 04/21/23 15:51 NM [id number]) Manual Assessments Soft Tissue Assessment Soft Tissue Mobility Assessment Increased tone on R sided cervical paraspinals, scalenes , SCM. R SCM limits rotation. Observable R carotid pulse. No swelling or atrophy of R arm, danielle near clavicle Joint Mobility Assessment Joint Mobility Assessment Decreased bilateral shoulder AROM. R shoulder AROM and PROM limited in flexion, abduction , and external rotation. Demos impingement signs. No cervical instability. Elevated R 1st rib PT-OP-G Mobility & Gait Start: 04/18/23 17:10 Freq: Status: Active Protocol: Document 04/21/23 13:46 NM (Rec: 04/21/23 15:51 NM [id number]) OP Gait Assessment Gait Gait Assistance Required: Independent Distance (Feet) 150 Comments Gait Comments Decreased trunk rotation with gait PT-OP-H Neuro Start: 04/18/23 17:10 Freq: Status: Active Protocol: Document 04/21/23 13:46 NM (Rec: 04/21/23 15:51 NM [id number]) Sensation Evaluation Comments Summary Comments BUE equally intact to light touch sensation Deep Tendon Reflex & Clonus Assessment Deep Tendon Reflex Left Brachioradialis Deep Tendon Reflex 2+ Normal Left Bicep Deep Tendon Reflex 2+ Normal Right Brachioradialis Deep Tendon Reflex 1+ Diminished Right Bicep Deep Tendon Reflex 3+ Normal But Brisk PT-OP-J Posture/Palpation/Skin Start: 04/18/23 17:10 Freq: Status: Active Protocol: Document 04/21/23 13:46 NM (Rec: 04/21/23 15:51 NM [id number]) Posture Evaluation Position Standing Head/C-Spine Posture Forward Head T-Spine Posture Increased Kyphosis L-Spine Posture Increased Lordosis Shoulder Posture (L) Rounded,(R) Rounded,(L) Forward,(R) Forward,(L) Elevated Scapula Posture (L) Protracted,(R) Protracted Arm Posture (L) Internally Rotated,(R) Internally Rotated Pelvis Posture Anteriorly Tilted Weight Distribution Balanced Hip Posture (L) Neutral,(R) Neutral Knee Posture (L) Genu Valgus,(R) Genu Valgus Patellar Posture (L) Neutral,(R) Neutral Ankle/Foot Posture (L) Pronated,(R) Pronated Palpation Assessment Location cervical spine Palpation Location spinous processes, paraspinals , suboccipitals, periscapulars Palpation Findings Soft Tissue Tightness, Tenderness Palpation Details Soft tissue tightness of B paraspinals (R>L), R upper trapezius, levator scapular, scalenes, SCM. Elevated first rib. Tenderness near mid-cervical spinous processes with P-A springing, none at upper or lower cervical spine. R shoulder Palpation Location rotator cuff, long head biceps tendon, AC joint, SC joint Palpation Findings Soft Tissue Tightness, Tenderness Palpation Details Tenderness of LH biceps tendon . No tenderness of AC or SC joint. Tenderness above and below clavicle. Tenderness along posterior cuff ( supraspinatus and infraspinatus), rhomboid. No tenderness of biceps muscle belly Skin Assessment Other Assessments Skin Assessment Comments RUE has symmetrical color and sensation to LUE. No evidence of swelling in supraclavicular or infraclavicular region, RUE. PT-OP-K Range of Motion Start: 04/18/23 17:10 Freq: Status: Active Protocol: Document 06/06/23 13:48 NM (Rec: 06/06/23 14:41 NM [id number]) Cervical Spine Range of Motion Cervical Spine Active Degrees Flexion 55 Extension 25 Rotation Left 75 Rotation Right 65 Lateral Flexion Left 25 Lateral Flexion Right 25 Comments Stretch reported posterior neck with ext; R SB>L SB discomfort, R rotation discomfort in shoulder. Reports not pain 05/26/23: 40 deg flex, 40 deg ext, 30 deg B lateral flexion (demos slight rotatinon), 70 deg rotation L, 50 deg rotation R 06/06/23: 50 deg flex, 30 deg ext, 30 deg B lateral flexion, 55 deg R rot, 68 deg L rot Shoulder Goniometric Range of Motion Shoulder Right Flexion 140 Abduction 100 External Rotation at 90 degrees 30 Abduction External Rotation at 0 degrees Abduction 40 Internal Rotation 60 Comments impingement with abduction; pain with end range ER and flexion 05/26/23: 135 deg R flexion ( pain at end range), 120 deg abduction (pain at end range), 60 deg ER at 0 deg abd (no pain), R IR T10 (painful) 06/06/23: 140 deg flex, 120 abd , 65 deg ER at 0 deg abd PT-OP-L Special Tests Start: 04/18/23 17:10 Freq: Status: Active Protocol: Document 04/21/23 13:46 NM (Rec: 04/21/23 15:51 NM [id number]) Special Tests Cervical Spine Special Tests Upper Limb Tension Test Test Results - median, radial, ulnar Comments no numbness/tingling; reports shoulder pain with depression Spurling's Test Test Results + Comments R sided focal pain in neck, no radiation into arm Traction Test Results - Transverse Ligament Test Results - Alar Ligament Test Results - Shoulder Special Tests Neer Impingement Test Results + [place] Impingement Test Results + Lift-Off Rotator Cuff Test Results - Comments painful but able to lift off maximally Empty Can Test Results + Comments Improved strength and less pain with full can Drop Arm Rotator Cuff Test Results - Neural Special Tests- Upper Body Tinel Sign Test Results - Comments median n Phalen's Test Results - Vascular Special Tests Adson Maneuver Test Results + Comments decreased radial pulse Claude Test Test Results + Comments reports symptoms after 30 seconds PT-OP-M Strength Start: 04/18/23 17:10 Freq: Status: Active Protocol: Document 06/06/23 13:48 NM (Rec: 06/06/23 14:41 NM [id number]) Shoulder Strength Shoulder Manual Muscle Testing Right Flexion 4- Good- Extension 4+ Good+ Abduction (C5) 4- Good- Adduction 4 Good External Rotation 4- Good- Internal Rotation 4 Good Comments Pain with resisted abduction and external rotation 06/06/23: 4- flex and ER, IR 4+ /5, abd 4/5 and ER PT-OP-Q Treatments Start: 04/18/23 17:10 Freq: Status: Active Protocol: Document 06/06/23 13:48 NM (Rec: 06/06/23 14:41 NM [id number]) Therapeutic Exercises Standing Exercises W Standing Exercise Name B ER at 45 deg Side bilateral Resistance lvl 1 band Reps/Minutes 1x15 Comments pain free; cued shldr and neck relax, chin tuck, elbows by side thoracic rotation Standing Exercise Name wall Side bilateral Resistance AROM Reps/Minutes 1x10 with improved rotation of thoracic and cervical spine Comments pain free with AROM, trialed lvl 1 band but inc symptoms so d/c pectoralis stretch Standing Exercise Name from 45 deg to just above 90 deg Side right Reps/Minutes 1x60 Comments cued less fwd head posture middle trap Standing Exercise Name HEP review post pectoralis stretching and manual tx Side bilateral Resistance AROM Reps/Minutes 1x10 Comments cued scapular retraction with smaller squeeze for pain reduction rows Standing Exercise Name 1. low row, 2. mid row Side bilateral Resistance 1. isometric > lvl 1 band, 2. lvl 1 band Reps/Minutes 1. 1x15 with 2 > 1x10, 2. 1x10 Comments cued shoulder relaxation; mid row for edu as HEP, less band> dec symptoms Manual Therapy Treatment Soft Tissue Mobilization right scalenes at lateral clavicle Body Location right scalenes, UT, levator scap Mobilization Type Cross-Friction,Rolling, Sustained Pressure Intensity/Depth Moderate Body Position Sitting Comments Increased tenderness, restriction of scalenes/UT/LS. Tender point and restriction especially of R scalenes. Reduced with gentle rolling and passive stretching/ repositioning of head pec Body Location right major and minor Mobilization Type Cross-Friction,Rolling Intensity/Depth Moderate Body Position Sidelying Comments Performed with posterior scapular setting to lengthen during mobilization, pain free but increased tightness. Performed prior to stretching and exercise R shoulder Body Location rhomboids, RTC Mobilization Type Cross-Friction,Myofascial Release,Rolling,Sustained Pressure Intensity/Depth Moderate Comments Increased tenderness of rhomboids and rotator cuff, palpable relaxation with soft tissue mobilization cervical spine Body Location suboccipitals, paraspinals, SCM, scalenes Mobilization Type Rolling,Sustained Pressure Intensity/Depth sup/mod Body Position Hooklying Comments Reduction in tightness of R>L paraspinals, SCM, scalene. Continues to have soft tissue restrictions, limit ROM and increase pain symptoms Self-Care/Home Management Treatment Education Patient Education Home Exercise Program Other Education HEP:standing pec stretch, open book in standing PT-OP-T Assessment and Plan Start: 04/18/23 17:10 Freq: Status: Active Protocol: Document 06/06/23 13:48 NM (Rec: 06/06/23 14:41 NM [id number]) Physical Therapy Assessment Goals Five Impairment strength Impairment R shoulder flexion 4/5 MMT R shoulder ER and abduction 4- /5 MMT Short Term Goal (STG) Pt will increase R shoulder flexion, abduction, and ER MMT scores to at least 4/5 in order to demonstrate improved strength for lifting, reaching , and ADLs 06/06/23: 4- flex and ER, IR 4+ /5, abd 4/5 and ER STG Duration 4 weeks PARTIALLY MET [employer] Goal (LTG) Pt will increase R shoulder flexion, abduction, and ER MMT scores to at least 4+/5 in order to demonstrate improved strength for lifting, reaching , and ADLs 06/06/23: 4- flex and ER, IR 4+ /5, abd 4/5 and ER LTG Duration 8 weeks NOT MET One Impairment sleep Impairment unable to sleep in R shoulder 1-2 hours (side or back) Short Term Goal (STG) Pt will report that she is able to sleep > 2 hours without waking due to pain or numbness in order to demonstrate improved symptom management 05/26/23: reports still waking up at least 2-3x/night with hand numbness 05/28/23: Trialed sleep positions w/ pillow supports - pt to try L sidelying w/ RUE hugging pillow. 06/06/23: still waking up 3-4 times per night even with new sleeping position changes STG Duration 4 weeks NOT MET [employer] Goal (LTG) Pt will report that she is able to sleep without waking due to pain or numbness in order to demonstrate improved symptom management 06/06/23: still waking up 3-4 times per night even with new sleeping position changes; states improved sleeping with new position, but pillow moves so unable to stay asleep LTG Duration 8 weeks NOT MET Four Impairment R shoulder AROM Impairment R abduction 100 deg, ER 40 deg at 0 deg abd Short Term Goal (STG) Pt will increase R shoulder abduction to at least 110 deg abduction without compensation and ER to at least 50 deg in order to demonstrate improvements in arm elevation for reaching and ADLs 05/26/23: 120 deg abd (painful end range), 60 deg ER (not painful) 06/06/23: 140 deg flex, 120 abd (painful end range), 65 deg ER at 0 deg abd STG Duration 4 weeks [employer] Goal (LTG) Pt will increase R shoulder abduction to at least 120 deg abduction without compensation and ER to at least 60 deg in order to demonstrate improvements in arm elevation for reaching and ADLs 05/26/23: 120 deg abd (painful end range), 60 deg ER (not painful) 06/06/23: 140 deg flex, 120 abd (painful end range), 65 deg ER at 0 deg abd LTG Duration 8 weeks MET Three Impairment R shoulder AROM Impairment Apley IR T12 Short Term Goal (STG) Pt will increase R shoulder Apley IR to at least T9 in order to demonstate improved AROM for ADLs and dressing 05/26/23: T10 with increased pain 06/06/23: T9, painful STG Duration 4 weeks MET [employer] Goal (LTG) Pt will increase R shoulder Apley IR to at least T6 in order to demonstate improved AROM for ADLs and dressing, comparable to LUE LTG Duration 8 weeks Two Impairment cervical spine AROM Impairment R rotation 65 deg Short Term Goal (STG) Pt will increase R cervical spine rotation AROM to at least 70 deg in order to be comparable to L cervical spine rotation for improved visual scanning 05/26/23: 50 deg R cervical rotation 06/06/23: 50 deg flex, 30 deg ext, 30 deg B lateral flexion, 55 deg R rot, 68 deg L rot STG Duration 4 weeks NOT MET [employer] Goal (LTG) Pt will increase R cervical spine rotation AROM to at least 75 deg in order to be comparable to L cervical spine rotation for improved visual scanning 06/06/23: 50 deg flex, 30 deg ext, 30 deg B lateral flexion, 55 deg R rot, 68 deg L rot LTG Duration 8 weeks NOT MET Progress Towards Goals Progress Towards Goals Slow Progress due to Medical Issues,Slow Progress - Other Progress Comments Met R shoulder AROM goals, but continues to be painful. Did not meet other goals related to cervical spine ROM, strength Assessment Summary Assessment Pt tolerated session well with less pain in cervical spine at end of session, no shoulder pain. Majority of session spent on education regarding activity modification and improving soft tissue relaxation through manual therapy. Soft tissue mobilization and manual stretching most helpful for pt to reduce pain symptoms, promote muscle relaxation. Continues to have increased cervical paraspinals, periscapular, and pectoralis tightness, R>L. Initiated standing thoracic rotation, 45 deg B ER and standing pectoralis stretch in staggered stance following manual treatment. Pt with improved tolerance for activity post manual treatment and with standing activities. PT cued pt extensively for breathing, shoulder relaxation , and posture to limit forward head positioning. Pt planning on beginning acupuncture next week in conjunction with PT again and planning to follow up with PCP. PT and pt discussed discharge vs extending plan of care at next visit; pt at this time leaning toward referral back to PCP, but will make decision with PT at next session. Pt would benefit from skilled PT for improved body mechanics, posture, and activity modification in order to improve activity tolerance and decrease pain symptoms. Physical Therapy Plan Frequency and Duration Frequency of Treatment 2x/Week Duration of treatment (weeks) 8 Plan of Care Start Date 04/21/23 Plan of Care End Date 06/20/23 Therapeutic Interventions Therapeutic Interventions Balance Training,Coordination Training,Gait Training,Home Exercise Program,Joint Mobilizations,Manual Therapy, Neuromuscular Re-education, Orthotic/Prosthetic Management ,Patient/Caregiver Education, Self-Care/Home Management, Sensory Integration,Soft Tissue Mobilization,Taping, Therapeutic Activities, Therapeutic Exercises, Vestibular Rehabilitation Modalities Biofeedback,Cold Pack/Ice Massage,Electric Stimulation, Hot Packs,Ultrasound, Vasopneumatic Devices Other Therapeutic Interventions No mechanical traction due to osteopenia [place] protocol Next Visit Focus/Plan Next Note Type Treatment Note Next Visit Plan Next session: Manual prn, bent over T, gentle rotator cuff strengthening, low row, serratus strengthening, review row Retry rows, shoulder extension , posture strengthening, snow angels, DNF strength, shoulder isometrics Manual: STM to cervical spine, scalenes, rotator cuff; manual grade II>III mob (inf, post, lat gapping, AC)
--- NOTE | 2023-06-10 16:14 | PT.OTN ---
Current Diagnoses Pain in right shoulder (06/10/23) Anesthesia of skin (06/10/23) Weakness (06/10/23) Physical Therapy Treatment Note PT-OP-A Visit Information Start: 04/18/23 17:10 Freq: Status: Active Protocol: Document 06/10/23 13:00 NM (Rec: 06/10/23 13:47 NM [id number]) Out-Patient Physical Therapy Visit Information Visit Information Visit Type Progress Note Visit Note KX after 19 visits Visit Start Time 13:00 Visit Stop Time 13:45 Visit Number 14 Evaluation Information Evaluation Date 04/21/23 Precautions Precautions osteopenia, fibromyalgia PT-OP-B Current Condition Start: 04/18/23 17:10 Freq: Status: Active Protocol: Document 04/21/23 13:46 NM (Rec: 04/21/23 15:51 NM [id number]) Current Condition History of Current Condition Onset Date 9 months since shoulder, last 2 months since arm radiation Current Complaints pain, numbness/tingling History of Current Condition Pt presents with R shoulder pain, achiness along the entire arm beginning 9 months ago. Pt does not know what caused her R shoulder to begin hurting. Pain is worse in sleeping (unable to get into a comfortable position) and with reaching/elevation. Reports scapula and neck pain on R shoulder, post shoulder above and below clavicle. Hx of B frozen shoulder and R CARMELO /score 17 years ago. Pt also reports that 2 months ago, her R arm began to fall asleep and feel numb, usually at night but occasionally during the day with certain positions . States the numbness is not localized to a finger, but is the entire hand, which radiates from her shoulder. Reports that her hand becomes numb with sitting in certain positions that can't be replicated (not elevated) or when washing hair (arm elevated). At night, the numbness can last several hours, and she has to resort to shaking her hand to feel better over time. Had R finger surgery on 09/26/22. Tested for carpal tunnel (hx of fibro ) several years ago. States she has not had any changes in her hand strength, but reports changes in her shoulder strength since the incident began. Prior Treatments and Tests no previous PT for condition; hand therapy post finger surgery (OT) Prior Functional Status Baseline Function- Gait daily walk: 2-3 mi, max 4-5 mi (pain in neck) Current Functional Impairments (Reported) Functional Limitations- Mobility/Gait walk with cold PT-OP-C Subjective Start: 04/18/23 17:10 Freq: Status: Active Protocol: Document 06/10/23 13:00 NM (Rec: 06/10/23 13:47 NM [id number]) OP-PT Subjective Patient Comments Patient Comments Pt recently began acupuncture yesterday. She went gardening this morning. She reports that the back of her neck and shoulder are very tender today , states increased neck pain overall. Per conversation last session, pt reports that she has improved since starting PT but improvement is minimal. She is wanting to continue PT as long as possible. She will be getting a MRI soon on her cervical spine PT-OP-E Functional Tests Start: 04/18/23 17:10 Freq: Status: Active Protocol: Document 04/21/23 13:46 NM (Rec: 04/21/23 15:51 NM [id number]) Functional Tests Apley's Scratch Test Action 1- Left post cuff Action 1- Right post cuff, aches Action 2- Left T3 Action 2- Right T2; tight in shoulder blade, mid back, neck Action 3- Left T6 Action 3- Right T12; most pain in anterior shoulder PT-OP-F Manual Assessment Start: 04/18/23 17:10 Freq: Status: Active Protocol: Document 04/21/23 13:46 NM (Rec: 04/21/23 15:51 NM [id number]) Manual Assessments Soft Tissue Assessment Soft Tissue Mobility Assessment Increased tone on R sided cervical paraspinals, scalenes , SCM. R SCM limits rotation. Observable R carotid pulse. No swelling or atrophy of R arm, danielle near clavicle Joint Mobility Assessment Joint Mobility Assessment Decreased bilateral shoulder AROM. R shoulder AROM and PROM limited in flexion, abduction , and external rotation. Demos impingement signs. No cervical instability. Elevated R 1st rib PT-OP-G Mobility & Gait Start: 04/18/23 17:10 Freq: Status: Active Protocol: Document 04/21/23 13:46 NM (Rec: 04/21/23 15:51 NM [id number]) OP Gait Assessment Gait Gait Assistance Required: Independent Distance (Feet) 150 Comments Gait Comments Decreased trunk rotation with gait PT-OP-H Neuro Start: 04/18/23 17:10 Freq: Status: Active Protocol: Document 04/21/23 13:46 NM (Rec: 04/21/23 15:51 NM [id number]) Sensation Evaluation Comments Summary Comments BUE equally intact to light touch sensation Deep Tendon Reflex & Clonus Assessment Deep Tendon Reflex Left Brachioradialis Deep Tendon Reflex 2+ Normal Left Bicep Deep Tendon Reflex 2+ Normal Right Brachioradialis Deep Tendon Reflex 1+ Diminished Right Bicep Deep Tendon Reflex 3+ Normal But Brisk PT-OP-J Posture/Palpation/Skin Start: 04/18/23 17:10 Freq: Status: Active Protocol: Document 04/21/23 13:46 NM (Rec: 04/21/23 15:51 NM [id number]) Posture Evaluation Position Standing Head/C-Spine Posture Forward Head T-Spine Posture Increased Kyphosis L-Spine Posture Increased Lordosis Shoulder Posture (L) Rounded,(R) Rounded,(L) Forward,(R) Forward,(L) Elevated Scapula Posture (L) Protracted,(R) Protracted Arm Posture (L) Internally Rotated,(R) Internally Rotated Pelvis Posture Anteriorly Tilted Weight Distribution Balanced Hip Posture (L) Neutral,(R) Neutral Knee Posture (L) Genu Valgus,(R) Genu Valgus Patellar Posture (L) Neutral,(R) Neutral Ankle/Foot Posture (L) Pronated,(R) Pronated Palpation Assessment Location cervical spine Palpation Location spinous processes, paraspinals , suboccipitals, periscapulars Palpation Findings Soft Tissue Tightness, Tenderness Palpation Details Soft tissue tightness of B paraspinals (R>L), R upper trapezius, levator scapular, scalenes, SCM. Elevated first rib. Tenderness near mid-cervical spinous processes with P-A springing, none at upper or lower cervical spine. R shoulder Palpation Location rotator cuff, long head biceps tendon, AC joint, SC joint Palpation Findings Soft Tissue Tightness, Tenderness Palpation Details Tenderness of LH biceps tendon . No tenderness of AC or SC joint. Tenderness above and below clavicle. Tenderness along posterior cuff ( supraspinatus and infraspinatus), rhomboid. No tenderness of biceps muscle belly Skin Assessment Other Assessments Skin Assessment Comments RUE has symmetrical color and sensation to LUE. No evidence of swelling in supraclavicular or infraclavicular region, RUE. PT-OP-K Range of Motion Start: 04/18/23 17:10 Freq: Status: Active Protocol: Document 06/10/23 13:00 NM (Rec: 06/10/23 13:47 NM [id number]) Cervical Spine Range of Motion Cervical Spine Active Degrees Flexion 50 Extension 30 Rotation Left 80 Rotation Right 50 Lateral Flexion Left 30 Lateral Flexion Right 30 Comments IE: 55 deg flex, 25 deg ext, 75 deg L rot, 65 deg R rot, 25 deg B lateral flexion- Stretch reported posterior neck with ext; R SB>L SB discomfort, R rotation discomfort in shoulder. Reports not pain 05/26/23: 40 deg flex, 40 deg ext, 30 deg B lateral flexion (demos slight rotatinon), 70 deg rotation L, 50 deg rotation R 06/06/23: 50 deg flex, 30 deg ext, 30 deg B lateral flexion, 55 deg R rot, 68 deg L rot 06/10/23: 50 deg R rot, 80 deg L rot, 50 deg flex, 30 ext, 30 lateral flexion Shoulder Goniometric Range of Motion Shoulder Right Flexion 135 Abduction 140 External Rotation at 0 degrees Abduction 65 Internal Rotation 75 Internal Rotation Behind Back (text) T9 Comments impingement with abduction; pain with end range ER and flexion 05/26/23: 135 deg R flexion ( pain at end range), 120 deg abduction (pain at end range), 60 deg ER at 0 deg abd (no pain), R IR T10 (painful) 06/06/23: 140 deg flex, 120 abd , 65 deg ER at 0 deg abd 06/10/23: 135 flex, 140 abd, 65 ER, T9 Ir, 75 IR PT-OP-L Special Tests Start: 04/18/23 17:10 Freq: Status: Active Protocol: Document 04/21/23 13:46 NM (Rec: 04/21/23 15:51 NM [id number]) Special Tests Cervical Spine Special Tests Upper Limb Tension Test Test Results - median, radial, ulnar Comments no numbness/tingling; reports shoulder pain with depression Spurling's Test Test Results + Comments R sided focal pain in neck, no radiation into arm Traction Test Results - Transverse Ligament Test Results - Alar Ligament Test Results - Shoulder Special Tests Neer Impingement Test Results + Ship[place] Jose Impingement Test Results + Lift-Off Rotator Cuff Test Results - Comments painful but able to lift off maximally Empty Can Test Results + Comments Improved strength and less pain with full can Drop Arm Rotator Cuff Test Results - Neural Special Tests- Upper Body Tinel Sign Test Results - Comments median n Phalen's Test Results - Vascular Special Tests Adson Maneuver Test Results + Comments decreased radial pulse Claude Test Test Results + Comments reports symptoms after 30 seconds PT-OP-M Strength Start: 04/18/23 17:10 Freq: Status: Active Protocol: Document 06/10/23 13:00 NM (Rec: 06/10/23 13:47 NM [id number]) Shoulder Strength Shoulder Manual Muscle Testing Right Flexion 4- Good- Extension 4+ Good+ Abduction (C5) 4- Good- Adduction 4 Good External Rotation 4- Good- Internal Rotation 4 Good Comments Pain with resisted abduction and external rotation 06/06/23: 4- flex and ER, IR 4+ /5, abd 4/5 and ER PT-OP-Q Treatments Start: 04/18/23 17:10 Freq: Status: Active Protocol: Document 06/10/23 13:00 NM (Rec: 06/10/23 13:47 NM [id number]) Therapeutic Exercises Standing Exercises snow angels Standing Exercise Name hands by side> abd into T's @ 90 deg Side bilateral Resistance AROM Equipment Used ~ active pec mobilization/ stretch Reps/Minutes 1x15 Comments cued to remain w/i pain free range, gentle scap retraction W Standing Exercise Name B ER at 45 deg Side bilateral Resistance lvl 1 band Reps/Minutes 2x10 Comments pain free; cued shldr and neck relax, chin tuck, elbows by side pectoralis stretch Standing Exercise Name from 45 deg to just above 90 deg Side bilateral Equipment Used staggered stance Reps/Minutes 1x60 Comments cued less fwd head posture, reports good stretch, post manual tx rows Standing Exercise Name low row Side bilateral Resistance lvl 2 tb Equipment Used staggered stance Reps/Minutes 2x10 Comments cued shldr relaxation w/ eccentric, improved w/ reps deep neck flexor isometric reactive Standing Exercise Name w/ gentle chin tuck- progressed to isometric Side bilateral Resistance lvl 1 band Equipment Used hands against wall with band Reps/Minutes 1x10 Comments pain free; cued DNF w/o cervical flexion Manual Therapy Treatment Soft Tissue Mobilization right scalenes at lateral clavicle Body Location right scalenes, UT, levator scap Mobilization Type Cross-Friction,Rolling, Sustained Pressure Intensity/Depth Moderate Body Position Sitting Comments Less tenderness, restriction of scalenes/UT/LS. Tender point and restriction especially of R scalenes. post cuff Body Location subscap/lat/lateral-anterior border Mobilization Type Sustained Pressure Intensity/Depth Superficial Body Position Supine Comments Increased tenderness with gentle sustained pressure. Reports reduction in tenderness, cued for breathing /relaxation pec Body Location right major and minor Mobilization Type Cross-Friction,Rolling Intensity/Depth Moderate Body Position Sidelying Comments Performed with posterior scapular setting to lengthen during mobilization, pain free but increased tightness. Performed prior to stretching and exercise cervical spine Body Location suboccipitals, paraspinals, SCM, scalenes Mobilization Type Rolling,Sustained Pressure Intensity/Depth sup/mod Body Position Hooklying Comments Reduction in tightness of R>L paraspinals, SCM, scalene. Continues to have soft tissue restrictions, limit ROM and increase pain symptoms. Less restriction today post acupuncture Joint Mobilizations scapular mobilization Joint right scapulothoracic jt Direction depression and adduction, protract/retract Grade II Reps/Duration 1x10 each direction Comments Prior to exercise, pain free. AAROM>AROM with scapular depression/adduction. Challenging for pt R GHJ Direction AP, Inf Grade III Body Position Supine Comments Pain free, post soft tissue mobilization. Small bias into ER and IR. Decreased inferior glide of humerus today Self-Care/Home Management Treatment Education Patient Education Home Exercise Program Other Education HEP: Reviewed past HEP and condensed exercises. Added wall walks, low and mid row with band PT-OP-T Assessment and Plan Start: 04/18/23 17:10 Freq: Status: Active Protocol: Document 06/10/23 13:00 NM (Rec: 06/10/23 13:47 NM [id number]) Physical Therapy Assessment Goals Five Impairment strength Impairment R shoulder flexion 4/5 MMT R shoulder ER and abduction 4- /5 MMT Short Term Goal (STG) Pt will increase R shoulder flexion, abduction, and ER MMT scores to at least 4/5 in order to demonstrate improved strength for lifting, reaching , and ADLs 06/06/23: 4- flex and ER, IR 4+ /5, abd 4/5 and ER STG Duration 4 weeks [address] MET [employer] [address] Sql Developer Goal (LTG) Pt will increase R shoulder flexion, abduction, and ER MMT scores to at least 4+/5 in order to demonstrate improved strength for lifting, reaching , and ADLs 06/06/23: 4- flex and ER, IR 4+ /5, abd 4/5 and ER LTG Duration 8 weeks NOT MET One Impairment sleep Impairment unable to sleep in R shoulder 1-2 hours (side or back) Short Term Goal (STG) Pt will report that she is able to sleep > 2 hours without waking due to pain or numbness in order to demonstrate improved symptom management 05/26/23: reports still waking up at least 2-3x/night with hand numbness 05/28/23: Trialed sleep positions w/ pillow supports - pt to try L sidelying w/ RUE hugging pillow. 06/06/23: still waking up 3-4 times per night even with new sleeping position changes STG Duration 4 weeks NOT MET Care Home Goal (LTG) Pt will report that she is able to sleep without waking due to pain or numbness in order to demonstrate improved symptom management 06/06/23: still waking up 3-4 times per night even with new sleeping position changes; states improved sleeping with new position, but pillow moves so unable to stay asleep LTG Duration 8 weeks NOT MET Four Impairment R shoulder AROM Impairment R abduction 100 deg, ER 40 deg at 0 deg abd Short Term Goal (STG) Pt will increase R shoulder abduction to at least 110 deg abduction without compensation and ER to at least 50 deg in order to demonstrate improvements in arm elevation for reaching and ADLs 05/26/23: 120 deg abd (painful end range), 60 deg ER (not painful) 06/06/23: 140 deg flex, 120 abd (painful end range), 65 deg ER at 0 deg abd STG Duration [address] [employer] Developer Goal (LTG) Pt will increase R shoulder abduction to at least 120 deg abduction without compensation and ER to at least 60 deg in order to demonstrate improvements in arm elevation for reaching and ADLs 05/26/23: 120 deg abd (painful end range), 60 deg ER (not painful) 06/06/23: 140 deg flex, 120 abd (painful end range), 65 deg ER at 0 deg abd 06/10/23: 135 flex, 140 abd, 65 ER, T9 Ir, 75 IR LTG Duration 8 weeks MET Three Impairment R shoulder AROM Impairment Apley IR T12 Short Term Goal (STG) Pt will increase R shoulder Apley IR to at least T9 in order to demonstate improved AROM for ADLs and dressing 05/26/23: T10 with increased pain 06/06/23: T9, painful STG Duration 4 weeks MET Care Home Goal (LTG) Pt will increase R shoulder Apley IR to at least T6 in order to demonstate improved AROM for ADLs and dressing, comparable to LUE 06/10/23: T9, painful LTG Duration 8 weeks Two Impairment cervical spine AROM Impairment R rotation 65 deg Short Term Goal (STG) Pt will increase R cervical spine rotation AROM to at least 70 deg in order to be comparable to L cervical spine rotation for improved visual scanning 05/26/23: 50 deg R cervical rotation 06/06/23: 50 deg flex, 30 deg ext, 30 deg B lateral flexion, 55 deg R rot, 68 deg L rot STG Duration [address] [employer] Developer Goal (LTG) Pt will increase R cervical spine rotation AROM to at least 75 deg in order to be comparable to L cervical spine rotation for improved visual scanning 06/06/23: 50 deg flex, 30 deg ext, 30 deg B lateral flexion, 55 deg R rot, 68 deg L rot 06/10/23: 50 deg R rot, 80 deg L rot, 50 deg flex, 30 ext, 30 lateral flexion LTG Duration 8 weeks NOT MET Progress Towards Goals Progress Towards Goals Slow Progress due to Medical Issues,Slow Progress - Other Progress Comments Met R shoulder AROM goals, but continues to be painful. Did not meet other goals related to cervical spine ROM, strength Assessment Summary Assessment Pt tolerated session well without any increase in pain. At end of session, pt reports that she feels more open, looser, stretched out. Progressed deep neck flexor strengthening with positional changes with hands on wall in addition to more cervical retraction. Cued to maintain deep neck flexion without cervical flexion. Pt continues to have good feedback for chest opening activities post manual treatment, including stretching and periscapular strengthening. Within limited ROM, pt demos improved head positioning with wall posture activities and postural stabilization. Initiated gentle rotator cuff strengthening to improve R shoulder strength with elevation Physical Therapy Plan Frequency and Duration Frequency of Treatment 2x/Week Duration of treatment (weeks) 8 Plan of Care Start Date 06/10/23 Plan of Care End Date 08/08/23 Therapeutic Interventions Therapeutic Interventions Balance Training,Coordination Training,Gait Training,Home Exercise Program,Joint Mobilizations,Manual Therapy, Neuromuscular Re-education, Orthotic/Prosthetic Management ,Patient/Caregiver Education, Self-Care/Home Management, Sensory Integration,Soft Tissue Mobilization,Taping, Therapeutic Activities, Therapeutic Exercises, Vestibular Rehabilitation Modalities Biofeedback,Cold Pack/Ice Massage,Electric Stimulation, Hot Packs,Ultrasound, Vasopneumatic Devices Other Therapeutic Interventions No mechanical traction due to osteopenia Lee protocol Next Visit Focus/Plan Next Note Type Treatment Note Next Visit Plan Next session: gentle rotator cuff strengthening, low row, serratus strengthening, posture strengthening, snow angels, DNF strength, cervical spine stretches/mobility Manual: STM to cervical spine, scalenes, rotator cuff; manual grade II>III mob (inf, post, lat gapping, AC)
--- NOTE | 2023-06-10 16:15 | PT.OPPOC ---
Physical, Occupational & Speech Therapy At [facility] Current Diagnoses Pain in right shoulder (06/10/23) Anesthesia of skin (06/10/23) Weakness (06/10/23) Visit Care Team Role Provider Type NACHO Griggs Attending Provider Advanced Supervisor [place] Family Provider Primary Care Provider Referring Provider Specialty: Medical Address: [address] [place] [address], [facility] Email: [email or web address] Plan Of Care PT-OP-T Assessment and Plan Start: 04/18/23 17:10 Freq: Status: Active Protocol: Document 06/10/23 13:00 NM (Rec: 06/10/23 13:47 NM [id number]) Physical Therapy Assessment Goals Five Impairment strength Impairment R shoulder flexion 4/5 MMT R shoulder ER and abduction 4- /5 MMT Short Term Goal (STG) Pt will increase R shoulder flexion, abduction, and ER MMT scores to at least 4/5 in order to demonstrate improved strength for lifting, reaching , and ADLs 06/06/23: 4- flex and ER, IR 4+ /5, abd 4/5 and ER STG Duration 4 weeks PARTIALLY MET [facility] Goal (LTG) Pt will increase R shoulder flexion, abduction, and ER MMT scores to at least 4+/5 in order to demonstrate improved strength for lifting, reaching , and ADLs 06/06/23: 4- flex and ER, IR 4+ /5, abd 4/5 and ER LTG Duration 8 weeks NOT MET One Impairment sleep Impairment unable to sleep in R shoulder 1-2 hours (side or back) Short Term Goal (STG) Pt will report that she is able to sleep > 2 hours without waking due to pain or numbness in order to demonstrate improved symptom management 05/26/23: reports still waking up at least 2-3x/night with hand numbness 05/28/23: Trialed sleep positions w/ pillow supports - pt to try L sidelying w/ RUE hugging pillow. 06/06/23: still waking up 3-4 times per night even with new sleeping position changes STG Duration 4 weeks NOT MET [facility] Goal (LTG) Pt will report that she is able to sleep without waking due to pain or numbness in order to demonstrate improved symptom management 06/06/23: still waking up 3-4 times per night even with new sleeping position changes; states improved sleeping with new position, but pillow moves so unable to stay asleep LTG Duration 8 weeks NOT MET Four Impairment R shoulder AROM Impairment R abduction 100 deg, ER 40 deg at 0 deg abd Short Term Goal (STG) Pt will increase R shoulder abduction to at least 110 deg abduction without compensation and ER to at least 50 deg in order to demonstrate improvements in arm elevation for reaching and ADLs 05/26/23: 120 deg abd (painful end range), 60 deg ER (not painful) 06/06/23: 140 deg flex, 120 abd (painful end range), 65 deg ER at 0 deg abd STG Duration 4 weeks [facility] Goal (LTG) Pt will increase R shoulder abduction to at least 120 deg abduction without compensation and ER to at least 60 deg in order to demonstrate improvements in arm elevation for reaching and ADLs 05/26/23: 120 deg abd (painful end range), 60 deg ER (not painful) 06/06/23: 140 deg flex, 120 abd (painful end range), 65 deg ER at 0 deg abd 06/10/23: 135 flex, 140 abd, 65 ER, T9 Ir, 75 IR LTG Duration 8 weeks MET Three Impairment R shoulder AROM Impairment Apley IR T12 Short Term Goal (STG) Pt will increase R shoulder Apley IR to at least T9 in order to demonstate improved AROM for ADLs and dressing 05/26/23: T10 with increased pain 06/06/23: T9, painful STG Duration 4 weeks MET [facility] Goal (LTG) Pt will increase R shoulder Apley IR to at least T6 in order to demonstate improved AROM for ADLs and dressing, comparable to LUE 06/10/23: T9, painful LTG Duration 8 weeks Two Impairment cervical spine AROM Impairment R rotation 65 deg Short Term Goal (STG) Pt will increase R cervical spine rotation AROM to at least 70 deg in order to be comparable to L cervical spine rotation for improved visual scanning 05/26/23: 50 deg R cervical rotation 06/06/23: 50 deg flex, 30 deg ext, 30 deg B lateral flexion, 55 deg R rot, 68 deg L rot STG Duration 4 weeks NOT MET [facility] Goal (LTG) Pt will increase R cervical spine rotation AROM to at least 75 deg in order to be comparable to L cervical spine rotation for improved visual scanning 06/06/23: 50 deg flex, 30 deg ext, 30 deg B lateral flexion, 55 deg R rot, 68 deg L rot 06/10/23: 50 deg R rot, 80 deg L rot, 50 deg flex, 30 ext, 30 lateral flexion LTG Duration 8 weeks NOT MET Progress Towards Goals Progress Towards Goals Slow Progress due to Medical Issues,Slow Progress - Other Progress Comments Met R shoulder AROM goals, but continues to be painful. Did not meet other goals related to cervical spine ROM, strength Assessment Summary Assessment Pt has been seen x 13 visits since IE in April 2023 for R shoulder and neck pain. She is making slow progress toward goals, particularly with R shoulder ROM. Her flexion/ abduction is still limited and painful, but significantly improved since evaluation. Pt' s cervical spine ROM is also improved, but she still has limitations in R rotation. Her R shoulder strength is still limited and pain despite slight improvements since evaluation. Overall, pt has very forward head/rounded shoulders posture and increased muscle tightness/ tension that limits progress with PT. Pt also continues to report no change in the numbness at night or improvement in her ability to sleep without pain. She is currently receiving another round of acupuncture, which she finds helpful with reducing pain symptoms and is planning on having an MRI performed on her cervical spine in the future. PT and PTAs have spent extensive time educating pt on activity modification and ergonomic changes for improved symptom management. Depending on insurance limitations, pt would benefit from skilled PT for further mobility and strengthening in order to decrease pain symptoms and improve activity tolerance. Physical Therapy Plan Frequency and Duration Frequency of Treatment 2x/Week Duration of treatment (weeks) 8 Plan of Care Start Date 06/10/23 Plan of Care End Date 08/08/23 Therapeutic Interventions Therapeutic Interventions Balance Training,Coordination Training,Gait Training,Home Exercise Program,Joint Mobilizations,Manual Therapy, Neuromuscular Re-education, Orthotic/Prosthetic Management ,Patient/Caregiver Education, Self-Care/Home Management, Sensory Integration,Soft Tissue Mobilization,Taping, Therapeutic Activities, Therapeutic Exercises, Vestibular Rehabilitation Modalities Biofeedback,Cold Pack/Ice Massage,Electric Stimulation, Hot Packs,Ultrasound, Vasopneumatic Devices Other Therapeutic Interventions No mechanical traction due to osteopenia [place] protocol Next Visit Focus/Plan Next Note Type Treatment Note Next Visit Plan Next session: gentle rotator cuff strengthening, low row, serratus strengthening, posture strengthening, snow angels, DNF strength, cervical spine stretches/mobility Manual: STM to cervical spine, scalenes, rotator cuff; manual grade II>III mob (inf, post, lat gapping, AC) Plan of Care Dates Plan of Care Start Date 06/10/23 Plan of Care End Date 08/08/23 Electronically Signed by: Birdie Casillas, PT 06/10/23 2580 If you are in agreement with this Plan of Care, please return a signed and dated copy. I have reviewed this Plan of Care and certify that the skilled therapy services above are required to meet the patient?s needs. Physician Signature Date Printed Name and Credentials Clinical Instructor Signature Printed Name and Credentials
--- NOTE | 2023-06-27 11:14 | PT.OTN ---
Current Diagnoses Pain in right shoulder (06/27/23) Anesthesia of skin (06/27/23) Weakness (06/27/23) Physical Therapy Treatment Note PT-OP-A Visit Information Start: 04/18/23 17:10 Freq: Status: Active Protocol: Document 06/27/23 10:34 SP (Rec: 06/27/23 11:19 SP [id number]) Out-Patient Physical Therapy Visit Information Visit Information Visit Type Treatment Note Visit Note KX after 19 visits 3/10 post PN Visit Start Time 10:34 Visit Stop Time 11:14 Visit Number 16 Number of FILER METAL PATTERNS Visits 2 Evaluation Information Evaluation Date 04/21/23 Precautions Precautions osteopenia, fibromyalgia PT-OP-B Current Condition Start: 04/18/23 17:10 Freq: Status: Active Protocol: Document 04/21/23 13:46 NM (Rec: 04/21/23 15:51 NM [id number]) Current Condition History of Current Condition Onset Date 9 months since shoulder, last 2 months since arm radiation Current Complaints pain, numbness/tingling History of Current Condition Pt presents with R shoulder pain, achiness along the entire arm beginning 9 months ago. Pt does not know what caused her R shoulder to begin hurting. Pain is worse in sleeping (unable to get into a comfortable position) and with reaching/elevation. Reports scapula and neck pain on R shoulder, post shoulder above and below clavicle. Hx of B frozen shoulder and R CARMELO /score 17 years ago. Pt also reports that 2 months ago, her R arm began to fall asleep and feel numb, usually at night but occasionally during the day with certain positions . States the numbness is not localized to a finger, but is the entire hand, which radiates from her shoulder. Reports that her hand becomes numb with sitting in certain positions that can't be replicated (not elevated) or when washing hair (arm elevated). At night, the numbness can last several hours, and she has to resort to shaking her hand to feel better over time. Had R finger surgery on 09/26/22. Tested for carpal tunnel (hx of fibro ) several years ago. States she has not had any changes in her hand strength, but reports changes in her shoulder strength since the incident began. Prior Treatments and Tests no previous PT for condition; hand therapy post finger surgery (OT) Prior Functional Status Baseline Function- Gait daily walk: 2-3 mi, max 4-5 mi (pain in neck) Current Functional Impairments (Reported) Functional Limitations- Mobility/Gait walk with cold PT-OP-C Subjective Start: 04/18/23 17:10 Freq: Status: Active Protocol: Document 06/27/23 10:34 SP (Rec: 06/27/23 11:19 SP [id number]) OP-PT Subjective Patient Comments Patient Comments Pt reports had MRI Tues but haven't heard results yet. She reports tightness R anterolateral neck. PT-OP-E Functional Tests Start: 04/18/23 17:10 Freq: Status: Active Protocol: Document 04/21/23 13:46 NM (Rec: 04/21/23 15:51 NM [id number]) Functional Tests Apley's Scratch Test Action 1- Left post cuff Action 1- Right post cuff, aches Action 2- Left T3 Action 2- Right T2; tight in shoulder blade, mid back, neck Action 3- Left T6 Action 3- Right T12; most pain in anterior shoulder PT-OP-F Manual Assessment Start: 04/18/23 17:10 Freq: Status: Active Protocol: Document 04/21/23 13:46 NM (Rec: 04/21/23 15:51 NM [id number]) Manual Assessments Soft Tissue Assessment Soft Tissue Mobility Assessment Increased tone on R sided cervical paraspinals, scalenes , SCM. R SCM limits rotation. Observable R carotid pulse. No swelling or atrophy of R arm, danielle near clavicle Joint Mobility Assessment Joint Mobility Assessment Decreased bilateral shoulder AROM. R shoulder AROM and PROM limited in flexion, abduction , and external rotation. Demos impingement signs. No cervical instability. Elevated R 1st rib PT-OP-G Mobility & Gait Start: 04/18/23 17:10 Freq: Status: Active Protocol: Document 04/21/23 13:46 NM (Rec: 04/21/23 15:51 NM [id number]) OP Gait Assessment Gait Gait Assistance Required: Independent Distance (Feet) 150 Comments Gait Comments Decreased trunk rotation with gait PT-OP-H Neuro Start: 04/18/23 17:10 Freq: Status: Active Protocol: Document 04/21/23 13:46 NM (Rec: 04/21/23 15:51 NM [id number]) Sensation Evaluation Comments Summary Comments BUE equally intact to light touch sensation Deep Tendon Reflex & Clonus Assessment Deep Tendon Reflex Left Brachioradialis Deep Tendon Reflex 2+ Normal Left Bicep Deep Tendon Reflex 2+ Normal Right Brachioradialis Deep Tendon Reflex 1+ Diminished Right Bicep Deep Tendon Reflex 3+ Normal But Brisk PT-OP-J Posture/Palpation/Skin Start: 04/18/23 17:10 Freq: Status: Active Protocol: Document 04/21/23 13:46 NM (Rec: 04/21/23 15:51 NM [id number]) Posture Evaluation Position Standing Head/C-Spine Posture Forward Head T-Spine Posture Increased Kyphosis L-Spine Posture Increased Lordosis Shoulder Posture (L) Rounded,(R) Rounded,(L) Forward,(R) Forward,(L) Elevated Scapula Posture (L) Protracted,(R) Protracted Arm Posture (L) Internally Rotated,(R) Internally Rotated Pelvis Posture Anteriorly Tilted Weight Distribution Balanced Hip Posture (L) Neutral,(R) Neutral Knee Posture (L) Genu Valgus,(R) Genu Valgus Patellar Posture (L) Neutral,(R) Neutral Ankle/Foot Posture (L) Pronated,(R) Pronated Palpation Assessment Location cervical spine Palpation Location spinous processes, paraspinals , suboccipitals, periscapulars Palpation Findings Soft Tissue Tightness, Tenderness Palpation Details Soft tissue tightness of B paraspinals (R>L), R upper trapezius, levator scapular, scalenes, SCM. Elevated first rib. Tenderness near mid-cervical spinous processes with P-A springing, none at upper or lower cervical spine. R shoulder Palpation Location rotator cuff, long head biceps tendon, AC joint, SC joint Palpation Findings Soft Tissue Tightness, Tenderness Palpation Details Tenderness of LH biceps tendon . No tenderness of AC or SC joint. Tenderness above and below clavicle. Tenderness along posterior cuff ( supraspinatus and infraspinatus), rhomboid. No tenderness of biceps muscle belly Skin Assessment Other Assessments Skin Assessment Comments RUE has symmetrical color and sensation to LUE. No evidence of swelling in supraclavicular or infraclavicular region, RUE. PT-OP-K Range of Motion Start: 04/18/23 17:10 Freq: Status: Active Protocol: Document 06/10/23 13:00 NM (Rec: 06/10/23 13:47 NM [id number]) Cervical Spine Range of Motion Cervical Spine Active Degrees Flexion 50 Extension 30 Rotation Left 80 Rotation Right 50 Lateral Flexion Left 30 Lateral Flexion Right 30 Comments IE: 55 deg flex, 25 deg ext, 75 deg L rot, 65 deg R rot, 25 deg B lateral flexion- Stretch reported posterior neck with ext; R SB>L SB discomfort, R rotation discomfort in shoulder. Reports not pain 05/26/23: 40 deg flex, 40 deg ext, 30 deg B lateral flexion (demos slight rotatinon), 70 deg rotation L, 50 deg rotation R 06/06/23: 50 deg flex, 30 deg ext, 30 deg B lateral flexion, 55 deg R rot, 68 deg L rot 06/10/23: 50 deg R rot, 80 deg L rot, 50 deg flex, 30 ext, 30 lateral flexion Shoulder Goniometric Range of Motion Shoulder Right Flexion 135 Abduction 140 External Rotation at 0 degrees Abduction 65 Internal Rotation 75 Internal Rotation Behind Back (text) T9 Comments impingement with abduction; pain with end range ER and flexion 05/26/23: 135 deg R flexion ( pain at end range), 120 deg abduction (pain at end range), 60 deg ER at 0 deg abd (no pain), R IR T10 (painful) 06/06/23: 140 deg flex, 120 abd , 65 deg ER at 0 deg abd 06/10/23: 135 flex, 140 abd, 65 ER, T9 Ir, 75 IR PT-OP-L Special Tests Start: 04/18/23 17:10 Freq: Status: Active Protocol: Document 04/21/23 13:46 NM (Rec: 04/21/23 15:51 NM [id number]) Special Tests Cervical Spine Special Tests Upper Limb Tension Test Test Results - median, radial, ulnar Comments no numbness/tingling; reports shoulder pain with depression Spurling's Test Test Results + Comments R sided focal pain in neck, no radiation into arm Traction Test Results - Transverse Ligament Test Results - Alar Ligament Test Results - Shoulder Special Tests Neer Impingement Test Results + Shipman Jose Impingement Test Results + Lift-Off Rotator Cuff Test Results - Comments painful but able to lift off maximally Empty Can Test Results + Comments Improved strength and less pain with full can Drop Arm Rotator Cuff Test Results - Neural Special Tests- Upper Body Tinel Sign Test Results - Comments median n Phalen's Test Results - Vascular Special Tests Adson Maneuver Test Results + Comments decreased radial pulse Claude Test Test Results + Comments reports symptoms after 30 seconds PT-OP-M Strength Start: 04/18/23 17:10 Freq: Status: Active Protocol: Document 06/10/23 13:00 NM (Rec: 06/10/23 13:47 NM [id number]) Shoulder Strength Shoulder Manual Muscle Testing Right Flexion 4- Good- Extension 4+ Good+ Abduction (C5) 4- Good- Adduction 4 Good External Rotation 4- Good- Internal Rotation 4 Good Comments Pain with resisted abduction and external rotation 06/06/23: 4- flex and ER, IR 4+ /5, abd 4/5 and ER PT-OP-Q Treatments Start: 04/18/23 17:10 Freq: Status: Active Protocol: Document 06/27/23 10:34 SP (Rec: 06/27/23 11:19 SP [id number]) Therapeutic Exercises Sidelying Exercises abduction Sidelying Exercise Name right shoulder abd AROM Side right Resistance AROM Reps/Minutes 1x10 Comments improved post manual, reduction tension under arm and better scap add & UR shoulder ER AROM Side right Resistance 1# db Equipment Used towel roll Reps/Minutes 1x10 Comments cued for pain free range, tiring effort post shld Standing Exercises snow angels Standing Exercise Name hands by side> abd into T's @ 90 deg, Ws<>Ys Side bilateral Resistance AROM- facing wall (toes touch/ belly touch/rolled towel and forehead) Equipment Used ~ active pec mobilization/ stretch Reps/Minutes 1x15 Comments cued to remain w/i pain free range, gentle scap retraction- head up/back n pectoralis stretch Standing Exercise Name from 45 deg to just above 90 deg Side bilateral Resistance doorway Equipment Used staggered stance Reps/Minutes 1x60 ea 45 and ~90 Comments cued chin tuck& retracted head posture, pnfree range Manual Therapy Treatment Soft Tissue Mobilization right scalenes at lateral clavicle Body Location right scalenes, SCM UT, levator scap Mobilization Type Cross-Friction,Rolling, Sustained Pressure Intensity/Depth Moderate Body Position supine, L SL Comments Less tenderness, restriction of R scalenes/UT/LS. Tender point and restriction especially of R scalenes. R shoulder Body Location rhomboids, Serratus Ant Mobilization Type Rolling Intensity/Depth Moderate Body Position L SL Comments tenderness SA and Rhomboids, reduction /c sustained pressure scapulothoracic cervical spine Body Location suboccipitals, paraspinals, SCM, scalenes Mobilization Type Rolling,Sustained Pressure Intensity/Depth sup/mod Body Position Hooklying Comments Reduction in tightness of R>L paraspinals, SCM, scalene. Continues to have soft tissue restrictions, limit ROM and increase pain symptoms. Less restriction today post acupuncture Joint Mobilizations scapular mobilization Joint right scapulothoracic jt Direction depression and adduction, protract/retract Grade II Reps/Duration 1x10 each direction Comments Prior to exercise, pain free. AAROM>AROM with scapular depression/adduction. PT-OP-T Assessment and Plan Start: 04/18/23 17:10 Freq: Status: Active Protocol: Document 06/27/23 10:34 SP (Rec: 06/27/23 11:19 SP [id number]) Physical Therapy Assessment Goals Five Impairment strength Impairment R shoulder flexion 4/5 MMT R shoulder ER and abduction 4- /5 MMT Short Term Goal (STG) Pt will increase R shoulder flexion, abduction, and ER MMT scores to at least 4/5 in order to demonstrate improved strength for lifting, reaching , and ADLs 06/06/23: 4- flex and ER, IR 4+ /5, abd 4/5 and ER STG Duration 4 weeks PARTIALLY MET [facility] Goal (LTG) Pt will increase R shoulder flexion, abduction, and ER MMT scores to at least 4+/5 in order to demonstrate improved strength for lifting, reaching , and ADLs 06/06/23: 4- flex and ER, IR 4+ /5, abd 4/5 and ER LTG Duration 8 weeks NOT MET One Impairment sleep Impairment unable to sleep in R shoulder 1-2 hours (side or back) Short Term Goal (STG) Pt will report that she is able to sleep > 2 hours without waking due to pain or numbness in order to demonstrate improved symptom management 05/26/23: reports still waking up at least 2-3x/night with hand numbness 05/28/23: Trialed sleep positions w/ pillow supports - pt to try L sidelying w/ RUE hugging pillow. 06/06/23: still waking up 3-4 times per night even with new sleeping position changes STG Duration 4 weeks NOT MET [facility] Goal (LTG) Pt will report that she is able to sleep without waking due to pain or numbness in order to demonstrate improved symptom management 06/06/23: still waking up 3-4 times per night even with new sleeping position changes; states improved sleeping with new position, but pillow moves so unable to stay asleep LTG Duration 8 weeks NOT MET Four Impairment R shoulder AROM Impairment R abduction 100 deg, ER 40 deg at 0 deg abd Short Term Goal (STG) Pt will increase R shoulder abduction to at least 110 deg abduction without compensation and ER to at least 50 deg in order to demonstrate improvements in arm elevation for reaching and ADLs 05/26/23: 120 deg abd (painful end range), 60 deg ER (not painful) 06/06/23: 140 deg flex, 120 abd (painful end range), 65 deg ER at 0 deg abd STG Duration 4 weeks [employer]pler Goal (LTG) Pt will increase R shoulder abduction to at least 120 deg abduction without compensation and ER to at least 60 deg in order to demonstrate improvements in arm elevation for reaching and ADLs 05/26/23: 120 deg abd (painful end range), 60 deg ER (not painful) 06/06/23: 140 deg flex, 120 abd (painful end range), 65 deg ER at 0 deg abd 06/10/23: 135 flex, 140 abd, 65 ER, T9 Ir, 75 IR LTG Duration 8 weeks MET Three Impairment R shoulder AROM Impairment Apley IR T12 Short Term Goal (STG) Pt will increase R shoulder Apley IR to at least T9 in order to demonstate improved AROM for ADLs and dressing 05/26/23: T10 with increased pain 06/06/23: T9, painful STG Duration 4 weeks MET [employer]pler Goal (LTG) Pt will increase R shoulder Apley IR to at least T6 in order to demonstate improved AROM for ADLs and dressing, comparable to LUE 06/10/23: T9, painful LTG Duration 8 weeks Two Impairment cervical spine AROM Impairment R rotation 65 deg Short Term Goal (STG) Pt will increase R cervical spine rotation AROM to at least 70 deg in order to be comparable to L cervical spine rotation for improved visual scanning 05/26/23: 50 deg R cervical rotation 06/06/23: 50 deg flex, 30 deg ext, 30 deg B lateral flexion, 55 deg R rot, 68 deg L rot STG Duration 4 weeks NOT MET [facility] Goal (LTG) Pt will increase R cervical spine rotation AROM to at least 75 deg in order to be comparable to L cervical spine rotation for improved visual scanning 06/06/23: 50 deg flex, 30 deg ext, 30 deg B lateral flexion, 55 deg R rot, 68 deg L rot 06/10/23: 50 deg R rot, 80 deg L rot, 50 deg flex, 30 ext, 30 lateral flexion LTG Duration 8 weeks NOT MET Assessment Summary Assessment Pt responded well to manual and improved L cervical rotation and scapular adduction and UR with reduction in sub and anterior shld tightness and discomfort when reaching overhead. Cues for body positioning facing wall during snow angels and Ws <> Ys with rolled towel at forhead to help maintain cervical nod and retraction neutral ext, reduction in thoracic rounding and more open anterior chest and pec stretching with reduction UT recruitment reported. Pt declined HO, felt confident with cuing corrections, will check back in next tx for postural form and progress strengthening noted in plan. Physical Therapy Plan Frequency and Duration Frequency of Treatment 2x/Week Duration of treatment (weeks) 8 Plan of Care Start Date 06/10/23 Plan of Care End Date 08/08/23 Therapeutic Interventions Therapeutic Interventions Balance Training,Coordination Training,Gait Training,Home Exercise Program,Joint Mobilizations,Manual Therapy, Neuromuscular Re-education, Orthotic/Prosthetic Management ,Patient/Caregiver Education, Self-Care/Home Management, Sensory Integration,Soft Tissue Mobilization,Taping, Therapeutic Activities, Therapeutic Exercises, Vestibular Rehabilitation Modalities Biofeedback,Cold Pack/Ice Massage,Electric Stimulation, Hot Packs,Ultrasound, Vasopneumatic Devices Other Therapeutic Interventions No mechanical traction due to osteopenia [place] protocol Next Visit Focus/Plan Next Note Type Treatment Note Next Visit Plan Next session: recheck Ts/Ws/Ys facing wall, MRI results and progress into planned gentle rotator cuff strengthening, low row, serratus strengthening, posture strengthening, snow angels, DNF strength, cervical spine stretches/mobility Manual: STM to cervical spine, scalenes, rotator cuff; manual grade II>III mob (inf, post, lat gapping, AC)
--- NOTE | 2023-07-02 15:43 | PT.OTN ---
Current Diagnoses Pain in right shoulder (07/02/23) Anesthesia of skin (07/02/23) Weakness (07/02/23) Physical Therapy Treatment Note PT-OP-A Visit Information Start: 04/18/23 17:10 Freq: Status: Active Protocol: Document 07/02/23 13:50 NM (Rec: 07/02/23 14:32 NM [id number]) Out-Patient Physical Therapy Visit Information Visit Information Visit Type Treatment Note Visit Note KX after 19 visits 410 post PN Visit Start Time 13:49 Visit Stop Time 14:30 Visit Number 17 PT-OP-B Current Condition Start: 04/18/23 17:10 Freq: Status: Active Protocol: Document 04/21/23 13:46 NM (Rec: 04/21/23 15:51 NM [id number]) Current Condition History of Current Condition Onset Date 9 months since shoulder, last 2 months since arm radiation Current Complaints pain, numbness/tingling History of Current Condition Pt presents with R shoulder pain, achiness along the entire arm beginning 9 months ago. Pt does not know what caused her R shoulder to begin hurting. Pain is worse in sleeping (unable to get into a comfortable position) and with reaching/elevation. Reports scapula and neck pain on R shoulder, post shoulder above and below clavicle. Hx of B frozen shoulder and R CARMELO /score 17 years ago. Pt also reports that 2 months ago, her R arm began to fall asleep and feel numb, usually at night but occasionally during the day with certain positions . States the numbness is not localized to a finger, but is the entire hand, which radiates from her shoulder. Reports that her hand becomes numb with sitting in certain positions that can't be replicated (not elevated) or when washing hair (arm elevated). At night, the numbness can last several hours, and she has to resort to shaking her hand to feel better over time. Had R finger surgery on 09/26/22. Tested for carpal tunnel (hx of fibro ) several years ago. States she has not had any changes in her hand strength, but reports changes in her shoulder strength since the incident began. Prior Treatments and Tests no previous PT for condition; hand therapy post finger surgery (OT) Prior Functional Status Baseline Function- Gait daily walk: 2-3 mi, max 4-5 mi (pain in neck) Current Functional Impairments (Reported) Functional Limitations- Mobility/Gait walk with cold PT-OP-C Subjective Start: 04/18/23 17:10 Freq: Status: Active Protocol: Document 07/02/23 13:50 NM (Rec: 07/02/23 14:32 NM [id number]) OP-PT Subjective Patient Comments Patient Comments Pt reports still feels it in shoulder and scapula, but less in neck. She still has difficulty sleeping, heavy housework/lifting. She reports that she is really working on her body mechanics, which she believes helps. Pt felt really good after last treatment. She is still waiting for MRI results. States starting at 05/20 neck, 5-07/20 soreness PT-OP-E Functional Tests Start: 04/18/23 17:10 Freq: Status: Active Protocol: Document 04/21/23 13:46 NM (Rec: 04/21/23 15:51 NM [id number]) Functional Tests Apley's Scratch Test Action 1- Left post cuff Action 1- Right post cuff, aches Action 2- Left T3 Action 2- Right T2; tight in shoulder blade, mid back, neck Action 3- Left T6 Action 3- Right T12; most pain in anterior shoulder PT-OP-F Manual Assessment Start: 04/18/23 17:10 Freq: Status: Active Protocol: Document 04/21/23 13:46 NM (Rec: 04/21/23 15:51 NM [id number]) Manual Assessments Soft Tissue Assessment Soft Tissue Mobility Assessment Increased tone on R sided cervical paraspinals, scalenes , SCM. R SCM limits rotation. Observable R carotid pulse. No swelling or atrophy of R arm, danielle near clavicle Joint Mobility Assessment Joint Mobility Assessment Decreased bilateral shoulder AROM. R shoulder AROM and PROM limited in flexion, abduction , and external rotation. Demos impingement signs. No cervical instability. Elevated R 1st rib PT-OP-G Mobility & Gait Start: 04/18/23 17:10 Freq: Status: Active Protocol: Document 04/21/23 13:46 NM (Rec: 04/21/23 15:51 NM [id number]) OP Gait Assessment Gait Gait Assistance Required: Independent Distance (Feet) 150 Comments Gait Comments Decreased trunk rotation with gait PT-OP-H Neuro Start: 04/18/23 17:10 Freq: Status: Active Protocol: Document 04/21/23 13:46 NM (Rec: 04/21/23 15:51 NM [id number]) Sensation Evaluation Comments Summary Comments BUE equally intact to light touch sensation Deep Tendon Reflex & Clonus Assessment Deep Tendon Reflex Left Brachioradialis Deep Tendon Reflex 2+ Normal Left Bicep Deep Tendon Reflex 2+ Normal Right Brachioradialis Deep Tendon Reflex 1+ Diminished Right Bicep Deep Tendon Reflex 3+ Normal But Brisk PT-OP-J Posture/Palpation/Skin Start: 04/18/23 17:10 Freq: Status: Active Protocol: Document 04/21/23 13:46 NM (Rec: 04/21/23 15:51 NM [id number]) Posture Evaluation Position Standing Head/C-Spine Posture Forward Head T-Spine Posture Increased Kyphosis L-Spine Posture Increased Lordosis Shoulder Posture (L) Rounded,(R) Rounded,(L) Forward,(R) Forward,(L) Elevated Scapula Posture (L) Protracted,(R) Protracted Arm Posture (L) Internally Rotated,(R) Internally Rotated Pelvis Posture Anteriorly Tilted Weight Distribution Balanced Hip Posture (L) Neutral,(R) Neutral Knee Posture (L) Genu Valgus,(R) Genu Valgus Patellar Posture (L) Neutral,(R) Neutral Ankle/Foot Posture (L) Pronated,(R) Pronated Palpation Assessment Location cervical spine Palpation Location spinous processes, paraspinals , suboccipitals, periscapulars Palpation Findings Soft Tissue Tightness, Tenderness Palpation Details Soft tissue tightness of B paraspinals (R>L), R upper trapezius, levator scapular, scalenes, SCM. Elevated first rib. Tenderness near mid-cervical spinous processes with P-A springing, none at upper or lower cervical spine. R shoulder Palpation Location rotator cuff, long head biceps tendon, AC joint, SC joint Palpation Findings Soft Tissue Tightness, Tenderness Palpation Details Tenderness of LH biceps tendon . No tenderness of AC or SC joint. Tenderness above and below clavicle. Tenderness along posterior cuff ( supraspinatus and infraspinatus), rhomboid. No tenderness of biceps muscle belly Skin Assessment Other Assessments Skin Assessment Comments RUE has symmetrical color and sensation to LUE. No evidence of swelling in supraclavicular or infraclavicular region, RUE. PT-OP-K Range of Motion Start: 04/18/23 17:10 Freq: Status: Active Protocol: Document 06/10/23 13:00 NM (Rec: 06/10/23 13:47 NM [id number]) Cervical Spine Range of Motion Cervical Spine Active Degrees Flexion 50 Extension 30 Rotation Left 80 Rotation Right 50 Lateral Flexion Left 30 Lateral Flexion Right 30 Comments IE: 55 deg flex, 25 deg ext, 75 deg L rot, 65 deg R rot, 25 deg B lateral flexion- Stretch reported posterior neck with ext; R SB>L SB discomfort, R rotation discomfort in shoulder. Reports not pain 05/26/23: 40 deg flex, 40 deg ext, 30 deg B lateral flexion (demos slight rotatinon), 70 deg rotation L, 50 deg rotation R 06/06/23: 50 deg flex, 30 deg ext, 30 deg B lateral flexion, 55 deg R rot, 68 deg L rot 06/10/23: 50 deg R rot, 80 deg L rot, 50 deg flex, 30 ext, 30 lateral flexion Shoulder Goniometric Range of Motion Shoulder Right Flexion 135 Abduction 140 External Rotation at 0 degrees Abduction 65 Internal Rotation 75 Internal Rotation Behind Back (text) T9 Comments impingement with abduction; pain with end range ER and flexion 05/26/23: 135 deg R flexion ( pain at end range), 120 deg abduction (pain at end range), 60 deg ER at 0 deg abd (no pain), R IR T10 (painful) 06/06/23: 140 deg flex, 120 abd , 65 deg ER at 0 deg abd 06/10/23: 135 flex, 140 abd, 65 ER, T9 Ir, 75 IR PT-OP-L Special Tests Start: 04/18/23 17:10 Freq: Status: Active Protocol: Document 04/21/23 13:46 NM (Rec: 04/21/23 15:51 NM [id number]) Special Tests Cervical Spine Special Tests Upper Limb Tension Test Test Results - median, radial, ulnar Comments no numbness/tingling; reports shoulder pain with depression Spurling's Test Test Results + Comments R sided focal pain in neck, no radiation into arm Traction Test Results - Transverse Ligament Test Results - Alar Ligament Test Results - Shoulder Special Tests Neer Impingement Test Results + [place] Impingement Test Results + Lift-Off Rotator Cuff Test Results - Comments painful but able to lift off maximally Empty Can Test Results + Comments Improved strength and less pain with full can Drop Arm Rotator Cuff Test Results - Neural Special Tests- Upper Body Tinel Sign Test Results - Comments median n Phalen's Test Results - Vascular Special Tests Adson Maneuver Test Results + Comments decreased radial pulse Claude Test Test Results + Comments reports symptoms after 30 seconds PT-OP-M Strength Start: 04/18/23 17:10 Freq: Status: Active Protocol: Document 06/10/23 13:00 NM (Rec: 06/10/23 13:47 NM [id number]) Shoulder Strength Shoulder Manual Muscle Testing Right Flexion 4- Good- Extension 4+ Good+ Abduction (C5) 4- Good- Adduction 4 Good External Rotation 4- Good- Internal Rotation 4 Good Comments Pain with resisted abduction and external rotation 06/06/23: 4- flex and ER, IR 4+ /5, abd 4/5 and ER PT-OP-Q Treatments Start: 04/18/23 17:10 Freq: Status: Active Protocol: Document 07/02/23 13:50 NM (Rec: 07/02/23 14:32 NM [id number]) Therapeutic Exercises Standing Exercises snow angels Standing Exercise Name 1. hands by side > abd full ROM > W's, 2. W's > Y's Side bilateral Resistance AROM- facing wall (toes touch/ belly touch/rolled towel and forehead) Reps/Minutes 1. 2x10, 2. 1x8 ea Comments improved ROM with abd; cued closer to wall form thoracic rotation Standing Exercise Name wall Side bilateral Resistance AROM Reps/Minutes 1x10 with improved rotation of thoracic and cervical spine Comments pain free with AROM; post manual tx; cued no UT involve pectoralis stretch Standing Exercise Name 45 deg Side right Resistance doorway Equipment Used staggered stance with slight rotation away Reps/Minutes 1x10 ea MWM on pec minor Comments reports feels good deep neck flexor isometric reactive Standing Exercise Name w/ gentle chin tuck/ nod- progressed to isometric Side bilateral Resistance lvl 1 band Equipment Used hands against wall with band Reps/Minutes 1x10 Comments pain free; cued DNF w/o cervical flexion Manual Therapy Treatment Soft Tissue Mobilization right scalenes at lateral clavicle Body Location right scalenes, SCM UT, levator scap Mobilization Type Rolling,Sustained Pressure, Trigger Point Release Intensity/Depth Moderate Body Position supine, L SL Comments Less tenderness, restriction of R scalenes/UT/LS compared to previous sessions. Continues to have tenderness at R scalenes and LS. Trigger point at LS, decreased tightness with rolling and trigger point release R shoulder Body Location rhomboids, lat, rotator cuff Mobilization Type Rolling,Sustained Pressure Intensity/Depth Moderate Body Position Sidelying Comments L sidelying. Tenderness and small trigger point at rhomboids, reduced w/ rolling and small sustained pressure PT-OP-T Assessment and Plan Start: 04/18/23 17:10 Freq: Status: Active Protocol: Document 07/02/23 13:50 NM (Rec: 07/02/23 14:32 NM [id number]) Physical Therapy Assessment Goals Five Impairment strength Impairment R shoulder flexion 4/5 MMT R shoulder ER and abduction 4- /5 MMT Short Term Goal (STG) Pt will increase R shoulder flexion, abduction, and ER MMT scores to at least 4/5 in order to demonstrate improved strength for lifting, reaching , and ADLs 06/06/23: 4- flex and ER, IR 4+ /5, abd 4/5 and ER STG Duration 4 weeks PARTIALLY MET Long-Term Goal (LTG) Pt will increase R shoulder flexion, abduction, and ER MMT scores to at least 4+/5 in order to demonstrate improved strength for lifting, reaching , and ADLs 06/06/23: 4- flex and ER, IR 4+ /5, abd 4/5 and ER LTG Duration 8 weeks NOT MET One Impairment sleep Impairment unable to sleep in R shoulder 1-2 hours (side or back) Short Term Goal (STG) Pt will report that she is able to sleep > 2 hours without waking due to pain or numbness in order to demonstrate improved symptom management 05/26/23: reports still waking up at least 2-3x/night with hand numbness 05/28/23: Trialed sleep positions w/ pillow supports - pt to try L sidelying w/ RUE hugging pillow. 06/06/23: still waking up 3-4 times per night even with new sleeping position changes STG Duration 4 weeks NOT MET Medical Equipment Technician Goal (LTG) Pt will report that she is able to sleep without waking due to pain or numbness in order to demonstrate improved symptom management 06/06/23: still waking up 3-4 times per night even with new sleeping position changes; states improved sleeping with new position, but pillow moves so unable to stay asleep LTG Duration 8 weeks NOT MET Four Impairment R shoulder AROM Impairment R abduction 100 deg, ER 40 deg at 0 deg abd Short Term Goal (STG) Pt will increase R shoulder abduction to at least 110 deg abduction without compensation and ER to at least 50 deg in order to demonstrate improvements in arm elevation for reaching and ADLs 05/26/23: 120 deg abd (painful end range), 60 deg ER (not painful) 06/06/23: 140 deg flex, 120 abd (painful end range), 65 deg ER at 0 deg abd STG Duration 4 weeks Medical Equipment Technician Goal (LTG) Pt will increase R shoulder abduction to at least 120 deg abduction without compensation and ER to at least 60 deg in order to demonstrate improvements in arm elevation for reaching and ADLs 05/26/23: 120 deg abd (painful end range), 60 deg ER (not painful) 06/06/23: 140 deg flex, 120 abd (painful end range), 65 deg ER at 0 deg abd 06/10/23: 135 flex, 140 abd, 65 ER, T9 Ir, 75 IR LTG Duration 8 weeks MET Three Impairment R shoulder AROM Impairment Apley IR T12 Short Term Goal (STG) Pt will increase R shoulder Apley IR to at least T9 in order to demonstate improved AROM for ADLs and dressing 05/26/23: T10 with increased pain 06/06/23: T9, painful STG Duration 4 weeks MET Medical Equipment Technician Goal (LTG) Pt will increase R shoulder Apley IR to at least T6 in order to demonstate improved AROM for ADLs and dressing, comparable to LUE 06/10/23: T9, painful LTG Duration 8 weeks Two Impairment cervical spine AROM Impairment R rotation 65 deg Short Term Goal (STG) Pt will increase R cervical spine rotation AROM to at least 70 deg in order to be comparable to L cervical spine rotation for improved visual scanning 05/26/23: 50 deg R cervical rotation 06/06/23: 50 deg flex, 30 deg ext, 30 deg B lateral flexion, 55 deg R rot, 68 deg L rot STG Duration 4 weeks NOT MET Long-Term Goal (LTG) Pt will increase R cervical spine rotation AROM to at least 75 deg in order to be comparable to L cervical spine rotation for improved visual scanning 06/06/23: 50 deg flex, 30 deg ext, 30 deg B lateral flexion, 55 deg R rot, 68 deg L rot 06/10/23: 50 deg R rot, 80 deg L rot, 50 deg flex, 30 ext, 30 lateral flexion LTG Duration 8 weeks NOT MET Assessment Summary Assessment Pt tolerated session well without any increase pain. She reports a reduction in pain levels by 1 level at both neck and R shoulder. She continues to respond best to manual treatment, demonstrating improved cervical spine rotation at end of session from 55 to 60 deg on R side. Trigger point present today on R levator scapula, which was tender and reduced with trigger point release. Emphasis on reinforcing postural muscles and posterior capsule elongation. Pt continues to have limitations in full R shoulder ROM, but demonstrates increased ROM during W/Y's and wall exercises. Pt also able to lift B arms off wall, which she was unable to perform in previous sessions. Pt would benefit from skilled PT for symptom reduction and cervicothoracic mobility in order to improve ADL tolerance . Physical Therapy Plan Frequency and Duration Frequency of Treatment 2x/Week Duration of treatment (weeks) 8 Plan of Care Start Date 06/10/23 Plan of Care End Date 08/08/23 Therapeutic Interventions Therapeutic Interventions Balance Training,Coordination Training,Gait Training,Home Exercise Program,Joint Mobilizations,Manual Therapy, Neuromuscular Re-education, Orthotic/Prosthetic Management ,Patient/Caregiver Education, Self-Care/Home Management, Sensory Integration,Soft Tissue Mobilization,Taping, Therapeutic Activities, Therapeutic Exercises, Vestibular Rehabilitation Modalities Biofeedback,Cold Pack/Ice Massage,Electric Stimulation, Hot Packs,Ultrasound, Vasopneumatic Devices Other Therapeutic Interventions No mechanical traction due to osteopenia [place] protocol Next Visit Focus/Plan Next Note Type Treatment Note Next Visit Plan Trial snow bernarda, wall walks with band, TWYs, plank tap, CP Next session: recheck Ts/Ws/Ys facing wall, MRI results and progress into planned gentle rotator cuff strengthening, low row, serratus strengthening, posture strengthening, snow angels, DNF strength, cervical spine stretches/mobility Manual: STM to cervical spine, scalenes, rotator cuff; manual grade II>III mob (inf, post, lat gapping, AC)
--- NOTE | 2023-07-04 10:30 | PT.OTN ---
Current Diagnoses Pain in right shoulder (07/04/23) Anesthesia of skin (07/04/23) Weakness (07/04/23) Physical Therapy Treatment Note PT-OP-A Visit Information Start: 04/18/23 17:10 Freq: Status: Active Protocol: Document 07/04/23 09:48 NM (Rec: 07/04/23 10:30 NM [id number]) Out-Patient Physical Therapy Visit Information Visit Information Visit Type Treatment Note Visit Start Time 09:49 Visit Stop Time 10:29 Visit Number 18 Evaluation Information Evaluation Date 04/21/23 PT-OP-B Current Condition Start: 04/18/23 17:10 Freq: Status: Active Protocol: Document 04/21/23 13:46 NM (Rec: 04/21/23 15:51 NM [id number]) Current Condition History of Current Condition Onset Date 9 months since shoulder, last 2 months since arm radiation Current Complaints pain, numbness/tingling History of Current Condition Pt presents with R shoulder pain, achiness along the entire arm beginning 9 months ago. Pt does not know what caused her R shoulder to begin hurting. Pain is worse in sleeping (unable to get into a comfortable position) and with reaching/elevation. Reports scapula and neck pain on R shoulder, post shoulder above and below clavicle. Hx of B frozen shoulder and R CARMELO /score 17 years ago. Pt also reports that 2 months ago, her R arm began to fall asleep and feel numb, usually at night but occasionally during the day with certain positions . States the numbness is not localized to a finger, but is the entire hand, which radiates from her shoulder. Reports that her hand becomes numb with sitting in certain positions that can't be replicated (not elevated) or when washing hair (arm elevated). At night, the numbness can last several hours, and she has to resort to shaking her hand to feel better over time. Had R finger surgery on 09/26/22. Tested for carpal tunnel (hx of fibro ) several years ago. States she has not had any changes in her hand strength, but reports changes in her shoulder strength since the incident began. Prior Treatments and Tests no previous PT for condition; hand therapy post finger surgery (OT) Prior Functional Status Baseline Function- Gait daily walk: 2-3 mi, max 4-5 mi (pain in neck) Current Functional Impairments (Reported) Functional Limitations- Mobility/Gait walk with cold PT-OP-C Subjective Start: 04/18/23 17:10 Freq: Status: Active Protocol: Document 07/04/23 09:48 NM (Rec: 07/04/23 10:30 NM [id number]) OP-PT Subjective Patient Comments Patient Comments Pt reports that she did really well yesterday after PT. However, today, she reports that she has more R sided neck pain and tightness. Pt shares that MRI results show some degeneration of cervical spine , planning on doing a NCS due to numbness in hand. Pt is also planning on going to a pain clinic PT-OP-E Functional Tests Start: 04/18/23 17:10 Freq: Status: Active Protocol: Document 04/21/23 13:46 NM (Rec: 04/21/23 15:51 NM [id number]) Functional Tests Apley's Scratch Test Action 1- Left post cuff Action 1- Right post cuff, aches Action 2- Left T3 Action 2- Right T2; tight in shoulder blade, mid back, neck Action 3- Left T6 Action 3- Right T12; most pain in anterior shoulder PT-OP-F Manual Assessment Start: 04/18/23 17:10 Freq: Status: Active Protocol: Document 04/21/23 13:46 NM (Rec: 04/21/23 15:51 NM [id number]) Manual Assessments Soft Tissue Assessment Soft Tissue Mobility Assessment Increased tone on R sided cervical paraspinals, scalenes , SCM. R SCM limits rotation. Observable R carotid pulse. No swelling or atrophy of R arm, danielle near clavicle Joint Mobility Assessment Joint Mobility Assessment Decreased bilateral shoulder AROM. R shoulder AROM and PROM limited in flexion, abduction , and external rotation. Demos impingement signs. No cervical instability. Elevated R 1st rib PT-OP-G Mobility & Gait Start: 04/18/23 17:10 Freq: Status: Active Protocol: Document 04/21/23 13:46 NM (Rec: 04/21/23 15:51 NM [id number]) OP Gait Assessment Gait Gait Assistance Required: Independent Distance (Feet) 150 Comments Gait Comments Decreased trunk rotation with gait PT-OP-H Neuro Start: 04/18/23 17:10 Freq: Status: Active Protocol: Document 04/21/23 13:46 NM (Rec: 04/21/23 15:51 NM [id number]) Sensation Evaluation Comments Summary Comments BUE equally intact to light touch sensation Deep Tendon Reflex & Clonus Assessment Deep Tendon Reflex Left Brachioradialis Deep Tendon Reflex 2+ Normal Left Bicep Deep Tendon Reflex 2+ Normal Right Brachioradialis Deep Tendon Reflex 1+ Diminished Right Bicep Deep Tendon Reflex 3+ Normal But Brisk PT-OP-J Posture/Palpation/Skin Start: 04/18/23 17:10 Freq: Status: Active Protocol: Document 04/21/23 13:46 NM (Rec: 04/21/23 15:51 NM [id number]) Posture Evaluation Position Standing Head/C-Spine Posture Forward Head T-Spine Posture Increased Kyphosis L-Spine Posture Increased Lordosis Shoulder Posture (L) Rounded,(R) Rounded,(L) Forward,(R) Forward,(L) Elevated Scapula Posture (L) Protracted,(R) Protracted Arm Posture (L) Internally Rotated,(R) Internally Rotated Pelvis Posture Anteriorly Tilted Weight Distribution Balanced Hip Posture (L) Neutral,(R) Neutral Knee Posture (L) Genu Valgus,(R) Genu Valgus Patellar Posture (L) Neutral,(R) Neutral Ankle/Foot Posture (L) Pronated,(R) Pronated Palpation Assessment Location cervical spine Palpation Location spinous processes, paraspinals , suboccipitals, periscapulars Palpation Findings Soft Tissue Tightness, Tenderness Palpation Details Soft tissue tightness of B paraspinals (R>L), R upper trapezius, levator scapular, scalenes, SCM. Elevated first rib. Tenderness near mid-cervical spinous processes with P-A springing, none at upper or lower cervical spine. R shoulder Palpation Location rotator cuff, long head biceps tendon, AC joint, SC joint Palpation Findings Soft Tissue Tightness, Tenderness Palpation Details Tenderness of LH biceps tendon . No tenderness of AC or SC joint. Tenderness above and below clavicle. Tenderness along posterior cuff ( supraspinatus and infraspinatus), rhomboid. No tenderness of biceps muscle belly Skin Assessment Other Assessments Skin Assessment Comments RUE has symmetrical color and sensation to LUE. No evidence of swelling in supraclavicular or infraclavicular region, RUE. PT-OP-K Range of Motion Start: 04/18/23 17:10 Freq: Status: Active Protocol: Document 06/10/23 13:00 NM (Rec: 06/10/23 13:47 NM [id number]) Cervical Spine Range of Motion Cervical Spine Active Degrees Flexion 50 Extension 30 Rotation Left 80 Rotation Right 50 Lateral Flexion Left 30 Lateral Flexion Right 30 Comments IE: 55 deg flex, 25 deg ext, 75 deg L rot, 65 deg R rot, 25 deg B lateral flexion- Stretch reported posterior neck with ext; R SB>L SB discomfort, R rotation discomfort in shoulder. Reports not pain 05/26/23: 40 deg flex, 40 deg ext, 30 deg B lateral flexion (demos slight rotatinon), 70 deg rotation L, 50 deg rotation R 06/06/23: 50 deg flex, 30 deg ext, 30 deg B lateral flexion, 55 deg R rot, 68 deg L rot 06/10/23: 50 deg R rot, 80 deg L rot, 50 deg flex, 30 ext, 30 lateral flexion Shoulder Goniometric Range of Motion Shoulder Right Flexion 135 Abduction 140 External Rotation at 0 degrees Abduction 65 Internal Rotation 75 Internal Rotation Behind Back (text) T9 Comments impingement with abduction; pain with end range ER and flexion 05/26/23: 135 deg R flexion ( pain at end range), 120 deg abduction (pain at end range), 60 deg ER at 0 deg abd (no pain), R IR T10 (painful) 06/06/23: 140 deg flex, 120 abd , 65 deg ER at 0 deg abd 06/10/23: 135 flex, 140 abd, 65 ER, T9 Ir, 75 IR PT-OP-L Special Tests Start: 04/18/23 17:10 Freq: Status: Active Protocol: Document 04/21/23 13:46 NM (Rec: 04/21/23 15:51 NM [id number]) Special Tests Cervical Spine Special Tests Upper Limb Tension Test Test Results - median, radial, ulnar Comments no numbness/tingling; reports shoulder pain with depression Spurling's Test Test Results + Comments R sided focal pain in neck, no radiation into arm Traction Test Results - Transverse Ligament Test Results - Alar Ligament Test Results - Shoulder Special Tests Neer Impingement Test Results + Shipman Jose Impingement Test Results + Lift-Off Rotator Cuff Test Results - Comments painful but able to lift off maximally Empty Can Test Results + Comments Improved strength and less pain with full can Drop Arm Rotator Cuff Test Results - Neural Special Tests- Upper Body Tinel Sign Test Results - Comments median n Phalen's Test Results - Vascular Special Tests Adson Maneuver Test Results + Comments decreased radial pulse Claude Test Test Results + Comments reports symptoms after 30 seconds PT-OP-M Strength Start: 04/18/23 17:10 Freq: Status: Active Protocol: Document 06/10/23 13:00 NM (Rec: 06/10/23 13:47 NM [id number]) Shoulder Strength Shoulder Manual Muscle Testing Right Flexion 4- Good- Extension 4+ Good+ Abduction (C5) 4- Good- Adduction 4 Good External Rotation 4- Good- Internal Rotation 4 Good Comments Pain with resisted abduction and external rotation 06/06/23: 4- flex and ER, IR 4+ /5, abd 4/5 and ER PT-OP-Q Treatments Start: 04/18/23 17:10 Freq: Status: Active Protocol: Document 07/04/23 09:48 NM (Rec: 07/04/23 10:30 NM [id number]) Therapeutic Exercises Prone Exercises child's pose Prone Exercise Name rockbacks Reps/Minutes 1x10 wtih 3 hold Comments feels good; post manual tx Standing Exercises snow angels Standing Exercise Name W's > Y's with lift off and lower Side bilateral Resistance AROM- facing wall (toes touch/ belly touch/rolled towel and forehead) Reps/Minutes 1x10 Comments improved ROM pectoralis stretch Standing Exercise Name from 45 deg to above 90 deg- mobilization stretch Side bilateral Equipment Used staggered stance Reps/Minutes 1x60 ea Comments cued chin tuck w/ retracted head posture Other Exercises quadruped Other Exercise Name 1. thoracic ext roll out, 2. thread needle Side bilateral Reps/Minutes 1x10 self STMs Other Exercise Name scalene mobilization with traction @ clavicle, look up/ away Side right Resistance L assist R Reps/Minutes 1 minute Comments reports symptom relief quadruped CS rotation AROM Other Exercise Name flex/ext, rotation Side bilateral Resistance AROM Reps/Minutes 1x8 ea direction Comments post manual tx Manual Therapy Treatment Soft Tissue Mobilization right scalenes at lateral clavicle Body Location right scalenes, SCM UT, levator scap Mobilization Type Rolling,Sustained Pressure, Trigger Point Release Intensity/Depth Moderate Body Position supine, L SL Comments Increased tightness of R sided muscles today, reports slight improvement with soft tissue mobilization. Mod tenderness at LS but no trigger point today. Scalene tightness decrease w/ rolling R shoulder Body Location rhomboids, lat, rotator cuff Mobilization Type Rolling,Sustained Pressure Intensity/Depth Moderate Body Position Sidelying Comments L sidelying. Tenderness rhomboids, reduced w/ rolling and small sustained pressure. Relaxation of muscles palpable cervical spine Body Location paraspinals Mobilization Type Rolling Intensity/Depth Superficial Body Position Hooklying Comments R sided more limited than L side. Reduced tightness w/ rolling Self-Care/Home Management Treatment Education Patient Education Home Exercise Program Other Education HEP (no HO issued): scaleazalea MWM PT-OP-T Assessment and Plan Start: 04/18/23 17:10 Freq: Status: Active Protocol: Document 07/04/23 09:48 NM (Rec: 07/04/23 10:30 NM [id number]) Physical Therapy Assessment Goals Five Impairment strength Impairment R shoulder flexion 4/5 MMT R shoulder ER and abduction 4- /5 MMT Short Term Goal (STG) Pt will increase R shoulder flexion, abduction, and ER MMT scores to at least 4/5 in order to demonstrate improved strength for lifting, reaching , and ADLs 06/06/23: 4- flex and ER, IR 4+ /5, abd 4/5 and ER STG Duration 4 weeks PARTIALLY MET Development Expert Goal (LTG) Pt will increase R shoulder flexion, abduction, and ER MMT scores to at least 4+/5 in order to demonstrate improved strength for lifting, reaching , and ADLs 06/06/23: 4- flex and ER, IR 4+ /5, abd 4/5 and ER LTG Duration 8 weeks NOT MET One Impairment sleep Impairment unable to sleep in R shoulder 1-2 hours (side or back) Short Term Goal (STG) Pt will report that she is able to sleep > 2 hours without waking due to pain or numbness in order to demonstrate improved symptom management 05/26/23: reports still waking up at least 2-3x/night with hand numbness 05/28/23: Trialed sleep positions w/ pillow supports - pt to try L sidelying w/ RUE hugging pillow. 06/06/23: still waking up 3-4 times per night even with new sleeping position changes STG Duration 4 weeks NOT MET Usp Goal (LTG) Pt will report that she is able to sleep without waking due to pain or numbness in order to demonstrate improved symptom management 06/06/23: still waking up 3-4 times per night even with new sleeping position changes; states improved sleeping with new position, but pillow moves so unable to stay asleep LTG Duration 8 weeks NOT MET Four Impairment R shoulder AROM Impairment R abduction 100 deg, ER 40 deg at 0 deg abd Short Term Goal (STG) Pt will increase R shoulder abduction to at least 110 deg abduction without compensation and ER to at least 50 deg in order to demonstrate improvements in arm elevation for reaching and ADLs 05/26/23: 120 deg abd (painful end range), 60 deg ER (not painful) 06/06/23: 140 deg flex, 120 abd (painful end range), 65 deg ER at 0 deg abd STG Duration 4 weeks Usp Goal (LTG) Pt will increase R shoulder abduction to at least 120 deg abduction without compensation and ER to at least 60 deg in order to demonstrate improvements in arm elevation for reaching and ADLs 05/26/23: 120 deg abd (painful end range), 60 deg ER (not painful) 06/06/23: 140 deg flex, 120 abd (painful end range), 65 deg ER at 0 deg abd 06/10/23: 135 flex, 140 abd, 65 ER, T9 Ir, 75 IR LTG Duration 8 weeks MET Three Impairment R shoulder AROM Impairment Apley IR T12 Short Term Goal (STG) Pt will increase R shoulder Apley IR to at least T9 in order to demonstate improved AROM for ADLs and dressing 05/26/23: T10 with increased pain 06/06/23: T9, painful STG Duration 4 weeks MET Development Expert Goal (LTG) Pt will increase R shoulder Apley IR to at least T6 in order to demonstate improved AROM for ADLs and dressing, comparable to LUE 06/10/23: T9, painful LTG Duration 8 weeks Two Impairment cervical spine AROM Impairment R rotation 65 deg Short Term Goal (STG) Pt will increase R cervical spine rotation AROM to at least 70 deg in order to be comparable to L cervical spine rotation for improved visual scanning 05/26/23: 50 deg R cervical rotation 06/06/23: 50 deg flex, 30 deg ext, 30 deg B lateral flexion, 55 deg R rot, 68 deg L rot STG Duration 4 weeks NOT MET Development Expert Goal (LTG) Pt will increase R cervical spine rotation AROM to at least 75 deg in order to be comparable to L cervical spine rotation for improved visual scanning 06/06/23: 50 deg flex, 30 deg ext, 30 deg B lateral flexion, 55 deg R rot, 68 deg L rot 06/10/23: 50 deg R rot, 80 deg L rot, 50 deg flex, 30 ext, 30 lateral flexion LTG Duration 8 weeks NOT MET Assessment Summary Assessment Pt tolerated session well. Emphasis on cervicothoracic mobility. Improved symptoms with thoracic rotation and extension. Pt able to reach up to end range during ball roll out and yuliana pose. Improved periscapular control with W>Y lift offs. Pt continues to have tightness of R sided cervical paraspinals, periscapulars, and scalenes. Symptom consistently improve short term with manual treatment. PT has been educated consistently on body mechanics, sleeping position, and postural awareness. PT and pt discussed pt progression, and pt is wanting to discharge at next session with maintenance program in order to pursue additional treatments for pain reduction. Physical Therapy Plan Frequency and Duration Frequency of Treatment 2x/Week Duration of treatment (weeks) 8 Plan of Care Start Date 06/10/23 Plan of Care End Date 08/08/23 Therapeutic Interventions Therapeutic Interventions Balance Training,Coordination Training,Gait Training,Home Exercise Program,Joint Mobilizations,Manual Therapy, Neuromuscular Re-education, Orthotic/Prosthetic Management ,Patient/Caregiver Education, Self-Care/Home Management, Sensory Integration,Soft Tissue Mobilization,Taping, Therapeutic Activities, Therapeutic Exercises, Vestibular Rehabilitation Modalities Biofeedback,Cold Pack/Ice Massage,Electric Stimulation, Hot Packs,Ultrasound, Vasopneumatic Devices Other Therapeutic Interventions No mechanical traction due to osteopenia [place] protocol Next Visit Focus/Plan Next Note Type Discharge Summary Next Visit Plan Trial snow bernarda, wall walks with band, TWYs, plank tap, CP Next session: recheck Ts/Ws/Ys facing wall, MRI results and progress into planned gentle rotator cuff strengthening, low row, serratus strengthening, posture strengthening, snow angels, DNF strength, cervical spine stretches/mobility Manual: STM to cervical spine, scalenes, rotator cuff; manual grade II>III mob (inf, post, lat gapping, AC)
--- NOTE | 2023-07-09 12:17 | PT.OTN ---
Current Diagnoses Pain in right shoulder (07/04/23) Anesthesia of skin (07/04/23) Weakness (07/04/23) Physical Therapy Treatment Note PT-OP-A Visit Information Start: 04/18/23 17:10 Freq: Status: Active Protocol: Document 07/09/23 11:22 NM (Rec: 07/09/23 12:16 NM [id number]) Out-Patient Physical Therapy Visit Information Visit Information Visit Type Discharge Summary Visit Start Time 11:22 Visit Stop Time 12:00 Visit Number 19 Evaluation Information Evaluation Date 04/21/23 Precautions Precautions osteopenia, fibromyalgia PT-OP-B Current Condition Start: 04/18/23 17:10 Freq: Status: Active Protocol: Document 04/21/23 13:46 NM (Rec: 04/21/23 15:51 NM [id number]) Current Condition History of Current Condition Onset Date 9 months since shoulder, last 2 months since arm radiation Current Complaints pain, numbness/tingling History of Current Condition Pt presents with R shoulder pain, achiness along the entire arm beginning 9 months ago. Pt does not know what caused her R shoulder to begin hurting. Pain is worse in sleeping (unable to get into a comfortable position) and with reaching/elevation. Reports scapula and neck pain on R shoulder, post shoulder above and below clavicle. Hx of B frozen shoulder and R CARMELO /score 17 years ago. Pt also reports that 2 months ago, her R arm began to fall asleep and feel numb, usually at night but occasionally during the day with certain positions . States the numbness is not localized to a finger, but is the entire hand, which radiates from her shoulder. Reports that her hand becomes numb with sitting in certain positions that can't be replicated (not elevated) or when washing hair (arm elevated). At night, the numbness can last several hours, and she has to resort to shaking her hand to feel better over time. Had R finger surgery on 09/26/22. Tested for carpal tunnel (hx of fibro ) several years ago. States she has not had any changes in her hand strength, but reports changes in her shoulder strength since the incident began. Prior Treatments and Tests no previous PT for condition; hand therapy post finger surgery (OT) Prior Functional Status Baseline Function- Gait daily walk: 2-3 mi, max 4-5 mi (pain in neck) Current Functional Impairments (Reported) Functional Limitations- Mobility/Gait walk with cold PT-OP-C Subjective Start: 04/18/23 17:10 Freq: Status: Active Protocol: Document 07/09/23 11:22 NM (Rec: 07/09/23 12:16 NM [id number]) OP-PT Subjective Patient Comments Patient Comments Pt ready to discharge today. Reports that her neck feels better but she continues to have numbness/tingling every night if her arm is by her side. She is really trying to work on her posture, which she thinks has helped. She ordered a theracane. Overall, stretching always feels good. States that her neck pain averages a 6/10 (current 4/10) , shoulder 4/10 (current 4/10) . She states that the SCM/ scalene self mobilization feels very good. PT-OP-E Functional Tests Start: 04/18/23 17:10 Freq: Status: Active Protocol: Document 04/21/23 13:46 NM (Rec: 04/21/23 15:51 NM [id number]) Functional Tests Apley's Scratch Test Action 1- Left post cuff Action 1- Right post cuff, aches Action 2- Left T3 Action 2- Right T2; tight in shoulder blade, mid back, neck Action 3- Left T6 Action 3- Right T12; most pain in anterior shoulder PT-OP-F Manual Assessment Start: 04/18/23 17:10 Freq: Status: Active Protocol: Document 04/21/23 13:46 NM (Rec: 04/21/23 15:51 NM [id number]) Manual Assessments Soft Tissue Assessment Soft Tissue Mobility Assessment Increased tone on R sided cervical paraspinals, scalenes , SCM. R SCM limits rotation. Observable R carotid pulse. No swelling or atrophy of R arm, danielle near clavicle Joint Mobility Assessment Joint Mobility Assessment Decreased bilateral shoulder AROM. R shoulder AROM and PROM limited in flexion, abduction , and external rotation. Demos impingement signs. No cervical instability. Elevated R 1st rib PT-OP-G Mobility & Gait Start: 04/18/23 17:10 Freq: Status: Active Protocol: Document 04/21/23 13:46 NM (Rec: 04/21/23 15:51 NM [id number]) OP Gait Assessment Gait Gait Assistance Required: Independent Distance (Feet) 150 Comments Gait Comments Decreased trunk rotation with gait PT-OP-H Neuro Start: 04/18/23 17:10 Freq: Status: Active Protocol: Document 04/21/23 13:46 NM (Rec: 04/21/23 15:51 NM [id number]) Sensation Evaluation Comments Summary Comments BUE equally intact to light touch sensation Deep Tendon Reflex & Clonus Assessment Deep Tendon Reflex Left Brachioradialis Deep Tendon Reflex 2+ Normal Left Bicep Deep Tendon Reflex 2+ Normal Right Brachioradialis Deep Tendon Reflex 1+ Diminished Right Bicep Deep Tendon Reflex 3+ Normal But Brisk PT-OP-J Posture/Palpation/Skin Start: 04/18/23 17:10 Freq: Status: Active Protocol: Document 04/21/23 13:46 NM (Rec: 04/21/23 15:51 NM [id number]) Posture Evaluation Position Standing Head/C-Spine Posture Forward Head T-Spine Posture Increased Kyphosis L-Spine Posture Increased Lordosis Shoulder Posture (L) Rounded,(R) Rounded,(L) Forward,(R) Forward,(L) Elevated Scapula Posture (L) Protracted,(R) Protracted Arm Posture (L) Internally Rotated,(R) Internally Rotated Pelvis Posture Anteriorly Tilted Weight Distribution Balanced Hip Posture (L) Neutral,(R) Neutral Knee Posture (L) Genu Valgus,(R) Genu Valgus Patellar Posture (L) Neutral,(R) Neutral Ankle/Foot Posture (L) Pronated,(R) Pronated Palpation Assessment Location cervical spine Palpation Location spinous processes, paraspinals , suboccipitals, periscapulars Palpation Findings Soft Tissue Tightness, Tenderness Palpation Details Soft tissue tightness of B paraspinals (R>L), R upper trapezius, levator scapular, scalenes, SCM. Elevated first rib. Tenderness near mid-cervical spinous processes with P-A springing, none at upper or lower cervical spine. R shoulder Palpation Location rotator cuff, long head biceps tendon, AC joint, SC joint Palpation Findings Soft Tissue Tightness, Tenderness Palpation Details Tenderness of LH biceps tendon . No tenderness of AC or SC joint. Tenderness above and below clavicle. Tenderness along posterior cuff ( supraspinatus and infraspinatus), rhomboid. No tenderness of biceps muscle belly Skin Assessment Other Assessments Skin Assessment Comments RUE has symmetrical color and sensation to LUE. No evidence of swelling in supraclavicular or infraclavicular region, RUE. PT-OP-K Range of Motion Start: 04/18/23 17:10 Freq: Status: Active Protocol: Document 07/09/23 11:22 NM (Rec: 07/09/23 12:16 NM [id number]) Cervical Spine Range of Motion Cervical Spine Active Degrees Flexion 50 Extension 30 Rotation Left 80 Rotation Right 50 Lateral Flexion Left 30 Lateral Flexion Right 30 Comments IE: 55 deg flex, 25 deg ext, 75 deg L rot, 65 deg R rot, 25 deg B lateral flexion- Stretch reported posterior neck with ext; R SB>L SB discomfort, R rotation discomfort in shoulder. Reports not pain 05/26/23: 40 deg flex, 40 deg ext, 30 deg B lateral flexion (demos slight rotatinon), 70 deg rotation L, 50 deg rotation R 06/06/23: 50 deg flex, 30 deg ext, 30 deg B lateral flexion, 55 deg R rot, 68 deg L rot 06/10/23: 50 deg R rot, 80 deg L rot, 50 deg flex, 30 ext, 30 lateral flexion 07/09/23: 20 deg ext, 55 deg flex, 25 deg L, 20 deg R LF, 60 deg L, 50 deg R rot Shoulder Goniometric Range of Motion Shoulder Right Flexion 140 Abduction 140 External Rotation at 0 degrees Abduction 70 Internal Rotation 75 Internal Rotation Behind Back (text) T9 Comments impingement with abduction; pain with end range ER and flexion 05/26/23: 135 deg R flexion ( pain at end range), 120 deg abduction (pain at end range), 60 deg ER at 0 deg abd (no pain), R IR T10 (painful) 06/06/23: 140 deg flex, 120 abd , 65 deg ER at 0 deg abd 06/10/23: 135 flex, 140 abd, 65 ER, T9 Ir, 75 IR 07/09/23: 140 deg flex, 140 deg abd, 70 deg ER, IR to T10 PT-OP-L Special Tests Start: 04/18/23 17:10 Freq: Status: Active Protocol: Document 04/21/23 13:46 NM (Rec: 04/21/23 15:51 NM [id number]) Special Tests Cervical Spine Special Tests Upper Limb Tension Test Test Results - median, radial, ulnar Comments no numbness/tingling; reports shoulder pain with depression Spurling's Test Test Results + Comments R sided focal pain in neck, no radiation into arm Traction Test Results - Transverse Ligament Test Results - Alar Ligament Test Results - Shoulder Special Tests Neer Impingement Test Results + Shipman Jose Impingement Test Results + Lift-Off Rotator Cuff Test Results - Comments painful but able to lift off maximally Empty Can Test Results + Comments Improved strength and less pain with full can Drop Arm Rotator Cuff Test Results - Neural Special Tests- Upper Body Tinel Sign Test Results - Comments median n Phalen's Test Results - Vascular Special Tests Adson Maneuver Test Results + Comments decreased radial pulse Claude Test Test Results + Comments reports symptoms after 30 seconds PT-OP-M Strength Start: 04/18/23 17:10 Freq: Status: Active Protocol: Document 07/09/23 11:22 NM (Rec: 07/09/23 12:16 NM [id number]) Shoulder Strength Shoulder Manual Muscle Testing Right Flexion 4+ Good+ Extension 4+ Good+ Abduction (C5) 4 Good Adduction 4+ Good+ External Rotation 4+ Good+ Internal Rotation 4+ Good+ Comments Pain with resisted abduction and external rotation 06/06/23: 4- flex and ER, IR 4+ /5, abd 4/5 and ER 07/09/23: 4/5 abd, 4+/5 flex/ER /IR PT-OP-Q Treatments Start: 04/18/23 17:10 Freq: Status: Active Protocol: Document 07/09/23 11:22 NM (Rec: 07/09/23 12:16 NM [id number]) Therapeutic Exercises Sitting Exercises executive business coach Sitting Exercise Name rotator cuff and periscapular strengthening Side bilateral Resistance lvl 1 band around forearms Reps/Minutes 1x10 Comments pain free; fatiguing cervical spine stretch Sitting Exercise Name 1. UT (bilateral), 2. LS ( bilateral) Equipment Used hand holding plinth for tension Reps/Minutes 2x30 ea Comments reports good stretch, pain free and no symptoms to R Standing Exercises snow angels Standing Exercise Name W's > Y's with lift off and lower Side bilateral Resistance AROM- facing wall (toes touch/ belly touch/rolled towel and forehead) Reps/Minutes 2x10 Comments improved ROM rows Standing Exercise Name 1. high row, 2. low row Resistance lvl 2 tb Reps/Minutes 2x10 Comments cued shldr relaxation; pain free Other Exercises self STMs Other Exercise Name subscapularis self mobilization Side right Resistance L assist R, R arm across body Reps/Minutes 1 minute Comments reports symptom relief Manual Therapy Treatment Soft Tissue Mobilization right scalenes at lateral clavicle Body Location right scalenes, SCM, UT, levator scap Mobilization Type Rolling,Sustained Pressure, Trigger Point Release Intensity/Depth Moderate Body Position supine, L SL Comments Less tightness of R sided muscles today, reports slight improvement with soft tissue mobilization. Scalene tightness decrease w/ rolling R shoulder Body Location rhomboids, lat, rotator cuff Mobilization Type Rolling,Sustained Pressure Intensity/Depth Moderate Body Position Sidelying Comments L sidelying. Tenderness and tightness of rhomboids, reduced w/ rolling and small sustained pressure. Relaxation of muscles palpable cervical spine Body Location paraspinals Mobilization Type Rolling Intensity/Depth Superficial Body Position Hooklying Comments Less tenderness/tightness today. R sided more limited than L side. Reduced tightness w/ rolling Self-Care/Home Management Treatment Education Patient Education Home Exercise Program Other Education HEP: added low row, high row, executive business coach to HEP. Reviewed past HEP, condensed. Issued lvl 2 band PT-OP-T Assessment and Plan Start: 04/18/23 17:10 Freq: Status: Active Protocol: Document 07/09/23 11:22 NM (Rec: 07/09/23 12:16 NM [id number]) Physical Therapy Assessment Goals Five Impairment strength Impairment R shoulder flexion 4/5 MMT R shoulder ER and abduction 4- /5 MMT Short Term Goal (STG) Pt will increase R shoulder flexion, abduction, and ER MMT scores to at least 4/5 in order to demonstrate improved strength for lifting, reaching , and ADLs 06/06/23: 4- flex and ER, IR 4+ /5, abd 4/5 and ER STG Duration 4 weeks PARTIALLY MET E Marketing Specialist Goal (LTG) Pt will increase R shoulder flexion, abduction, and ER MMT scores to at least 4+/5 in order to demonstrate improved strength for lifting, reaching , and ADLs 06/06/23: 4- flex and ER, IR 4+ /5, abd 4/5 and ER 07/09/23: 4/5 abd, 4+/5 flex/ER /IR LTG Duration 8 weeks PARTIALLY MET One Impairment sleep Impairment unable to sleep in R shoulder 1-2 hours (side or back) Short Term Goal (STG) Pt will report that she is able to sleep > 2 hours without waking due to pain or numbness in order to demonstrate improved symptom management 05/26/23: reports still waking up at least 2-3x/night with hand numbness 05/28/23: Trialed sleep positions w/ pillow supports - pt to try L sidelying w/ RUE hugging pillow. 06/06/23: still waking up 3-4 times per night even with new sleeping position changes STG Duration 4 weeks NOT MET E Marketing Specialist Goal (LTG) Pt will report that she is able to sleep without waking due to pain or numbness in order to demonstrate improved symptom management 06/06/23: still waking up 3-4 times per night even with new sleeping position changes; states improved sleeping with new position, but pillow moves so unable to stay asleep 07/09/23: reports still waking nightly due to numbness/ tingling LTG Duration 8 weeks NOT MET Four Impairment R shoulder AROM Impairment R abduction 100 deg, ER 40 deg at 0 deg abd Short Term Goal (STG) Pt will increase R shoulder abduction to at least 110 deg abduction without compensation and ER to at least 50 deg in order to demonstrate improvements in arm elevation for reaching and ADLs 05/26/23: 120 deg abd (painful end range), 60 deg ER (not painful) 06/06/23: 140 deg flex, 120 abd (painful end range), 65 deg ER at 0 deg abd STG Duration 4 weeks Alf Goal (LTG) Pt will increase R shoulder abduction to at least 120 deg abduction without compensation and ER to at least 60 deg in order to demonstrate improvements in arm elevation for reaching and ADLs 05/26/23: 120 deg abd (painful end range), 60 deg ER (not painful) 06/06/23: 140 deg flex, 120 abd (painful end range), 65 deg ER at 0 deg abd 06/10/23: 135 flex, 140 abd, 65 ER, T9 Ir, 75 IR 07/09/23: 140 deg flex, 140 deg abd, 70 deg ER, IR to T10 LTG Duration 8 weeks MET Three Impairment R shoulder AROM Impairment Apley IR T12 Short Term Goal (STG) Pt will increase R shoulder Apley IR to at least T9 in order to demonstate improved AROM for ADLs and dressing 05/26/23: T10 with increased pain 06/06/23: T9, painful STG Duration 4 weeks MET E Marketing Specialist Goal (LTG) Pt will increase R shoulder Apley IR to at least T6 in order to demonstate improved AROM for ADLs and dressing, comparable to LUE 06/10/23: T9, painful 07/09/23: T10, no pain but tight LTG Duration 8 weeks NOT MET Two Impairment cervical spine AROM Impairment R rotation 65 deg Short Term Goal (STG) Pt will increase R cervical spine rotation AROM to at least 70 deg in order to be comparable to L cervical spine rotation for improved visual scanning 05/26/23: 50 deg R cervical rotation 06/06/23: 50 deg flex, 30 deg ext, 30 deg B lateral flexion, 55 deg R rot, 68 deg L rot STG Duration 4 weeks NOT MET E Marketing Specialist Goal (LTG) Pt will increase R cervical spine rotation AROM to at least 75 deg in order to be comparable to L cervical spine rotation for improved visual scanning 06/06/23: 50 deg flex, 30 deg ext, 30 deg B lateral flexion, 55 deg R rot, 68 deg L rot 06/10/23: 50 deg R rot, 80 deg L rot, 50 deg flex, 30 ext, 30 lateral flexion 07/09/23: 20 deg ext, 55 deg flex, 25 deg L, 20 deg R LF, 60 deg L, 50 deg R rot LTG Duration 8 weeks NOT MET Progress Towards Goals Progress Towards Goals Slow Progress - Other,Goals Met Progress Comments Did not meet cervical ROM, sleeping goals. Partially met strength goal Assessment Summary Assessment Pt tolerated session well. She has tightness in R periscapular region, but less tenderness and tightness overall. Soft tissue restrictions reduced with soft tissue mobilization. Pt has tenderness of R lat/ subscapularis too, educated and correct demonstration of subscapularis self mobilization. Continued with periscapular strengthening, adding low and high rows to HEP. Pt demonstrates improved ROM with W>Y on wall, including maintaining scapular retraction. Initiated high and low rows for further periscapular strengthening, in addition to seated bus drivers for open chain rotator cuff strengthening. Pt tolerated all well without increased pain or discomfort. for the first time today, pt able to stretch upper trap bilaterally without any increase in symptoms. Physical Therapy Plan Frequency and Duration Frequency of Treatment 2x/Week Duration of treatment (weeks) 8 Plan of Care Start Date 06/10/23 Plan of Care End Date 08/08/23 Therapeutic Interventions Therapeutic Interventions Balance Training,Coordination Training,Gait Training,Home Exercise Program,Joint Mobilizations,Manual Therapy, Neuromuscular Re-education, Orthotic/Prosthetic Management ,Patient/Caregiver Education, Self-Care/Home Management, Sensory Integration,Soft Tissue Mobilization,Taping, Therapeutic Activities, Therapeutic Exercises, Vestibular Rehabilitation Modalities Biofeedback,Cold Pack/Ice Massage,Electric Stimulation, Hot Packs,Ultrasound, Vasopneumatic Devices Other Therapeutic Interventions No mechanical traction due to osteopenia [place] protocol Discharge Physical Therapy Discharge Reasons Patient Request Discharge Comments Pt partially met goals. Requesting d/c due to lack of progression Next Visit Focus/Plan Next Visit Plan Discharge from PT
== END 2023-07-10 15:20 | disposition home or self-care (01) ==
LOC: PHYS 11:15
PROVIDERS: Family Provider Registered Nurse Diabetes Educator; PCP Registered Nurse Diabetes Educator; Referring Provider Registered Nurse Diabetes Educator; Visit Provider Registered Nurse Diabetes Educator
DX: M25.511 Pain in right shoulder (principal); R20.0 Anesthesia of skin; R53.1 Weakness
CPT/HCPCS: 97110; 97140; 97162; 97530

== ENCOUNTER → 2023-08-21 07:44 | Outpatient (CLI) | payer MEDICARE, SELFPAY | LOC: PHYS 07:44 | PROVIDERS: Family Provider Registered Nurse Diabetes Educator; PCP Registered Nurse Diabetes Educator; Referring Provider Registered Nurse Diabetes Educator; Visit Provider Registered Nurse Diabetes Educator | DX: M54.12 Radiculopathy, cervical region (principal); R20.0 Anesthesia of skin | CPT/HCPCS: 95886; 95909 ==

== ENCOUNTER → 2024-02-05 14:54 | Outpatient (CLI) | payer MEDICARE, SELFPAY ==
--- NOTE | 2024-02-05 14:55 | DI.MRI.S_ITS ---
PROCEDURE: MR SHOULDER RT WO CON INDICATIONS: Right shoulder impingement history of adhesive capsulitis TECHNIQUE: Noncontrast oblique coronal T2 fast spin echo with fat saturation, oblique sagittal T1 spin echo and T2 fast spin echo with fat saturation, axial T1 spin echo and T2 fast spin echo with fat saturation through the shoulder. COMPARISON: [facility], MR, SHOULDER WITHOUT CONTRAST, 04/18/2016, 12:18. FINDINGS: Image quality: Excellent. Rotator cuff: Low-grade articular and bursal surface partial thickness tear involving distal supraspinatus at its insertion on the humeral head is seen extending to musculotendinous junction. Low-grade articular surface partial-thickness tear involving distal infraspinatus at its insertion on the humeral head. Low-grade intrasubstance partial-thickness tear involving distal subscapularis is seen. No full-thickness rotator cuff tendon rupture. Sagittal images demonstrate no significant rotator cuff muscle atrophy. Bones and bursae: No bone marrow contusions or fractures. Vevy-ov-xfmtrrew acromioclavicular joint osteoarthritic changes are seen with joint space narrowing and downward osteophyte formation depressing the musculotendinous junction of supraspinatus. Type 1 acromion without os acromiale. Small amount of joint effusion and subacromial subdeltoid bursal fluid is seen, no loose bodies.. Capsule and soft tissues: There is subtle fraying of superior anterior labrum with T2 hyperintense signal suggestive of superior anterior glenoid labral tear. Similar signal abnormality and fraying of anterior inferior labrum is also seen. The long head of the biceps tendon demonstrates normal location and morphology. IMPRESSION: 1. Low-grade articular and bursal surface partial thickness tear involving distal supraspinatus extending to musculotendinous junction. Low-grade articular surface partial-thickness tear involving distal infraspinatus. Low-grade intrasubstance partial-thickness tear involving distal subscapularis. No full-thickness rotator cuff tendon rupture. No significant rotator cuff muscle atrophy. 2. Hsym-yw-ufuxhmld acromioclavicular joint osteoarthritis. No fracture or dislocation. Small amount of joint effusion and subacromial subdeltoid bursal fluid, no loose bodies. 3. Finding is suggestive of subtle superior anterior glenoid labral tear as well as anterior inferior glenoid labral tear. Dictated by: Mele Queen M.D. on 02/06/2024 at 15:12 Approved by: Mele Queen M.D. on 02/06/2024 at 15:43
== END ==
PROVIDERS: Family Provider Registered Nurse Diabetes Educator; PCP Registered Nurse Diabetes Educator; Referring Provider Physical Medicine & Rehabilitation; Visit Provider Physical Medicine & Rehabilitation
DX: M75.111 Incomplete rotator cuff tear or rupture of right shoulder, not specified as traumatic (principal); M19.011 Primary osteoarthritis, right shoulder; M75.41 Impingement syndrome of right shoulder; M75.01 Adhesive capsulitis of right shoulder; M25.411 Effusion, right shoulder
CPT/HCPCS: 73221

== ENCOUNTER → 2024-02-09 06:59 | Outpatient (CLI) | payer MEDICARE, SELFPAY ==
[2024-02-09 07:55] LABS: Hematocrit 36.7 % (36-46); Hemoglobin 12.5 g/dL (12.0-16.0); Mean Corpuscular HGB Conc 34.1 % (30-36); Mean Corpuscular Hemoglobin 30.7 PG (26-34); Mean Corpuscular Volume 89.9 fL (80-100); Platelet Count 309 X10^3/uL (150-400); Red Blood Cell Count 4.08 X10^6/uL (4.0-5.2); Red Cell Distribution Width 14.2 % (11.6-14.8); White Blood Cell Count 6.8 X10^3/uL (4.5-11.0)
[2024-02-09 07:59] LABS: Hemoglobin A1C% w Est Avg Glu 5.7 % (4.0-6.0)
[2024-02-09 08:07] LABS: Alanine Aminotransferase 23 IU/L (<35); Albumin 4.3 g/dL (3.5-5.0); Alkaline Phosphatase 62 U/L (38-126); Aspartate Aminotransferase 28 IU/L (14-36); BUN Creatinine Ratio 14.3 (6-22); Bilirubin Total 0.4 mg/dL (0.2-1.3); Blood Urea Nitrogen 14 mg/dL (7-17); Calcium 9.9 mg/dL (8.4-10.2); Carbon Dioxide 25 mmol/L (22-32); Chloride 109 mmol/L (98-107); Cholesterol 163 mg/dL (140-199); Estimated Glomerular Filt Rate > 60 mL/min (>60); Globulin 2.2 g/dL (1.7-4.1); Glucose 114 mg/dL (80-110); HDL Cholesterol 59 mg/dL (40-60); HEMOLYSIS < 15 (0-50); LDL Cholesterol Calculated 73 mg/dL (<100); Potassium 4.3 mmol/L (3.4-5.1); Sodium 140 mmol/L (137-145); Total Protein 6.5 g/dL (6.3-8.2); Triglycerides 155 mg/dL (35-150)
== END ==
PROVIDERS: Family Provider Registered Nurse Diabetes Educator; PCP Registered Nurse Diabetes Educator; Referring Provider Registered Nurse Diabetes Educator; Visit Provider Registered Nurse Diabetes Educator
DX: D64.9 Anemia, unspecified (principal); R73.01 Impaired fasting glucose; E78.5 Hyperlipidemia, unspecified
CPT/HCPCS: 36415; 80053; 80061; 83036; 85027

== ENCOUNTER → 2024-03-31 16:50 | Outpatient (CLI) | payer MEDICARE, SELFPAY ==
--- NOTE | 2024-03-31 16:51 | DI.MG.S_ITS ---
BILATERAL DIGITAL SCREENING MAMMOGRAM 3D/2D WITH CAD: 03/31/2024 CLINICAL: Routine screening. Family history of breast cancer. Comparison is made to exams dated: 03/28/2023 mammogram, 03/23/2022 mammogram, and 03/22/2021 mammogram - [facility]. The breasts are heterogeneously dense, which may obscure small masses (category c / 51-75% glandular tissue). Current study was also evaluated with a Computer Aided Detection (CAD) system. There are benign calcifications in both breasts. No significant masses, calcifications, or other findings are seen in either breast. There has been no significant interval change. IMPRESSION: BENIGN There is no mammographic evidence of malignancy. A 1 year screening mammogram is recommended. Based on the Tyrer Cuzick model (a risk assessment model) the patient's lifetime risk is 6.9% and her 10 year risk is 6.2%. According to the ACR, ACS, and NCCN guidelines, an annual breast MRI exam along with mammogram is recommended if the patient's lifetime risk is 20% or greater. This exam was interpreted at Station ID: [id number]. NOTE: For mammograms, a report in lay terms will be sent to the patient. Approximately 15% of breast malignancies will not be visualized mammographically. In the management of a palpable breast mass, a negative mammogram must not discourage biopsy of a clinically suspicious lesion. Electronically Signed By: Heide ramirez/nacho:04/01/2024 17:19:27 letter sent: Normal Exam ACR BI-RADS Category 2: Benign
== END ==
PROVIDERS: Family Provider Registered Nurse Diabetes Educator; PCP Registered Nurse Diabetes Educator; Referring Provider Registered Nurse Diabetes Educator; Visit Provider Registered Nurse Diabetes Educator
DX: Z12.31 Encounter for screening mammogram for malignant neoplasm of breast (principal); Z80.3 Family history of malignant neoplasm of breast; R92.333 Mammographic heterogeneous density, bilateral breasts
CPT/HCPCS: 77063; 77067

== ENCOUNTER 2024-12-14 12:04 | Day surgery (SDC) | payer MEDICARE, SELFPAY ==
--- NOTE | 2024-12-14 | PATH_ITS ---
[facility] Accession Number: [id number] No. of containers..03 Tissue . 01 Material submitted: . PART A: body - COLON, POLYP @ 45 PART B: body - COLON, POLYP @ 50 PART C: body - COLON, POLYP @ 20 . 01 Diagnosis: Part A: COLON, POLYP @ 45: Hyperplastic polyp. . Part B: COLON, POLYP @ 50: Colonic mucosa with benign lymphoid aggregate. No neoplasm identified. . Part C: COLON, POLYP @ 20: Hyperplastic polyp. [facility] 12/24/2024 1342 Local . 01 Electronically signed: . Bob Calles MD, Pathologist NPI- [id number] . 01 Gross description: . . . . Received are three formalin-filled containers each labeled with the patient's name. . A. In a container labeled polyp at 45. The specimen consists of one fragment of vazquez, soft tissue which measures 0.3 x 0.2 x 0.2 cm. The specimen is totally submitted in cassette A1. . B. In a container labeled polyp at 50. The specimen consists of two fragments of vazquez, soft tissue which range in size from 0.2 x 0.2 x 0.1 cm to 0.4 x 0.3 x 0.2 cm. All fragments are totally submitetd in cassette B1. . C. In a container labeled polyp at 20. The specimen consists of one fragment of vazquez, soft tissue which measures 0.4 x 0.3 x 0.2 cm. The specimen is totally submitted in cassette C1. ([id number]) /[facility] 12/24/2024 1342 Local . 01 Pathologist provided ICD-10: K63.5, K63.89 . 01 CPT . 501388, 876238, [id number] Specimen Comment: A courtesy copy of this report has been sent to [facility] Pathology Performed at: [address] [address], [place], [place] [id number] MD Bob Calles MD Phone: [phone]
--- NOTE | 2024-12-14 06:44 | PM.PREOP ---
Pre-operative Note Interval Note History & Physical reviewed/Exam performed by Physician: Yes Changes to H&P: No ASA Class (for procedural sedation): II
[2024-12-14 12:25] VITALS: BP 117/69; PULSE 111; RESP 20; TEMP 36.2; O2SAT 100
[2024-12-14] MEDS: LACTATED RINGERS 1,000 ML 42 ML IV (12:25)
--- NOTE | 2024-12-14 12:53 | PM.OP.COLON ---
Operative Date/Time/Diagnoses Date of procedure: 12/14/24 Time of procedure: 13:32 Pre-op diagnosis: +Cologuard, screening colonoscopy Post-op diagnosis: other (polyps) Procedure & Clinicians Study performed: Screening colonoscopy witih biopsy Same procedure(s) as scheduled: Yes Indications: 73yo F, +Cologuard Surgeon: Kris Viramontes Anesthesia Type: MAC +/- Procedure Notes SCOAP/Timeout: Performed Procedure in detail: Colonoscopy Patient placed in left lateral recumbent position. Time out was performed. Procedural sedation was administered by anesthesia. Examination began with a thorough inspection of the perianal area. There was no evidence of fissures, fistulae, external hemorrhoids or cutaneous malignancy. The colonoscope was then placed into the rectum and the lumen was insufflated with carbon dioxide. The scope was carefully advanced forward. Ultimately the cecum was intubated and confirmed by identification of the ileocecal valve, the appendiceal orifice and the confluence of the taenia. The scope was then slowly withdrawn examining the colon thoroughly in all directions. In the rectum, retroflexion of the scope was performed for inspection of the distal rectum and anal canal. ?Significant colonoscopy findings: ?1. Quality of the preparation-good, [place] 2-3, improved with irrigation/suction ?2. Three sessile polyps, 3mm, benign appearing, all removed with cold snare and sent to pathology, one at 20, 45 and 50cm Scope withdrawal time: 16 minutes Findings: polyp(s) Specimen(s): other (polyps) Estimated Blood Loss: 5 Complications: none Impression: Polyps Await path Post-procedure Recommendations: Colonoscopy in 10 years Plan for aftercare: PACU then home Follow up: as needed Disposition: PACU
[2024-12-14 13:28] VITALS: BP 150/78; PULSE 82; RESP 18; TEMP 36.3; O2SAT 99
[2024-12-14 13:33] VITALS: BP 133/63; PULSE 88; RESP 21; O2SAT 100
[2024-12-14 13:37] VITALS: BP 141/65; PULSE 75; RESP 15; O2SAT 99
[2024-12-14 13:41] VITALS: BP 143/65; PULSE 78; RESP 23; TEMP 36.4; O2SAT 99
== END 2024-12-14 13:57 | disposition home or self-care (01) ==
PROVIDERS: PCP Registered Nurse Diabetes Educator; Referring Provider Registered Nurse Diabetes Educator; Visit Provider Surgery
PROC: 0DJD8ZZ Inspection of Lower Intestinal Tract, Via Natural or Artificial Opening Endoscopic (ICD-10-PCS; CPT 45378; principal; 2024-12-14 13:15)
DX: Z12.11 Encounter for screening for malignant neoplasm of colon (principal); R19.5 Other fecal abnormalities; K63.5 Polyp of colon; E78.5 Hyperlipidemia, unspecified; M79.7 Fibromyalgia
CPT/HCPCS: 45385; J2704; J7120